=== PATIENT | male | born 1940 | race Caucasian/White ===

== ENCOUNTER 2023-09-10 21:54 | Inpatient (IN) ==
--- OUTSIDE RECORDS SUMMARY | 2023-09-10 21:59 | External Medical Summary ---
Author Name Unknown Address Unknown Organization K0G[facility] [address] [place] [id number] Laboratory Report Ordering Provider Test Date Status CHRISTIANMADYCory 08/13/2023 08:15:00 Final Warfarin Therapy
INR: 2 .0-3.0 conventional anticoagulation
INR: 2.5- 3.5 high intensity anticoagulation Observation Date Value Abnormality Reference (Units ) Status PT 08/13/2023 08:15:00 28.0 Above high normal 11 .6-15.2 (seconds) Final INR 08/13/2023 08:15:00 2.6 Above high normal 0. 8-1.2 Final Performing Location [facility] [address] [place] [id number]
--- OUTSIDE RECORDS SUMMARY | 2023-09-10 21:59 | External Medical Summary | Summary of Care ---
Author Name Unknown Organization [facility] Address [address] [place] [address] Phone [phone] Care Team Providers Care Multiplex Operator Name Role Phone Ignacio Prado MD Primary Care Provider [phone]- [phone] Reason for Visit * Reason Onset Date Comments Health Maintenance 07/25/2023 Encounter Details Date Type Department Care Team (Late st Contact Info) Description 07/25/2023 Telephone [facility] [address] [place] [address] Ignacio Prado MD [address] [place] [address] Health Maintenance Allergies No known active allergiesdocumented as of this encounter (statuses as of 07/25/2023) Medications Medication Sig Dispensed Refills Start Date End Date Status NIZORAL SHAM 2 % EXIndications:Seborr heic dermatitis, unspecified as directed 1 5 03/13/2002 Active NASAL SALINE 0.65 % NA SOLNIndications:[employer] Processing [employer] Leader 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,Other acute sinusitis,Postnasal drip flush each nostril morning and night and every 2-4 hrs as needed for nasal dryness or congestion 1 Bottle 3 11/17/2010 Active HYDROCORTISONE 2.5 % EX CREA to affected areas as needed 0 08/23/2014 Active metoprolol succinate XL (TOPROL XL) 25 MG [id number]:Pers istent atrial fibrillation (HCC) Take 0.5 Tabs by mouth daily. 45 Tab 3 03/20/2017 Active Tamsulosin HCl 0.4 MG Oral Capsule (FLOMAX) Take 1 Capsule by mouth at bedtime. 0 06/24/2020 Active Acetaminophen 500 MG Oral Tablet (Tylenol) Take 1 Tablet by mouth every 6 hours as needed for Pain. 1-2 tabs 0 Active Fluticasone Propionate 50 MCG/ACT Nasal Suspension (Flonase) INSTILL 2 SPRAYS IN EACH NOSTRIL EVERY DAY NEEDED 0 03/17/2020 Active Atorvastatin Calcium 40 MG Oral Tablet (Lipitor) Take 1 Tablet by mouth in the morning. 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 current use of anticoagulant therapy TAKE 1 TO 2 TABLETS BY MOUTH ONCE DAILY DIRECTED BY COUMADIN CLINIC 180 Tablet 3 07/05/2023 Active documented as of this encounter (statuses as of 07/25/2023) Active Problems Problem Noted Date Diagnosed Date H/O right inguinal hernia repair 07/01/2023 Moderate dementia with anxiety 07/01/2023 At risk for falls 07/01/2023 Nocturia 07/01/2023 Chronic sinusitis 07/01/2023 Atherosclerosis of [place] artery of lower extrem ity 07/01/2023 Cerebral atrophy 07/01/2023 Coronary artery disease invo lving [place] coronary artery of [place] heart without angina pectoris 07/01/2023 Alcohol ingestion, 1-4 drinks per day 07/01/2023 Polyp of colon 07/01/2023 BPH with obstruction/lower urinary tract symptom s 07/01/2023 Diverticulosis of large intestine without hemorr jessica 07/01/2023 Constipation 12/14/2022 S/P hip replacement, right 12/14/2022 Loss of weight 12/14/2022 Dilated aortic root 01/11/2022 Prediabetes 12/26/2020 Overview: Per Prediabetes protocol Chronic atrial fibrillation 10/15/2019 Warfarin anticoagulation 10/15/2019 Overview: For atrial fibrillation Non-sustained ventricular tachycardia 10/15/2019 Dyslipidemia, goal LDL below 100 09/28/2013 NONALLERGIC RHINITIS 11/17/2010 Noise-induced hearing loss 09/16/1993 Overview: Mod Bilat sensorineural hearing loss History of tobacco use documented as of this encounter (statuses as of 07/25/2023) Resolved Problems Problem Noted Date Diagnosed Date Resolved Date Dementia without behavioral disturbance, psychotic disturbance, mood disturbance, or anxiety 12/14/2022 01/07/2023 Persistent atrial fibrillation 04/04/2015 10/15/2019 Family history of ischemic heart disease 09/28/2013 08/14/2018 Atrial fibrillation 08/07/2013 04/04/20 15 Postnasal drip 11/17/2010 08/14/2018 Seborrheic dermatitis 2017 Overview: ICD-10 update of inactive term DIVERTICULOSIS OF COLON 07/18 documented as of this encounter (statuses as of 07/25/2023) Immunizations Name Administration Dates Next Due COVID-19 mRNA, LNP-s, No Pre serve, 2-Dose Series (Moderna) 12/12/2020,11/14/2020 COVID-19, mRNA, LNP-s, PF, B ooster, 100mcg/0.5mg (Moderna) 08/14/2021 Pneumococcal Conjugate Vacc, 13 Valent (Prevnar) 07/20/2015 Pneumococcal Conjugate Vaccine, 7 Valent 002 Pneumococcal Polysaccharide PPV23 (Pneumovax) 07/16/2018,05/17/2017,06/16/2002 SEASONAL INFLUENZA, PF, 6 M & Above, IM , (FLULAVAL or FLUZONE) 06/27/2019,06/20/2018,06/20/2017 Seasonal Influenza, Quadriva lent Hd (Fluzone Hd) 06/24/2021,06/22/2020 Seasonal Influenza, Quadriva lent Hd, 65+ Yrs 06/14/2022 Seasonal Influenza, Quadrivalent, ID 06/22/2020 Seasonal Influenza, Quadriva lent, No Preserve, IM 07/19/2016,07/20/2015 Seasonal Influenza, Split, I IV3, With Preserve, Inj 06/29/2014,06/21/2013,06/25/2010 TD - Tetanus/Diptheria (ADULT) 02/02/2003,1998 TDAP (age 10 and older)(Boostrix) 01/28/2013 Varicella Zoster Vaccine (Adult) 09/21/2015,12/2004 documented as of this encounter Social History Tobacco Use Types Packs/Day Years Used Date Smoking Tobacco: Former Cigarettes 1.5 30 Q uit: 06/16/1993 Smokeless Tobacco: Never Comments:no passive smoke Alcohol Use Standard Drinks/Week Comments Yes 16.7 (1 standard drink = 0.6 oz pure alcohol) once in awhile PHQ-2 Answer Date Recorded PHQ-2 Score 0 05/09/2020 Hunger Vital Sign Answer Date Recorded Worried About Running Out of Food in the Last Ye ar Never true 07/30/2019 Ran Out of Food in the Last Year Never true 07/30/2019 Sex and Gender Information Value Date Recorded Sex Assigned at Male 10/13/2019 12:48 PM EST Gender Identity Male 10/13/2019 12:48 PM EST Sexual Orientation Straight 10/13/2019 12 :39 PM EST Job Start Date Occupation Industry Not on file Not on file Not on file documented as of this encounter Miscellaneous Notes * Telephone Encounter - Katie Franklin LPN - 07/25/2023 11:44 AM EST Care Gaps Comprehensive Care Outreach Last Office/Telemedicine Visit: 05/10/2023 (in office), Visit date not found (telemedicine) Next Office Visit: 11/14/2023 Hemoglobin AIC Results: Lab Results Component Value Date/Time HEMOGLOBIN A1C - [facility] 6.0 (H) 06/15/2022 12:38 PM Reviewed Health Maintenance below: Health Maintenance Topic Date Due DXA Scan Never done Zoster Vaccines (2 of 3) 11/16/2015 COLONOSCOPY-EVERY 5 YRS AGES 18-100 05/07/2021 Depression Screening 05/09/2021 DTaP,Tdap,and Td Vaccines (2 - Td or Tdap) 01/28/2023 Dexa Colon discuss with pcp due to age Care Gap Outreach Action Taken: Unable to reach documented in this encounter Plan of Treatment Upcoming Encounters Date Type Department Care Team (Late st Contact Info) Description 07/30/2023 8:20 AM EST Laboratory Lab Mobile Phlebotomy [facility] [address] [place] [address] [facility] Mobile Home Draw [address] [place] [address] 07/31/2023 6:00 AM EST Anticoagulation Pharmacy Call Center [phone] [facility] [address] C[facility], [facility] [address] [facility] [address] 08/06/2023 2:00 PM EST [facility] [address] Evy Cummings CRNP [address] [place] [address] 08/14/2023 1:30 PM EST Office Visit [facility] [address] Parth Montero, PA-C [address] [place] [address] 11/14/2023 9:20 AM EST Office Visit Family [facility] [address] [place] [phone] Ignacio Prado MD [address] [place] [address] 11/25/2023 10:00 AM EDT Office Visit Dermat[facility] [address] [facility] [address] Jimmy Henderson MD [address] [facility] [place] [address] 07/06/2024 12:00 PM EDT Office Visit Care at Home [address], [place] [id number] Debo Perkins PA-C [address] [place] [address] Scheduled Procedures Name Priority Associated Diagnoses Date/Ti me COLONOSCOPY FLEXIBLE PROXIMAL DIAGNOSTIC Recall History of colon polyps Health Maintenance Due Date Last Done Comments DXA Scan 1940 Zoster Vaccines (2 of 3) 11/16/2015 09/21/2015, 12/2004 COLONOSCOPY-EVERY 5 YRS AGES 18-100 05/07/2021 05/07/2016, 10/29/2005 Depression Screening 05/09/2021 05/09/2020 DTaP,Tdap,and Td Vaccines (2 - Td or Tdap) 01/28/2023 01/28/2013, 02/02/2003, 09/16/1998 COVID-19 Vaccine (4 - season) 2023 08/14/2021, 12/12/2020, 11/14/2020 Influenza Vaccine (FLU shot) (#1) 2023 06/14/2022, 06/24/2021, 06/22/2020, Additional history exists HbA1c 06/15/2023 06/15/2022, 10/17, 07/07/2012, Additional history exists Pneumococcal Vaccine: 65+ Years Completed 07/16/2018, 05/17/2017, 07/20/2015, Additional history exists GARDASIL-HPV IMMUNIZATION SERIES Aged Out No longer eligible based on patient's age to complete this topic Hepatitis B Aged Out No longer eligi ble based on patient's age to complete this topic MENINGOCOCCAL (MENACTRA/MENVEO) Aged Out No longer eligible based on patient's age to complete this topic documented as of this encounter Medical Devices Not on filedocumented as of this encounter Advance Directives Documents on File Type Date Recorded Patient Scalper Operator Expl anation Advance Directives and Living Will 03/01/2021 ADVANCE DIRECTIVE / LIVING WILL Power of Parking Lot Spotter 03/01/2021 POWER OF A TTORNEY Care Teams Multiplex Operator Relationship Specialty Start Date End Date Ignacio Prado MD [address] [place] [address] PCP - General 07/04/00 documented as of this encounter
--- OUTSIDE RECORDS SUMMARY | 2023-09-10 21:59 | External Medical Summary | Summary of Care ---
Author Name Unknown Organization [facility] Address [address] [place] [address] Phone [phone] Care Team Providers Care Scrap Iron Cutter Name Role Phone Khoa Bunn MD Primary Care Provider [phone]- [phone] Reason for Visit * Reason Comments eRx-Medication Refill Encounter Details Date Type Department Care Team Description 07/05/2023 Refill [facility] [address] [place] [address] Khoa Bunn MD [address] [place] [address] Persistent atrial fibrillation (HCC); Anticoagulation management encounter; salvage determiner current use of anticoagulant therapy Allergies No known active allergiesdocumented as of this encounter (statuses as of 07/05/2023) Medications Medication Sig Dispensed Refills Start Date End Date Status NIZORAL SHAM 2 % EXIndications:Sebo rrheic dermatitis, unspecified as directed 1 5 2 Active NASAL SALINE 0.65 % NA SOLNIndications:Ch ronic rhinitis,Other acute sinusitis,Postnasa l drip flush each nostril morning and night and every 2-4 hrs as needed for nasal dryness or congestion 1 Bottle 3 1 Active HYDROCORTISONE 2.5 % EX CREA to affected areas as needed 0 4 Active metoprolol succinate XL (TOPROL XL) 25 MG [id number]:Pe rsistent atrial fibrillation (HCC) Take 0.5 Tabs by mouth daily. 45 Tab 3 07/05/201 7 Active Tamsulosin HCl 0.4 MG Oral Capsule (FLOMAX) Take 1 Capsule by mouth at bedtime. 0 0 Active Acetaminophen 500 MG Oral Tablet (Tylenol) Take 1 Tablet by mouth every 6 hours as needed for Pain. 1-2 tabs 0 Active Fluticasone Propionate 50 MCG/ACT Nasal Suspension (Flonase) INSTILL 2 SPRAYS IN EACH NOSTRIL EVERY DAY NEEDED 0 0 Active Atorvastatin Calcium 40 MG Oral Tablet (Lipitor) Take 1 Tablet by mouth in the morning. 30 Tablet 0 1 Active Amoxicillin 500 MG Oral Capsule (Amoxil) TAKE FOUR CAPSULES BY MOUTH ONE HOUR BEFORE APPOINTMENT 0 2 Active Neomycin-Polymyxin -Dexameth 3.5-67746-0.1 Ophthalmic Ointment (Maxitrol)Indicati ons:Periorbital edema of both eyes APPLY TOPICALLY TO SKIN UNDER EYES DAILY AT BEDTIME, 3.5 g 3 3 Active Warfarin Sodium 2.5 MG Oral Tablet (Coumadin)Indicati ons:Persistent atrial fibrillation (HCC),Anticoagulat ion management encounter,salvage determiner current use of anticoagulant therapy TAKE 1 TO 2 TABLETS BY MOUTH ONCE DAILY DIRECTED BY [facility]ADIN CLINIC 180 Tablet 3 3 Active Warfarin Sodium 2.5 MG Oral Tablet (Coumadin)Indicati ons:Persistent atrial fibrillation (HCC),Anticoagulat ion management encounter,salvage determiner current use of anticoagulant therapy TAKE 1 TO 2 TABLETS BY MOUTH ONCE DAILY DIRECTED BY [facility]MADIN CLINIC 180 Tablet 1 2 07/05/20 23 Discontinued documented as of this encounter (statuses as of 07/05/2023) Active Problems Problem Noted Date H/O right inguinal hernia repair 023 Moderate dementia with anxiety 3 At risk for falls 07/01/2023 Nocturia 07/01/2023 Chronic sinusitis 07/01/2023 Atherosclerosis of [place] artery of lowe r extremity 07/01/2023 Cerebral atrophy 07/01/2023 Coronary artery disease invo lving [place] coronary artery of [place] heart without angina pectoris 07/01/2023 Alcohol ingestion, 1-4 drinks per day Polyp of colon 07/01/2023 BPH with obstruction/lower urinary tract symptoms 07/01/2023 Diverticulosis of large intestine withou t hemorrhage 07/01/2023 Constipation 12/14/2022 S/P hip replacement, right 12/14/2022 Loss of weight 12/14/2022 Dilated aortic root 01/11/2022 Prediabetes 12/26/2020 Overview: Per Prediabetes protocol Chronic atrial fibrillation 10/15/2019 Warfarin anticoagulation 10/15/2019 Overview: For atrial fibrillation Non-sustained ventricular tachycardia Dyslipidemia, goal LDL below 100 014 NONALLERGIC RHINITIS 11/17/2010 Noise-induced hearing loss 09/16/1993 Overview: Mod Bilat sensorineural hearing loss History of tobacco use documented as of this encounter (statuses as of 07/05/2023) Resolved Problems Problem Noted Date Resolved Date Dementia without behavioral disturbance, psychotic disturbance, mood disturbance, or anxiety 12/14/2022 01/07/2023 Persistent atrial fibrillation 04/04/2015 0 10/15/2019 Family history of ischemic heart disease 014 08/14/2018 Atrial fibrillation 08/07/2013 04/04/2015 Postnasal drip 11/17/2010 08/14/2018 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 Overview: ICD-10 update of inactive term DIVERTICULOSIS OF COLON 08/14/20 18 documented as of this encounter (statuses as of 07/05/2023) Immunizations Name Administration Dates Next Due COVID-19 [...] 0.6 oz pure alcohol) once in awhile Food Insecurity Answer Date Recorded Within the past 12 months, y ou worried that your food would run out before you got money to buy more. Never true 07/30/2019 Within the past 12 months, t he food you bought just didn't last and you didn't have money to get more. Never true 07/30/2019 Sex Assigned at Date Recorded Male 10/13/2019 12:48 PM EST Job Start Date Occupation Industry Not on file Not on file Not on file documented as of this encounter Miscellaneous Notes * Telephone Encounter - Murray Burkett [facility] - 07/05/2023 3:06 PM EDTSigned Prescriptions: Disp Refills Warfarin Sodium 2.5 MG Oral Tablet (Coumad*180 Ta*3 Sig: TAKE 1 TO 2 TABLETS BY MOUTH ONCE DAILY DIRECTED BY COUMADIN CLINIC Authorizing Provider: KHOA BUNN Ordering User: MURRAY BURKETT * Telephone Encounter - Murray Foster [facility] - 07/05/2023 1:03 PM EDTPending Prescriptions: Disp Refills Warfarin Sodium 2.5 MG Oral Tablet 180 Ta*0 Sig: TAKE 1 TO 2 TABLETS BY MOUTH ONCE DAILY DIRECTED BY COUMADIN CLINIC documented in this encounter Plan of Treatment Upcoming Encounters Date Type Specialty Care Team Description 07/09/2023 Laboratory Laboratory Processing [facility] Mobile Home Draw [address] [place] [address] 07/10/2023 Anticoagulation Pharmacy [facility] [address] [place] [address] 08/06/2023 Office Visit Cardiology Evy Cummings CRNP [address] [place] [address] 08/14/2023 Office Visit Cardiology Parth Montero PA-C [address] [place] [address] 11/14/2023 Office Visit Family Medicine Khoa Bunn MD [address], [place] [phone] 11/25/2023 Office Visit Dermatology Jimmy Henderson MD [address] [place] [address] 07/06/2024 Office Visit Family Medicine [place], Debo Cervantes PA-C [address] [place] [address] Scheduled Procedures Name Priority Associated Diagnoses Date/Ti [...] Not on filedocumented as of this encounter Visit Diagnoses Diagnosis Persistent atrial fibrillation (HCC) Atrial fibrillation Anticoagulation management encounter Encounter for therapeutic drug monitoring senior care current use of anticoagulant therapy documented in this encounter Advance Directives Documents on File Type Date Recorded Patient Hunter Guide Expl anation Advance Directives and Living Will 03/01/2021 ADVANCE DIRECTIVE / LIVING WILL Power of Account Support Rep 03/01/2021 POWER OF A TTORNEY Care Teams Scrap Iron Cutter Relationship Specialty Start Date End Date Khoa Bunn MD [address] [place] [address] PCP - General 07/04/00 documented as of this encounter
--- OUTSIDE RECORDS SUMMARY | 2023-09-10 21:59 | External Medical Summary | Summary of Care ---
Author Name Unknown Organization [facility] Address [address] [place] [address] Phone [phone] Care Team Providers Care Hearing Specialist Name Role Phone Khoa Bunn MD Primary Care Provider [phone] Reason for Referral * Evaluate & Treat - Unlimited Visits (Within 10 days (routine)) - Authorized Specialty Diagnoses / Procedures Referred By Contzacarias t Referred To Contact Legal Summer Intern Diagnoses Cerebral atrophy (HCC) Debo Perkins PA-C [address] [place] [address] Referral ID Status Reason Start Date Expiration Date Visits Requested Visits Authorized [id number] Authorized Specialty Services Required 3 [phone] Question Answer Referral Priority Within 10 days (routine) Where should this appointment be scheduled? [facility] Role Community Health/Case Management Assistants [facility]/[employer] Referral Reason Home Visit Comments Is patient being transitioned from [facility] to Complex Case Management? No ? Resources for caregiver for dementia worsening Reason for Visit * Reason Comments Adult Annual Wellness Visit, Initial Vis it Encounter Details Date Type Department Care Team Description 07/01/2023 Home Visit Care at Home [address] [place] [address] Debo Perkins PA-C [address] [place] [address] Chronic atrial fibrillation (HCC)*; Constipation, unspecified constipation type; Dilated aortic root (HCC); Dyslipidemia, goal LDL below 100; History of tobacco use; Loss of weight; Moderate dementia with anxiety, unspecified dementia type (HCC); Atherosclerosis of [place] artery of lower extremity, unspecified laterality, with unspecified presence of clinical manifestation (HCC); Cerebral atrophy (HCC); Noise-induced hearing loss of both ears; Non-sustained ventricular tachycardia (HCC); NONALLERGIC RHINITIS; Prediabetes; S/P hip replacement, right; Warfarin anticoagulation; H/O right inguinal hernia repair; At risk for falls; Nocturia; Chronic sinusitis, unspecified location; Coronary artery disease involving [place] coronary artery of [place] heart without angina pectoris; Alcohol ingestion, 1-4 drinks per day; Polyp of colon, unspecified part of colon, unspecified type; BPH with obstruction/lower urinary tract symptoms; Diverticulosis of large intestine without hemorrhage Allergies No known active allergiesdocumented as of this encounter (statuses as of 07/01/2023) Medications Medication Sig Dispensed Refills Start Date End Date Status NIZORAL SHAM 2 % EXIndications:Sebo rrheic dermatitis, unspecified as directed 1 5 03/13/2002 Active NASAL SALINE 0.65 % NA SOLNIndications:Ch ronic rhinitis,Other acute sinusitis,Postnasa l drip flush each nostril morning and night and every 2-4 hrs as needed for nasal dryness or congestion 1 Bottle 3 11/17/2010 Active HYDROCORTISONE 2.5 % EX CREA to affected areas as needed 0 08/23/2014 Active metoprolol succinate XL (TOPROL XL) 25 MG [id number]:Pe rsistent atrial fibrillation (HCC) Take 0.5 Tabs [...] ONE HOUR BEFORE APPOINTMENT 0 07/10/2022 Active Warfarin Sodium 2.5 MG Oral Tablet (Coumadin)Indicati ons:Persistent atrial fibrillation (HCC),Anticoagulat ion management encounter,[facility] current use of anticoagulant therapy TAKE 1 TO 2 TABLETS BY MOUTH ONCE DAILY DIRECTED BY [facility]IC 180 Tablet 1 08/31/2022 Active Neomycin-Polymyxin -Dexameth [id number] Ophthalmic Ointment (Maxitrol)Indicati ons:Periorbital edema of both eyes APPLY TOPICALLY TO SKIN UNDER EYES DAILY AT BEDTIME, 3.5 g 3 05/10/2023 Active Donepezil HCl 5 MG Oral Tablet (Aricept) Take 1 Tablet by mouth in the morning. Take with largest meal of the day.. 30 Tablet 5 12/14/2022 3 Discontinue d(Medicatio n List Clean Up) documented as of this encounter (statuses as of 07/01/2023) Active Problems Problem Noted Date H/O right inguinal hernia repair 023 Moderate dementia with anxiety 3 At risk for falls 07/01/2023 Nocturia 07/01/2023 Chronic sinusitis 07/01/2023 Atherosclerosis of [place] artery of lowe r extremity 07/01/2023 Cerebral atrophy 07/01/2023 Coronary artery disease invo lving [place] coronary artery of [place] heart without angina pectoris 07/01/2023 Alcohol ingestion, [...] as of this encounter (statuses as of 07/01/2023) Resolved Problems Problem Noted Date Resolved Date Dementia without behavioral disturbance, psychotic disturbance, mood disturbance, or anxiety 12/14/2022 01/07/2023 Persistent atrial fibrillation 04/04/2015 0 10/15/2019 Family history of ischemic heart disease 014 08/14/2018 Atrial fibrillation 08/07/2013 04/04/2015 Postnasal drip 11/17/2010 08/14/2018 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 Overview: ICD-10 update of inactive term DIVERTICULOSIS OF COLON 08/14/20 18 documented as of this encounter (statuses as of 07/01/2023) Immunizations Name Administration Dates Next Due COVID-19 [...] on file documented as of this encounter Last Filed Vital Signs Vital Sign Reading Time Taken Comments Blood Pressure 126/68 07/01/2023 2:17 PM EDT Pulse 73 07/01/2023 2:17 PM EDT Temperature 36.7 C (98.1 F) 07/01/2023 2:17 PM ED T Respiratory Rate 18 07/01/2023 2:17 PM EDT Oxygen Saturation 98% 07/01/2023 2:17 PM EDT Inhaled Oxygen Concentration - - Weight - - Height - - Body Mass Index - - documented in this encounter Progress Notes * Debo Perkins PA-C - 07/01/2023 9:43 AM EDT Images from the original note were not included. ANNUAL HEALTH RISK ASSESSMENT Care at Home [address] [facility] [address] Patient Name: Dimitrios Carreon : 1940 Date of Assessment: 07/01/2023 Gender: Male [facility] [address] [phone] Extended Emergency Contact Information Primary Emergency Contact: DOROTHY CARREON Mobile Relation: Spouse Secondary Emergency Contact: RANDI MONTOYA Relation: Adult Child HRA Intake Documentation: Advance Care Planning: Advance Directive Type: Organ Donor and Information given: Yes Advance Directive Date: na Medical Adherence: Patient is able to obtain all of her medications? Yes Patient takes medications as prescribed? Yes Patient uses a pill box? Yes, refill(s) completed by self Admissions (within the last year): Not Applicable Hospital ER within 30 days: No Health Maintenance Last physical exam: 05/27/23 Does patient see provider regularly? Yes, Primary Care Provider Spirometry: No Dental Exam: Yes: When: every 6 months and Where: dr [facility] Other Test(s) - No time frame specified VASCULAR LAB RESULTS DATE OF EXAM: 11/13/2010 PRESENTING CONDITIONS: Tobacco Use. PHYSICIAN REPORT: Screening Abdominal Aorta Aneurysm Duplex Examination Immediately before proceeding with the vascular lab procedure reported below, the identity of the patient, the correct exam and the correct procedural site were verified. This is an interpretation of an exam performed at the [facility]. Two-dimension hsu-scale ultrasound imaging of the abdominal aorta was performed. Following examination of the abdominal aorta from the diaphragm to the umbilicus, measurement of the aorta was limited to the segment of greatest diameter. The diameter measurement of the abdominal aorta is within normal limits. IMPRESSION: There is no evidence of an abdominal aortic aneurysm. TECHNIQUE Helical images were obtained through the paranasal sinuses. Axial and coronal reformattedimages were evaluated. COMPARISON: None. FINDINGS: A few mastoid tip air cells are opacified on the right. The left mastoid air cells and both middle ear cavities are well pneumatized. There is mild bilateral maxillary sinus mucosal thickening. A small mucus retention cyst is seen in the anterior right maxillary antrum. There are no air-fluid levels. Mild ethmoid sinus mucosal thickening is seen. There is minimal mucosal thickening in the inferior frontal sinus. There is minimal mucosal thickening in the sphenoid sinus. Mild right nasal septal deviation is noted. There is no nasal cavity mass. The right ethmoid infundibulum is markedly narrowed by mucosal thickening. The left ethmoid infundibulum is completely opacified by mucosalthickening. IMPRESSION: Mild paranasal sinus disease as above. The right ethmoid infundibulum is markedly narrowed and the left infundibulum is completely opacified by mucosal thickening. EXAM XR HIP BILAT MIN 5 VIEWS INCLUDING AP OF PELVIS- 10/16/2019 11:03 am HISTORY Provided clinical history: "right hip pain, decreased ROM both hips" TECHNIQUE AP view of the pelvis and dedicated AP and frog-leg lateral views of each hip were obtained. COMPARISON No comparisons FINDINGS Osteoarthritis of both hips, phefevke-mh-uvcphf on the right and mild on the left. No significant joint malalignment. No fracture or aggressive osseous lesion identified. Vascular calcifications noted. IMPRESSION IMPRESSION Osteoarthritis of both hips, dfqeqxbe-og-denquc on the right. 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 COMPARISON None FINDINGS There is no evidence of restricted diffusion to indicate ischemia. No acute intracranial hemorrhage, hydrocephalus, downward herniation, midline shift, mass lesions or extra-axial fluid collections are demonstrated. No abnormal susceptibility artifact No abnormal enhancement. Moderate diffuse volume loss with proportionate prominence of the ventricles and sulci. Patchy and scattered foci of T2 prolongation in the subcortical and periventricular white matter are nonspecific and may reflect sequela of chronic microvascular ischemia. Flow voids are preserved in the proximal intracranial vessels. The midline structures including the pituitary, corpus callosum, brainstem, pineal region and craniocervical junction are unremarkable. Normal orbits. The paranasal sinuses and mastoid air cells are predominantly clear. Calvarium and visualized craniofacial soft tissues are unremarkable. IMPRESSION IMPRESSION Findings most suggestive of chronic microvascular ischemia and global cerebral volume loss, withoutevidence of superimposed acute ischemia. I have personally reviewed this examination and agree with the resident/fellow physician's interpretation. Specimen Collected: 11/28/21 13:22 Last Resulted: 11/28/21 14:21 Narrative & Impression PROCEDURE INFORMATION: Exam: CT Chest With Contrast; Diagnostic Exam date and time: 07/05/2022 11:00 AM Age: 82 years old Clinical indication: Abnormal weight loss TECHNIQUE: Imaging protocol: Diagnostic computed tomography of the chest with contrast. Radiation optimization: All CT scans at this facility use at least one of these dose optimization techniques: automated exposure control; mA and/or kV adjustment per patient size (includes targeted exams where dose is matched to clinical indication); or iterative reconstruction. Contrast material: OPTIRAY 350; Contrast volume: 100 ml; Contrast route: INTRAVENOUS (IV); COMPARISON: CR XR CHEST 2 VIEWS 02/01/2021 11:02 AM FINDINGS: Lungs: Unremarkable. No consolidation. No masses. Pleural spaces: Unremarkable. No pneumothorax. No pleural effusion. Heart: Coronary artery atherosclerosis is noted. Lymph nodes: Calcified mediastinal and hilar lymph nodes, suggestive of remote granulomatous disease. Vasculature: Unremarkable. No aortic aneurysm. Bones/joints: Unremarkable. No acute fracture. Soft tissues: Unremarkable. IMPRESSION IMPRESSION: No acute findings. EXAM US ABDOMEN LIMITED-01/16/2023 10:16 am HISTORY Right groin pain and bulge. Evaluate for hernia. TECHNIQUE Targeted ultrasound. COMPARISON CT abdomen/pelvis 07/05/2022. FINDINGS Targeted superficial ultrasound was performed in the region of the right groin. Small fat containing right groin hernia noted. IMPRESSION IMPRESSION As above. REASON FOR STUDY: 7 days CONCLUSIONS: Preliminary Findings 3 Ventricular Tachycardia runs occurred, the run with the fastest interval lasting 4 beats with a max rate of 182 bpm, the longest lasting 10 beats with an avg rate of 104 bpm. Atrial Fibrillation occurred continuously (100% burden), ranging from 36-165 bpm (avg of 69 bpm). 15 Pauses occurred, the longest lasting 3.6 secs (17 bpm). Isolated VEs were occasional (2.2%, 74248), VE Couplets were rare (<1.0%, 409), and VE Triplets were rare (<1.0%, 22). Ventricular Bigeminy and Trigeminy were present. Agree with Preliminary Findings Afib CONCLUSIONS: Atrial fibrillation with slow ventricular response with premature ventricular or aberrantly conducted complexes Abnormal ECG When compared with ECG of 05-FEB-2022 09:35, No significant change was found Ventricular Rate: 56 Atrial Rate: 81 QRS Duration: 82 QT/QTc: 424/409 ms P-R-T [place]: 0 : 81 : 77 degrees Cultural Needs: Preferred Language: New Zealander Sabianist/Cultural Barriers Identified: 930 Patient and Caregiver Support System: Patient lives: with a spouse and with children Means of Transportation: Drives. Not a concern. and very little Patient lives in: One Story - with basement stairs: 12 steps Functional Status and ADL Skills: Ambulation: Independent Dressing: Gets clothes and dresses without any assistance except for tying shoes: Independent Repositioning (bed or chair): Bed Status: Not applicable Able to move freely in chair or bed including turning over: Independent Transfers: Independent Toileting: Goes to bathroom, uses toilet, arranges clothes and returns without any assistance: Independent Continence status: continent of bladder and continent of bowel Feeding: Self Bathing: Self; grab bar Requires none assistance with ADLs. DME Vendor Name: N/A Fall Risk Assessment: Fall risk factors present. History of falls within the past 12 months Uses more than 4 medications Balance or gait disturbances Older than age 70 Iuu-Yy-puz-Go Test: Time began at 930. Patient stood from sitting position and walked [id number] feet, returned and sat down. Total time for vei-tv-jqx-go test was 13 seconds. The fall risk appears to be increased based on time > 16 sec on "Get Up and Go" test. Nutritional Health Checklist: Changed food due to illness or condition: Yes (2 pts) Eat fewer than 2 meals per day: No (0 pts) Eat few fruits veggies or milk products: No (0 pts) 3 or more drinks or beer, liquor, wine daily: No (0 pts) Tooth or mouth problem: No (0 pts) Not enough money to purchase food: No (0 pts) Eat alone: No (0 pts) 3 or more medications taken per day: Yes (2 pts) Weight change of 10 lbs. In 6 months: Loss, Yes (2 pts) Not always able to shop, cook or feed self: No (0 pts) Total points: 6 Nutritional Health Score & Recommendation: 6 or more: High nutritional risk Depression Screening: PHQ2 Depression Screening Measure Rehab initial measurement Rehab discharge measurement 1. Little interest or pleasure in doing things 1 - several days 2. Feeling down, depressed, or hopeless 1 - several days PHQ-2 Total (sum of all above): 2 1. Feeling nervous, anxious or on edge several days 2. Not being able to stop or control worrying several days YAZ-2 Total (sum of all above): 2 Social Determinants of Health Screening: SDoH Screening Tool Social Determinants of Health Tobacco Use: Medium Risk Smoking Tobacco Use: Former Smokeless Tobacco Use: Never Passive Exposure: Not on file Alcohol Use: Not on file Financial Resource Strain: Not on file Food Insecurity: Not on file Transportation Needs: Not on file Physical Activity: Not on file Stress: Not on file Social Connections: Not on file Intimate Partner Violence: Not on file Depression: Not on file Housing Stability: Not on file Community Resources: Community Resources: Not Applicable Potential Resource Needs from Benefits Identified: No HRA Provider Assessment Documentation: Objective 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 Seborrheic dermatitis, unspecified Warfarin anticoagulation 10/15/2019 Patient Active Problem List Diagnosis Code NONALLERGIC RHINITIS J31.0 Dyslipidemia, goal LDL below 100 E78.5 Chronic atrial fibrillation (HCC) I48.20 Warfarin anticoagulation Z79.01 Non-sustained ventricular tachycardia (HCC) I47.29 History of tobacco use Z87.891 Noise-induced hearing loss H83.3X9 Prediabetes R73.03 Dilated aortic root ([facility]) I77.810 Constipation K59.00 S/P hip replacement, right Z96.641 Loss of weight R63.4 H/O right inguinal hernia repair Z98.890, Z87.19 Moderate dementia with anxiety ([facility]) F03.B4 At risk for falls Z91.81 Nocturia R35.1 Chronic sinusitis J32.9 Atherosclerosis of [place] artery of lower extremity ([facility]) I70.209 Cerebral atrophy ([facility]) G31.9 Coronary artery disease involving [place] coronary artery of [place] heart without angina pectoris I25.10 Alcohol ingestion, 1-4 drinks per day Z78.9 Polyp of colon K63.5 BPH with obstruction/lower urinary tract symptoms N40.1, N13.8 Diverticulosis of large intestine without hemorrhage K57.30 Family History Problem Relation Age of Onset Diabetes Mother Heart Disorder Mother of [place] age 79 Heart Disorder Father of [place] at 72 Diabetes Sister Cancer Brother Colon Neurological Disorder Uncle (Unspecified) Alzheimer's Valvular heart disease Daughter Review of patient's allergies indicates: No Known Allergies Current Outpatient Medications Medication Sig Dispense Refill NIZORAL SHAM 2 % EX as directed 1 5 NASAL SALINE 0.65 % NA SOLN flush each nostril morning and night and every 2-4 hrs as needed for nasal dryness or congestion 1 Bottle 3 HYDROCORTISONE 2.5 % EX CREA to affected areas as needed metoprolol succinate XL (TOPROL XL) 25 MG TB24 Take 0.5 Tabs by mouth daily. 45 Tab 3 Tamsulosin HCl 0.4 MG Oral Capsule (FLOMAX) Take 1 Capsule by mouth at bedtime. Acetaminophen 500 MG Oral Tablet (Tylenol) Take 1 Tablet by mouth every 6 hours as needed for Pain.1-2 tabs Fluticasone Propionate 50 MCG/ACT Nasal Suspension (Flonase) INSTILL 2 SPRAYS IN EACH NOSTRIL EVERYDAY NEEDED Atorvastatin Calcium 40 MG Oral Tablet (Lipitor) Take 1 Tablet by mouth in the morning. 30 Tablet Amoxicillin 500 MG Oral Capsule (Amoxil) TAKE FOUR CAPSULES BY MOUTH ONE HOUR BEFORE APPOINTMENT Warfarin Sodium 2.5 MG Oral Tablet (Coumadin) TAKE 1 TO 2 TABLETS BY MOUTH ONCE DAILY DIRECTED BY COUMADIN CLINIC 180 Tablet 1 Czficyna-Loyqtkirv-Ahbirbbk 3.5-54482-1.1 Ophthalmic Ointment (Maxitrol) APPLY TOPICALLY TO SKIN UNDER EYES DAILY AT BEDTIME, 3.5 g 3 No current facility-administered medications for this visit. Past Surgical History: Procedure Laterality Date COLONOSCOPY 10/17/2005 nl except diverticulosis - repeat 10 years COLONOSCOPY, DIAGNOSTIC (RECTUM) 05/07/2016 adenomatous polyp, diverticulosis repeat 5 yrs/[facility] [place] ARTHRP ACETBLR/PROX FEM PROSTC AGRFT/ALGRFT Right 2020 RMV LSN SCLP,NCK,EXT 1.1-2.0CM 04/16/1995 Excision inf R submandibular sebaceous cyst STRESS ECHO (EXERCISE) 10/17/2003 normal SURGICAL PROCEDURE ONLY Right 04/16/2023 OPEN REPAIR RIGHT INGUINAL HERNIA GENERAL Immunization History Administered Date(s) Administered COVID-19 mRNA, LNP-s, No Preserve, 2-Dose Series (Moderna) 11/14/2020, 12/12/2020 COVID-19, mRNA, LNP-s, PF, Booster, 100mcg/0.5mg (Moderna) 08/14/2021 Pneumococcal Conjugate Vacc, 13 Valent (Prevnar) 07/20/2015 Pneumococcal Conjugate Vaccine, 7 Valent 06/16/2002 Pneumococcal Polysaccharide PPV23 (Pneumovax) 06/16/2002, 05/17/2017, 07/16/2018 SEASONAL INFLUENZA, PF, 6 M & Above, IM , (FLULAVAL or FLUZONE) 06/20/2017, 06/20/2018, 06/27/2019 Seasonal Influenza, Quadrivalent Hd (Fluzone Hd) 06/22/2020, 06/24/2021 Seasonal Influenza, Quadrivalent Hd, 65+ Yrs 06/14/2022 Seasonal Influenza, Quadrivalent, ID 06/22/2020 Seasonal Influenza, Quadrivalent, No Preserve, IM 07/20/2015, 07/19/2016 Seasonal Influenza, Split, IIV3, With Preserve, Inj 06/30/2002, 08/10/2003, 06/25/2005, 06/25/2010,06/21/2013, 06/29/2014 TD - Tetanus/Diptheria (ADULT) 09/16/1998, 02/02/2003 TDAP (age 10 and older)(Boostrix) 01/28/2013 Varicella Zoster Vaccine (Adult) 07/20/2005, 09/21/2015 Preventative Plan: Diabetes (Fasting plasma glucose every 3 years): Hemoglobin AIC Results: Lab Results Component Value Date/Time HEMOGLOBIN A1C - [facility] 6.0 (H) 06/15/2022 12:38 PM Lipid Testing (Every 5 years): Lipid Panel Results: Results for orders placed or performed in visit on 12/24/11 LIPID PANEL Result Value Ref Range CHOLESTEROL-Outside Lab 171 112 - 200 mg/dl TRIGLYCERIDES-OUTSIDE LAB 46 40 - 160 mg/dl HDL-OUTSIDE LAB 77 (A) 40 - 60 mg/dl LDL CHOLESTEROL-OUTSIDE LAB 85 5 - 100 mg/dl VLDL CHOL-OUTSIDE LAB 9 5 - 40 mg/dl Colonoscopy or other screenin05/07/16 Health Maintenance Topic Date Due DXA Scan Never done Zoster Vaccines (2 of 3) 11/16/2015 COLONOSCOPY-EVERY 5 YRS AGES 18-100 05/07/2021 Depression Screening 05/09/2021 DTaP,Tdap,and Td Vaccines (2 - Td or Tdap) 01/28/2023 Influenza Vaccine (FLU shot) (1) 05/17/2023 COVID-19 Vaccine (4 - 2022- season) 2023 HbA1c 06/15/2023 Pneumococcal Vaccine: 65+ Years Completed Hepatitis B Aged Out MENINGOCOCCAL (MENACTRA/MENVEO) Aged Out GARDASIL-HPV IMMUNIZATION SERIES Aged Out Review of Systems: Review of Systems All other systems reviewed and are negative. Physical Exam: Vitals: 07/01/23 1417 Temp: 36.7 C (98.1 F) Pulse: 73 Resp: 18 SpO2: 98% BP: 126/68 Pain Screening: no Pain Scale: 0 = none There is no height or weight on file to calculate BMI. Physical Exam Constitutional: Appearance: Normal appearance. HENT: Head: Normocephalic. Eyes: Extraocular Movements: Extraocular movements intact. Neck: Vascular: No carotid bruit. Cardiovascular: Rate and Rhythm: Normal rate. Rhythm irregular. Pulses: Normal pulses. Pulmonary: Effort: Pulmonary effort is normal. Breath sounds: Normal breath sounds. Abdominal: General: Bowel sounds are normal. Palpations: Abdomen is soft. Musculoskeletal: Cervical back: Neck supple. Right lower leg: Edema present. Skin: General: Skin is warm and dry. Neurological: Mental Status: He is alert. Comments: Alert to person and place. Answers most questions appropriately. Demented at baseline Psychiatric: Mood and Affect: Mood normal. Behavior: Behavior normal. Lab Data: Lab Results Component Value Date/Time BUN - [facility] 18 01/16/2023 10:25 AM BUN - [facility] 11 05/09/2020 02:44 PM Lab Results Component Value Date/Time CREATININE - [facility] 0.8 01/16/2023 10:25 AM CREATININE - [facility] 0.9 05/09/2020 02:44 PM CREATININE-OUTSIDE LAB 0.77 10/26/2020 12:00 AM Lab Results Component Value Date/Time GLUCOSE 104 07/09/1996 08:00 AM GLUCOSE - [facility] 108 01/16/2023 10:25 AM GLUCOSE - [facility] 105 05/09/2020 02:44 PM GLUCOSE URINE, POCT - [facility] Negative 01/27/2021 12:00 AM GLUCOSE-OUTSIDE LAB 104 (A) 10/26/2020 12:00 AM No components found for: [id number] Lab Results Component Value Date/Time LD - [facility] 155 07/23/2022 02:00 PM LDL (CALCULATED) 158. (H) 07/09/1996 08:00 AM LDL (CALCULATED)-OU[facility]IDE LAB 101 (A) 11/13/2019 12:00 AM LDL (DIRECT MEASURE)-OUTS[facility] LAB 101.3 03/07/2016 12:00 AM LDL CHOLESTEROL (CALCULATED) - [facility] 151 (H) 06/17/2002 08:43 AM LDL CHOLESTEROL-OUTSIDE LAB 85 12/10/2011 12:00 AM No results found for: MICROALBUMIN Assessment/Plan: Dimitrios was seen today for adult annual wellness visit, initial visit. Diagnoses and all orders for this visit: Chronic atrial fibrillation (HCC) Constipation, unspecified constipation type Dilated aortic root (HCC) Dyslipidemia, goal LDL below 100 History of tobacco use Loss of weight Moderate dementia with anxiety, unspecified dementia type (HCC) Atherosclerosis of [place] artery of lower extremity, unspecified laterality, with unspecified presence of clinical manifestation (HCC) Cerebral atrophy (HCC) - [facility] REFERRAL OP Noise-induced hearing loss of both ears Non-sustained ventricular tachycardia (HCC) NONALLERGIC RHINITIS Prediabetes S/P hip replacement, right Warfarin anticoagulation H/O right inguinal hernia repair At risk for falls Nocturia Chronic sinusitis, unspecified location Coronary artery disease involving [place] coronary artery of [place] heart without angina pectoris Alcohol ingestion, 1-4 drinks per day Polyp of colon, unspecified part of colon, unspecified type BPH with obstruction/lower urinary tract symptoms Diverticulosis of large intestine without hemorrhage PLAN Pt reports no active issues or adverse effects to the established treatment plan. No changes at this time. Strongly advised to contact her care team if changes occur. Care Planning (3+ Personal and/or Medical Goals): Eat healthy Maintain independence Maintain current activity level Treatment Plan: Continue present medication and follow up with PCP as needed AZEB referral for possible rn critical care. (Dementia) Follow Up/Handouts: CAHAWV f/u one year Debo Perkins PA-C documented in this encounter Plan of Treatment Upcoming Encounters Date Type Specialty Care Team Description 07/09/2023 Laboratory Laboratory Processing [facility], [facility] Draw [address] [place] [address] 07/10/2023 Anticoagulation Pharmacy [facility] [address] [place] [address] 08/06/2023 Office Visit Cardiology Evy Cummings CRNP [address] [place] [address] 08/14/2023 Office Visit Cardiology Parth Montero PA-C [address] [place] [address] 11/14/2023 Office Visit Family Medicine Khoa Bunn MD [address] [place] [address] 11/25/2023 Office Visit Dermatology Jimmy Henderson MD [address] [place], [place] [phone] 07/06/2024 Office Visit Family Medicine Debo Perkins PA-C [address] [place] [address] Scheduled Procedures Name Priority Associated Diagnoses Date/Ti me COLONOSCOPY FLEXIBLE PROXIMAL DIAGNOSTIC Recall History of colon polyps Scheduled Referrals Name Type Priority Associated Diagnoses Orde r Schedule POPULATION HEALTH REFERRAL OP Referral Within 10 days (routine) Cerebral atrophy (HCC) Ordered: 07/01/2023 Health Maintenance Due Date Last Done Comments DXA Scan 1940 Zoster Vaccines (2 of 3) 11/16/2015 09/21/2015, 12/2004 COLONOSCOPY-EVERY 5 YRS AGES 18-100 05/07/2021 05/07/2016, 10/29/2005 Depression Screening 05/09/2021 05/09/2020 DTaP,Tdap,and Td Vaccines (2 - Td or Tdap) 01/28/2023 01/28/2013, 02/02/2003, 09/16/1998 COVID-19 Vaccine (4 - 2022- season) 2023 08/14/2021, 12/12/2020, 11/14/2020 Influenza Vaccine [...] as of this encounter Visit Diagnoses Diagnosis Chronic atrial fibrillation (HCC)- Primary Atrial fibrillation Constipation, unspecified constipation type 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 Dyslipidemia, goal LDL below 100 Other and unspecified hyperlipidemia History of tobacco use Personal history of tobacco use, presenting hazards to health Loss of weight Moderate dementia with anxiety, unspecified dementia type (HCC) Atherosclerosis of [place] artery of lower extremity, unspecified laterality, with unspecified presence of clinical manifestation (HCC) Cerebral atrophy (HCC) Cerebral degeneration, unspecified Noise-induced hearing loss of both ears Non-sustained ventricular tachycardia (HCC) Paroxysmal ventricular tachycardia NONALLERGIC RHINITIS Chronic rhinitis Prediabetes Other abnormal glucose S/P hip replacement, right Warfarin anticoagulation Long-term (current) use of anticoagulants H/O right inguinal hernia repair Other postprocedural status At risk for falls Personal history of fall Nocturia Chronic sinusitis, unspecified location Coronary artery disease involving [place] coronary artery of [place] heart without angina pectoris Alcohol ingestion, 1-4 drinks per day Other problems related to lifestyle Polyp of colon, unspecified part of colon, unspecified type BPH with obstruction/lower urinary tract symptoms Hypertrophy of prostate with urinary obstruction and other lower urinary tract symptoms (LUTS) Diverticulosis of large intestine without hemorrhage documented in this encounter Advance Directives Documents on File Type Date Recorded Patient Data Analysis Intern Expl anation Advance Directives and Living Will 03/01/2021 ADVANCE DIRECTIVE / LIVING WILL Power of Solid Waste Collection Worker 03/01/2021 POWER OF A TTORNEY Care Teams Hearing Specialist Relationship Specialty Start Date End Date Khoa Bunn MD [address] [place] [address] PCP - General 07/04/00 documented as of this encounter
--- OUTSIDE RECORDS SUMMARY | 2023-09-10 21:59 | External Medical Summary ---
Author Name Unknown Address Unknown Organization K0G[facility] [address] [place] [address] Laboratory Report Ordering Provider Test Date Status MADY GONZALESCory 07/30/2023 08:36:00 Final Warfarin Therapy
INR: 2 .0-3.0 conventional anticoagulation
INR: 2.5- 3.5 high intensity anticoagulation Observation Date Value Abnormality Reference (Units ) Status PT 07/30/2023 08:36:00 21.1 Above high normal 11 .6-15.2 (seconds) Final INR 07/30/2023 08:36:00 1.8 Above high normal 0. 8-1.2 Final Performing Location [facility] [address] [place] [address]
--- OUTSIDE RECORDS SUMMARY | 2023-09-10 21:59 | External Medical Summary | Summary of Care ---
Author Name Unknown Organization [facility] Address [address] [place] [address] Phone [phone] Care Team Providers Care Aegis Console Operator Track Name Role Phone Ignacio Prado MD Primary Care Provider +1- [phone] Reason for Visit * Reason Comments Dosage Adjustment Via Phone (anticoag Cl inic) Encounter Details Date Type Department Care Team (Latest Contact Info) Description 07/31/2023 6:00 AM EST Anticoagulation Pharmacy Call Center [address] [place] [address] [facility] [address] [place] [address] Chronic atrial fibrillation (HCC)* Allergies No known active allergiesdocumented as of this encounter (statuses as of 07/31/2023) Medications Medication Sig Dispensed Refills Start Date End Date Status NIZORAL SHAM 2 % EXIndications:Seborr heic dermatitis, unspecified as directed 1 5 03/13/2002 Active NASAL SALINE 0.65 % NA SOLNIndications:Brusher Operator 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,Other acute sinusitis,Postnasal drip flush each nostril morning and night and every 2-4 hrs as needed for nasal dryness or congestion 1 Bottle 3 11/17/2010 Active HYDROCORTISONE 2.5 % EX CREA to affected areas as needed 0 08/23/2014 Active metoprolol succinate XL (TOPROL XL) 25 MG [id number]:Pers istent atrial fibrillation (HCC) Take 0.5 Tabs [...] ONE HOUR BEFORE APPOINTMENT 0 07/10/2022 Active Ldgezwnv-Vjmzdebdc-G exameth 3.5-12641-1.1 Ophthalmic Ointment (Maxitrol)Indication s:Periorbital edema of both eyes APPLY TOPICALLY TO SKIN UNDER EYES DAILY AT BEDTIME, 3.5 g 3 05/10/2023 Active Warfarin Sodium 2.5 MG Oral Tablet (Coumadin)Indication s:Persistent atrial fibrillation (HCC),Anticoagulatio n management encounter,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 current use of anticoagulant therapy TAKE 1 TO 2 TABLETS BY MOUTH ONCE DAILY DIRECTED BY COUMADIN CLINIC 180 Tablet 3 07/05/2023 Active documented as of this encounter (statuses as of 07/31/2023) Active Problems Problem Noted Date Diagnosed Date H/O right inguinal hernia repair 07/01/2023 Moderate dementia with anxiety 07/01/2023 At risk for falls 07/01/2023 Nocturia 07/01/2023 Chronic sinusitis 07/01/2023 Atherosclerosis of [place] artery of lower extrem ity 07/01/2023 Cerebral atrophy 07/01/2023 Coronary artery disease invo lving [place] coronary artery of [place] heart without angina pectoris 07/01/2023 Alcohol ingestion, [...] as of this encounter (statuses as of 07/31/2023) Resolved Problems Problem Noted Date Diagnosed Date [...] as of this encounter (statuses as of 07/31/2023) Immunizations Name Administration Dates Next Due COVID-19 [...] on file documented as of this encounter Progress Notes * Srikanth Simons CPhT - 07/31/2023 8:10 AM EST Contacts Type Contact Phone/Fax 07/31/2023 08:09 AM EST Phone (Outgoing) JONNY CARREON (Emergency Contact) [phone] Subjective Patient Findings Negatives: Signs/symptoms of thrombosis, Signs/symptoms of bleeding, Change in health, Change in alcohol use, Change in activity, Upcoming invasive procedure, Missed doses, Extra doses, Change in medications, Change in diet/appetite, Bruising Advised patient to contact Anticoagulation Clinic if any unusual bruising or bleeding, recent illness, changes in medication, or questions/concerns. PT/INR results, Coumadin dose instructions, and next PT/INR date communicated as noted by Pharmacist: Yes Srikanth Simons CPhT 07/31/2023, 8:10 AM * Pamela Lacey RPh - 07/31/2023 7:57 AM EST Images from the original note were not included. Coumadin Clinic (region specific) Objective Current Warfarin Dose As of 07/31/2023 Warfarin maintenance plan: 2.5 mg (2.5 mg x 1) every Tue, Val, Sat; 3.75 mg (2.5 mg x 1.5) all other days INR Result As of 07/31/2023 INR goal: 2.0-3.0 INR used for dosin.8 (07/30/2023) Assessment & Plan Warfarin Plan As of 07/31/2023 Full warfarin instructions: 07/31: 5 mg; Otherwise 2.5 mg every Tue, Val, Sat; 3.75 mg all other days Next INR check: 08/13/2023 Repeat PT/INR in 2 week(s) Weekly dose: not changed Additional Dosing Information: Description [facility] to contact patient with dose instructions as noted. Pamela Lacey RPh 07/31/2023, 7:58 AM documented in this encounter Plan of Treatment Upcoming Encounters Date Type Department Care Team (Late st Contact Info) Description 08/06/2023 2:00 PM EST Office Visit Cardiology, [facility] 132 [facility] [place] [address] [facility]ings [facility] [address] [facility] [phone] 08/13/2023 8:30 AM EST Laboratory Lab Mobile Phlebotomy [facility] [address] [place] [address] [facility], [facility] Mobile Home Draw [address] [place] [address] 08/14/2023 6:00 AM EST Anticoagulation Pharmacy Call Center [facility] [address] [place] [address] [facility], [facility] [address] [facility] [place] [address] 08/14/2023 1:30 PM EST Office Visit Cardiology, [facility] [address] [facility] [address] Parth Montero PA-Angelica [address] [place] [address] 11/14/2023 9:20 AM EST Office Visit Family Practice, [place] [address] [place] [address] Ignacio Prado MD [address] [place], [place] [address] 11/25/2023 10:00 AM EDT Office Visit Dermatology [facility] [address] [place] [address] Jimmy Henderson MD [address] [place] [address] 07/06/2024 12:00 PM EDT Office Visit Care at Home [address] [place], [place] [phone] Debo Perkins PA-C [address] [place], [place] [phone] Scheduled Procedures Name Priority Associated Diagnoses Date/Ti me COLONOSCOPY FLEXIBLE PROXIMAL DIAGNOSTIC Recall History of colon polyps Health Maintenance Due Date Last Done Comments DXA Scan 1940 Zoster Vaccines (2 of 3) 11/16/2015 09/21/2015, 12/2004 COLONOSCOPY-EVERY 5 YRS AGES 18-100 05/07/2021 05/07/2016, 10/29/2005 Depression Screening 05/09/2021 05/09/2020 DTaP,Tdap,and Td Vaccines (2 - Td or Tdap) 01/28/2023 01/28/2013, 02/02/2003, 09/16/1998 COVID-19 Vaccine ( season) 2023 08/14/2021, 12/12/2020, 11/14/2020 Influenza Vaccine [...] Chronic atrial fibrillation (HCC)- Primary Atrial fibrillation documented in this encounter Advance Directives Documents on File Type Date Recorded Patient Biometrician Expl anation Advance Directives and Living Will 03/01/2021 ADVANCE DIRECTIVE / LIVING WILL Power of Ladle Builder 03/01/2021 POWER OF A TTORNEY Care Teams Aegis Console Operator Track Relationship Specialty Start Date End Date Ignacio Prado MD [address] [place] [address] PCP - General 07/04/00 documented as of this encounter
--- OUTSIDE RECORDS SUMMARY | 2023-09-10 21:59 | External Medical Summary | Summary of Care ---
Author Name Unknown Organization [facility] Address [address] [place] [address] Phone [phone] Care Team Providers Care Selling Manager Name Role Phone Ignacio Prado MD Primary Care Provider +1- [phone] Reason for Visit * Reason Comments Dosage Adjustment Via Phone (anticoag Cl inic) Encounter Details Date Type Department Care Team (Latest Contact Info) Description 08/28/2023 6:00 AM EST Anticoagulation Pharmacy Call Center [address] [place] [address] [facility] [address] [facility] [place] [address] Chronic atrial fibrillation (HCC)* Allergies No known active allergiesdocumented as of this encounter (statuses as of 08/28/2023) Medications Medication Sig Dispensed Refills Start Date End Date Status NIZORAL SHAM 2 % EXIndications:Seborr heic dermatitis, unspecified as directed 1 5 03/13/2002 Active NASAL SALINE 0.65 % NA SOLNIndications:Academic Affairs Vice President 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,Other acute sinusitis,Postnasal drip flush each nostril morning and night and every 2-4 hrs as needed for nasal dryness or congestion 1 Bottle 3 11/17/2010 Active HYDROCORTISONE 2.5 % EX CREA to affected areas as needed 0 08/23/2014 Active metoprolol succinate XL (TOPROL XL) 25 MG [id number]:Pers istent atrial fibrillation (HCC) Take 0.5 Tabs [...] ONE HOUR BEFORE APPOINTMENT 0 07/10/2022 Active Wsryaygi-Vonndcjek-W exameth 3.5-13674-2.1 Ophthalmic Ointment (Maxitrol)Indication s:Periorbital edema of both eyes APPLY TOPICALLY TO SKIN UNDER EYES DAILY AT BEDTIME, 3.5 g 3 05/10/2023 Active Warfarin Sodium 2.5 MG Oral Tablet (Coumadin)Indication s:Persistent atrial fibrillation (HCC),Anticoagulatio n management encounter,braider tender current use of anticoagulant therapy TAKE 1 TO 2 TABLETS BY MOUTH ONCE DAILY DIRECTED BY COUMADIN CLINIC 180 Tablet 3 07/05/2023 Active documented as of this encounter (statuses as of 08/28/2023) Active Problems Problem Noted Date Diagnosed Date H/O right inguinal hernia repair 07/01/2023 Moderate dementia with anxiety 07/01/2023 At risk for falls 07/01/2023 Nocturia 07/01/2023 Chronic sinusitis 07/01/2023 Atherosclerosis of [place] artery of lower extrem ity 07/01/2023 Cerebral atrophy 07/01/2023 Coronary artery disease invo lving [place] coronary artery of [place] heart without angina pectoris 07/01/2023 Alcohol ingestion, [...] as of this encounter (statuses as of 08/28/2023) Resolved Problems Problem Noted Date Diagnosed Date [...] as of this encounter (statuses as of 08/28/2023) Immunizations Name Administration Dates Next Due COVID-19 mRNA, LNP-s, No Pre serve, 2-Dose Series (Moderna) 12/12/2020,11/14/2020 COVID-19, mRNA, LNP-s, PF, B ooster, 100mcg/0.5mg (Moderna) 08/14/2021 Pneumococcal Conjugate Vacc, 13 Valent (Prevnar) 07/20/2015 Pneumococcal Conjugate Vaccine, 7 Valent 002 Pneumococcal Polysaccharide PPV23 (Pneumovax) 07/16/2018,05/17/2017,06/16/2002 Seasonal Influenza, PF, 6 M & above, IM , (FluLaval or Fluzone) 06/27/2019,06/20/2018,06/20/2017 Seasonal Influenza, Quadriva lent Hd (Fluzone [...] as of this encounter Progress Notes * Nina Gotti PHARM Tech - 08/28/2023 8:02 AM EST Contacts Type Contact Phone/Fax 08/28/2023 08:00 AM EST Phone (Outgoing) DOROTHY CARREON (Emergency Contact) [phone] Spoke to Patient Subjective Patient Findings Negatives: Signs/symptoms of bleeding, Change in health, Change in activity, Upcoming invasive procedure, Missed doses, Extra doses, Change in medications, Change in diet/appetite, Bruising Advised patient to contact Anticoagulation Clinic if any unusual bruising or bleeding, recent illness, changes in medication, or questions/concerns. PT/INR results, Coumadin dose instructions, and next PT/INR date communicated as noted by Pharmacist: Yes ANA LILIA RODRÍGUEZ 08/28/2023, 8:02 AM * Pamela Lacey RPh - 08/28/2023 7:54 AM EST Coumadin Clinic (region specific) Objective Current Warfarin Dose As of 08/28/2023 Warfarin maintenance plan: 2.5 mg (2.5 mg x 1) every Tue, Val, Sat; 3.75 mg (2.5 mg x 1.5) all other days INR Result As of 08/28/2023 INR goal: 2.0-3.0 INR used for dosin.6 (08/27/2023) Assessment & Plan Warfarin Plan As of 08/28/2023 Full warfarin instructions: 2.5 mg every Tue, Val, Sat; 3.75 mg all other days No change documented: Pamela Lacey RPh Next INR check: 09/17/2023 Repeat PT/INR in 3 week(s) Weekly dose: not changed Additional Dosing Information: Description L [facility] to contact patient with dose instructions as noted. Pamela Lacey RPh 08/28/2023, 7:54 AM documented in this encounter Plan of Treatment Upcoming Encounters Date Type Department Care Team (Late st Contact Info) Description 09/18/2023 6:00 AM EST Anticoagulation Pharmacy Call Center [address] [place] [address] [facility] [address] [place] [address] 11/14/2023 9:20 AM EST Office Visit [facility] [address] [place] [address] Ignacio Prado MD [address] [place] [address] 11/25/2023 10:00 AM EDT Office Visit Dermatology [address] [place], [place] [address] Jimmy Henderson MD 200 [facility] [place] [address] 02/13/2024 2:30 PM EDT Office Visit Cardiology, [facility] [address] [place] [address] Parth Montero PA-C [address] [place] [address] 07/06/2024 12:00 PM EDT Office Visit Care at Home [address] [place], [place] [address] Debo Perkins PA-C [address] [place], [place] [address] 07/31/2024 2:30 PM EST Office Visit Cardiology, [facility] [address] [place] [address] Evy Cummings CRNP [address] [place] [address] Scheduled Procedures Name Priority Associated Diagnoses Date/Ti [...] Documents on File Type Date Recorded Patient Accounts Payable Technician Expl anation Advance Directives and Living Will 03/01/2021 ADVANCE DIRECTIVE / LIVING WILL Power of Career Discovery Teacher 03/01/2021 POWER OF A TTORNEY Care Teams Selling Manager Relationship Specialty Start Date End Date Ignacio Prado MD [address] [place] [address] PCP - General 07/04/00 documented as of this encounter
--- OUTSIDE RECORDS SUMMARY | 2023-09-10 21:59 | External Medical Summary | Summary of Care ---
Author Name Unknown Organization [facility] Address [address] [place] [address] Phone [phone] Care Team Providers Care Career Transition Specialist Name Role Phone Ignacio Prado MD Primary Care Provider +1- [phone] Reason for Visit * Reason Onset Date Comments Appointment 05/29/2023 Encounter Details Date Type Department Care Team Description 05/29/2023 Telephone Care at Home [address] [place] [address] Services, Scheduling [address] [place] [address] Appointment Allergies No known active allergiesdocumented as of this encounter (statuses as of 06/06/2023) Medications Medication Sig Dispensed Refills Start Date End Date Status NIZORAL SHAM 2 % EXIndications:Seborr heic dermatitis, unspecified as directed 1 5 03/13/2002 Active NASAL SALINE 0.65 % NA SOLNIndications:Plant Maintenance Supervisor 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,Other acute sinusitis,Postnasal drip flush each nostril morning and night and every 2-4 hrs as needed for nasal dryness or congestion 1 Bottle 3 11/17/2010 Active HYDROCORTISONE 2.5 % EX CREA to affected areas as needed 0 08/23/2014 Active metoprolol succinate XL (TOPROL XL) 25 MG [id number]:Pers istent atrial fibrillation (HCC) Take 0.5 Tabs [...] (Coumadin)Indication s:Persistent atrial fibrillation (HCC),Anticoagulatio n management encounter,bed bug exterminator current use of anticoagulant therapy TAKE 1 TO 2 TABLETS BY MOUTH ONCE DAILY DIRECTED BY COUMADIN CLINIC 180 Tablet 1 08/31/2022 Active Donepezil HCl 5 MG Oral Tablet (Aricept) Take 1 Tablet by mouth in the morning. Take with largest meal of the day.. 30 Tablet 5 12/14/2022 Active Whbrhrai-Lfvmyrwdy-D exameth 3.5-82799-6.1 Ophthalmic Ointment (Maxitrol)Indication s:Periorbital edema of both eyes APPLY TOPICALLY TO SKIN UNDER EYES DAILY AT BEDTIME, 3.5 g 3 05/10/2023 Active documented as of this encounter (statuses as of 06/06/2023) Active Problems Problem Noted Date Constipation 12/14/2022 S/P hip replacement, right 12/14/2022 [...] as of this encounter (statuses as of 06/06/2023) Resolved Problems Problem Noted Date Resolved Date Dementia without behavioral disturbance, psychotic disturbance, mood disturbance, or anxiety 12/14/2022 01/07/2023 Persistent atrial fibrillation 04/04/2015 0 10/15/2019 Family history of ischemic heart disease 014 08/14/2018 Atrial fibrillation 08/07/2013 04/04/2015 Postnasal drip 11/17/2010 08/14/2018 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 Overview: ICD-10 update of inactive term DIVERTICULOSIS OF COLON 08/14/20 18 documented as of this encounter (statuses as of 06/06/2023) Immunizations Name Administration Dates Next Due COVID-19 mRNA, LNP-s, No Pre serve, 2-Dose Series (Moderna) 12/12/2020,11/14/2020 COVID-19, mRNA, LNP-s, PF, B ooster, 100mcg/0.5mg (Moderna) 08/14/2021 Pneumococcal Conjugate Vacc, 13 Valent (Prevnar) 07/20/2015 Pneumococcal Conjugate Vacci ne, 7 Valent 06/16/2002 Pneumococcal Polysaccharide PPV23 (Pneumovax) 07/16/2018,05/17/2017,06/16/2002 Seasonal Influenza, PF, 6 mo ns & Above, IM , (Flulaval) 06/27/2019,06/20/2018,06/20/2017 Seasonal Influenza, Quadriva lent Hd (Fluzone Hd) 06/24/2021,06/22/2020 Seasonal Influenza, Quadriva lent Hd, 65+ Yrs 06/14/2022 Seasonal Influenza, Quadrivalent, ID 06/22/2020 Seasonal Influenza, Quadriva lent, No Preserve, IM 07/19/2016,07/20/2015 Seasonal Influenza, Split, I IV3, With Preserve, Inj 06/29/2014,06/21/2013,06/25/2010,06/25,08/10/2003,06/30/2002 TD - Tetanus/Diptheria (ADULT) 02/02/2003,1998 TDAP (age [...] encounter Miscellaneous Notes * Telephone Encounter - Debo Mancia [facility] Captain - 06/06/2023 9:21 AM EDT Rescheduled from 06/10/23 to 07/01/23 ZORAN Irizarry * Telephone Encounter - ZORAN Márquez - 05/30/2023 10:35 AM EDT Care At Home Outreach Call attempt: 2nd Call Call result: Call Successful - Patient enrolled and agreed to visit. Appointment with: Debo Perkins PA-C Visit Date: 06/10/23 Visit Time: 9:00am ZORAN Márquez * Telephone Encounter - ZORAN Márquez - 05/29/2023 12:13 PM EDT Care At Home Outreach Call attempt: 1st Call Call result: Call Unsuccessful - Left a voice mail Looking to schedule patient and spouse for AWV with Debo Perkins PA-C Can offer: 06/03/23 or 06/05/23 Provided a call back number of [phone]. ZORAN Márquez documented in this encounter Plan of Treatment Upcoming Encounters Date Type Specialty Care Team Description 06/14/2023 [facility] Tele[facility]acy, [facility] [address] [place] [address] 06/28/2023 Office Visit Cardiology Evy Cummings CRNP [address] [place] [address] 07/01/2023 Home Visit Family Medicine Debo Perkins PA-C [address] [place] [address] 08/14/2023 Office Visit Cardiology Parth Montero PA-C [address] [place] [address] 11/14/2023 Office Visit Family Medicine Ignacio Prado MD [address] [place], [place] [address] 11/25/2023 Office Visit Dermatology Jimmy Henderson MD [address] [place], [place] [address] Scheduled Procedures Name Priority Associated Diagnoses Date/Ti me COLONOSCOPY FLEXIBLE PROXIMAL DIAGNOSTIC Recall History of colon polyps Health Maintenance Due Date Last Done Comments DXA Scan 1940 Zoster Vaccines (2 of 3) 11/16/2015 09/21/2015, 12/2004 COLONOSCOPY-EVERY 5 YRS AGES 18-100 05/07/2021 05/07/2016, 10/29/2005 Depression Screening 05/09/2021 05/09/2020 COVID-19 Vaccine (4 - Moderna series) 10/09/2021 08/14/2021, 12/12/2020, 11/14/2020 DTaP,Tdap,and Td Vaccines (2 - Td or Tdap) 01/28/2023 01/28/2013, 02/02/2003, 09/16/1998 Influenza Vaccine (FLU shot) (#1) 2023 06/14/2022, [...] Documents on File Type Date Recorded Patient Improvement Analyst Expl anation Advance Directives and Living Will 03/01/2021 ADVANCE DIRECTIVE / LIVING WILL Power of Rock Breaker 03/01/2021 POWER OF A TTORNEY Care Teams Career Transition Specialist Relationship Specialty Start Date End Date Ignacio Prado MD [address] [place] [address] PCP - General 07/04/00 documented as of this encounter
--- OUTSIDE RECORDS SUMMARY | 2023-09-10 21:59 | External Medical Summary | Summary of Care ---
Author Name Unknown Organization [facility] Address [address] [place] [address] Phone [phone] Care Team Providers Care Restorative Coordinator Name Role Phone Ignacio Prado MD Primary Care Provider +1- [phone] Reason for Visit * Reason Comments Dosage Adjustment Via Phone (anticoag Cl inic) Encounter Details Date Type Department Care Team (Latest Contact Info) Description 08/14/2023 6:00 AM EST Anticoagulation Pharmacy Call Center [address] [place] [address] [facility] [address] [place] [address] Chronic atrial fibrillation (HCC)* Allergies No known active allergiesdocumented as of this encounter (statuses as of 08/14/2023) Medications Medication Sig Dispensed Refills Start Date End Date Status NIZORAL SHAM 2 % EXIndications:Seborr heic dermatitis, unspecified as directed 1 5 03/13/2002 Active NASAL SALINE 0.65 % NA SOLNIndications: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 Operations 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,Other acute sinusitis,Postnasal drip flush each nostril morning and night and every 2-4 hrs as needed for nasal dryness or congestion 1 Bottle 3 11/17/2010 Active HYDROCORTISONE 2.5 % EX CREA to affected areas as needed 0 08/23/2014 Active metoprolol succinate XL (TOPROL XL) 25 MG [id number]:Pers istent atrial fibrillation (HCC) Take 0.5 Tabs [...] ONE HOUR BEFORE APPOINTMENT 0 07/10/2022 Active Amnmyiqr-Cxmcnawre-D exameth 3.5-99744-1.1 Ophthalmic Ointment (Maxitrol)Indication s:Periorbital edema of both eyes APPLY TOPICALLY TO SKIN UNDER EYES DAILY AT BEDTIME, 3.5 g 3 05/10/2023 Active Warfarin Sodium 2.5 MG Oral Tablet (Coumadin)Indication s:Persistent atrial fibrillation (HCC),Anticoagulatio n management encounter,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 therapy TAKE 1 TO 2 TABLETS BY MOUTH ONCE DAILY DIRECTED BY COUMADIN CLINIC 180 Tablet 3 07/05/2023 Active documented as of this encounter (statuses as of 08/14/2023) Active Problems Problem Noted Date Diagnosed Date H/O right inguinal hernia repair 07/01/2023 Moderate dementia with anxiety 07/01/2023 At risk for falls 07/01/2023 Nocturia 07/01/2023 Chronic sinusitis 07/01/2023 Atherosclerosis of [place] artery of lower extrem ity 07/01/2023 Cerebral atrophy 07/01/2023 Coronary artery disease invo lving [place] coronary artery of [place] heart without angina pectoris 07/01/2023 Alcohol ingestion, [...] as of this encounter (statuses as of 08/14/2023) Resolved Problems Problem Noted Date Diagnosed Date [...] as of this encounter (statuses as of 08/14/2023) Immunizations Name Administration Dates Next Due COVID-19 [...] as of this encounter Progress Notes * Veronica Jiang, PHARM Student - 08/14/2023 8:18 AM EST Contacts Type Contact Phone/Fax 08/14/2023 08:14 AM EST Phone (Outgoing) DOROTHY CARREON (Emergency Contact) [phone] Subjective Patient Findings Negatives: Signs/symptoms of thrombosis, [...] date communicated as noted by Pharmacist: Yes Rosita Kent, PHARM Student Veronica Jiang RPh 08/14/2023, 8:18 AM * Pamela Lacey RPh - 08/14/2023 7:54 AM EST Coumadin Clinic (region specific) Objective Current Warfarin Dose As of 08/14/2023 Warfarin maintenance plan: 2.5 mg (2.5 mg x 1) every Tue, Val, Sat; 3.75 mg (2.5 mg x 1.5) all other days INR Result As of 08/14/2023 INR goal: 2.0-3.0 INR used for dosin.6 (08/13/2023) Assessment & Plan Warfarin Plan As of 08/14/2023 Full warfarin instructions: 2.5 mg every Tue, Val, Sat; 3.75 mg all other days No change documented: Pamela Lacey RPh Next INR check: 08/27/2023 Repeat PT/INR in 2 week(s) Weekly dose: not changed Additional Dosing Information: Description [facility] to contact patient with dose instructions as noted. Pamela Lacey RPh 08/14/2023, 7:54 AM documented in this encounter Plan of Treatment Upcoming Encounters Date Type Department Care Team (Late st Contact Info) Description 08/27/2023 9:00 AM EST Laboratory Lab Mobile Phlebotomy [facility] [address] [place] [address] [facility] Mobile Home Draw [address] [place] [address] 08/28/2023 6:00 AM EST Anticoagulation Pharmacy Call Center [address] [place] [address] [facility] 58 60 [facility] [place] [address] 11/14/2023 9:20 AM EST Office Visit Family Practice, [place] [address] [place] [phone] Ignacio Prado MD [address] [place] [address] 11/25/2023 10:00 AM EDT Office Visit Dermatology [facility] [address] [place] [address] Jimmy Henderson MD [address] [facility] [place] [address] 02/13/2024 2:30 PM EDT Office Visit Cardiology, [facility] [address] [place] [address] Parth Montero PA-C [address] [place] [address] 07/06/2024 12:00 PM EDT Office Visit Care at Home [address] [place] [address] Debo Perkins PA-C [address] [place], [place] [phone] 07/31/2024 2:30 PM EST Office Visit Cardiology, [facility] [address] [place] [address] Evy Cummings CRNP [address] [place] [phone] Scheduled Procedures Name Priority Associated Diagnoses Date/Ti [...] Documents on File Type Date Recorded 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
--- OUTSIDE RECORDS SUMMARY | 2023-09-10 21:59 | External Medical Summary | Summary of Care ---
Author Name Unknown Organization [facility] Address [address] [place] [address] Phone [phone] Care Team Providers Care Bulk Picker Name Role Phone Ignacio Prado MD Primary Care Provider +1- [phone] Reason for Visit * Reason Comments Dosage Adjustment Via Phone (anticoag Cl inic) Encounter Details Date Type Department Care Team (Latest Contact Info) Description 07/10/2023 6:00 AM EDT Anticoagulation Pharmacy Call Center [address] [place] [address] [facility] [address] [place] [address] Chronic atrial fibrillation (HCC)* Allergies No known active allergiesdocumented as of this encounter (statuses as of 07/10/2023) Medications Medication Sig Dispensed Refills Start Date End Date Status NIZORAL SHAM 2 % EXIndications:Seborr heic dermatitis, unspecified as directed 1 5 03/13/2002 Active NASAL SALINE 0.65 % NA SOLNIndications:Drapery Head Former 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,Other acute sinusitis,Postnasal drip flush each nostril morning and night and every 2-4 hrs as needed for nasal dryness or congestion 1 Bottle 3 11/17/2010 Active HYDROCORTISONE 2.5 % EX CREA to affected areas as needed 0 08/23/2014 Active metoprolol succinate XL (TOPROL XL) 25 MG [id number]:Pers istent atrial fibrillation (HCC) Take 0.5 Tabs [...] ONE HOUR BEFORE APPOINTMENT 0 07/10/2022 Active Nizajlzc-Fwppnotrk-R exameth 3.5-25253-8.1 Ophthalmic Ointment (Maxitrol)Indication s:Periorbital edema of both eyes APPLY TOPICALLY TO SKIN UNDER EYES DAILY AT BEDTIME, 3.5 g 3 05/10/2023 Active Warfarin Sodium 2.5 MG Oral Tablet (Coumadin)Indication s:Persistent atrial fibrillation (HCC),Anticoagulatio n management encounter,intermediate current use of anticoagulant therapy TAKE 1 TO 2 TABLETS BY MOUTH ONCE DAILY DIRECTED BY COUMADIN CLINIC 180 Tablet 3 07/05/2023 Active documented as of this encounter (statuses as of 07/10/2023) Active Problems Problem Noted Date Diagnosed Date H/O right inguinal hernia repair 07/01/2023 Moderate dementia with anxiety 07/01/2023 At risk for falls 07/01/2023 Nocturia 07/01/2023 Chronic sinusitis 07/01/2023 Atherosclerosis of [place] artery of lower extrem ity 07/01/2023 Cerebral atrophy 07/01/2023 Coronary artery disease invo lving [place] coronary artery of [place] heart without angina pectoris 07/01/2023 Alcohol ingestion, [...] as of this encounter (statuses as of 07/10/2023) Resolved Problems Problem Noted Date Diagnosed Date [...] as of this encounter (statuses as of 07/10/2023) Immunizations Name Administration Dates Next Due COVID-19 [...] as of this encounter Progress Notes * ANA LILIA Tilley - 07/10/2023 8:09 AM EDT Contacts Type Contact Phone/Fax 07/10/2023 08:06 AM EDT Phone (Outgoing) Dimitrios Hernandez (Self) [phone] (M) Subjective Patient Findings Negatives: Signs/symptoms of bleeding, Change in health, Change in activity, Upcoming invasive procedure, Missed doses, Extra doses, Change in medications, Change in diet/appetite, Bruising Advised patient to contact Anticoagulation Clinic if any unusual bruising or bleeding, recent illness, changes in medication, or questions/concerns. PT/INR results, Coumadin dose instructions, and next PT/INR date communicated as noted by Pharmacist: Yes SRAVANI HOPKINS diagnostics tech 07/10/2023, 8:09 AM * Pamela Lacey RP - 07/10/2023 8:00 AM EDT Coumadin Clinic (region specific) Objective Current Warfarin Dose As of 07/10/2023 Warfarin maintenance plan: 2.5 mg (2.5 mg x 1) every Tue, Val, Sat; 3.75 mg (2.5 mg x 1.5) all other days INR Result As of 07/10/2023 INR goal: 2.0-3.0 INR used for dosin.1 (07/09/2023) Assessment & Plan Warfarin Plan As of 07/10/2023 Full warfarin instructions: 2.5 mg every Tue, Val, Sat; 3.75 mg all other days No change documented: Pamela Laecy RPh Next INR check: 07/30/2023 Repeat PT/INR in 3 week(s) Weekly dose: not changed Additional Dosing Information: Description [facility] Tech to contact patient with dose instructions as noted. Pamela Lacey RPh 07/10/2023, 8:00 AM documented in this encounter Plan of Treatment Upcoming Encounters Date Type Department Care Team (Late st Contact Info) Description 07/30/2023 8:20 AM EST Laboratory Lab Mobile Phlebotomy [facility] [address] [place] [address] [facility] Mobile Home Draw [address] [place] [address] 07/31/2023 6:00 AM EST Anticoagulation Pharmacy Call Center [address] [place] [address] [facility] 58 60 [facility] [place] [address] 08/06/2023 2:00 PM EST Office Visit Cardiology, [facility] [address] [place] [address] Evy Cummings CRNP [address] [facility] [place] [phone] 08/14/2023 1:30 PM EST Office Visit Cardiology, [facility] 132 [facility] [place] [address] Parth Montero PA-C 132 [facility] [place] [address] 11/14/2023 9:20 AM EST [facility] [address] [place] [phone] Ignacio Prado MD [address] [place] [address] 11/25/2023 10:00 AM EDT Office Visit Dermatology [facility] [address] [place] [address] Jimmy Henderson MD [address] [place] [address] 07/06/2024 12:00 PM EDT Office Visit Care at Home [address] [place] [address] Debo Perkins PA-C [address] [place] [address] Scheduled Procedures Name Priority Associated [...] Documents on File Type Date Recorded Patient General Internist Expl anation Advance Directives and Living Will 03/01/2021 ADVANCE DIRECTIVE / LIVING WILL Power of Online Merchant 03/01/2021 POWER OF A TTORNEY Care Teams Bulk Picker Relationship Specialty Start Date End Date Ignacio Prado MD [address] [place] [address] PCP - General 07/04/00 documented as of this encounter
--- OUTSIDE RECORDS SUMMARY | 2023-09-10 21:59 | External Medical Summary | Summary of Care ---
Author Name Unknown Organization [facility] Address [address] [place] [address] Phone [phone] Care Team Providers Care Senior Client Advisor Name Role Phone Ignacio Prado MD Primary Care Provider +1- [phone] Reason for Visit * Reason Comments Dosage Adjustment Via Phone (anticoag Cl inic) Encounter Details Date Type Department Care Team (Latest Contact Info) Description 08/14/2023 6:00 AM EST Anticoagulation Pharmacy Call Center [address] [place] [address] [facility] [address] [place] [address] Chronic atrial fibrillation (HCC)* Allergies No known active allergiesdocumented as of this encounter (statuses as of 08/14/2023) Medications Medication Sig Dispensed Refills Start Date End Date Status NIZORAL SHAM 2 % EXIndications:Seborr heic dermatitis, unspecified as directed 1 5 03/13/2002 Active NASAL SALINE 0.65 % NA SOLNIndications: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,Other acute sinusitis,Postnasal drip flush each nostril morning and night and every 2-4 hrs as needed for nasal dryness or congestion 1 Bottle 3 11/17/2010 Active HYDROCORTISONE 2.5 % EX CREA to affected areas as needed 0 08/23/2014 Active metoprolol succinate XL (TOPROL XL) 25 MG [id number]:Pers istent atrial fibrillation (HCC) Take 0.5 Tabs [...] ONE HOUR BEFORE APPOINTMENT 0 07/10/2022 Active Dldqmcop-Kulfpdbpn-D exameth 3.5-59461-2.1 Ophthalmic Ointment (Maxitrol)Indication s:Periorbital edema of both eyes APPLY TOPICALLY TO SKIN UNDER EYES DAILY AT BEDTIME, 3.5 g 3 05/10/2023 Active Warfarin Sodium 2.5 MG Oral Tablet (Coumadin)Indication s:Persistent atrial fibrillation (HCC),Anticoagulatio n management encounter,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 anticoagulant therapy TAKE 1 TO 2 TABLETS BY MOUTH ONCE DAILY DIRECTED BY COUMADIN CLINIC 180 Tablet 3 07/05/2023 Active documented as of this encounter (statuses as of 08/14/2023) Active Problems Problem Noted Date Diagnosed Date H/O right inguinal hernia repair 07/01/2023 Moderate dementia with anxiety 07/01/2023 At risk for falls 07/01/2023 Nocturia 07/01/2023 Chronic sinusitis 07/01/2023 Atherosclerosis of [place] artery of lower extrem ity 07/01/2023 Cerebral atrophy 07/01/2023 Coronary artery disease invo lving [place] coronary artery of [place] heart without angina pectoris 07/01/2023 Alcohol ingestion, [...] EST Phone (Outgoing) DOROTHY CARREON (Emergency Contact) [phone] Subjective Patient Findings Negatives: Signs/symptoms of thrombosis, [...] not changed Additional Dosing Information: Description [facility] to contact patient with dose instructions as noted. Pamela Lacey RPh 08/14/2023, 7:54 AM documented in this encounter Plan of Treatment Upcoming Encounters Date Type Department Care Team (Late st Contact Info) Description 08/27/2023 9:00 AM EST Laboratory Lab Mobile Phlebotomy [facility] [address] [place] [address] [facility] Mobile Home Draw [address] [place] [address] 08/28/2023 6:00 AM EST Anticoagulation Pharmacy Call Center [address] [place] [address] [facility] 58 60 [facility] [place] [address] 11/14/2023 9:20 AM EST Office Visit Family Practice, [place] [address] [place] [phone] Ignacio Prado MD [address] [place] [address] 11/25/2023 10:00 AM EDT Office Visit Dermatology [facility] 200 [facility] [place] [address] Jimmy Henderson MD [address] [facility] [place] [address] 02/13/2024 2:30 PM EDT Office Visit Cardiology, [facility] 132 [place] [address] Parth Montero PA-C [address] [place] [address] 07/06/2024 12:00 PM EDT Office Visit Care at Home [address] [place] [address] Debo Perkins PA-C [address] [place], [place] [phone] 07/31/2024 2:30 PM EST Office Visit Cardiology, 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
--- OUTSIDE RECORDS SUMMARY | 2023-09-10 21:59 | External Medical Summary | Summary of Care ---
Author Name Unknown Organization [facility] Address [address] [place] [address] Phone [phone] Care Team Providers Care Calender Operator Name Role Phone Ignacio Prado MD Primary Care Provider +1- [phone] Reason for Visit * Reason Comments Dosage Adjustment Via Phone (anticoag Cl inic) Encounter Details Date Type Department Care Team Description 06/19/2023 Anticoagulation Pharmacy Call Center 58[address] [place] [address] [facility] [address] [place] [address] Chronic atrial fibrillation (HCC)* Allergies No known active allergiesdocumented as of this encounter (statuses as of 06/19/2023) Medications Medication Sig Dispensed Refills Start Date End Date Status NIZORAL SHAM 2 % EXIndications:Seborr heic dermatitis, unspecified as directed 1 5 03/13/2002 Active NASAL SALINE 0.65 % NA SOLNIndications:Mix Maker 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,Other acute sinusitis,Postnasal drip flush each nostril morning and night and every 2-4 hrs as needed for nasal dryness or congestion 1 Bottle 3 11/17/2010 Active HYDROCORTISONE 2.5 % EX CREA to affected areas as needed 0 08/23/2014 Active metoprolol succinate XL (TOPROL XL) 25 MG [id number]:Pers istent atrial fibrillation (HCC) Take 0.5 Tabs [...] (Coumadin)Indication s:Persistent atrial fibrillation (HCC),Anticoagulatio n management encounter,[facility] current use of anticoagulant therapy TAKE 1 TO 2 TABLETS BY MOUTH ONCE DAILY DIRECTED BY COUMADIN CLINIC 180 Tablet 1 08/31/2022 Active Donepezil HCl 5 MG Oral Tablet (Aricept) Take 1 Tablet by mouth in the morning. Take with largest meal of the day.. 30 Tablet 5 12/14/2022 Active Szpjroaf-Xpyyiyjzk-W exameth 3.5-77156-8.1 Ophthalmic Ointment (Maxitrol)Indication s:Periorbital edema of both eyes APPLY TOPICALLY TO SKIN UNDER EYES DAILY AT BEDTIME, 3.5 g 3 05/10/2023 Active documented as of this encounter (statuses as of 06/19/2023) Active Problems Problem Noted Date Constipation 12/14/2022 [...] as of this encounter (statuses as of 06/19/2023) Resolved Problems Problem Noted Date Resolved Date Dementia without behavioral disturbance, psychotic disturbance, mood disturbance, or anxiety 12/14/2022 01/07/2023 Persistent atrial fibrillation 04/04/2015 0 10/15/2019 Family history of ischemic heart disease 014 08/14/2018 Atrial fibrillation 08/07/2013 04/04/2015 Postnasal drip 11/17/2010 08/14/2018 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 Overview: ICD-10 update of inactive term DIVERTICULOSIS OF COLON 08/14/20 18 documented as of this encounter (statuses as of 06/19/2023) Immunizations Name Administration Dates Next Due COVID-19 [...] this encounter Progress Notes * ANA LILIA Rodríguez - 06/19/2023 9:31 AM EDT Contacts Type Contact Phone/Fax 06/19/2023 09:29 AM EDT Phone (Outgoing) Dimitrios Hernandez (Self) [phone] (M) Left Message Subjective Advised patient to contact Anticoagulation Clinic if any unusual bruising or bleeding, recent illness, changes in medication, or questions/concerns. PT/INR results, Coumadin dose instructions, and next PT/INR date communicated as noted by Pharmacist: Yes ANA LILIA RODRÍGUEZ 06/19/2023, 9:31 AM * Pamela Lacey [facility] - 06/19/2023 8:48 AM EDT Coumadin Clinic (region specific) Objective Current Warfarin Dose As of 06/19/2023 Warfarin maintenance plan: 2.5 mg (2.5 mg x 1) every Tue, Val, Sat; 3.75 mg (2.5 mg x 1.5) all other days INR Result As of 06/19/2023 INR goal: 2.0-3.0 INR used for dosin.4 (06/18/2023) Assessment & Plan Warfarin Plan As of 06/19/2023 Full warfarin instructions: 2.5 mg every Tue, Val, Sat; 3.75 mg all other days No change documented: Pamela Lacey RPh Next INR check: 07/09/2023 Repeat PT/INR in 3 week(s) Weekly dose: not changed Additional Dosing Information: Description [facility] Tech to contact patient with dose instructions as noted. Pamela Lacey RPh 06/19/2023, 8:49 AM documented in this encounter Plan of Treatment Upcoming Encounters Date Type Specialty Care Team Description 06/28/2023 Office Visit Cardiology Evy Cummings CRNP [address] [place] [address] 07/01/2023 Home Visit Family Medicine Debo Perkins PA-C [address] [place], [place] [phone] 07/09/2023 Laboratory Laboratory Processing [facility] Mobile Home Draw [address] [place] [address] 07/10/2023 Anticoagulation Pharmacy [facility] [address] [place] [address] 08/14/2023 Office Visit Cardiology Parth Montero PA-C [address] [place] [address] 11/14/2023 Office Visit Family Medicine Ignacio Prado MD [address] [place] [address] 11/25/2023 Office Visit Dermatology Jimmy Henderson MD [address] [place] [address] Scheduled Procedures Name Priority Associated Diagnoses Date/Ti [...] Documents on File Type Date Recorded Patient Unix Architect Expl anation Advance Directives and Living Will 03/01/2021 ADVANCE DIRECTIVE / LIVING WILL Power of Bus Analyst 03/01/2021 POWER OF A TTORNEY Care Teams Calender Operator Relationship Specialty Start Date End Date Ignacio Prado MD [address] [place] [address] PCP - General 07/04/00 documented as of this encounter
--- OUTSIDE RECORDS SUMMARY | 2023-09-10 21:59 | External Medical Summary | Summary of Care ---
Author Name Unknown Organization [facility] Address [address] [place] [address] Phone [phone] Care Team Providers Care Mailer Apprentice Name Role Phone Ignacio Prado MD Primary Care Provider +1- [phone] Reason for Visit * Reason Onset Date Comments Appointment 05/29/2023 Encounter Details Date Type Department Care Team Description 05/29/2023 Telephone Care at Home [address] [place] [address] Services, Scheduling [address] [place] [address] Appointment Allergies No known active allergiesdocumented as of this encounter (statuses as of 06/06/2023) Medications Medication Sig Dispensed Refills Start Date End Date Status NIZORAL SHAM 2 % EXIndications:Seborr heic dermatitis, unspecified as directed 1 5 03/13/2002 Active NASAL SALINE 0.65 % NA SOLNIndications:Drawbridge Operator 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,Other acute sinusitis,Postnasal drip flush each nostril morning and night and every 2-4 hrs as needed for nasal dryness or congestion 1 Bottle 3 11/17/2010 Active HYDROCORTISONE 2.5 % EX CREA to affected areas as needed 0 08/23/2014 Active metoprolol succinate XL (TOPROL XL) 25 MG [id number]:Pers istent atrial fibrillation (HCC) Take 0.5 Tabs [...] (Coumadin)Indication s:Persistent atrial fibrillation (HCC),Anticoagulatio n management encounter,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 Take with largest meal of the day.. 30 Tablet 5 12/14/2022 Active Knlyrtem-Jerlmkplk-H exameth 3.5-48927-1.1 Ophthalmic Ointment (Maxitrol)Indication s:Periorbital edema of both [...] Notes * Telephone Encounter - Debo Mancia [facility] Composite Engineer - 06/06/2023 9:21 AM EDT Rescheduled from 06/11/23 to 07/01/23 ZORAN Irizarry * Telephone Encounter [...] 06/05/23 Provided a call back number of [phone]. ZORAN Márquez documented in this encounter Plan of Treatment Upcoming Encounters Date Type Specialty Care Team Description 06/14/2023 [facility] Tele[facility], [facility] [address] [place] [address] 06/28/2023 Office Visit Cardiology Evy Cummings CRNP [address] [place] [address] 07/01/2023 Home Visit Family Medicine Debo Perkins PA-C [address] [place] [address] 08/14/2023 Office Visit Cardiology Parth Montero PA-C [address] [facility] [place] [address] 11/14/2023 Office Visit Family Medicine Ignacio Prado MD [address] [place], [place] [id number] 11/25/2023 Office Visit Dermatology Jimmy Henderson MD [address] [place], [place] [id number] Scheduled Procedures Name Priority Associated Diagnoses Date/Ti [...] Documents on File Type Date Recorded Patient Honing Job Setter Expl 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
--- OUTSIDE RECORDS SUMMARY | 2023-09-10 21:59 | External Medical Summary ---
Author Name Unknown Address Unknown Organization [id number] [address] [place] [address] Laboratory Report Ordering Provider Test Date Status CHASIDY GONZALES 06/18/2023 08:19:00 Final Warfarin Therapy
INR: 2 .0-3.0 conventional anticoagulation
INR: 2.5- 3.5 high intensity anticoagulation Observation Date Value Abnormality Reference (Units ) Status PT 06/18/2023 08:19:00 26.2 Above high normal 11 .6-15.2 (seconds) Final INR 06/18/2023 08:19:00 2.4 Above high normal 0. 8-1.2 Final Performing Location [facility] [address] [place] [address]
--- OUTSIDE RECORDS SUMMARY | 2023-09-10 21:59 | External Medical Summary | Summary of Care ---
Author Name Unknown Organization [facility] Address [address] [place] [address] Phone [phone] Care Team Providers Care Electronics Inspector Name Role Phone gInacio Prado MD Primary Care Provider +1- [phone] Reason for Visit * Reason Onset Date Comments Appointment 05/29/2023 Encounter Details Date Type Department Care Team Description 05/29/2023 Telephone Care at Home [address] [place] [address] Services, Scheduling [address] [place] [address] Appointment Allergies No known active allergiesdocumented as of this encounter (statuses as of 05/30/2023) Medications Medication Sig Dispensed Refills Start Date End Date Status NIZORAL SHAM 2 % EXIndications:Seborr heic dermatitis, unspecified as directed 1 5 03/13/2002 Active NASAL SALINE 0.65 % NA SOLNIndications:Application Systems Administrator 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,Other acute sinusitis,Postnasal drip flush each nostril morning and night and every 2-4 hrs as needed for nasal dryness or congestion 1 Bottle 3 11/17/2010 Active HYDROCORTISONE 2.5 % EX CREA to affected areas as needed 0 08/23/2014 Active metoprolol succinate XL (TOPROL XL) 25 MG [id number]:Pers istent atrial fibrillation (HCC) Take 0.5 Tabs [...] (Coumadin)Indication s:Persistent atrial fibrillation (HCC),Anticoagulatio n management encounter,long term care social worker current use of anticoagulant therapy TAKE 1 TO 2 TABLETS BY MOUTH ONCE DAILY DIRECTED BY [facility]ADIN CLINIC 180 Tablet 1 08/31/2022 Active Donepezil HCl 5 MG Oral Tablet (Aricept) Take 1 Tablet by mouth in the morning. Take with largest meal of the day.. 30 Tablet 5 12/14/2022 Active Gbwckucv-Gjcaebaxi-K exameth 3.5-90873-9.1 Ophthalmic Ointment (Maxitrol)Indication s:Periorbital edema of both eyes APPLY TOPICALLY TO SKIN UNDER EYES DAILY AT BEDTIME, 3.5 g 3 05/10/2023 Active documented as of this encounter (statuses as of 05/30/2023) Active Problems Problem Noted Date Constipation 12/14/2022 [...] as of this encounter (statuses as of 05/30/2023) Resolved Problems Problem Noted Date Resolved Date Dementia without behavioral disturbance, psychotic disturbance, mood disturbance, or anxiety 12/14/2022 01/07/2023 Persistent atrial fibrillation 04/04/2015 0 10/15/2019 Family history of ischemic heart disease 014 08/14/2018 Atrial fibrillation 08/07/2013 04/04/2015 Postnasal drip 11/17/2010 08/14/2018 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 Overview: ICD-10 update of inactive term DIVERTICULOSIS OF COLON 08/14/20 18 documented as of this encounter (statuses as of 05/30/2023) Immunizations Name Administration Dates Next Due COVID-19 [...] encounter Miscellaneous Notes * Telephone Encounter - ZORAN Márquez - [...] 06/05/23 Provided a call back number of [phone]. ZORAN Márquez documented in this encounter Plan of Treatment Upcoming Encounters Date Type Specialty Care Team Description 06/10/2023 Home Visit Family Medicine Debo Perkins PA-C [address] [facility] [place] [address] 06/14/2023 [facility] [address] [facility] [place] [address] 06/28/2023 Office Visit Cardiology Evy Cummings CRNP [address] [facility] [place] [address] 08/14/2023 Office Visit Cardiology Parth Montero PA-C [address] [place] [address] 11/14/2023 Office Visit Family Medicine Ignacio Prado MD [address] [place] [address] 11/25/2023 Office Visit Dermatology Jimmy Henderson MD [address] [place] [address] Scheduled Procedures Name Priority Associated Diagnoses Date/Ti [...] Documents on File Type Date Recorded Patient Channel Specialist Expl anation Advance Directives and Living Will 03/01/2021 ADVANCE DIRECTIVE / LIVING WILL Power of Pit Operator 03/01/2021 POWER OF A TTORNEY Care Teams Electronics Inspector Relationship Specialty Start Date End Date Ignacio Prado MD [address] [place], [place] [phone] PCP - General 07/04/00 documented as of this encounter
--- OUTSIDE RECORDS SUMMARY | 2023-09-10 21:59 | External Medical Summary | Summary of Care ---
Author Name Unknown Organization [facility] Address [address] [place] [address] Phone [phone] Care Team Providers Care Improvement Coordinator Name Role Phone Ignacio Prado MD Primary Care Provider +1- [phone] Reason for Visit * Reason Comments Follow Up Encounter Details Date Type Department Care Team (Late st Contact Info) Description 08/06/2023 2:00 PM EST Office Visit Cardiology, [facility] [address] [employer] [place] [id number] Evy Cummings CRNP [address] [place] [address] Permanent atrial fibrillation (HCC)*; Bradycardia; Prediabetes; Memory impairment; HTN, goal below 130/80; Hyperlipidemia, unspecified hyperlipidemia type Allergies No known active allergiesdocumented as of this encounter (statuses as of 08/22/2023) Medications Medication Sig Dispensed Refills Start Date End Date Status NIZORAL SHAM 2 % EXIndications:Seborr heic dermatitis, unspecified as directed 1 5 03/13/2002 Active NASAL SALINE 0.65 % NA SOLNIndications:Assistant Laboratory Director 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,Other acute sinusitis,Postnasal drip flush each nostril morning and night and every 2-4 hrs as needed for nasal dryness or congestion 1 Bottle 3 11/17/2010 Active HYDROCORTISONE 2.5 % EX CREA to affected areas as needed 0 08/23/2014 Active metoprolol succinate XL (TOPROL XL) 25 MG [id number]:Pers istent atrial fibrillation (HCC) Take 0.5 Tabs [...] ONE HOUR BEFORE APPOINTMENT 0 07/10/2022 Active Hpxueyad-Odrbriqfh-Z exameth 3.5-13331-3.1 Ophthalmic Ointment (Maxitrol)Indication s:Periorbital edema of both eyes APPLY TOPICALLY TO SKIN UNDER EYES DAILY AT BEDTIME, 3.5 g 3 05/10/2023 Active Warfarin Sodium 2.5 MG Oral Tablet (Coumadin)Indication s:Persistent atrial fibrillation (HCC),Anticoagulatio n management encounter,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 use of anticoagulant therapy TAKE 1 TO 2 TABLETS BY MOUTH ONCE DAILY DIRECTED BY COUMADIN CLINIC 180 Tablet 3 07/05/2023 Active documented as of this encounter (statuses as of 08/22/2023) Active Problems Problem Noted Date Diagnosed Date H/O right inguinal hernia repair 07/01/2023 Moderate dementia with anxiety 07/01/2023 At risk for falls 07/01/2023 Nocturia 07/01/2023 Chronic sinusitis 07/01/2023 Atherosclerosis of [place] artery of lower extrem ity 07/01/2023 Cerebral atrophy 07/01/2023 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 07/01/2023 Alcohol ingestion, [...] as of this encounter (statuses as of 08/22/2023) Resolved Problems Problem Noted Date Diagnosed Date [...] as of this encounter (statuses as of 08/22/2023) Immunizations Name Administration Dates Next Due COVID-19 [...] and older)(Boostrix) 01/28/2013 Varicella Zoster Vaccine (Adult) 09/21/2015,0 12/2004 documented as of this encounter Social History Tobacco Use Types Packs/Day Years Used Date Smoking Tobacco: Former Cigarettes 1.5 30 Q uit: 06/16/1993 Smokeless Tobacco: Never Tobacco Cessation:Counseling Given: Not Answered Comments:no passive smoke Alcohol Use Standard Drinks/Week [...] Sign Reading Time Taken Comments Blood Pressure 100/60 08/06/2023 2:03 PM EST Pulse 72 08/06/2023 2:03 PM EST Temperature - - Respiratory Rate 14 08/06/2023 2:03 PM EST Oxygen Saturation - - Inhaled Oxygen Concentration - - Weight 78.9 kg (174 lb) 08/06/2023 2:03 PM EST Height - - Body Mass Index 25.7 12/14/2022 1:29 PM EDT documented in this encounter Progress Notes * Linda Kaur DO - 08/22/2023 2:41 PM EST I have reviewed the advanced practitioner documentation and agree. I saw and evaluated the patient on date of service referenced in note and have performed the following medically appropriate historyand/or exam: Pt seen in routine 6 month f/u due to permanent AF. HR remain good and he is doing well-no complaints; tolerating the metoprolol and coumadin Since I last saw him he had a hernia repair and is doing ok. Pt doing well from cardiac perspective No change in cardiac medications today EP f/u 1 year Linda Kaur DO Department of Cardiology [facility] [place] [address] documented in this encounter Nursing Notes * Kya White LPN - 08/06/2023 2:02 PM EST Examination Room: 10 Name: Dimitrios Hernandez Date of : 1940 Reason for Visit: Follow up Problems/Concerns: Afib, discuss ppm?? Interim Hosp(s): denies Chest Pain/SOB: denies MyChart Discussed: ALREADY ACTIVE Patient was instructed to not get up on the exam table until directed and assisted by their provider; patient is to remain seated in the chair/ wheelchair/ exam table for fall prevention and safety reasons. Patient is aware to have assistance to step down off exam table with personnel. documented in this encounter Plan of Treatment Upcoming Encounters Date Type Department Care Team (Late st Contact Info) Description 08/27/2023 9:00 AM EST Laboratory Lab Mobile Phlebotomy [facility] [address] [place] [address] [facility] [address] [place] [address] 08/28/2023 6:00 AM EST Anticoagulation Pharmacy Call Center [address] [place] [address] [facility] [address] 60 [facility] [place] [address] 11/14/2023 9:20 AM EST Office Visit Located Within [facility] [address] [place] [address] Ignacio Prado MD [address] [place] [address] 11/25/2023 10:00 AM EDT Office Visit Dermatology [facility] 200 [facility] [place] [address] Jimmy Henderson MD [address] [facility] [place] [address] 02/13/2024 2:30 PM EDT Office Visit Cardiology, [facility] [address] [place] [address] Parth Montero PA-C 132 [place] [address] 07/06/2024 12:00 PM EDT Office Visit Care at Home [address] [place], [place] [id number] Debo Perkins PA-C [address] [place] [address] 07/31/2024 2:30 PM EST Office Visit Cardiology, [facility] [address] [facility] [place] [address] Evy Cummings CRNP 400 [facility] [place] [address] Scheduled Procedures Name Priority Associated Diagnoses [...] as of this encounter Visit Diagnoses Diagnosis Permanent atrial fibrillation (HCC)- Primary Atrial fibrillation Bradycardia Other specified cardiac dysrhythmias Prediabetes Other abnormal glucose Memory impairment Memory loss HTN, goal below 130/80 Unspecified essential hypertension Hyperlipidemia, unspecified hyperlipidemia type documented in this encounter Advance Directives Documents on File Type Date Recorded Patient Track Service Person Expl anation Advance Directives and Living Will 03/01/2021 ADVANCE DIRECTIVE / LIVING WILL Power of Nurse First Assist 03/01/2021 POWER OF A TTORNEY Care Teams Improvement Coordinator Relationship Specialty Start Date End Date Ignacio Prado MD [address] [place] [address] PCP - General 07/04/00 documented as of this encounter
--- OUTSIDE RECORDS SUMMARY | 2023-09-10 21:59 | External Medical Summary ---
Author Name Unknown Address Unknown Organization [facility] [address] [place] [address] Laboratory Report Ordering Provider Test Date Status CHASIDY GONZALES 08/27/2023 07:53:00 Final Warfarin Therapy
INR: 2 .0-3.0 conventional anticoagulation
INR: 2.5- 3.5 high intensity anticoagulation Observation Date Value Abnormality Reference (Units ) Status PT 08/27/2023 07:53:00 28.3 Above high normal 11 .6-15.2 (seconds) Final INR 08/27/2023 07:53:00 2.6 Above high normal 0. 8-1.2 Final Performing Location [facility] [address] [place] [address]
--- OUTSIDE RECORDS SUMMARY | 2023-09-10 21:59 | External Medical Summary ---
Author Name Unknown Address Unknown Organization [id number] - [address] [place] [address] Laboratory Report Ordering Provider Test Date Status CHASIDY GONZALES 07/09/2023 08:15:00 Final Warfarin Therapy
INR: 2 .0-3.0 conventional anticoagulation
INR: 2.5- 3.5 high intensity anticoagulation Observation Date Value Abnormality Reference (Units ) Status PT 07/09/2023 08:15:00 23.8 Above high normal 11 .6-15.2 (seconds) Final INR 07/09/2023 08:15:00 2.1 Above high normal 0. 8-1.2 Final Performing Location [facility] - [address] [place] [address]
--- OUTSIDE RECORDS SUMMARY | 2023-09-10 22:00 | External Medical Summary | Summary of Care ---
Author Name Unknown Organization [facility] Address [address] [place] [address] Phone [phone] Care Team Providers Care Human Service Specialist Name Role Phone Ignacio Prado MD Primary Care Provider +1- [phone] Reason for Visit * Reason Comments Dosage Adjustment Via Phone (anticoag Cl inic) Encounter Details Date Type Department Care Team Description 05/24/2023 Anticoagulation Pharmacy Call Center [address] [facility] [place] [address] [facility] [address] [place] [address] Chronic atrial fibrillation (HCC)* Allergies No known active allergiesdocumented as of this encounter (statuses as of 05/24/2023) Medications Medication Sig Dispensed Refills Start Date End Date Status NIZORAL SHAM 2 % EXIndications:Seborr heic dermatitis, unspecified as directed 1 5 03/13/2002 Active NASAL SALINE 0.65 % NA SOLNIndications:Public Information Director 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,Other acute sinusitis,Postnasal drip flush each nostril morning and night and every 2-4 hrs as needed for nasal dryness or congestion 1 Bottle 3 11/17/2010 Active HYDROCORTISONE 2.5 % EX CREA to affected areas as needed 0 08/23/2014 Active metoprolol succinate XL (TOPROL XL) 25 MG [id number]:Pers istent atrial fibrillation (HCC) Take 0.5 Tabs [...] (Coumadin)Indication s:Persistent atrial fibrillation (HCC),Anticoagulatio n management encounter,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 Take with largest meal of the day.. 30 Tablet 5 12/14/2022 Active Aqbwkwba-Ldeicuvaw-R exameth 3.5-65463-0.1 Ophthalmic Ointment (Maxitrol)Indication s:Periorbital edema of both eyes APPLY TOPICALLY TO SKIN UNDER EYES DAILY AT BEDTIME, 3.5 g 3 05/10/2023 Active documented as of this encounter (statuses as of 05/24/2023) Active Problems Problem Noted Date Constipation 12/14/2022 [...] as of this encounter (statuses as of 05/24/2023) Resolved Problems Problem Noted Date Resolved Date Dementia without behavioral disturbance, psychotic disturbance, mood disturbance, or anxiety 12/14/2022 01/07/2023 Persistent atrial fibrillation 04/04/2015 0 10/15/2019 Family history of ischemic heart disease 014 08/14/2018 Atrial fibrillation 08/07/2013 04/04/2015 Postnasal drip 11/17/2010 08/14/2018 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 Overview: ICD-10 update of inactive term DIVERTICULOSIS OF COLON 08/14/20 18 documented as of this encounter (statuses as of 05/24/2023) Immunizations Name Administration Dates Next Due COVID-19 [...] as of this encounter Progress Notes * Razia Nina [facility] - 05/24/2023 10:19 AM EDT Contacts Type Contact Phone/Fax 05/24/2023 10:19 AM EDT Phone (Outgoing) Dimitrios Hernandez (Self) [phone] (M) Left Message Subjective Advised patient to contact Anticoagulation Clinic if any unusual bruising or bleeding, recent illness, changes in medication, or questions/concerns. PT/INR results, Coumadin dose instructions, and next PT/INR date communicated as noted by Pharmacist: Yes Thank you, Sean Damon Log Chipper Razia Nina [facility] 05/24/2023, 10:19 AM * Noelle Harding [facility] - 05/24/2023 8:00 AM EDT Coumadin Clinic (region specific) Objective Current Warfarin Dose As of 05/24/2023 Warfarin maintenance plan: 2.5 mg (2.5 mg x 1) every Tue, Val, Sat; 3.75 mg (2.5 mg x 1.5) all other days INR Result As of 05/24/2023 INR goal: 2.0-3.0 INR used for dosin.6 (05/23/2023) Assessment & Plan Warfarin Plan As of 05/24/2023 Full warfarin instructions: 2.5 mg every Tue, Val, Sat; 3.75 mg all other days No change documented: Noelle Harding RPh Next INR check: 06/13/2023 Repeat PT/INR in 3 week(s) Weekly dose: not changed Additional Dosing Information: Description [facility] Tech to contact patient with dose instructions as noted. Noelle Harding RPh 05/24/2023, 8:00 AM documented in this encounter Plan of Treatment Upcoming Encounters Date Type Specialty Care Team Description 06/14/2023 [facility]tico[facility] [address] [facility] [address] 06/28/2023 Office Visit Cardiology Evy Cummings CRNP [address] [facility] [place] [address] 08/14/2023 Office Visit Cardiology Parth Montero PA-C [address] [place] [address] 11/14/2023 Office Visit Family Medicine Ignacio Prado MD [address] [place] [address] 11/25/2023 Office Visit Dermatology Jimmy Henderson MD [address] [place] [address] Scheduled Procedures Name Priority Associated Diagnoses Date/Ti [...] Documents on File Type Date Recorded Patient Critical Care Transport Nurse Expl anation Advance Directives and Living Will 03/01/2021 ADVANCE DIRECTIVE / LIVING WILL Power of Flooring Installer 03/01/2021 POWER OF A TTORNEY Care Teams Human Service Specialist Relationship Specialty Start Date End Date Ignacio Prado MD [address] [place] [address] PCP - General 07/04/00 documented as of this encounter
--- OUTSIDE RECORDS SUMMARY | 2023-09-10 22:00 | External Medical Summary ---
Author Name Unknown Address Unknown Organization [facility] [address] [place] [address] Laboratory Report Ordering Provider Test Date Status CHASIDY GONZALES 05/23/2023 07:15:00 Final Warfarin Therapy
INR: 2 .0-3.0 conventional anticoagulation
INR: 2.5- 3.5 high intensity anticoagulation Observation Date Value Abnormality Reference (Units ) Status PT 05/23/2023 07:15:00 27.8 Above high normal 11 .6-15.2 (seconds) Final INR 05/23/2023 07:15:00 2.6 Above high normal 0. 8-1.2 Final Performing Location [facility] [address] [place] [address]
--- OUTSIDE RECORDS SUMMARY | 2023-09-10 22:00 | External Medical Summary | Summary of Care ---
Author Name Unknown Organization [facility] Address [address] [place] [address] Phone [phone] Care Team Providers Care Manager Water Name Role Phone Ignacio Prado MD Primary Care Provider [phone]- [phone] Reason for Visit * Reason Onset Date Comments Follow Up 05/10/2023 Encounter Details Date Type Department Care Team Description 05/10/2023 Inspection Supervisor Telephone [facility] [address] [place] [address] Linda Hudson, RN [address] [place] [address] Follow Up Allergies No known active allergiesdocumented as of this encounter (statuses as of 05/10/2023) Medications Medication Sig Dispensed Refills Start Date End Date Status NIZORAL SHAM 2 % EXIndications:Seborr heic dermatitis, unspecified as directed 1 5 03/13/2002 Active NASAL SALINE 0.65 % NA SOLNIndications:Coating And Embossing Unit Operator 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,Other acute sinusitis,Postnasal drip flush each nostril morning and night and every 2-4 hrs as needed for nasal dryness or congestion 1 Bottle 3 11/17/2010 Active HYDROCORTISONE 2.5 % EX CREA to affected areas as needed 0 08/23/2014 Active metoprolol succinate XL (TOPROL XL) 25 MG [id number]:Pers istent atrial fibrillation (HCC) Take 0.5 Tabs [...] (Coumadin)Indication s:Persistent atrial fibrillation (HCC),Anticoagulatio n management encounter,[facility] current use of anticoagulant therapy TAKE 1 TO 2 TABLETS BY MOUTH ONCE DAILY DIRECTED BY COUMADIN CLINIC 180 Tablet 1 08/31/2022 Active Ehafaabm-Xgmwmwhae-J exameth 3.5-16295-4.1 Ophthalmic Ointment (Maxitrol)Indication s:Periorbital edema of both eyes APPLY TOPICALLY TO SKIN UNDER EYES DAILY AT BEDTIME 3.5 g 3 10/29/2022 Active Donepezil HCl 5 MG Oral Tablet (Aricept) Take 1 Tablet by mouth in the morning. Take with largest meal of the day.. 30 Tablet 5 12/14/2022 Active documented as of this encounter (statuses as of 05/10/2023) Active Problems Problem Noted Date Constipation 12/14/2022 [...] as of this encounter (statuses as of 05/10/2023) Resolved Problems Problem Noted Date Resolved Date Dementia without behavioral disturbance, psychotic disturbance, mood disturbance, or anxiety 12/14/2022 01/07/2023 Persistent atrial fibrillation 04/04/2015 0 10/15/2019 Family history of ischemic heart disease 014 08/14/2018 Atrial fibrillation 08/07/2013 04/04/2015 Postnasal drip 11/17/2010 08/14/2018 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 Overview: ICD-10 update of inactive term DIVERTICULOSIS OF COLON 08/14/20 18 documented as of this encounter (statuses as of 05/10/2023) Immunizations Name Administration Dates Next Due COVID-19 mRNA, LNP-s, No Pre serve, 2-Dose Series (Moderna) 12/12/2020,11/14/2020 Covid-19 Mrna, Lnp-s, No Pre serve, Booster (Moderna) 08/14/2021 Pneumococcal Conjugate Vacc, 13 Valent [...] encounter Miscellaneous Notes * Telephone Encounter - Linda Hudson RN - 05/10/2023 9:14 AM EDT Spoke with Dorothy, about personal care assistance for her . Discussed the following: [facility] referral-get 3-4 hours a week, wait list Apply for MA, then apply for waiver-3 month process Private Pay, i.e. [facility]-no covered by the insurance SNF Placement, needs PCP to complete paperwork, get on wait list for SNF Dorothy states her is a , suggested that she call [facility] to find [facility] if [facility] qualifiesfor any services Gave Dorothy direct line phone number to call if she has any additional questions/concerns Linda Hudson RN documented in this encounter Plan of Treatment Upcoming Encounters Date Type Specialty Care Team Description 05/10/2023 Office Visit Family Medicine Ignacio Prado MD [address], [place] [phone] 05/21/2023 Laboratory Laboratory Processing [facility], [facility] Mobile Home Draw [address] [place] [address] 05/22/2023 [facility] [address] [place] [address] 06/28/2023 Office Visit Cardiology Evy Cummings CRNP [address] [place] [phone] 08/14/2023 Office Visit Cardiology Parth Montero PA-C [address] [place] [address] Scheduled Procedures Name Priority Associated Diagnoses Date/Ti me COLONOSCOPY FLEXIBLE PROXIMAL DIAGNOSTIC Recall History of colon polyps Health Maintenance Due Date Last Done Comments DXA Scan 1940 Zoster Vaccines (2 of 3) 11/16/2015 09/21/2015, 12/2004 COLONOSCOPY-EVERY 5 YRS AGES 18-100 05/07/2021 05/07/2016, 10/29/2005 Depression Screening, Annual for Pts 12 and Over 05/09/2021 05/09/2020 COVID-19 Vaccine (4 - Moderna [...] Documents on File Type Date Recorded Patient Media Monitor Expl anation Advance Directives and Living Will 03/01/2021 ADVANCE DIRECTIVE / LIVING WILL Power of Student Specialist 03/01/2021 POWER OF A TTORNEY Care Teams Manager Water Relationship Specialty Start Date End Date Ignacio Prado MD [address] [place] [address] PCP - General 07/04/00 documented as of this encounter
--- OUTSIDE RECORDS SUMMARY | 2023-09-10 22:00 | External Medical Summary | Summary of Care ---
Author Name Unknown Organization [facility] Address [address] [place] [address] Phone [phone] Care Team Providers Care Personal Care Aide Name Role Phone Ignacio Prado MD Primary Care Provider +1- [phone] Reason for Visit * Reason Comments Dosage Adjustment Via Phone (anticoag Cl inic) Encounter Details Date Type Department Care Team Description 05/08/2023 Anticoagulation Pharmacy Call Center [address] [place] [address] [facility] [address] [place] [address] Chronic atrial fibrillation (HCC)* Allergies No known active allergiesdocumented as of this encounter (statuses as of 05/08/2023) Medications Medication Sig Dispensed Refills Start Date End Date Status NIZORAL SHAM 2 % EXIndications:Seborr heic dermatitis, unspecified as directed 1 5 03/13/2002 Active NASAL SALINE 0.65 % NA SOLNIndications:Neurosurgical Nurse Practitioner 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,Other acute sinusitis,Postnasal drip flush each nostril morning and night and every 2-4 hrs as needed for nasal dryness or congestion 1 Bottle 3 11/17/2010 Active HYDROCORTISONE 2.5 % EX CREA to affected areas as needed 0 08/23/2014 Active metoprolol succinate XL (TOPROL XL) 25 MG [id number]:Pers istent atrial fibrillation (HCC) Take 0.5 Tabs [...] (Coumadin)Indication s:Persistent atrial fibrillation (HCC),Anticoagulatio n management encounter,jail current use of anticoagulant therapy TAKE 1 TO 2 TABLETS BY MOUTH ONCE DAILY DIRECTED BY COUMADIN CLINIC 180 Tablet 1 08/31/2022 Active Rsxdjpwl-Jtcaiwacu-H exameth 3.5-22737-6.1 Ophthalmic Ointment (Maxitrol)Indication s:Periorbital edema of both eyes APPLY TOPICALLY TO SKIN UNDER EYES DAILY AT BEDTIME 3.5 g 3 10/29/2022 Active Donepezil HCl 5 MG Oral Tablet (Aricept) Take 1 Tablet by mouth in the morning. Take with largest meal of the day.. 30 Tablet 5 12/14/2022 Active documented as of this encounter (statuses as of 05/08/2023) Active Problems Problem Noted Date Constipation 12/14/2022 [...] as of this encounter (statuses as of 05/08/2023) Resolved Problems Problem Noted Date Resolved Date Dementia without behavioral disturbance, psychotic disturbance, mood disturbance, or anxiety 12/14/2022 01/07/2023 Persistent atrial fibrillation 04/04/2015 0 10/15/2019 Family history of ischemic heart disease 014 08/14/2018 Atrial fibrillation 08/07/2013 04/04/2015 Postnasal drip 11/17/2010 08/14/2018 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 Overview: ICD-10 update of inactive term DIVERTICULOSIS OF COLON 08/14/20 18 documented as of this encounter (statuses as of 05/08/2023) Immunizations Name Administration Dates Next Due COVID-19 [...] Progress Notes * ANA LILIA Rodríguez - 05/08/2023 8:02 AM EDT Contacts Type Contact Phone/Fax 05/08/2023 08:01 AM EDT Phone (Outgoing) DOROTHY CARREON (Emergency Contact) [phone] Subjective Patient Findings Negatives: Signs/symptoms of bleeding, [...] noted by Pharmacist: Yes ANA LILIA RODRÍGUEZ 05/08/2023, 8:03 AM * Pamela Lacey [facility] - 05/08/2023 7:38 AM EDT Coumadin Clinic (region specific) Objective Current Warfarin Dose As of 05/08/2023 Warfarin maintenance plan: 2.5 mg (2.5 mg x 1) every Tue, Val, Sat; 3.75 mg (2.5 mg x 1.5) all other days INR Result As of 05/08/2023 INR goal: 2.0-3.0 INR used for dosin.5 (05/07/2023) Assessment & Plan Warfarin Plan As of 05/08/2023 Full warfarin instructions: 2.5 mg every Tue, Val, Sat; 3.75 mg all other days No change documented: Pamela Lacey RPh Next INR check: 05/21/2023 Repeat PT/INR in 2 week(s) Weekly dose: not changed Additional Dosing Information: Description [facility] Tech to contact patient with dose instructions as noted. Pamela Lacey RPh 05/08/2023, 7:38 AM documented in this encounter Plan of Treatment Upcoming Encounters Date Type Specialty Care Team Description 05/10/2023 Office Visit Family Medicine Ignacio Prado MD [address] [place] [address] 05/21/2023 Laboratory Laboratory Processing [facility], [facility] Mobile Home Draw [address] [place] [address] 05/22/2023 [facility] [address] [place] [address] 06/28/2023 Office Visit Cardiology Evy Cummings CRNP [address] [facility] [place] [phone] 08/14/2023 Office Visit Cardiology Parth Montero PA-C [address] [place] [address] Scheduled Procedures Name Priority Associated Diagnoses Date/Ti [...] Documents on File Type Date Recorded Patient Manager Of Compliance Expl anation Advance Directives and Living Will 03/01/2021 ADVANCE DIRECTIVE / LIVING WILL Power of Cancer Genetics Assistant 03/01/2021 POWER OF A TTORNEY Care Teams Personal Care Aide Relationship Specialty Start Date End Date Ignacio Prado MD [address] [place] [address] PCP - General 07/04/00 documented as of this encounter
--- OUTSIDE RECORDS SUMMARY | 2023-09-10 22:00 | External Medical Summary | Summary of Care ---
Author Name Unknown Organization [facility] Address [address] [facility] [place] [address] Phone [phone] Care Team Providers Care Dynamic Balancer Name Role Phone Ignacio Prado MD Primary Care Provider +1- [phone] Reason for Visit * Reason Comments Post-Op 04/16/2023 [place] Encounter Details Date Type Department Care Team Description 04/30/2023 Office Visit General Surgery, [facility] [address] [place] [address] Namita Gonzalez MD [address] [place] [address] Postoperative follow-up* Allergies No known active allergiesdocumented as of this encounter (statuses as of 04/30/2023) Medications Medication Sig Dispensed Refills Start Date End Date Status NIZORAL SHAM 2 % EXIndications:Seborr heic dermatitis, unspecified as directed 1 5 03/13/2002 Active NASAL SALINE 0.65 % NA SOLNIndications:Quality Supervisor 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,Other acute sinusitis,Postnasal drip flush each nostril morning and night and every 2-4 hrs as needed for nasal dryness or congestion 1 Bottle 3 11/17/2010 Active HYDROCORTISONE 2.5 % EX CREA to affected areas as needed 0 08/23/2014 Active metoprolol succinate XL (TOPROL XL) 25 MG [id number]:Pers istent atrial fibrillation (HCC) Take 0.5 Tabs [...] (Coumadin)Indication s:Persistent atrial fibrillation (HCC),Anticoagulatio n management encounter,[facility] current use of anticoagulant therapy TAKE 1 TO 2 TABLETS BY MOUTH ONCE DAILY DIRECTED BY COUMADIN CLINIC 180 Tablet 1 08/31/2022 Active Iponmhql-Ohzysbddm-X exameth 3.5-48632-8.1 Ophthalmic Ointment (Maxitrol)Indication s:Periorbital edema of both eyes APPLY TOPICALLY TO SKIN UNDER EYES DAILY AT BEDTIME 3.5 g 3 10/29/2022 Active Donepezil HCl 5 MG Oral Tablet (Aricept) Take 1 Tablet by mouth in the morning. Take with largest meal of the day.. 30 Tablet 5 12/14/2022 Active documented as of this encounter (statuses as of 04/30/2023) Active Problems Problem Noted Date Constipation 12/14/2022 [...] as of this encounter (statuses as of 04/30/2023) Resolved Problems Problem Noted Date Resolved Date Dementia without behavioral disturbance, psychotic disturbance, mood disturbance, or anxiety 12/14/2022 01/07/2023 Persistent atrial fibrillation 04/04/2015 0 10/15/2019 Family history of ischemic heart disease 014 08/14/2018 Atrial fibrillation 08/07/2013 04/04/2015 Postnasal drip 11/17/2010 08/14/2018 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 Overview: ICD-10 update of inactive term DIVERTICULOSIS OF COLON 08/14/20 18 documented as of this encounter (statuses as of 04/30/2023) Immunizations Name Administration Dates Next Due COVID-19 mRNA, LNP-s, No Pre serve, 2-Dose Series (Moderna) 12/12/2020,11/14/2020 Covid-19 Mrna, Lnp-s, No Pre serve, Booster (Moderna) 08/14/2021 Pneumococcal Conjugate Vacc, 13 Valent (Prevnar) 07/20/2015 Pneumococcal Conjugate Vaccine, 7 Valent 002 Pneumococcal Polysaccharide PPV23 (Pneumovax) 07/16/2018,05/17/2017,06/16/2002 Seasonal Influenza, Quadriva lent Hd (Fluzone Hd) 06/24/2021,06/22/2020 Seasonal Influenza, Quadriva lent Hd, 65+ Yrs 06/14/2022 Seasonal Influenza, Quadrivalent, ID 06/22/2020 Seasonal Influenza, Quadriva lent, No Preserve, 6 Mons & Above, IM 06/27/2019,06/20/2018,06/20/2017 Seasonal Influenza, Quadriva lent, No Preserve, IM [...] as of this encounter Progress Notes * Namita Gonzalez MD - 04/30/2023 1:15 PM EDT F/U S/P open repair [place], POD 2 weeks, Pt is doing fine, no incision pain, no fever. PE V S S AO x 3 Abd : soft, NT, Nd, the incision heals well, no redness, F/U prn. documented in this encounter Nursing Notes * Ana Munoz LPN - 04/30/2023 11:18 AM EDT Chief Complaint Patient presents with Post-Op 04/16/2023 [place] Patient gets a twinge of pain every now and then. He also says its Has a "gurgle" to it now and then. documented in this encounter Plan of Treatment Upcoming Encounters Date Type Specialty Care Team Description 05/07/2023 Laboratory Laboratory Processing [facility] [address] [facility] [address] 05/08/2023 [facility] [address] [facility] [address] 05/10/2023 Office Visit Family Medicine Ignacio Prado MD [address] [facility] [place] [phone] 06/28/2023 Office Visit Cardiology Evy Cummings CRNP [address] [place] [phone] 08/14/2023 Office Visit Cardiology Parth Montero PA-C [address] [place] [address] Scheduled Procedures Name Priority Associated Diagnoses Date/Ti [...] as of this encounter Visit Diagnoses Diagnosis Postoperative follow-up- Primary Follow-up examination, following unspecified surgery documented in this encounter Advance Directives Documents on File Type Date Recorded Patient Sales Representative Expl anation Advance Directives and Living Will 03/01/2021 ADVANCE DIRECTIVE / LIVING WILL Power of Seo Executive 03/01/2021 POWER OF A TTORNEY Care Teams Dynamic Balancer Relationship Specialty Start Date End Date Ignacio Prado MD [address] [place] [address] PCP - General 07/04/00 documented as of this encounter
--- OUTSIDE RECORDS SUMMARY | 2023-09-10 22:00 | External Medical Summary ---
Author Name Unknown Address Unknown Organization [id number] [address] [place] [address] Laboratory Report Ordering Provider Test Date Status CHASIDY GONZALES 05/07/2023 08:03:00 Final Warfarin Therapy
INR: 2 .0-3.0 conventional anticoagulation
INR: 2.5- 3.5 high intensity anticoagulation Observation Date Value Abnormality Reference (Units ) Status PT 05/07/2023 08:03:00 26.9 Above high normal 11 .6-15.2 (seconds) Final INR 05/07/2023 08:03:00 2.5 Above high normal 0. 8-1.2 Final Performing Location [facility] [address] [place] [address]
--- OUTSIDE RECORDS SUMMARY | 2023-09-10 22:00 | External Medical Summary | Summary of Care ---
Author Name Unknown Organization [facility] Address [address] [place] [address] Phone [phone] Care Team Providers Care Power Plant Operator Apprentice Name Role Phone Ignacio Prado MD Primary Care Provider +1- [phone] Reason for Visit * Reason Onset Date Comments Appointment 05/29/2023 Encounter Details Date Type Department Care Team Description 05/29/2023 Telephone Care at Home [address] [place] [address] Services, Scheduling [address] [place] [address] Appointment Allergies No known active allergiesdocumented as of this encounter (statuses as of 05/29/2023) Medications Medication Sig Dispensed Refills Start Date End Date Status NIZORAL SHAM 2 % EXIndications:Seborr heic dermatitis, unspecified as directed 1 5 03/13/2002 Active NASAL SALINE 0.65 % NA SOLNIndications:Prime Minister 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,Other acute sinusitis,Postnasal drip flush each nostril morning and night and every 2-4 hrs as needed for nasal dryness or congestion 1 Bottle 3 11/17/2010 Active HYDROCORTISONE 2.5 % EX CREA to affected areas as needed 0 08/23/2014 Active metoprolol succinate XL (TOPROL XL) 25 MG [id number]:Pers istent atrial fibrillation (HCC) Take 0.5 Tabs [...] (Coumadin)Indication s:Persistent atrial fibrillation (HCC),Anticoagulatio n management encounter,parts counterman current use of anticoagulant therapy TAKE 1 TO 2 TABLETS BY MOUTH ONCE DAILY DIRECTED BY COUMADIN CLINIC 180 Tablet 1 08/31/2022 Active Donepezil HCl 5 MG Oral Tablet (Aricept) Take 1 Tablet by mouth in the morning. Take with largest meal of the day.. 30 Tablet 5 12/14/2022 Active Ypeympmi-Xviakqfgv-N exameth 3.5-72596-0.1 Ophthalmic Ointment (Maxitrol)Indication s:Periorbital edema of both eyes APPLY TOPICALLY TO SKIN UNDER EYES DAILY AT BEDTIME, 3.5 g 3 05/10/2023 Active documented as of this encounter (statuses as of 05/29/2023) Active Problems Problem Noted Date Constipation 12/14/2022 [...] as of this encounter (statuses as of 05/29/2023) Resolved Problems Problem Noted Date Resolved Date Dementia without behavioral disturbance, psychotic disturbance, mood disturbance, or anxiety 12/14/2022 01/07/2023 Persistent atrial fibrillation 04/04/2015 0 10/15/2019 Family history of ischemic heart disease 014 08/14/2018 Atrial fibrillation 08/07/2013 04/04/2015 Postnasal drip 11/17/2010 08/14/2018 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 Overview: ICD-10 update of inactive term DIVERTICULOSIS OF COLON 08/14/20 18 documented as of this encounter (statuses as of 05/29/2023) Immunizations Name Administration Dates Next Due COVID-19 [...] 06/05/23 Provided a call back number of [phone]. ZORAN Márquez documented in this encounter Plan of Treatment Upcoming Encounters Date Type Specialty Care Team Description 06/14/2023 [facility] [address] [facility] [address] 06/28/2023 Office Visit Cardiology Evy Cummings CRNP [address] [facility] [place] [phone] 08/14/2023 Office Visit Cardiology Parth Montero PA-C [address] [place] [address] 11/14/2023 Office Visit Family Medicine Ignacio Prado MD [address] [place] [address] 11/25/2023 Office Visit Dermatology Jimmy Henderson MD [address] [facility] [address] Scheduled Procedures Name Priority Associated Diagnoses Date/Ti [...] Documents on File Type Date Recorded Patient Actuarial Science Teacher Expl anation Advance Directives and Living Will 03/01/2021 ADVANCE DIRECTIVE / LIVING WILL Power of Detention Attendant 03/01/2021 POWER OF A TTORNEY Care Teams Power Plant Operator Apprentice Relationship Specialty Start Date End Date Ignacio Prado MD [address] [place] [address] PCP - General 07/04/00 documented as of this encounter
--- OUTSIDE RECORDS SUMMARY | 2023-09-10 22:00 | External Medical Summary | Summary of Care ---
Author Name Unknown Organization [facility] Address [address] [place] [address] Phone [phone] Care Team Providers Care Cytotechnologist/Cytology Supervisor Name Role Phone Ignacio Prado MD Primary Care Provider +1- [phone] Reason for Referral * Evaluate & Treat - Unlimited Visits (Within 30 days (routine)) - Authorized Specialty Diagnoses / Procedures Referred By Contac t Referred To Contact Dermatology Diagnoses Lesion of nose Ignacio Prado MD [address] [place] [address] Referral ID Status Reason Start Date Expiration Date Visits Requested Visits Authorized [id number] Authorized Specialty Services Required 05/10/2023 999 999 Question Answer Referral Priority Within 30 days (routine) Are you referring the patient for Mohs Surgery and have a current positive skin cancer biopsy result? No What is the reason for the patient referral? Rash/Skin Check/Eval of Lesion or Mole Reason for Visit * Reason Comments Re-Check 4 month return Encounter Details Date Type Department Care Team Description 05/10/2023 Office Visit [facility] [address] [place] [address] Ignacio Prado MD [address] [place] [address] Chronic atrial fibrillation (HCC)*; Periorbital edema of both eyes; Lesion of nose; Dyslipidemia, goal LDL below 100; Prediabetes; Warfarin anticoagulation Allergies No known active allergiesdocumented as of this encounter (statuses as of 05/27/2023) Medications Medication Sig Dispensed Refills Start Date [...] metoprolol succinate XL (TOPROL XL) 25 MG [id number]:Pe rsistent atrial fibrillation (HCC) Take 0.5 Tabs [...] (Coumadin)Indicati ons:Persistent atrial fibrillation (HCC),Anticoagulat ion management encounter,detention current use of anticoagulant therapy TAKE 1 TO 2 TABLETS BY MOUTH ONCE DAILY DIRECTED BY COUMADIN CLINIC 180 Tablet 1 08/31/2022 Active Donepezil HCl 5 MG Oral Tablet (Aricept) Take 1 Tablet by mouth in the morning. Take with largest meal of the day.. 30 Tablet 5 12/14/2022 Active Neomycin-Polymyxin -Dexameth 3.5-41122-3.1 Ophthalmic Ointment (Maxitrol)Indicati ons:Periorbital edema of both eyes APPLY TOPICALLY TO SKIN UNDER EYES DAILY AT BEDTIME, 3.5 g 3 05/10/2023 Active Neomycin-Polymyxin -Dexameth 3.5-32784-7.1 Ophthalmic Ointment (Maxitrol)Indicati ons:Periorbital edema of both eyes APPLY TOPICALLY TO SKIN UNDER EYES DAILY AT BEDTIME 3.5 g 3 10/29/2022 3 Discontinue d(Refill) documented as of this encounter (statuses as of 05/27/2023) Active Problems Problem Noted Date Constipation 12/14/2022 [...] as of this encounter (statuses as of 05/27/2023) Resolved Problems Problem Noted Date Resolved Date Dementia without behavioral disturbance, psychotic disturbance, mood disturbance, or anxiety 12/14/2022 01/07/2023 Persistent atrial fibrillation 04/04/2015 0 10/15/2019 Family history of ischemic heart disease 014 08/14/2018 Atrial fibrillation 08/07/2013 04/04/2015 Postnasal drip 11/17/2010 08/14/2018 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 Overview: ICD-10 update of inactive term DIVERTICULOSIS OF COLON 08/14/20 18 documented as of this encounter (statuses as of 05/27/2023) Immunizations Name Administration Dates Next Due COVID-19 [...] Sign Reading Time Taken Comments Blood Pressure 116/64 05/10/2023 2:38 PM EDT Pulse 73 05/10/2023 2:38 PM EDT Temperature 36.6 C (97.8 F) 05/10/2023 2:38 PM ED T Respiratory Rate 16 05/10/2023 2:38 PM EDT Oxygen Saturation - - Inhaled Oxygen Concentration - - Weight 78.5 kg (173 lb) 05/10/2023 2:38 PM EDT Height - - Body Mass Index 25.55 12/14/2022 1:29 PM EDT documented in this encounter Progress Notes * Ignacio Prado MD - 05/27/2023 9:57 PM EDT Subjective: Dimitrios Hernandez is a 83 year old male here today for Chief Complaint Patient presents with Re-Check 4 month return Pt presents for routine recheck. He is present with his . Has had progressive issues with memory loss. Increasingly difficult at home for - looking into getting extra assistance in the home. Tolerating current meds. Has a persistent lesion on tip of nose. Denies chest pain, shortness of breath, cough, nausea, vomiting, abd pain, dysuria, urinary frequency, nocturia, fever, melena, hematochezia, peripheral edema. 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 Seborrheic dermatitis, unspecified Warfarin anticoagulation 10/15/2019 Past Surgical History: Procedure Laterality Date COLONOSCOPY 10/17/2005 nl except diverticulosis - repeat 10 years COLONOSCOPY, DIAGNOSTIC (RECTUM) 05/07/2016 adenomatous polyp, diverticulosis repeat 5 yrs/[facility] CT ARTHRP ACETBLR/PROX FEM PROSTC AGRFT/ALGRFT Right 2020 RMV LSN SCLP,NCK,EXT 1.1-2.0CM 04/16/1995 Excision inf R submandibular sebaceous cyst STRESS ECHO (EXERCISE) 10/17/2003 normal SURGICAL PROCEDURE ONLY Right 04/16/2023 OPEN REPAIR RIGHT INGUINAL HERNIA GENERAL Review of patient's allergies indicates: No Known Allergies Current Outpatient Medications Medication Sig Dispense Refill NASAL SALINE 0.65 % NA SOLN flush each nostril morning and night and every 2-4 hrs as needed for nasal dryness or congestion 1 Bottle 3 metoprolol succinate XL (TOPROL XL) 25 MG [...] by mouth in the morning. 30 Tablet Warfarin Sodium 2.5 MG Oral Tablet (Coumadin) TAKE 1 TO 2 TABLETS BY MOUTH ONCE DAILY DIRECTED BY COUMADIN CLINIC 180 Tablet 1 Lrhcibkz-Qqaumqzjx-Cwahcjei 3.5-38613-7.1 Ophthalmic Ointment (Maxitrol) APPLY TOPICALLY TO SKIN UNDER EYES DAILY AT BEDTIME, 3.5 g 3 NIZORAL SHAM 2 % EX as directed 1 5 HYDROCORTISONE 2.5 % EX CREA to affected areas as needed Amoxicillin 500 MG Oral Capsule (Amoxil) TAKE FOUR CAPSULES BY MOUTH ONE HOUR BEFORE APPOINTMENT Donepezil HCl 5 MG Oral Tablet (Aricept) Take 1 Tablet by mouth in the morning. Take with largest meal of the day.. 30 Tablet 5 No current facility-administered medications for this visit. Objective: BP 116/64 | Pulse 73 | Temp 36.6 C (97.8 F) (Infrared ) | Resp 16 | Wt 78.5 kg (173 lb) | BMI 25.55 kg/m | BSA 1.95 m GEN: NAD HEENT: Benign NECK: Supple with no LAD, TM, JVD CHEST: CTA B CV: RRR ABD: Soft, NT/ND, No HSM, NABS EXT: No c,c,e Assessment and Plan: Chronic atrial fibrillation (HCC) (Primary) -continue current meds Periorbital edema of both eyes - Bujfudmt-Kmuvopnqp-Huxpsvrg 3.5-83120-7.1 Ophthalmic Ointment (Maxitrol); APPLY TOPICALLY TO SKINUNDER EYES DAILY AT BEDTIME, Lesion of nose - DERMATOLOGY REFERRAL OP Dyslipidemia, goal LDL below 100 Prediabetes Warfarin anticoagulation Memory loss - provide assistance as able. Follow Up: Return in about 6 months (around 11/10/2023) for recheck. | For: recheck 32 min with pt and chart review. Ignacio Prado MD documented in this encounter Nursing Notes * Cecily Holley LPN - 05/10/2023 2:33 PM EDT 4 month return documented in this encounter Plan of Treatment Upcoming Encounters Date Type Specialty Care Team Description 06/14/2023 Anticoagulation Pharmacy Telepharmacy, [facility] [address] [place] [address] 06/28/2023 Office Visit Cardiology Evy Cummings CRNP [address] [place] [address] 08/14/2023 Office Visit Cardiology Parth Montero PA-C [address] [place] [address] 11/14/2023 Office Visit Family Medicine Ignacio Prado MD [address] [place] [address] 11/25/2023 Office Visit Dermatology Jimmy Henderson MD [address] [place] [address] Scheduled Procedures Name Priority Associated Diagnoses Date/Ti me COLONOSCOPY FLEXIBLE PROXIMAL DIAGNOSTIC Recall History of colon polyps Scheduled Referrals Name Type Priority Associated Diagnoses Orde r Schedule DERMATOLOGY REFERRAL OP Referral Within 30 days (routine) Lesion of nose Ordered: 05/10/2023 Health Maintenance Due Date Last Done Comments [...] Chronic atrial fibrillation (HCC)- Primary Atrial fibrillation Periorbital edema of both eyes Lesion of nose Other diseases of nasal cavity and sinuses Dyslipidemia, goal LDL below 100 Other and unspecified hyperlipidemia Prediabetes Other abnormal glucose Warfarin anticoagulation Long-term (current) use of anticoagulants documented in this encounter Advance Directives Documents on File Type Date Recorded Patient Dental Hygienist Expl anation Advance Directives and Living Will 03/01/2021 ADVANCE DIRECTIVE / LIVING WILL Power of Wire Weaver Cloth 03/01/2021 POWER OF A TTORNEY Care Teams Cytotechnologist/Cytology Supervisor Relationship Specialty Start Date End Date Ignacio Prado MD [address] [place] [address] PCP - General 07/04/00 documented as of this encounter"
--- OUTSIDE RECORDS SUMMARY | 2023-09-10 22:00 | External Medical Summary | Summary of Care ---
Author Name Unknown Organization [facility] Address [address] [place] [address] Phone [phone] Care Team Providers Care Regional Sales Coordinator Name Role Phone Ignacio Prado MD Primary Care Provider +1- [phone] Reason for Visit * Reason Onset Date Comments Referral 05/09/2023 Encounter Details Date Type Department Care Team Description 05/09/2023 Applied Statistician Telephone Family Practice [facility] [address] [place], [place] [id number] Pamela Foley, flatwork presser Allergies No known active allergiesdocumented as of this encounter (statuses as of 05/10/2023) Medications Medication Sig Dispensed Refills Start Date End Date Status NIZORAL SHAM 2 % EXIndications:Seborr heic dermatitis, unspecified as directed 1 5 03/13/2002 Active NASAL SALINE 0.65 % NA SOLNIndications:Fruit Or Nut Farm Worker 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,Other acute sinusitis,Postnasal drip flush each nostril morning and night and every 2-4 hrs as needed for nasal dryness or congestion 1 Bottle 3 11/17/2010 Active HYDROCORTISONE 2.5 % EX CREA to affected areas as needed 0 08/23/2014 Active metoprolol succinate XL (TOPROL XL) 25 MG [id number]:Pers istent atrial fibrillation (HCC) Take 0.5 Tabs [...] s:Persistent atrial fibrillation (HCC),Anticoagulatio n management encounter,terminal manager current use of anticoagulant therapy TAKE 1 TO 2 TABLETS BY MOUTH ONCE DAILY DIRECTED BY COUMADIN CLINIC 180 Tablet 1 08/31/2022 Active Hotddivo-Fsmjrhdzs-N exameth 3.5-48517-4.1 Ophthalmic Ointment (Maxitrol)Indication s:Periorbital edema of both [...] Encounter - Linda Hudson RN - 05/10/2023 1:57 PM EDT Noted, see CM note Linda Hudson RN * Telephone Encounter - Pamela Foley RN - 05/09/2023 2:52 PM EDT CM received request from this patient's spouse's PCP, Dr Walters, to follow up as spouse has concerns. Pt is having trouble with advancing dementia and she would like to know what resources are available. This pt attends the [facility] (Spouse, Omaira attends the [facility]). This CM will email out a list of resources to spouse, Dorothy, at this time ([email or web address]).She is also requesting ongoing case management for this patient. Patient is a vet and this CM encouraged Dorothy to contact the [facility] as well as he is not yet service connected but may be eligible for support through them. Pt is scheduled to be seen tomorrow by Dr. Prado. Please follow up with spouse if able. Thank you! Pamela Foley RN [facility] Nurse Applied Statistician, Tabatha Segal [facility] and Tabatha Morales documented in this encounter Plan of Treatment Upcoming Encounters Date Type Specialty Care Team Description 05/10/2023 Office Visit Family Medicine Ignacio Prado MD [address] [place] [address] 05/21/2023 Laboratory Laboratory Processing [facility], [facility] Mobile [facility] [address] [place] [address] 05/22/2023 [facility] [address] [facility] [address] 06/28/2023 Office Visit Cardiology Evy Cummings CRNP [address] [place] [address] 08/14/2023 Office Visit Cardiology Parth Montero PA-C [address] [place] [address] Scheduled Procedures Name Priority Associated Diagnoses Date/Ti [...] Documents on File Type Date Recorded Patient Loan Teller Expl anation Advance Directives and Living Will 03/01/2021 ADVANCE DIRECTIVE / LIVING WILL Power of Photofinishing Laboratory Worker 03/01/2021 POWER OF A TTORNEY Care Teams Regional Sales Coordinator Relationship Specialty Start Date End Date Ignacio Prado MD [address] [place] [address] PCP - General 07/04/00 documented as of this encounter
--- OUTSIDE RECORDS SUMMARY | 2023-09-10 22:01 | External Medical Summary | Summary of Care ---
Author Name Unknown Organization [facility] Address [address] [place] [address] Phone [phone] Care Team Providers Care Councilor Name Role Phone Ignacio Prado MD Primary Care Provider +1- [phone] Reason for Visit * Reason Comments Dosage Adjustment Via Phone (anticoag Cl inic) Encounter Details Date Type Department Care Team Description 04/26/2023 Anticoagulation Pharmacy Call Center [address] [facility] [place] [address] [facility] [address] [place] [address] Chronic atrial fibrillation (HCC)* Allergies No known active allergiesdocumented as of this encounter (statuses as of 04/26/2023) Medications Medication Sig Dispensed Refills Start Date End Date Status NIZORAL SHAM 2 % EXIndications:Seborr heic dermatitis, unspecified as directed 1 5 03/13/2002 Active NASAL SALINE 0.65 % NA SOLNIndications:Cutter [employer] Rolls 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,Other acute sinusitis,Postnasal drip flush each nostril morning and night and every 2-4 hrs as needed for nasal dryness or congestion 1 Bottle 3 11/17/2010 Active HYDROCORTISONE 2.5 % EX CREA to affected areas as needed 0 08/23/2014 Active metoprolol succinate XL (TOPROL XL) 25 MG [id number]:Pers istent atrial fibrillation (HCC) Take 0.5 Tabs [...] [facility]IN CLINIC 180 Tablet 1 08/31/2022 Active Hknjdwie-Iqvxrzqmq-X exameth 3.5-04711-9.1 Ophthalmic Ointment (Maxitrol)Indication s:Periorbital edema of both eyes APPLY TOPICALLY TO SKIN UNDER EYES DAILY AT BEDTIME 3.5 g 3 10/29/2022 Active Donepezil HCl 5 MG Oral Tablet (Aricept) Take 1 Tablet by mouth in the morning. Take with largest meal of the day.. 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 Overview: ICD-10 update of inactive term DIVERTICULOSIS OF COLON 08/14/20 18 documented as of this encounter (statuses as of 04/26/2023) Immunizations Name Administration Dates Next Due COVID-19 [...] this encounter Progress Notes * ANA LILIA Gan Tech - 04/26/2023 10:09 AM EDT Contacts Type Contact Phone/Fax 04/26/2023 10:07 AM EDT Phone (Outgoing) Dimitrios Hernandez (Self) [phone] (M) Left Message Subjective PT/INR results, Coumadin dose instructions, and next PT/INR date communicated as noted by Pharmacist: Yes Justus Raya software technician 04/26/2023, 10:09 AM * Pamela Lacey [facility] - 04/26/2023 8:02 AM EDT Images from the original note were not included. Coumadin Clinic (region specific) Objective Current Warfarin Dose As of 04/26/2023 Warfarin maintenance plan: 2.5 mg (2.5 mg x 1) every Tue, Val, Sat; 3.75 mg (2.5 mg x 1.5) all other days INR Result As of 04/26/2023 INR goal: 2.0-3.0 INR used for dosin.6 (04/25/2023) Assessment & Plan Warfarin Plan As of 04/26/2023 Full warfarin instructions: 04/26: 6.25 mg; Otherwise 2.5 mg every Tue, Val, Sat; 3.75 mg all other days Next INR check: 05/07/2023 Repeat PT/INR in 1.5 week(s) Weekly dose: not changed Additional Dosing Information: Description [facility] Tech to contact patient with dose instructions as noted. Pamela Lacey RPh 04/26/2023, 8:05 AM documented in this encounter Plan of Treatment Upcoming Encounters Date Type Specialty Care Team Description 04/30/2023 Office Visit General Surgery Namita Gonzalez MD [address] [place] [address] 05/07/2023 Laboratory Laboratory Processing [facility] Mobile Home Draw [address] [place] [address] 05/08/2023 [facility] [address] [place] [address] 05/10/2023 Office Visit Family Medicine Ignacio Prado MD [address] [place], [place] [address] 06/28/2023 Office Visit Cardiology Evy Cummings CRNP [address] [facility] [place] [address] 08/14/2023 Office Visit Cardiology Parth Montero PA-C [address] [place] [address] Scheduled Procedures Name Priority Associated Diagnoses Date/Ti [...] Documents on File Type Date Recorded Patient Steel Rigger Expl anation Advance Directives and Living Will 03/01/2021 ADVANCE DIRECTIVE / LIVING WILL Power of Hosiery Bagger 03/01/2021 POWER OF A TTORNEY Care Teams Councilor Relationship Specialty Start Date End Date Ignacio Prado MD [address] [place] [address] PCP - General 07/04/00 documented as of this encounter
--- OUTSIDE RECORDS SUMMARY | 2023-09-10 22:01 | External Medical Summary | Summary of Care ---
Author Name Unknown Organization [facility] Address [address] [facility] [place] [address] Phone [phone] Care Team Providers Care Certified Court Interpreter Name Role Phone Ignacio Prado MD Primary Care Provider +1- [phone] Reason for Visit * Reason Onset Date Comments Follow Up 04/18/2023 Post up call Encounter Details Date Type Department Care Team Description 04/18/2023 [facility]uled [facility]phone [facility] [address] [facility] [address] [facility] [address] [place] [address] Arrived Allergies No known active allergiesdocumented as of this encounter (statuses as of 04/18/2023) Medications Medication Sig Dispensed Refills Start Date End Date Status NIZORAL SHAM 2 % EXIndications:Seborr heic dermatitis, unspecified as directed 1 5 03/13/2002 Active NASAL SALINE 0.65 % NA SOLNIndications:Director Of Counseling 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,Other acute sinusitis,Postnasal drip flush each nostril morning and night and every 2-4 hrs as needed for nasal dryness or congestion 1 Bottle 3 11/17/2010 Active HYDROCORTISONE 2.5 % EX CREA to affected areas as needed 0 08/23/2014 Active metoprolol succinate XL (TOPROL XL) 25 MG [id number]:Pers istent atrial fibrillation (HCC) Take 0.5 Tabs [...] (Coumadin)Indication s:Persistent atrial fibrillation (HCC),Anticoagulatio n management encounter,longterm current use of anticoagulant therapy TAKE 1 TO 2 TABLETS BY MOUTH ONCE DAILY DIRECTED BY COUMADIN CLINIC 180 Tablet 1 08/31/2022 Active Uecvnxfn-Mwncosvsn-R exameth 3.5-38611-9.1 Ophthalmic Ointment (Maxitrol)Indication s:Periorbital edema of both eyes APPLY TOPICALLY TO SKIN UNDER EYES DAILY AT BEDTIME 3.5 g 3 10/29/2022 Active Donepezil HCl 5 MG Oral Tablet (Aricept) Take 1 Tablet by mouth in the morning. Take with largest meal of the day.. 30 Tablet 5 12/14/2022 Active documented as of this encounter (statuses as of 04/18/2023) Active Problems Problem Noted Date Constipation 12/14/2022 [...] as of this encounter (statuses as of 04/18/2023) Resolved Problems Problem Noted Date Resolved Date Dementia without behavioral disturbance, psychotic disturbance, mood disturbance, or anxiety 12/14/2022 01/07/2023 Persistent atrial fibrillation 04/04/2015 0 10/15/2019 Family history of ischemic heart disease 014 08/14/2018 Atrial fibrillation 08/07/2013 04/04/2015 Postnasal drip 11/17/2010 08/14/2018 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 Overview: ICD-10 update of inactive term DIVERTICULOSIS OF COLON 08/14/20 18 documented as of this encounter (statuses as of 04/18/2023) Immunizations Name Administration Dates Next Due COVID-19 [...] encounter Miscellaneous Notes * Telephone Encounter - STEPHAN Santoyo - 04/18/2023 10:47 AM EDT PATIENT IS S/p OPEN REPAIR RIGHT INGUINAL HERNIA GENERAL on 04/16/[address] Namita Gonzalez Pain Level- no Meds being taken for pain- prescription meds Are pain meds effective- help Incision sites- covering Does the patient have a drain- no Does the patient have dressings? Are they aware of dressing instructions- yes Appetite- good Nausea/vomiting- no Bowel movement- good Activity- walking Complying with activity restrictions- yes Coughing and deep breathing- yes Questions or concerns- no Post operative follow up scheduled for .04/30/2023 documented in this encounter Plan of Treatment Upcoming Encounters Date Type Specialty Care Team Description 04/25/2023 Laboratory Laboratory Processing [facility], [facility] [address] [facility] [address] 04/26/2023 [facility] [address] [facility] [place] [address] 04/30/2023 Office Visit General Surgery Namita Gonzalez MD [address] [facility] [place] [address] 05/10/2023 Office Visit Family Medicine Ignacio Prado MD [address] [facility] [place] [address] 06/28/2023 Office Visit Cardiology Evy Cummings CRNP [address] [place] [address] 08/14/2023 Office Visit Cardiology Parth Montero PA-C [address] [place] [address] Scheduled Procedures Name Priority Associated Diagnoses Date/Ti [...] Documents on File Type Date Recorded Patient Meat Stuffer Expl anation Advance Directives and Living Will 03/01/2021 ADVANCE DIRECTIVE / LIVING WILL Power of Peoplesoft Hr Developer 03/01/2021 POWER OF A TTORNEY Care Teams Certified Court Interpreter Relationship Specialty Start Date End Date Ignacio Prado MD [address] [place], [place] [id number] PCP - General 07/04/00 documented as of this encounter
--- OUTSIDE RECORDS SUMMARY | 2023-09-10 22:01 | External Medical Summary ---
Author Name Unknown Address Unknown Organization K01:[facility] [place] [address] [place] [address] Laboratory Report Ordering Provider Test Date Status CHASIDY GONZALES 03/21/2023 07:44:00 Final Warfarin Therapy
INR: 2 .0-3.0 conventional anticoagulation
INR: 2.5- 3.5 high intensity anticoagulation Observation Date Value Abnormality Reference (Units ) Status PT 03/21/2023 07:44:00 26.0 Above high normal 11 .6-15.2 (seconds) Final INR 03/21/2023 07:44:00 2.4 Above high normal 0. 8-1.2 Final Performing Location [facility] [place] [facility] [address] [place] [address]
--- OUTSIDE RECORDS SUMMARY | 2023-09-10 22:01 | External Medical Summary | Summary of Care ---
Author Name Unknown Organization [facility] Address [address] [place] [address] Phone [phone] Care Team Providers Care Car Supplier Name Role Phone Ignacio Prado MD Primary Care Provider [phone]- [phone] Reason for Visit * Reason Onset Date Comments Other 04/04/2023 Encounter Details Date Type Department Care Team Description 04/04/2023 Telephone Pharmacy Call Center [address] [place] [address] [facility] [address] Other Allergies No known active allergiesdocumented as of this encounter (statuses as of 04/04/2023) Medications Medication Sig Dispensed Refills Start Date End Date Status NIZORAL SHAM 2 % EXIndications:Seborr heic dermatitis, unspecified as directed 1 5 03/13/2002 Active NASAL SALINE 0.65 % NA SOLNIndications:Manager Economic 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,Other acute sinusitis,Postnasal drip flush each nostril morning and night and every 2-4 hrs as needed for nasal dryness or congestion 1 Bottle 3 11/17/2010 Active HYDROCORTISONE 2.5 % EX CREA to affected areas as needed 0 08/23/2014 Active metoprolol succinate XL (TOPROL XL) 25 MG [id number]:Pers istent atrial fibrillation (HCC) Take 0.5 Tabs [...] (Coumadin)Indication s:Persistent atrial fibrillation (HCC),Anticoagulatio n management encounter,remote computer terminal operator current use of anticoagulant therapy TAKE 1 TO 2 TABLETS BY MOUTH ONCE DAILY DIRECTED BY [facility] 180 Tablet 1 08/31/2022 Active Kawnfacg-Ervbnsqpi-J exameth 3.5-95509-0.1 Ophthalmic Ointment (Maxitrol)Indication s:Periorbital edema of both eyes APPLY TOPICALLY TO SKIN UNDER EYES DAILY AT BEDTIME 3.5 g 3 10/29/2022 Active Donepezil HCl 5 MG Oral Tablet (Aricept) Take 1 Tablet by mouth in the morning. Take with largest meal of the day.. 30 Tablet 5 12/14/2022 Active documented as of this encounter (statuses as of 04/04/2023) Active Problems Problem Noted Date Constipation 12/14/2022 [...] as of this encounter (statuses as of 04/04/2023) Resolved Problems Problem Noted Date Resolved Date Dementia without behavioral disturbance, psychotic disturbance, mood disturbance, or anxiety 12/14/2022 01/07/2023 Persistent atrial fibrillation 04/04/2015 0 10/15/2019 Family history of ischemic heart disease 014 08/14/2018 Atrial fibrillation 08/07/2013 04/04/2015 Postnasal drip 11/17/2010 08/14/2018 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 Overview: ICD-10 update of inactive term DIVERTICULOSIS OF COLON 08/14/20 18 documented as of this encounter (statuses as of 04/04/2023) Immunizations Name Administration Dates Next Due COVID-19 [...] encounter Miscellaneous Notes * Telephone Encounter - Pamela Lacey RPh - 04/04/2023 11:41 AM EDT Noted- INR drawn today. Will advise for holding with dosing call Pamela Lacey Rph, Pharm.D. Clinical Pharmacist [facility] ([facility] (formerly Telepharmacy) [phone] 04/04/2023,11:43 AM * Telephone Encounter - ZORAN Luciano - 04/04/2023 9:35 AM EDT Caller's name: Dorothy Preferred call back number(OFFICE NUMBER FOR ): [phone] Reason for call: Patient's Dorothy calling in to let the [facility] know pt. Is having surgery 04/16/23. Please advise. Thank you, Kendal Davila Environmental Engineering Assistant [facility] 04/04/2023,9:35 AM documented in this encounter Plan of Treatment Upcoming Encounters Date Type Specialty Care Team Description 04/05/2023 [facility] 60 [facility] [place] [address] 04/16/2023 Office Visit Surgery Namita Gonzalez MD [address] [place] [address] 04/18/2023 Laboratory Laboratory Processing [facility] Draw [address] [place] [address] 04/18/2023 Scheduled Telephone General Surgery [place], Gen Surg Renate [address] [place] [address] 04/30/2023 Office Visit General Surgery Namita Gonzalez MD [address] [place] [address] 05/10/2023 Office Visit Family Medicine Ignacio Prado MD [address] [place] [phone] 06/28/2023 Office Visit Cardiology Evy Cummings CRNP [address] [place] [address] 08/14/2023 Office Visit Cardiology Parth Montero PA-C [address] [facility] [place] [address] Scheduled Procedures Name Priority Associated Diagnoses Date/Ti [...] Documents on File Type Date Recorded Patient Color Tester Expl anation Advance Directives and Living Will 03/01/2021 ADVANCE DIRECTIVE / LIVING WILL Power of Rubber Turner 03/01/2021 POWER OF A TTORNEY Care Teams Car Supplier Relationship Specialty Start Date End Date Ignacio Prado MD [address] [place] [address] PCP - General 07/04/00 documented as of this encounter
--- OUTSIDE RECORDS SUMMARY | 2023-09-10 22:01 | External Medical Summary | Summary of Care ---
Author Name Unknown Organization [facility] Address [address] [place] [address] Phone [phone] Care Team Providers Care Pawn Shop Keeper Name Role Phone Ignacio Prado MD Primary Care Provider [phone]- [phone] Reason for Visit * Reason Comments Dosage Adjustment Via Phone (anticoag Cl inic) Encounter Details Date Type Department Care Team Description 04/09/2023 Anticoagulation Pharmacy Call Center [address] [facility] [place] [address] [facility] [address] [place] [address] Chronic atrial fibrillation (HCC)* Allergies No known active allergiesdocumented as of this encounter (statuses as of 04/09/2023) Medications Medication Sig Dispensed Refills Start Date End Date Status NIZORAL SHAM 2 % EXIndications:Seborr heic dermatitis, unspecified as directed 1 5 03/13/2002 Active NASAL SALINE 0.65 % NA SOLNIndications:Horse Breeder 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,Other acute sinusitis,Postnasal drip flush each nostril morning and night and every 2-4 hrs as needed for nasal dryness or congestion 1 Bottle 3 11/17/2010 Active HYDROCORTISONE 2.5 % EX CREA to affected areas as needed 0 08/23/2014 Active metoprolol succinate XL (TOPROL XL) 25 MG [id number]:Pers istent atrial fibrillation (HCC) Take 0.5 Tabs [...] [facility] 180 Tablet 1 08/31/2022 Active Ochmnigs-Slmzeqiym-Z exameth 3.5-24365-3.1 Ophthalmic Ointment (Maxitrol)Indication s:Periorbital edema of both eyes APPLY TOPICALLY TO SKIN UNDER EYES DAILY AT BEDTIME 3.5 g 3 10/29/2022 Active Donepezil HCl 5 MG Oral Tablet (Aricept) Take 1 Tablet by mouth in the morning. Take with largest meal of the day.. 30 Tablet 5 12/14/2022 Active documented as of this encounter (statuses as of 04/09/2023) Active Problems Problem Noted Date Constipation 12/14/2022 [...] as of this encounter (statuses as of 04/09/2023) Resolved Problems Problem Noted Date Resolved Date Dementia without behavioral disturbance, psychotic disturbance, mood disturbance, or anxiety 12/14/2022 01/07/2023 Persistent atrial fibrillation 04/04/2015 0 10/15/2019 Family history of ischemic heart disease 014 08/14/2018 Atrial fibrillation 08/07/2013 04/04/2015 Postnasal drip 11/17/2010 08/14/2018 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 Overview: ICD-10 update of inactive term DIVERTICULOSIS OF COLON 08/14/20 18 documented as of this encounter (statuses as of 04/09/2023) Immunizations Name Administration Dates Next Due COVID-19 [...] as of this encounter Progress Notes * Noelle Harding, [facility] - 04/09/2023 10:14 AM EDT Medication Therapy Disease Management - Anticoagulation Patient: Dimitrios Carreon : 1940 Contacts Type Contact Phone/Fax 04/09/2023 11:20 AM EDT Phone (Outgoing) JONNY CARREON (Emergency Contact) [phone] Current Warfarin Dose As of 04/09/2023 Warfarin maintenance plan: 2.5 mg (2.5 mg x 1) every Tue, Val, Sat; 3.75 mg (2.5 mg x 1.5) all other days Patient-Reported Symptoms: Patient Findings Positives: Upcoming invasive procedure (Hernia procedure 04/16/23 - see comments) Comments: Pt is having upcoming hernia repair proc 04/16/23. This procedure was previously scheduled but needed to be rescheduled pending cardiac clearance. It was recommended that pt hold warfarin x 4days prior to procedure. Pt is anticoagulated for afib with [id number] = 4 (age, DM, HTN). No apparent hx of stroke/tia or dvt/pe. Patient can hold warfarin for procedure without the use of lovenoxbridge INR Result As of 04/09/2023 INR goal: 2.0-3.0 INR used for dosing: No new INR was available at the time of this encounter. Warfarin Plan As of 04/09/2023 Full warfarin instructions: 04/12 - 04/15: Hold for proc 04/16 04/16 & 8/2: 5 mg Otherwise 2.5 mg every Tue, Val, Sat; 3.75 mg all other days Next INR check: 04/25/2023 Additional Dosing Information: Description GML MTuTh Repeat PT/INR in 2.5 week(s) Weekly dose: not changed (temporary hold for proc) Noelle Harding [facility] Clinical Pharmacist 04/09/2023, 10:18 AM * Neetu Colin resistance welding machine operator - 04/09/2023 7:21 AM EDT Patient marked a no show for the second time by GM, no INR drawn. Please advise as appt note statespatient has a procedure next week on 04/16/23. Thank you, Neetu Colin Gravel Truck Driver [facility]) 04/09/2023,7:22 AM documented in this encounter Plan of Treatment Upcoming Encounters Date Type Specialty Care Team Description 04/16/2023 Office Visit Surgery Namita Gonzalez MD [address] [place] [address] 04/18/2023 Scheduled Telephone General Surgery Sloan, Gen Surg Renate [address] [place] [address] 04/30/2023 Office Visit General Surgery Namita Gonzalez MD [address] [place] [address] 05/10/2023 Office Visit Family Medicine Ignacio Prado MD [facility] [address] [place], [place] [phone] 06/28/2023 Office Visit Cardiology Evy Cummings CRNP [address] [place] [address] [place] [phone] 08/14/2023 Office Visit Cardiology Parth Montero PA-C [address] [place] [address] Scheduled Procedures Name Priority Associated Diagnoses Date/Ti [...] Documents on File Type Date Recorded Patient Putty And Patch Worker Expl anation Advance Directives and Living Will 03/01/2021 ADVANCE DIRECTIVE / LIVING WILL Power of Tag Press Operator 03/01/2021 POWER OF A TTORNEY Care Teams Pawn Shop Keeper Relationship Specialty Start Date End Date Ignacio Prado MD [address] [place] [address] PCP - General 07/04/00 documented as of this encounter
--- OUTSIDE RECORDS SUMMARY | 2023-09-10 22:01 | External Medical Summary | Summary of Care ---
Author Name Unknown Organization [facility] Address [address] [place] [address] Phone [phone] Care Team Providers Care Superintendent Communications Name Role Phone Ignacio Prado MD Primary Care Provider +1- [phone] Reason for Visit * Reason Comments Follow Up Encounter Details Date Type Department Care Team Description 03/15/2023 Office Visit Cardiology, [facility] [address] [facility] [place] [address] Linda Kaur, DO [address] [facility] [place] [address] Permanent atrial fibrillation (HCC)*; Idioventricular rhythm (HCC); Dyslipidemia, goal LDL below 100; Bradycardia Allergies No known active allergiesdocumented as of this encounter (statuses as of 03/15/2023) Medications Medication Sig Dispensed Refills Start Date End Date Status NIZORAL SHAM 2 % EXIndications:Seborr heic dermatitis, unspecified as directed 1 5 03/13/2002 Active NASAL SALINE 0.65 % NA SOLNIndications:Project Eng 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,Other acute sinusitis,Postnasal drip flush each nostril morning and night and every 2-4 hrs as needed for nasal dryness or congestion 1 Bottle 3 11/17/2010 Active HYDROCORTISONE 2.5 % EX CREA to affected areas as needed 0 08/23/2014 Active metoprolol succinate XL (TOPROL XL) 25 MG [id number]:Pers istent atrial fibrillation (HCC) Take 0.5 Tabs [...] (Coumadin)Indication s:Persistent atrial fibrillation (HCC),Anticoagulatio n management encounter,halfway current use of anticoagulant therapy TAKE 1 TO 2 TABLETS BY MOUTH ONCE DAILY DIRECTED BY COUMADIN CLINIC 180 Tablet 1 08/31/2022 Active Zhuwecgw-Gubrmwrns-S exameth 3.5-78193-6.1 Ophthalmic Ointment (Maxitrol)Indication s:Periorbital edema of both eyes APPLY TOPICALLY TO SKIN UNDER EYES DAILY AT BEDTIME 3.5 g 3 10/29/2022 Active Donepezil HCl 5 MG Oral Tablet (Aricept) Take 1 Tablet by mouth in the morning. Take with largest meal of the day.. 30 Tablet 5 12/14/2022 Active documented as of this encounter (statuses as of 03/15/2023) Active Problems Problem Noted Date Constipation 12/14/2022 [...] as of this encounter (statuses as of 03/15/2023) Resolved Problems Problem Noted Date Resolved Date Dementia without behavioral disturbance, psychotic disturbance, mood disturbance, or anxiety 12/14/2022 01/07/2023 Persistent atrial fibrillation 04/04/2015 0 10/15/2019 Family history of ischemic heart disease 014 08/14/2018 Atrial fibrillation 08/07/2013 04/04/2015 Postnasal drip 11/17/2010 08/14/2018 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 Overview: ICD-10 update of inactive term DIVERTICULOSIS OF COLON 08/14/20 18 documented as of this encounter (statuses as of 03/15/2023) Immunizations Name Administration Dates Next Due COVID-19 [...] 06/16/1993 Smokeless Tobacco: Never Tobacco Cessation:Counseling Given: Yes Comments:no passive smoke Alcohol Use Standard Drinks/Week [...] Sign Reading Time Taken Comments Blood Pressure 122/62 03/15/2023 4:02 PM EDT Pulse 88 03/15/2023 4:02 PM EDT Temperature - - Respiratory Rate 16 03/15/2023 4:02 PM EDT Oxygen Saturation - - Inhaled Oxygen Concentration - - Weight 78.5 kg (173 lb) 03/15/2023 4:02 PM EDT Height - - Body Mass Index 25.55 12/14/2022 1:29 PM EDT documented in this encounter Progress Notes * Linda Antonella Natasha, DO - 03/15/2023 4:14 PM EDT Subjective Dimitrios Hernandez is a 82 year old male. Chief Complaint Patient presents with Follow Up Pt returns to EP in routine f/u due to Abnormal zio patch Referring Provider: Evy Alfonso and Parth Montero Cardiac Problems: Permanent AF on coumadin and toprol [id number] 4 (age, HTN, DM) HTN HLD Dilated aortic root NSVT H/o tobacco use Prediabetes HPI: Pt presents with his He needs a hernia surgery after a mechanical fall from his deck but it was canceled by anesthesiology due to abnormal heart monitor No lightheadedness and dizziness occasional spasms of the chest PMH: Patient Active Problem List Diagnosis Code NONALLERGIC RHINITIS J31.0 Dyslipidemia, goal LDL below 100 E78.5 Chronic atrial fibrillation (HCC) I48.20 Warfarin anticoagulation Z79.01 Non-sustained ventricular tachycardia (HCC) I47.29 History of tobacco use Z87.891 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 1-2 tabs Fluticasone Propionate 50 MCG/ACT Nasal Suspension (Flonase) INSTILL 2 SPRAYS IN EACH NOSTRIL EVERY DAY NEEDED Atorvastatin Calcium 40 MG Oral Tablet (Lipitor) Take 1 Tablet by mouth in the morning. 30 Tablet Amoxicillin 500 MG Oral Capsule (Amoxil) TAKE FOUR CAPSULES BY MOUTH ONE HOUR BEFORE APPOINTMENT Warfarin Sodium 2.5 MG Oral Tablet (Coumadin) TAKE 1 TO 2 TABLETS BY MOUTH ONCE DAILY DIRECTED BY COUMADIN CLINIC 180 Tablet 1 Dtgrqluf-Bugabareg-Jukxlpkv 3.5-44575-6.1 Ophthalmic Ointment (Maxitrol) APPLY TOPICALLY TO SKIN UNDER EYES DAILY AT BEDTIME 3.5 g 3 Donepezil HCl 5 MG Oral Tablet (Aricept) Take 1 Tablet by mouth in the morning. Take with largest meal of the day.. 30 Tablet 5 No current facility-administered medications for this visit. Past Medical History: Diagnosis Date Chronic rhinitis [...] (RECTUM) 05/07/2016 adenomatous polyp, diverticulosis repeat 5 yrs/[facility] ARTHRP ACETBLR/PROX FEM PROSTC AGRFT/ALGRFT Right 2020 RMV LSN SCLP,NCK,EXT 1.1-2.0CM 04/16/1995 Excision inf R submandibular sebaceous cyst STRESS ECHO (EXERCISE) 10/17/2003 normal Review of patient's allergies indicates: No Known Allergies Family History Problem Relation Age of Onset Diabetes Mother Heart Disorder Mother of [place] age 79 Heart Disorder Father of [place] at 72 Diabetes Sister Cancer Brother Colon Neurological Disorder Uncle (Unspecified) Alzheimer's Valvular heart disease Daughter Family Status Relation Status Mo (Not Specified) Fa (Not Specified) Sis (Not Specified) Bro (Not Specified) UNCLE (Not Specified) Glenny Alive Social History Socioeconomic History Marital status: Spouse name: Not on file Number of children: 3 Years of education: Not on file Highest education level: Not on file Occupational History 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 Tobacco Use Smoking status: Former Packs/day: 1.50 Years: 30.00 Pack years: 45.00 Types: Cigarettes Quit date: 06/16/1993 Years since quittin.7 Smokeless tobacco: Never Tobacco comments: no passive smoke Vaping Use Vaping Use: Never used Substance and Sexual Activity Alcohol use: Yes Alcohol/week: 16.7 standard drinks Types: 20 12 oz of beer per week Comment: once in awhile Drug use: No Comment: not noted in chart Sexual activity: Not on file Comment: 3 children Other Topics Concern Not on file Social History Narrative [employer] [place] INFORMATION ENVIRONMENTAL HISTORY: Type of Home: One Story Type of Heating System: Forced air and Heat pump Air Conditioning: Yes Central Basement: Unfinished, Dehumidifier and No evidence mold, mildew Home have cockroaches: No Irritants in the home: None Patient's bedroom location: Floor: first Type of abdirashid: Carpeting Beds: Number: 1 Type of beds: Mattress Pillows: Number: 1 Type of pillows: Synthetic (hypoallergenic, polyester) Bedroom contains: Bookshelves/Books Pets: none Lives on a farm: No 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 Entered by: Roland Newell MD 11/17/2010 Social Determinants of Health Financial Resource Strain: Not on file Food Insecurity: Not on file Transportation Needs: Not on file Physical Activity: Not on file Stress: Not on file Social Connections: Not on file Intimate Partner Violence: Not on file Housing Stability: Not on file Review of Systems Constitutional: Positive for fatigue. Negative for activity change, chills, fever and unexpected weight change. HENT: Negative for postnasal drip, rhinorrhea and sinus pressure. Eyes: Negative for visual disturbance. Respiratory: Negative for shortness of breath. Cardiovascular: Negative for chest pain, palpitations and leg swelling. Gastrointestinal: Positive for constipation. Negative for blood in stool, diarrhea, nausea and vomiting. Genitourinary: Negative for dysuria and hematuria. Musculoskeletal: Positive for gait problem. +cane Skin: Negative for rash. Neurological: Negative for dizziness, syncope and light-headedness. Objective BP 122/62 | Pulse 88 | Resp 16 | Wt 78.5 kg (173 lb) | BMI 25.55 kg/m | BSA 1.95 m Physical Exam Vitals and nursing note reviewed. Constitutional: General: He is awake. Appearance: Normal appearance. He is well-developed. HENT: Head: Normocephalic and atraumatic. Eyes: General: No scleral icterus. Extraocular Movements: Extraocular movements intact. Neck: Vascular: Normal carotid pulses. No carotid bruit or JVD. Cardiovascular: Rate and Rhythm: Normal rate. Rhythm irregular. Pulses: Carotid pulses are 2+ on the right side and 2+ on the left side. Radial pulses are 2+ on the right side and 2+ on the left side. Posterior tibial pulses are 2+ on the right side and 2+ on the left side. Heart sounds: S1 normal and S2 normal. No murmur heard. Pulmonary: Effort: Pulmonary effort is normal. Breath sounds: Normal breath sounds. No decreased breath sounds, wheezing, rhonchi or rales. Abdominal: General: Abdomen is flat. Palpations: Abdomen is soft. Musculoskeletal: Cervical back: Neck supple. Right lower leg: No edema. Left lower leg: No edema. Skin: General: Skin is warm and dry. Neurological: General: No focal deficit present. Mental Status: He is alert and oriented to person, place, and time. Psychiatric: Attention and Perception: Attention normal. Mood and Affect: Mood normal. Speech: Speech normal. Behavior: Behavior normal. Behavior is cooperative. Thought Content: Thought content normal. Cognition and Memory: Cognition normal. Judgment: Judgment normal. RESULTS: ECGS: 02/04/2023: AF 56bpm PVC 02/05/2022: AF 59bpm 11/14/2020: AF 75bpm 08/03/2020: AF 71bpm 05/29/2019: AF 62bpm Zio Patch: 02/04/2023: CONCLUSIONS: Preliminary Findings 3 Ventricular Tachycardia runs [...] (17 bpm). Isolated VEs were occasional (2.2%, 81261), VE Couplets were rare (<1.0%, 409), and VE Triplets were rare (<1.0%, 22). Ventricular Bigeminy and Trigeminy were Present. 02/05/2022: CONCLUSIONS: Preliminary Findings 2 Ventricular Tachycardia runs occurred, the run with the fastest interval lasting 7 beats with a max rate of 182 bpm (avg 169 bpm); the run with the fastest interval was also the longest. Atrial Fibrillation occurred continuously (100% burden), ranging from 35-176 bpm (avg of 69 bpm). 21 Pauses occurred, the longest lasting 3.4 secs (18 bpm). Isolated VEs were occasional (2.2%, 60725), VE Couplets were rare (<1.0%, 310), and VE Triplets were rare (<1.0%, 21). Ventricular Bigeminy and Trigeminy were present. Nuclear Stress Test: 11/09/2020: Lexiscan nuclear cardiac stress test negative for ischemia. Gated SPECT images reveals normal myocardial thickening and wall motion. The LV ejection fraction is calculated at 59%. Raw images show liver attenuation. Echocardiogram: 11/09/2020: There was atrial fibrillation during the examination. The left ventricular cavity size is normal. The LV wall thickness is borderline increased (concentric). The left ventricular wall motion is normal. The qualitative LV ejection fraction is 55-59% (normal). The left atrium is moderately enlarged (42-48 ml/m^2). Mild mitral regurgitation is present. Mild tricuspid regurgitation is present. The estimated pulmonary artery systolic pressure is 35-40mm Hg. The aortic root and proximal ascending aorta are mildly enlarged. IV Septum 1.1cm Lab Work Reviewed: Component Latest Ref Rng 01/16/2023 BUN 6 - 20 mg/dL 18 Creatinine 0.6 - 1.2 mg/dL 0.8 Estimated Glomerular Filtration Rate >=60 mL/min 90 Sodium 135 - 146 mmol/L 141 Potassium 3.5 - 5.1 mmol/L 4.4 Chloride 98 - 107 mmol/L 102 CO2 22 - 32 mmol/L 31 Anion Gap 7 - 15 mmol/L 8 Glucose 70 - 120 mg/dL 108 Albumin 3.8 - 5.0 g/dL 4.7 AST 10 - 50 U/L 20 Alkaline Phosphatase 35 - 130 U/L 63 Bilirubin, Total <=1.2 mg/dL 0.6 Calcium 8.4 - 10.2 mg/dL 9.2 Protein 6.0 - 8.3 g/dL 6.8 ALT 10 - 50 U/L 18 WBC 4.00 - 10.80 K/uL 3.18 (L) Neutrophils % 40.0 - 75.0 % 60.7 Lymphocytes % 18.0 - 42.0 % 28.3 Monocytes % 1.0 - 11.0 % 7.5 Eosinophils % 0.0 - 6.0 % 1.6 Basophils % 0.0 - 2.0 % 1.6 Immature Granulocytes % 0.0 - 2.0 % 0.3 Absolute Neutrophils 1.80 - 7.70 K/uL 1.93 Absolute Lymphocytes 1.00 - 4.80 K/ul 0.90 (L) Absolute Monocytes 0.00 - 1.10 K/uL 0.24 Absolute Eosinophils 0.00 - 0.70 K/uL 0.05 Absolute Basophils 0.00 - 0.20 K/uL 0.05 Absolute Immature Granulocytes 0.00 - 0.20 K/uL 0.01 WBC 4.00 - 10.80 K/uL 3.18 (L) RBC 4.50 - 5.25 M/uL 4.10 HGB 14.0 - 16.8 g/dL 13.3 (L) HCT 40.0 - 48.4 % 41.6 MCV 82.0 - 99.5 fL 101.5 MCH 27.0 - 34.0 pg 32.4 MCHC 32.0 - 36.0 g/dL 32.0 RDW 11.5 - 15.5 % 11.8 PLT 140 - 400 K/uL 208 MPV 6.6 - 11.1 fL 10.6 nRBCs <=0 /100 WBCs 0 ASSESSMENT: 1. Permanent AF on coumadin and toprol [id number] 4 (age, HTN, DM) 2. Idioventricular rhythm and pauses in AF during sleep on zio patch monitor 3. HTN 4. HLD 5. Dilated aortic root 6 NSVT 7. H/o tobacco use 8. Prediabetes 9. H/o tobacco use 10. Inguinal hernia 11. Mechanical fall a few months ago fell off a porch and then developed a hernia PLAN: -The zio patch monitor form May is not any different than the one in the fall of 2021; pt has 3 second pauses while sleeping in AF-for AF pauses typically we do not put pacemakers in until they are more 5-6 seconds and during waking hours; his wide complex rhythms of 15 beats is not VT it is idioventricular rhythm again during sleep -Pt has a normal EF -He should have his hernia surgery in [facility]; there is no further cardiac testing or procedure necessary at this juncture; if he has a pause during the surgery he will be ok and you can always give ephedrine or atropine -He is at an acceptable moderate cardiovascular risk for his hernia surgery -No indication for a pacemaker at this juncture -Ok to hold coumadin if necessary before the surgery; but restart afterwards (but as per the surgeon he could take ASA during the 4 days hold of coumadin) -Continue low dose metoprolol -EP f/u in 3 months Linda Kaur DO I spent a total of 30 minutes coordinating, documenting, and providing care for this patient excluding time spent in the performance of separately billed services or time spent by another provider/QHP. documented in this encounter Nursing Notes * Kya White LPN - 03/15/2023 4:01 PM EDT Examination Room: 12 Name: Dimitrios Hernandez Date of : 1940 Reason for Visit: Follow up Problems/Concerns: Here after zio Interim Hosp(s): denies Chest Pain/SOB: denies [facility] Discussed: Yes MyChart Discussed: ALREADY ACTIVE Patient was instructed to not get up on the exam table until directed and assisted by their provider; patient is to remain seated in the chair/ wheelchair/ exam table for fall prevention and safety reasons. Patient is aware to have assistance to step down off exam table with personnel. Patient voiced full comprehension of instructions. documented in this encounter Plan of Treatment Upcoming Encounters Date Type Specialty Care Team Description 03/21/2023 Laboratory Laboratory Processing [facility] [place] Draw [address] [place] [address] 03/22[facility]20[facility] [address] [facility]/10[facility]2023 Office Visit Family Medicine Ignacio Prado MD [address] [place], [place] [id number] 08/14/2023 Office Visit Cardiology Parth Montero PA-C [address] [place] [address] Scheduled Procedures Name Priority Associated Diagnoses Date/Ti [...] Td or Tdap) 01/28/2023 01/28/2013, 02/02/2003, 09/16/1998 HbA1c 06/15/2023 06/15/2022, 10/17, 07/07/2012, Additional history exists Pneumococcal Vaccine: 65+ Years Completed 07/16/2018, 05/17/2017, 07/20/2015, Additional history exists Influenza Vaccine (FLU shot) Completed , 06/24/2021, 06/22/2020, Additional history exists GARDASIL-HPV IMMUNIZATION SERIES Aged [...] Permanent atrial fibrillation (HCC)- Primary Atrial fibrillation Idioventricular rhythm (HCC) Other specified conduction disorder Dyslipidemia, goal LDL below 100 Other and unspecified hyperlipidemia Bradycardia Other specified cardiac dysrhythmias documented in this encounter Advance Directives Documents on File Type Date Recorded Patient Condenser Tube Tender Expl anation Advance Directives and Living Will 03/01/2021 ADVANCE DIRECTIVE / LIVING WILL Power of Cyanide Pot Tender 03/01/2021 POWER OF A TTORNEY Care Teams Superintendent Communications Relationship Specialty Start Date End Date Ignacio Prado MD [facility] [address], [place] [id number] PCP - General 07/04/00 documented as of this encounter"
--- OUTSIDE RECORDS SUMMARY | 2023-09-10 22:01 | External Medical Summary | Summary of Care ---
Author Name Unknown Organization [facility] Address [address] [place] [address] Phone [phone] Care Team Providers Care Weights And Measures Inspector Name Role Phone Ignacio Prado MD Primary Care Provider +1- [phone] Reason for Visit * Reason Onset Date Comments Appointment 03/15/2023 Encounter Details Date Type Department Care Team Description 03/15/2023 Telephone Cardiology, [facility] [address] [facility] [place] [address] Linda Kaur, DO [address] [facility] [place] [address] Appointment Allergies No known active allergiesdocumented as of this encounter (statuses as of 03/21/2023) Medications Medication Sig Dispensed Refills Start Date End Date Status NIZORAL SHAM 2 % EXIndications:Seborr heic dermatitis, unspecified as directed 1 5 03/13/2002 Active NASAL SALINE 0.65 % NA SOLNIndications: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,Other acute sinusitis,Postnasal drip flush each nostril morning and night and every 2-4 hrs as needed for nasal dryness or congestion 1 Bottle 3 11/17/2010 Active HYDROCORTISONE 2.5 % EX CREA to affected areas as needed 0 08/23/2014 Active metoprolol succinate XL (TOPROL XL) 25 MG DE90Jepwknfhszv:Pers istent atrial fibrillation (HCC) Take 0.5 Tabs [...] (Coumadin)Indication s:Persistent atrial fibrillation (HCC),Anticoagulatio n management encounter,shelter current use of anticoagulant therapy TAKE 1 TO 2 TABLETS BY MOUTH ONCE DAILY DIRECTED BY COUMADIN CLINIC 180 Tablet 1 08/31/2022 Active Dyryebrb-Yrqmuioph-V exameth 3.5-22563-5.1 Ophthalmic Ointment (Maxitrol)Indication s:Periorbital edema of both eyes APPLY TOPICALLY TO SKIN UNDER EYES DAILY AT BEDTIME 3.5 g 3 10/29/2022 Active Donepezil HCl 5 MG Oral Tablet (Aricept) Take 1 Tablet by mouth in the morning. Take with largest meal of the day.. 30 Tablet 5 12/14/2022 Active documented as of this encounter (statuses as of 03/21/2023) Active Problems Problem Noted Date Constipation 12/14/2022 [...] as of this encounter (statuses as of 03/21/2023) Resolved Problems Problem Noted Date Resolved Date Dementia without behavioral disturbance, psychotic disturbance, mood disturbance, or anxiety 12/14/2022 01/07/2023 Persistent atrial fibrillation 04/04/2015 0 10/15/2019 Family history of ischemic heart disease 014 08/14/2018 Atrial fibrillation 08/07/2013 04/04/2015 Postnasal drip 11/17/2010 08/14/2018 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 Overview: ICD-10 update of inactive term DIVERTICULOSIS OF COLON 08/14/20 18 documented as of this encounter (statuses as of 03/21/2023) Immunizations Name Administration Dates Next Due COVID-19 [...] Miscellaneous Notes * Telephone Encounter - ZORAN Mckeon - 03/20/2023 2:01 PM EDT Added to recall list. * Telephone Encounter - Aelxandra Colvin RN - 03/15/2023 4:36 PM EDT Follow-up disposition: Return in about 3 months (around 06/15/2023). Needs added to recall list for Dr. Kaur for follow up in 3 months. documented in this encounter Plan of Treatment Upcoming Encounters Date Type Specialty Care Team Description 03/22/2023 [facility] [address] [facility] [place] [address] 04/16/2023 Office Visit Surgery Namita Gonzalez MD [address] [place] [address] 04/18/2023 Scheduled Telephone General Surgery Nurse Benedict Lisa Surg Renate [address] [place] [address] 04/30/2023 Office Visit General Surgery Namita Gonzalez MD [address] [place] [address] 05/10/2023 Office Visit Family Medicine Ignacio Prado MD [address] [place] [address] 08/14/2023 Office Visit Cardiology Parth Montero PA-C [address] [place] [address] Scheduled Procedures Name Priority Associated Diagnoses Date/Ti [...] Documents on File Type Date Recorded Patient Bond Manager Expl anation Advance Directives and Living Will 03/01/2021 ADVANCE DIRECTIVE / LIVING WILL Power of Coring Machine Operator 03/01/2021 POWER OF A TTORNEY Care Teams Weights And Measures Inspector Relationship Specialty Start Date End Date Ignacio Prado MD [address] [place], [place] [phone] PCP - General 07/04/00 documented as of this encounter
--- OUTSIDE RECORDS SUMMARY | 2023-09-10 22:01 | External Medical Summary ---
Author Name Unknown Address Unknown Organization [facility] [address] [place] [id number] Laboratory Report Ordering Provider Test Date Status CHASIDY GONZALES 04/25/2023 08:29:00 Final Warfarin Therapy
INR: 2 .0-3.0 conventional anticoagulation
INR: 2.5- 3.5 high intensity anticoagulation Observation Date Value Abnormality Reference (Units ) Status PT 04/25/2023 08:29:00 19.4 Above high normal 11 .6-15.2 (seconds) Final INR 04/25/2023 08:29:00 1.6 Above high normal 0. 8-1.2 Final Performing Location [facility] [address] [place] [address]
[2023-09-10 22:52] LABS: Basophils # (auto) 0.02 K/uL (0.00-0.20); Basophils % (auto) 0.5 %; Eosinophils # (auto) 0.02 K/uL (0.00-0.50); Eosinophils % (auto) 0.5 %; Hematocrit (blood only) 34.8 % (42.0-52.0); Hemoglobin 11.4 g/dl (14.0-18.0); Immature Granulocytes # (auto) 0.01 K/uL (0.01-0.20); Immature Granulocytes % (auto) 0.2 %; Lymphocytes # (auto) 0.27 K/uL (1.20-3.40); Lymphocytes % (auto) 6.1 %; Mean Corpuscular Hemoglobin 31.8 pg (25.0-34.0); Mean Corpuscular Hgb Conc 32.8 g/dL (32.0-36.0); Mean Corpuscular Volume 96.9 fL (80.0-100.0); Mean Platelet Volume 9.6 fL (9.4-12.4); Monocytes # (auto) 0.28 K/uL (0.11-0.59); Monocytes % (auto) 6.3 %; Neutrophils # (auto) 3.84 K/uL (1.40-6.50); Neutrophils % (auto) 86.4 %; Platelet Count 144 K/uL (130-400); RDW Coefficient of Variation 11.9 % (11.5-14.5); RDW Standard Deviation 42.5 fL (36.4-46.3); Red Blood Count 3.59 M/uL (4.70-6.10); White Blood Count 4.44 K/ul (4.8-10.8)
[2023-09-10] MEDS ORDERED: SODIUM CHLORIDE 0.9% 500 ML IV ONE (22:58)
[2023-09-10 23:01] LABS: Albumin Globulin Ratio 1.3 (0.9-2); Albumin Level 3.6 gm/dl (3.4-5.0); BUN Creatinine Ratio 29.9 (10-20); Bilirubin,Total 0.6 mg/dl (0.2-1.0); Calcium 8.3 mg/dl (8.6-10.3); Creatinine Clr Calc Pharmacy 86.3 ml/min; Est GFR (Non-African American) 88.9 ml/min; Globulin 2.7 gm/dl (2.5-4.0); Potassium 3.6 mmol/L (3.5-5.1); Total Protein 6.3 gm/dl (6.0-8.3)
--- NOTE | 2023-09-10 23:03 | Emergency Department Note ---
Impression & Plan Acute bronchitis, Hypoxia, Acute hypoxic respiratory failure, Respiratory syncytial virus (RSV) ED Provider Note CHIEF COMPLAINT: shortness of breath, weakness HISTORY OF PRESENT ILLNESS: This 83 year old male patient presents to the emergency department via ambulance for evaluation of weakness and shortness of breath. The patient was around his great granddaughters over the weekend who tested positive for RSV. He states today, he developed worsening congestion, cough, shortness of breath, and was feeling very weak. He did have 2 bowel movements which is unusual for him, but did seem to be doing okay throughout dinner. The patient reports fever of 101 F. No abdominal pain, nausea, or vomiting. No chest pain. Patient is not coughing up blood or sputum. Per EMS, O2 saturation was in the 70s on room air upon their arrival. He was placed on oxygen and 450 cc IV fluids by EMS. REVIEW OF SYSTEMS: A 10 system review of systems was performed with positives and pertinent negatives listed in the history of present illness. All other systems were reviewed and are negative. ALLERGIES: None PHYSICAL EXAM: VITALS: Vitals are noted on the nurse's note and reviewed by myself. Patient is hypoxic on room air with an O2 saturation of 75% GENERAL: This is an 85-year-old male, in no acute distress, nondiaphoretic, well-developed well-nourished. SKIN: The skin was without rashes, erythema, edema, or bruising. There is no tenting of the skin. Capillary refill less than 2 seconds. HEAD: Normocephalic atraumatic. EARS: External auditory canals clear, tympanic membranes pearly hsu without erythema or effusion bilaterally. No hemotympanum. Negative santacruz sign EYES: Pupils equal round and reactive to light and accommodation. Conjunctivae without injection, sclerae without icterus. Extraocular movements intact. NOSE: Patent, turbinates without inflammation or discharge. No sinus tenderness. MOUTH: Mucous membranes moist. Tonsils are not enlarged. Pharynx without erythema or exudate. Uvula midline. Airway patent. Tongue does not deviate. NECK: Supple without nuchal rigidity. No lymphadenopathy. No thyromegaly. Cervical spine is nontender. No JVD. HEART: Regular rate and rhythm without murmurs gallops or rubs. LUNGS: Clear to auscultation bilaterally without wheezes, rales or rhonchi. No retractions or accessory muscle use. ABDOMEN: Positive bowel sounds x 4. Soft, nontender, without masses or organomegaly. No guarding or rebound tenderness. No CVA tenderness bilaterally MUSCULOSKELETAL: No muscle atrophy, erythema, or edema noted. Full range of motion without joint tenderness in all extremities. No tenderness to palpation. Normal gait. Strength 5/5 throughout. NEURO: Patient was alert and oriented to person place and time. Normal sensation to light and sharp touch. Deep tendon reflexes 2+ throughout. No focal neurological deficits. An order was placed for continuous court monitor. The monitor showed a normal sinus rhythm at a ventricular rate of 94 bpm, per my interpretation. EKG, per my interpretation: Atrial fibrillation with a ventricular rate of [address] elevation or depression. No T wave inversion. No prior EKG available for comparison Chest x-ray, per my interpretation: Concern for right lower lobe infiltrate EMERGENCY DEPARTMENT COURSE: The patient was seen and evaluated as above. Patient presents with his via ambulance for evaluation of weakness generalized illness. He was recently exposed to RSV. The patient was hypoxic upon arrival to the emergency department on room air in the 70s. He was placed on 3 L of oxygen via nasal cannula by me. IV access obtained, labs were drawn. Per my interpretation, there is no leukocytosis or concerning anemia. No thrombocytopenia. INR elevated at 2.7. Of note, the patient is on warfarin for history of atrial fibrillation. Renal, hepatic function and electrolytes without significant abnormality. Troponin 11.9. Respiratory bio fire testing was positive for RSV. Patient was hydrated with IV fluids. He had received DuoNeb treatments and route to the emergency department. He was medicated with Rocephin here in the emergency department due to concern for pneumonia. Patient will be admitted to the [facility]ist service for hypoxia and acute respiratory failure in the setting of viral infection. I did discuss the case with Dr. Vasquez. Please see hospitalist dictation regarding ongoing management care of this patient. I did discuss the case with my attending physician Differential diagnosis includes Reactive airway disease, pneumonia, pneumothorax, COPD, CHF, infections, cardiac ischemia, pulmonary embolism, musculoskeletal, gastrointestinal, as well as other pathologies. I attest that I have personally reviewed the patient's current medication list. Patient was found to have normal blood pressure on screening and does not require follow-up. The chart was completed utilizing Dragon Speech voice recognition software. Grammatical errors, random word insertions, pronoun errors, and incomplete sentences are an occasional consequence of this system due to software limitations, ambient noise, and hardware issues. Any formal questions or concerns about the content, text, or information contained within the body of this dictation should be directly addressed to the provider for clarification. Past Med/Surg History Medical History Unexplained weight loss Approximately 30 lbs in past year, following with heme/onc BPH (benign prostatic hyperplasia) Anxiety Dementia "Early stage" per will be present DOS History of COVID-19 2021, "mild" Non-sustained ventricular tachycardia Hx Poor historian Arthritis Hyperlipidemia Hypertension Atrial fibrillation Chronic, taking warfarin Follows with [facility] cardiology Surgical History History of anesthesia reaction Confusion after hip surgery ("even into the next day") History of colonoscopy History of surgery submandibular sebaceous cyst excision (1994)- per [facility] records History of total hip arthroplasty right Family History Sister Family history of diabetes mellitus Sister Family history of diabetes mellitus Mother Family history of diabetes mellitus Heart disease Brother Family hx of colon cancer Father Heart disease Social History Smoking Status: Former smoker Second Hand Exposure: No; Do You Dip or Chew Tobacco: No; Hx Alcohol Use: Yes Alcohol type: beer Hx Substance Use: No Preferred Language: Sami Communication Ability: Impaired Communication Ability Comment: mild dementia > have to explain things slowly > gets very confused Visual Impairment: No Limitations Hearing Ability: Normal Supervisor Seaming Required: No Beliefs That Will Affect Care: None marital status: Current Living Situation: Spouse current occupational status: retired Feels Safe at Home: Yes Diet: regular Assistive Devices: Cane, Glasses and Hearing Aid - Bilateral Allergies Allergies Allergy/AdvReac Type Severity Reaction Status Date / Time No Known Allergies Allergy Verified 09/11/23 00:17 Home Meds Home Medications Medication Instructions Recorded Confirmed acetaminophen 500 mg capsule 500 - 1,000 mg PO Q6H PRN Pain 10/25/20 09/10/23 atorvastatin 40 mg tablet (Lipitor) 20 mg PO PM 10/25/20 09/10/23 metoprolol succinate 25 mg 12.5 mg PO QPM 10/25/20 09/10/23 tablet,extended release 24 hr tamsulosin 0.4 mg capsule (Flomax) 0.4 mg PO HS 10/25/20 09/10/23 warfarin 2.5 mg tablet 2.5 - 5 mg PO QPM 10/25/20 09/10/23 cholecalciferol (vitamin D3) 25 25 mcg PO PM 04/08/23 09/10/23 mcg (1,000 unit) chewable tablet (Vitamin D3) fluticasone propionate 50 1 spray intranasal BID 04/08/23 09/10/23 mcg/actuation nasal spray,suspension Results & Data (ED) Vital Signs Vital Signs - 24 hr 09/10/23 22:12 09/10/23 22:17 09/10/23 22:54 Temperature 37 C Temperature Source Oral Pulse Rate 98 H 88 Pulse Rate [Finger] Respiratory Rate 16 Blood Pressure 114/65 Blood Pressure [Right Arm] Blood Pressure Mean 81 Blood Pressure Mean [Right Arm] Pulse Oximetry 95 75 L Oxygen Delivery Method Nasal Cannula Room Air Oxygen Flow Rate 3 Sepsis Recent Fever Within 48 Hours Yes Sepsis New/Unexplained Change in Mental Status N/A Sepsis Action Taken by Nursing No Action Required 09/11/23 00:00 09/11/23 02:00 09/11/23 02:21 Temperature Temperature Source Pulse Rate 94 H Pulse Rate [Finger] 88 86 Respiratory Rate 20 20 Blood Pressure Blood Pressure [Right Arm] 129/58 L 122/77 Blood Pressure Mean Blood Pressure Mean [Right Arm] 81 92 Pulse Oximetry 97 94 Oxygen Delivery Method Nasal Cannula Nasal Cannula Oxygen Flow Rate 3 3 Sepsis Recent Fever Within 48 Hours Sepsis New/Unexplained Change in Mental Status Sepsis Action Taken by Nursing Laboratory Data 09/10/23 22:20 09/10/23 22:20 Lab Results 09/10/23 09/10/23 09/10/23 Range/Units 22:20 22:26 23:14 WBC 4.44 L (4.8-10.8) K/ul RBC 3.59 L (4.70-6.10) M/uL Hgb 11.4 L (14.0-18.0) g/dl Hct 34.8 L (42.0-52.0) % MCV 96.9 (80.0-100.0) fL MCH 31.8 (25.0-34.0) pg MCHC 32.8 (32.0-36.0) g/dL RDW Std Deviation 42.5 (36.4-46.3) fL RDW Coeff of Wilberto 11.9 (11.5-14.5) % Plt Count 144 (130-400) K/uL MPV 9.6 (9.4-12.4) fL Immature Gran % (Auto) 0.2 % Neut % (Auto) 86.4 % Lymph % (Auto) 6.1 % [place] % (Auto) 6.3 % Eos % (Auto) 0.5 % Baso % (Auto) 0.5 % Neut # (Auto) 3.84 (1.40-6.50) K/uL Lymph # (Auto) 0.27 L (1.20-3.40) K/uL [place] # (Auto) 0.28 (0.11-0.59) K/uL Eos # (Auto) 0.02 (0.00-0.50) K/uL Baso # (Auto) 0.02 (0.00-0.20) K/uL Immature Gran # (Auto) 0.01 (0.01-0.20) K/uL PT 27.4 H (9.0-12.0) Seconds INR 2.7 H (0.9-1.1) APTT 40 H (21-31) Seconds PTT Ratio 1.4 Sodium 138 (136-145) mmol/L Potassium 3.6 (3.5-5.1) mmol/L Chloride 102 (98-107) mmol/L Carbon Dioxide 29 (21-32) mmol/L Anion Gap 7 (3-11) BUN 20 (6-23) mg/dl Creatinine 0.67 (0.6-1.4) mg/dl Est Cr Clr Drug Dosing 86.3 ml/min Est GFR ( Amer) 103.0 ml/min Est GFR (Non-Af Amer) 88.9 ml/min BUN/Creatinine Ratio 29.9 H (10-20) Glucose 149 H (70-99(Fasting)) mg/dl Lactate 0.9 (0.4-2.0) mmol/L Calcium 8.3 L (8.6-10.3) mg/dl Total Bilirubin 0.6 (0.2-1.0) mg/dl AST 19 (13-39) U/L ALT 14 (7-52) U/L Alkaline Phosphatase 62 (34-104) U/L Troponin I High Sens 11.9 (0-20) pg/ml Total Protein 6.3 (6.0-8.3) gm/dl Albumin 3.6 (3.4-5.0) gm/dl Globulin 2.7 (2.5-4.0) gm/dl Albumin/Globulin Ratio 1.3 (0.9-2) Adenovirus (PCR) Not Detected (NotDetected) B. pertussis DNA (PCR) Not Detected (NotDetected) B.parapertussis DNA PCR Not Detected (NotDetected) C. pneumoniae DNA (PCR) Not Detected (NotDetected) Coronavirus OC43 (PCR) Not Detected (NotDetected) Coronavirus HKU1 (PCR) Not Detected (NotDetected) Coronavirus 229E (PCR) Not Detected (NotDetected) SARS-CoV-2 (PCR) Not Detected (NotDetected) Coronavirus NL63 (PCR) Not Detected (NotDetected) Human Metapneumovir PCR Not Detected (NotDetected) Influenza Type A (PCR) Not Detected (NotDetected) Influenza Type B (PCR) Not Detected (NotDetected) M. pneumoniae (PCR) Not Detected (NotDetected) Parainfluenza 1 (PCR) Not Detected (NotDetected) Parainfluenza 2 (PCR) Not Detected (NotDetected) Parainfluenza 3 (PCR) Not Detected (NotDetected) Parainfluenza 4 (PCR) Not Detected (NotDetected) RSV (PCR) DETECTED A* (NotDetected) Entero/Rhino (PCR) Not Detected (NotDetected) Administered Medications Discontinued Medications Sodium Chloride (Nss) 500 mls @ 999 mls/hr IV .Q31M ONE Stop: 09/10/23 23:28 Last Infusion: 09/11/23 00:21 Dose: Infused Documented By: Admin: 09/10/23 23:27 Dose: 999 mls/hr Documented By: BARBI Ceftriaxone Sodium (Rocephin) 2,000 mg in 50 mls @ 100 mls/hr IV NOW STA Stop: 09/11/23 00:12 Last Infusion: 09/11/23 00:34 Dose: Infused Documented By: Admin: 09/10/23 23:59 Dose: 100 mls/hr Documented By: BARBI Discharge Plan Visit Data Chief Complaint: Illness Stated Complaint: Vomiting, Weakness, Low O2 ED Provider: Vianney Murcia ED Midlevel Provider: Janna Smalls Discharge Problem: Acute bronchitis, Hypoxia, Acute hypoxic respiratory failure, Respiratory syncytial virus (RSV) Patient Disposition: Admitted As Inpatient Discharge Instructions Interventions: ED Discharge Assessment Last Done: 09/11/23 03:28
[2023-09-10 23:12] LABS: INR 2.7 (0.9-1.1); Partial Thromboplastin Ratio 1.4; Partial Thromboplastin Time 40 Seconds (21-31); Prothrombin Time 27.4 Seconds (9.0-12.0)
[2023-09-10 23:24] LABS: Troponin I High Sensitivity 11.9 pg/ml (0-20)
[2023-09-10 23:35] LABS: Adenovirus PCR Not Detected (NotDetected); Bordetella parapertussis PCR Not Detected (NotDetected); Bordetella pertussis PCR Not Detected (NotDetected); Chlamydia pneumoniae PCR Not Detected (NotDetected); Coronavirus 229E PCR Not Detected (NotDetected); Coronavirus CoV-2 (COVID19)PCR Not Detected (NotDetected); Coronavirus HKU1 PCR Not Detected (NotDetected); Coronavirus NL63 PCR Not Detected (NotDetected); Coronavirus OC43PCR Not Detected (NotDetected); Human Metapneumovirus PCR Not Detected (NotDetected); Influenza A PCR Not Detected (NotDetected); Influenza B PCR Not Detected (NotDetected); Mycoplasma pneumoniae PCR Not Detected (NotDetected); Parainfluenza Virus 1 PCR Not Detected (NotDetected); Parainfluenza Virus 2 PCR Not Detected (NotDetected); Parainfluenza Virus 3 PCR Not Detected (NotDetected); Parainfluenza Virus 4 PCR Not Detected (NotDetected); Rhinovirus/Enterovirus PCR Not Detected (NotDetected)
[2023-09-10 23:37] LABS: Respiratory Syncytial VirusPCR DETECTED (NotDetected)
[2023-09-10] MEDS ORDERED: cefTRIAXone SODIUM 2,000 MG/50 ML BAG IV STA (23:43)
--- NOTE | 2023-09-11 00:13 | Emergency Department Note ---
ED Visit Note I was consulted by the Advanced Practice Provider, Janna Smalls PA-C. I saw the patient personally and performed a substantive portion of the visit. This includes aspects of the HPI, MDM, diagnostic interpretations, and disposition/plan. Patient is an 83-year-old male presenting with generalized weakness and fevers. Patient reportedly was around his grandchildren who had RSV a few days ago and has since developed a productive cough. He had weakness throughout the day today and seem to be very shaky, per the . His stated that he seemed very weak and she was worried he was going to fall so she called 911 to help get him to the hospital. I personally interpreted the following studies: - Laboratory workup interpreted by myself showed slight leukopenia (WBC 4.44); stable electrolytes; normal lactate; normal troponin - Respiratory viral panel positive for RSV. - CXR negative for pneumonia, per my interpretation Patient was noted to be hypoxic in the emergency department and started on a new 3 L nasal cannula. Given patient's symptoms and his new acute hypoxic respiratory failure in the setting of RSV, will admit to the hospitalist service .
--- NOTE | 2023-09-11 02:46 | History & Physical Report ---
Date of Service September 11, 2023 Assessment & Plan (1) Acute bronchitis: Plan: 83-year-old male with past medical history significant for dyslipidemia, prediabetes, chronic sinusitis, chronic atrial fibrillation, nonsustained ventricular tachycardia, dilated aortic root, BPH, moderate dementia with anxiety, cerebral atrophy, history of tobacco use, history of risk of falls, who lives at home with his was brought in because of weakness and shortness of breath and found to be RSV infection. Patient recently was around great granddaughters over the weekend who tested positive for RSV. Complains of congestion. Patient is very hard of hearing and also seems somewhat confused. States he is feeling congested. Could not get any history from the patient. Tried to call the but not able to reach her. As per the ER notes patient had a fever of 101 F. No abdominal pain or nausea or vomiting or chest pain. For EMS oxygen saturation 70% on room air upon their evaluation and was placed on oxygen and given IV fluids. Currently saturating okay on 3 L. Acute bronchitis Hypoxic on room air Requiring 3 L oxygen RSV infection Bilateral rhonchi on exam History of smoking in the past Possible underlying emphysema and COPD exacerbation had Rocephin in the ER We will check procalcitonin levels if positive will continue IV antibiotics Will place him on IV steroids, nebs [id number] and as needed Close monitor RSV infection Droplet precautions Supportive care Chronic atrial fibrillation History of nonsustained ventricular tachycardia On beta-alec and Coumadin INR 2.7 Moderate dementia with anxiety Cerebral atrophy Monitor for delirium Hyperlipidemia On statin Alcoholism Not able to confirm Need to check with the in a.m. DVT prophylaxis On Coumadin Follow PT/INR Disposition Med/tele daily History of Present Illness Chief Complaint: RSV infection, confusion Primary Care Provider: Ignacio Prado MD 83-year-old male with past medical history significant for dyslipidemia, prediabetes, chronic sinusitis, chronic atrial fibrillation, nonsustained v entricular tachycardia, dilated aortic root, BPH, moderate dementia with anxiety, cerebral atrophy, history of tobacco use, history of risk of falls, who lives at home with his was brought in because of weakness and shortness of breath and found to be RSV infection. Patient recently was around great granddaughters over the weekend who tested positive for RSV. Complains of congestion. Patient is very hard of hearing and also seems somewhat confused. States he is feeling congested. Could not get any history from the patient. Tried to call the but not able to reach her. As per the ER notes patient had a fever of 101 F. No abdominal pain or nausea or vomiting or chest pain. For EMS oxygen saturation 70% on room air upon their evaluation and was placed on oxygen and given IV fluids. Currently saturating okay on 3 L. Past medical history. As mentioned above Surgical history. Colonoscopy. Open repair of right inguinal hernia. Excision of right submandibular sebaceous cyst. Social history. . Quit smoking 1995. Smoked 1.5 packs a day for 30 years. Drinks alcohol.. No drugs use. Family history. Brother had colon cancer. Father had TX. Mother had TX. Diabetes. Daughter has valvular heart disease. Sister has diabetes. Allergies Allergy/AdvReac Type Severity Reaction Status Date / Time No Known Allergies Allergy Verified 09/11/23 00:17 Home Medications Medication Instructions Recorded Confirmed Type acetaminophen 500 mg capsule 500 - 1,000 mg PO Q6H PRN Pain 10/25/20 09/10/23 History atorvastatin 40 mg tablet (Lipitor) 20 mg PO PM 10/25/20 09/10/23 History metoprolol succinate 25 mg 12.5 mg PO QPM 10/25/20 09/10/23 History tablet,extended release 24 hr tamsulosin 0.4 mg capsule (Flomax) 0.4 mg PO HS 10/25/20 09/10/23 History warfarin 2.5 mg tablet 2.5 - 5 mg PO QPM 10/25/20 09/10/23 History cholecalciferol (vitamin D3) 25 25 mcg PO PM 04/08/23 09/10/23 History mcg (1,000 unit) chewable tablet (Vitamin D3) fluticasone propionate 50 1 spray intranasal BID 04/08/23 09/10/23 History mcg/actuation nasal spray,suspension Past Med/Surg History Medical History Unexplained weight loss Approximately 30 lbs in past year, following with heme/onc BPH (benign prostatic hyperplasia) Anxiety Dementia "Early stage" per will be present DOS History of COVID-19 2021, "mild" Non-sustained ventricular tachycardia Hx Poor historian Arthritis Hyperlipidemia Hypertension Atrial fibrillation Chronic, taking warfarin Follows with [facility] cardiology Surgical History History of anesthesia reaction Confusion after hip surgery ("even into the next day") History of colonoscopy History of surgery submandibular sebaceous cyst excision (1994)- per [facility] records History of total hip arthroplasty right Family History Sister Family history of diabetes mellitus Sister Family history of diabetes mellitus Mother Family history of diabetes mellitus Heart disease Brother Family hx of colon cancer Father Heart disease Social History Smoking Status: Never smoker Second Hand Exposure: No; Do You Dip or Chew Tobacco: No; Tobacco Cessation Education Requested by Patient: No Hx Alcohol Use: No Hx Substance Use: No Preferred Language: Croatian Communication Ability: Effective Communication Ability Comment: mild dementia > have to explain things slowly > gets very confused Visual Impairment: No Limitations Hearing Ability: Normal Cone Classifier Tender Required: No Beliefs That Will Affect Care: None marital status: Current Living Situation: Spouse current occupational status: retired Other Information That Helps Us Care for You: No Feels Safe at Home: Yes Safety Concerns: Feels Safe At This Time Diet: regular Assistive Devices: None Review of Systems Review of Systems: Unobtainable due to reduced consciousness Physical Exam Physical Exam: General- confused.hard of hearing Head- atraumatic Eyes- PERRL. ENT- oropharynx clear Neck- supple, no JVD. Lungs- clear to auscultation b/l rhonchi heard. Heart- regular rhythm; no murmur, no gallop. Abdomen- normal bowel sounds, soft, nontender, no distension. Extremities- no pretibial edema, no erythema seen. Neuro- alert, oriented x 1 PERRL, hard of hearing. seems confused. no facial palsy; no dysarthria; moves extremities. Skin- warm & dry Results & Data Results & Data Vital Signs (Past 12 Hours) Vital Signs Temp Pulse Pulse Resp BP BP Pulse Ox 09/11/23 02:21 94 H 09/11/23 02:00 86 20 122/77 94 09/11/23 00:00 88 20 129/58 L 97 09/10/23 22:54 75 L 09/10/23 22:17 88 09/10/23 22:12 37 C 98 H 16 114/65 95 O2 Del Method O2 Flow Rate 09/11/23 02:21 09/11/23 02:00 Nasal Cannula 3 09/11/23 00:00 Nasal Cannula 3 09/10/23 22:54 Room Air 09/10/23 22:17 09/10/23 22:12 Nasal Cannula 3 Diagnostic Findings Laboratory Results WBC 4.44 K/ul (4.8-10.8) L 09/10/23 22:20 RBC 3.59 M/uL (4.70-6.10) L 09/10/23 22:20 Hgb 11.4 g/dl (14.0-18.0) L 09/10/23 22:20 Hct 34.8 % (42.0-52.0) L 09/10/23 22:20 MCV 96.9 fL (80.0-100.0) 09/10/23 22:20 MCH 31.8 pg (25.0-34.0) 09/10/23 22:20 MCHC 32.8 g/dL (32.0-36.0) 09/10/23 22:20 RDW Std Deviation 42.5 fL (36.4-46.3) 09/10/23 22:20 RDW Coeff of Wilberto 11.9 % (11.5-14.5) 09/10/23 22:20 Plt Count 144 K/uL (130-400) 09/10/23 22:20 MPV 9.6 fL (9.4-12.4) 09/10/23 22:20 Immature Gran % (Auto) 0.2 % 09/10/23 22:20 Neut % (Auto) 86.4 % 09/10/23 22:20 Lymph % (Auto) 6.1 % 09/10/23 22:20 [place] % (Auto) 6.3 % 09/10/23 22:20 Eos % (Auto) 0.5 % 09/10/23 22:20 Baso % (Auto) 0.5 % 09/10/23 22:20 Neut # (Auto) 3.84 K/uL (1.40-6.50) 09/10/23 22:20 Lymph # (Auto) 0.27 K/uL (1.20-3.40) L 09/10/23 22:20 [place] # (Auto) 0.28 K/uL (0.11-0.59) 09/10/23 22:20 Eos # (Auto) 0.02 K/uL (0.00-0.50) 09/10/23 22:20 Baso # (Auto) 0.02 K/uL (0.00-0.20) 09/10/23 22:20 Immature Gran # (Auto) 0.01 K/uL (0.01-0.20) 09/10/23 22:20 PT 27.4 Seconds (9.0-12.0) H 09/10/23 22:20 INR 2.7 (0.9-1.1) H 09/10/23 22:20 APTT 40 Seconds (21-31) H 09/10/23 22:20 PTT Ratio 1.4 09/10/23 22:20 Sodium 138 mmol/L (136-145) 09/10/23 22:20 Potassium 3.6 mmol/L (3.5-5.1) 09/10/23 22:20 Chloride 102 mmol/L (98-107) 09/10/23 22:20 Carbon Dioxide 29 mmol/L (21-32) 09/10/23 22:20 Anion Gap 7 (3-11) 09/10/23 22:20 BUN 20 mg/dl (6-23) 09/10/23 22:20 Creatinine 0.67 mg/dl (0.6-1.4) 09/10/23 22:20 Est Cr Clr Drug Dosing 86.3 ml/min 09/10/23 22:20 Est GFR ( Amer) 103.0 ml/min 09/10/23 22:20 Est GFR (Non-Af Amer) 88.9 ml/min 09/10/23 22:20 BUN/Creatinine Ratio 29.9 (10-20) H 09/10/23 22:20 Glucose 149 mg/dl (70-99(Fasting)) H 09/10/23 22:20 Lactate 0.9 mmol/L (0.4-2.0) 09/10/23 23:14 Calcium 8.3 mg/dl (8.6-10.3) L 09/10/23 22:20 Total Bilirubin 0.6 mg/dl (0.2-1.0) 09/10/23 22:20 AST 19 U/L (13-39) 09/10/23 22:20 ALT 14 U/L (7-52) 09/10/23 22:20 Alkaline Phosphatase 62 U/L (34-104) 09/10/23 22:20 Troponin I High Sens 11.9 pg/ml (0-20) 09/10/23 22:20 Total Protein 6.3 gm/dl (6.0-8.3) 09/10/23 22:20 Albumin 3.6 gm/dl (3.4-5.0) 09/10/23 22:20 Globulin 2.7 gm/dl (2.5-4.0) 09/10/23 22:20 Albumin/Globulin Ratio 1.3 (0.9-2) 09/10/23 22:20 Adenovirus (PCR) Not Detected (NotDetected) 09/10/23 22:26 B. pertussis DNA (PCR) Not Detected (NotDetected) 09/10/23 22:26 B.parapertussis DNA PCR Not Detected (NotDetected) 09/10/23 22:26 C. pneumoniae DNA (PCR) Not Detected (NotDetected) 09/10/23 22:26 Coronavirus OC43 (PCR) Not Detected (NotDetected) 09/10/23 22:26 Coronavirus HKU1 (PCR) Not Detected (NotDetected) 09/10/23 22:26 Coronavirus 229E (PCR) Not Detected (NotDetected) 09/10/23 22:26 SARS-CoV-2 (PCR) Not Detected (NotDetected) 09/10/23 22:26 Coronavirus NL63 (PCR) Not Detected (NotDetected) 09/10/23 22:26 Human Metapneumovir PCR Not Detected (NotDetected) 09/10/23 22:26 Influenza Type A (PCR) Not Detected (NotDetected) 09/10/23 22:26 Influenza Type B (PCR) Not Detected (NotDetected) 09/10/23 22:26 M. pneumoniae (PCR) Not Detected (NotDetected) 09/10/23 22:26 Parainfluenza 1 (PCR) Not Detected (NotDetected) 12/26/23 22:26 Parainfluenza 2 (PCR) Not Detected (NotDetected) 09/10/23 22:26 Parainfluenza 3 (PCR) Not Detected (NotDetected) 09/10/23 22:26 Parainfluenza 4 (PCR) Not Detected (NotDetected) 09/10/23 22:26 RSV (PCR) DETECTED (NotDetected) A* 09/10/23 22:26 Entero/Rhino (PCR) Not Detected (NotDetected) 09/10/23 22:26 ECG Additional Comments: ECG. Atrial fibrillation rate of 83. No acute ST changes seen Code Status & VTE Plan VTE Prophylaxis Plan VTE Prophylaxis will be ordered: Yes
[2023-09-11] MEDS ORDERED: LEVALBUTEROL 1.25MG/0.5ML NEB NEB PRN (03:28)
[2023-09-11] MEDS ORDERED: NITROGLYCERIN SL 0.4 MG/TAB TAB SL PRN (03:28)
[2023-09-11] MEDS: D5W AND NSS 1,000 ML IV SCH ×2 (03:57→17:35)
[2023-09-11] MEDS: ACETAMINOPHEN 325 MG TAB PO PRN ×4 (03:57→21:11)
[2023-09-11 04:11] LABS: Basophils # (auto) 0.01 K/uL (0.00-0.20); Basophils % (auto) 0.2 %; Hematocrit (blood only) 34.7 % (42.0-52.0); Hemoglobin 11.2 g/dl (14.0-18.0); Immature Granulocytes # (auto) 0.02 K/uL (0.01-0.20); Immature Granulocytes % (auto) 0.3 %; Lymphocytes # (auto) 0.54 K/uL (1.20-3.40); Lymphocytes % (auto) 8.7 %; Mean Corpuscular Hemoglobin 31.8 pg (25.0-34.0); Mean Corpuscular Hgb Conc 32.3 g/dL (32.0-36.0); Mean Corpuscular Volume 98.6 fL (80.0-100.0); Mean Platelet Volume 9.7 fL (9.4-12.4); Monocytes # (auto) 0.55 K/uL (0.11-0.59); Monocytes % (auto) 8.8 %; Neutrophils # (auto) 5.11 K/uL (1.40-6.50); Platelet Count 140 K/uL (130-400); RDW Standard Deviation 43.5 fL (36.4-46.3); Red Blood Count 3.52 M/uL (4.70-6.10); White Blood Count 6.23 K/ul (4.8-10.8)
[2023-09-11 04:18] LABS: BUN Creatinine Ratio 22.1 (10-20); Calcium 8.4 mg/dl (8.6-10.3); Creatinine Clr Calc Pharmacy 75.1 ml/min; Est GFR (African American) 97.3 ml/min; Est GFR (Non-African American) 83.9 ml/min; Magnesium 1.7 mg/dl (1.7-2.4); Potassium 4.6 mmol/L (3.5-5.1)
[2023-09-11 04:29] LABS: INR 2.6 (0.9-1.1)
[2023-09-11 07:35] LABS: Estimated Average Glucose 128 mg/dl; Hemoglobin A1C 6.1 % (4.5-5.6)
[2023-09-11] MEDS: FLUTICASONE PROPIONATE NA SPR 16 GM BTL SCH ×2 (07:40→21:03)
--- NOTE | 2023-09-11 07:59 | XRay Report ---
SINGLE VIEW CHEST CLINICAL HISTORY: Cough. FINDINGS: An AP, portable, upright chest radiograph is obtained. No prior studies are available for c omparison at the time of dictation. The examination is degraded by portable technique and patient rot ation. The heart is enlarged noting atherosclerotic calcification of the thoracic aorta. The pulmona ry vasculature is noncongested. Airspace consolidation is seen at the left lung base. Question a trac e left pleural effusion. No pneumothorax is seen. The skeletal structures are osteopenic. The bony th orax is grossly intact. IMPRESSION: 1. Cardiomegaly without radiographic evidence of congestive failure. 2. Airspace consolidation at the left lung base there is typical for pneumonia/aspiration pneumonitis . Clinical correlation will be required and radiographic follow-up to resolution is recommended. ACT 112: Negative or not required by law. Electronically signed by: Shailesh Shoemaker M.D. 09/11/2023 7:58 AM
--- NOTE | 2023-09-11 08:48 | Electrocardiogram Report ---
Test Reason : Blood Pressure : / mmHG Vent. Rate : 083 BPM Atrial Rate : 000 BPM P-R Int : 000 ms QRS Dur : 072 ms QT Int : 364 ms P-R-T Axes : 000 068 077 degrees QTc Int : 427 ms Atrial fibrillation Abnormal ECG No previous ECGs available Confirmed by Xavi Hollingsworth ([id number]) on 09/11/2023 8:48:10 AM Referred By: REFERRED SELF Confirmed By:Sunny Hollingsworth
[2023-09-11] MEDS ORDERED: LEVALBUTEROL HCL 0.63 MG/3 ML NEB ONE ×2 (10:08→15:28)
[2023-09-11] MEDS: IPRATROPIUM BROMIDE NEB SOLN 0.02% 2.5 ML VIAL INH SCH ×3 (10:11→17:59)
[2023-09-11] MEDS: LEVALBUTEROL 1.25 MG/3 ML NEB NEB SCH ×3 (10:12→17:59)
[2023-09-11] MEDS: DOXYCYCLINE HYCLATE 100 MG in DEXTROSE 5% MINI-B 100 ML IV SCH ×2 (10:40→21:04)
[2023-09-11] MEDS ORDERED: XOPENEX/ATROVENT 1.25mg/0.5MG NEB COMBO NEB SCH (13:00)
[2023-09-11] MEDS: methylPREDNISolone 40 MG in SYRINGE 0 ML IV SCH ×2 (14:06→21:03)
[2023-09-11] MEDS ORDERED: WARFARIN SOD 2.5 MG TAB PO SCH (16:00)
[2023-09-11] MEDS: TAMSULOSIN HCL 0.4 MG CAP PO SCH (21:03)
[2023-09-11] MEDS: ATORVASTATIN 20 MG TAB PO SCH (21:04)
[2023-09-11] MEDS: METOPROLOL SUCC 25MG EXT REL TAB PO SCH (21:04)
[2023-09-11] MEDS: CHOLECALCIFEROL 1,000 UNITS 25 MCG TAB PO SCH (21:04)
[2023-09-11] MEDS: cefTRIAXone SODIUM 2,000 MG in DEXTROSE 5 % MINI-B 50 ML IV SCH (23:34)
--- NOTE | 2023-09-12 00:33 | Communication Note ---
Date of Service: September 11, 2023 Spoke with pt's for supplemental Hx. Denies heavy chronic alcohol use. States a beer every other day. At risk AWSS protocol ordered. For further information, see H & P from the same date.
[2023-09-12] MEDS ORDERED: LORazepam 1 MG in SYRINGE 0.5 ML IV PRN (00:48)
[2023-09-12] MEDS ORDERED: Ativan IV Alcohol Withdrawal--Active Protocol IV PRN (00:48)
[2023-09-12] MEDS ORDERED: LORazepam 2 MG in SYRINGE 1 ML IV PRN (00:48)
[2023-09-12] MEDS ORDERED: LORazepam 3 MG in SYRINGE 1.5 ML IV PRN (00:48)
[2023-09-12] MEDS: LEVALBUTEROL 1.25 MG/3 ML NEB NEB SCH ×4 (07:02→19:14)
[2023-09-12] MEDS: IPRATROPIUM BROMIDE NEB SOLN 0.02% 2.5 ML VIAL INH SCH ×4 (07:02→19:13)
[2023-09-12 07:31] LABS: Albumin Globulin Ratio 1.2 (0.9-2); Albumin Level 3.8 gm/dl (3.4-5.0); BUN Creatinine Ratio 21.4 (10-20); Bilirubin,Total 0.4 mg/dl (0.2-1.0); Calcium 9.3 mg/dl (8.6-10.3); Creatinine Clr Calc Pharmacy 99.9 ml/min; Est GFR (African American) 110.9 ml/min; Est GFR (Non-African American) 95.7 ml/min; Globulin 3.2 gm/dl (2.5-4.0); Hematocrit (blood only) 37.4 % (42.0-52.0); Immature Granulocytes # (auto) 0.02 K/uL (0.01-0.20); Immature Granulocytes % (auto) 0.3 %; Lymphocytes # (auto) 0.41 K/uL (1.20-3.40); Lymphocytes % (auto) 6.9 %; Mean Corpuscular Hemoglobin 31.7 pg (25.0-34.0); Mean Corpuscular Hgb Conc 32.1 g/dL (32.0-36.0); Mean Corpuscular Volume 98.7 fL (80.0-100.0); Monocytes # (auto) 0.17 K/uL (0.11-0.59); Monocytes % (auto) 2.8 %; Neutrophils # (auto) 5.37 K/uL (1.40-6.50); Phosphorus 2.9 mg/dl (2.5-4.9); Platelet Count 161 K/uL (130-400); RDW Coefficient of Variation 11.9 % (11.5-14.5); RDW Standard Deviation 43.4 fL (36.4-46.3); Red Blood Count 3.79 M/uL (4.70-6.10); White Blood Count 5.97 K/ul (4.8-10.8)
[2023-09-12 07:45] LABS: INR 2.2 (0.9-1.1)
[2023-09-12] MEDS: FLUTICASONE PROPIONATE NA SPR 16 GM BTL SCH ×2 (09:01→20:08)
[2023-09-12] MEDS: methylPREDNISolone 40 MG in SYRINGE 0 ML IV SCH ×3 (09:01→20:08)
[2023-09-12] MEDS: ACETAMINOPHEN 325 MG TAB PO PRN ×2 (09:01→17:17)
[2023-09-12] MEDS: DOXYCYCLINE HYCLATE 100 MG in DEXTROSE 5% MINI-B 100 ML IV SCH ×2 (09:02→22:34)
[2023-09-12] MEDS ORDERED: POLYETHYLENE (MIRALAX) 17 GM PACK PO PRN (12:44)
[2023-09-12] MEDS ORDERED: SOD PHOSPHATE/SOD BIPHOSPHATE ENEMA 132 ML BTL PR PRN (12:45)
[2023-09-12] MEDS: DOCUSATE SODIUM 100 MG CAP PO SCH ×2 (13:35→20:07)
[2023-09-12] MEDS ORDERED: WARFARIN SOD 5 MG TAB PO SCH (16:00)
[2023-09-12] MEDS ORDERED: OLANZapine 10 MG/2.1 ML SDV IM PRN (16:36)
[2023-09-12] MEDS: ATORVASTATIN 20 MG TAB PO SCH (20:07)
[2023-09-12] MEDS: TAMSULOSIN HCL 0.4 MG CAP PO SCH (20:07)
[2023-09-12] MEDS: METOPROLOL SUCC 25MG EXT REL TAB PO SCH (20:07)
[2023-09-12] MEDS: CHOLECALCIFEROL 1,000 UNITS 25 MCG TAB PO SCH (20:08)
[2023-09-12] MEDS ORDERED: LORazepam 0.25 MG in SYRINGE 0.125 ML IV STA (22:17)
[2023-09-12] MEDS: cefTRIAXone SODIUM 2,000 MG in DEXTROSE 5 % MINI-B 50 ML IV SCH (22:34)
[2023-09-13] MEDS: ACETAMINOPHEN 325 MG TAB PO PRN ×2 (04:07→20:23)
[2023-09-13] MEDS: LEVALBUTEROL 1.25 MG/3 ML NEB NEB SCH ×4 (07:08→19:43)
[2023-09-13] MEDS: IPRATROPIUM BROMIDE NEB SOLN 0.02% 2.5 ML VIAL INH SCH ×4 (07:08→19:42)
[2023-09-13 07:22] LABS: Hematocrit (blood only) 35.9 % (42.0-52.0); Hemoglobin 11.7 g/dl (14.0-18.0); Immature Granulocytes # (auto) 0.03 K/uL (0.01-0.20); Immature Granulocytes % (auto) 0.5 %; Lymphocytes # (auto) 0.39 K/uL (1.20-3.40); Lymphocytes % (auto) 6.4 %; Mean Corpuscular Hemoglobin 31.9 pg (25.0-34.0); Mean Corpuscular Hgb Conc 32.6 g/dL (32.0-36.0); Mean Corpuscular Volume 97.8 fL (80.0-100.0); Mean Platelet Volume 9.9 fL (9.4-12.4); Monocytes # (auto) 0.23 K/uL (0.11-0.59); Monocytes % (auto) 3.8 %; Neutrophils # (auto) 5.41 K/uL (1.40-6.50); Neutrophils % (auto) 89.3 %; Platelet Count 178 K/uL (130-400); RDW Standard Deviation 43.4 fL (36.4-46.3); Red Blood Count 3.67 M/uL (4.70-6.10); White Blood Count 6.06 K/ul (4.8-10.8)
[2023-09-13 07:34] LABS: Albumin Globulin Ratio 1.3 (0.9-2); Albumin Level 3.8 gm/dl (3.4-5.0); Bilirubin,Total 0.4 mg/dl (0.2-1.0); Calcium 9.4 mg/dl (8.6-10.3); Creatinine Clr Calc Pharmacy 75.5 ml/min; Est GFR (African American) 98.9 ml/min; Est GFR (Non-African American) 85.3 ml/min; Magnesium 2.1 mg/dl (1.7-2.4); Phosphorus 3.2 mg/dl (2.5-4.9); Potassium 4.3 mmol/L (3.5-5.1); Total Protein 6.8 gm/dl (6.0-8.3)
--- NOTE | 2023-09-13 07:38 | Hospitalist Progress Note ---
Date of Service September 12, 2023 Assessment & Plan (1) Acute bronchitis: Plan: 83-year-old male with past medical history significant for dyslipidemia, prediabetes, chronic sinusitis, chronic atrial fibrillation, nonsustained ventricular tachycardia, dilated aortic root, BPH, moderate dementia with anxiety, cerebral atrophy, history of tobacco use, history of risk of falls, who lives at home with his was brought in because of weakness and shortness of breath and found to have a RSV infection. Acute bronchitis Hypoxic on room air Requiring 3L oxygen on admission, currently on RA Chest xray confirming pneumonia History of smoking in the past Possible underlying emphysema and COPD exacerbation Had Rocephin in the ER Procalcitonin elevated, Rocephin and doxycycline continued Continue IV steroids nebs [id number] and as needed Closely monitor RSV infection Droplet precautions Supportive care Chronic atrial fibrillation History of nonsustained ventricular tachycardia On beta-alec and Coumadin INR 2.7 Moderate dementia with anxiety Cerebral atrophy Monitor for delirium Zyprexa IM prn ordered Hyperlipidemia On statin Alcoholism Confirmed with and pt, one drink maybe every other day AWSS at risk Ativan ordered Diet: DMII DVT prophylaxis: On Coumadin. Follow PT/INR Disposition:PT/OT ordered, concerned about safety at home Admission and Anticipated Discharge Date Admission Date: September 11, 2023 Subjective Pt seen in the AM. Complaints of constipation. Alert and oriented x3 talking today. Review of Systems Review of Systems: All systems reviewed & are unremarkable except as noted in Subjective Physical Exam Physical Exam: General: Alert, orientedx3. No acute distress Psych: Appropriate mood and affect Neuro: some speech deficit HEENT: NC/AT, bruise on nose CV: RRR Resp: Breath sounds clear bilaterally Abdomen: Soft, nontender, nondistended. Extremities: No edema in lower extremities bilaterally. Results & Data Results & Data Vital Signs (Past 12 Hours) Vital Signs Temp Pulse Pulse Resp BP Pulse Ox O2 Del Method 09/12/23 11:15 36.4 C L 68 18 112/59 L 94 Room Air 09/12/23 10:35 106 H 18 92 Room Air 09/12/23 09:52 Nasal Cannula 09/12/23 07:18 78 09/12/23 07:02 82 18 90 Nasal Cannula 09/12/23 06:45 36.5 C 87 18 96 Nasal Cannula 09/12/23 03:00 36.4 C L 75 18 129/73 97 Nasal Cannula O2 Flow Rate 09/12/23 11:15 09/12/23 10:35 09/12/23 09:52 3 09/12/23 07:18 09/12/23 07:02 3 09/12/23 06:45 2 09/12/23 03:00 3
[2023-09-13 08:02] LABS: INR 3.5 (0.9-1.1); Prothrombin Time 35.4 Seconds (9.0-12.0)
[2023-09-13] MEDS: methylPREDNISolone 40 MG in SYRINGE 0 ML IV SCH ×3 (11:08→20:24)
[2023-09-13] MEDS: DOCUSATE SODIUM 100 MG CAP PO SCH ×2 (11:08→20:23)
[2023-09-13] MEDS: DOXYCYCLINE HYCLATE 100 MG in DEXTROSE 5% MINI-B 100 ML IV SCH ×2 (11:08→22:21)
[2023-09-13] MEDS: FLUTICASONE PROPIONATE NA SPR 16 GM BTL SCH ×2 (11:08→20:24)
[2023-09-13] MEDS ORDERED: ZOLPIDEM TARTRATE 5 MG TAB PO STA (19:34)
[2023-09-13] MEDS: ATORVASTATIN 20 MG TAB PO SCH (20:23)
[2023-09-13] MEDS: CHOLECALCIFEROL 1,000 UNITS 25 MCG TAB PO SCH (20:23)
[2023-09-13] MEDS: TAMSULOSIN HCL 0.4 MG CAP PO SCH (20:23)
[2023-09-13] MEDS: METOPROLOL SUCC 25MG EXT REL TAB PO SCH (20:23)
[2023-09-13] MEDS: cefTRIAXone SODIUM 2,000 MG in DEXTROSE 5 % MINI-B 50 ML IV SCH (22:21)
[2023-09-13] MEDS ORDERED: IPRATROPIUM BROMIDE NEB SOLN 0.02% 2.5 ML VIAL INH PRN (22:45)
--- NOTE | 2023-09-13 23:02 | Hospitalist Progress Note ---
Date of Service September 13, 2023 Assessment & Plan (1) Acute bronchitis: Plan: 83-year-old male with past medical history significant for dyslipidemia, prediabetes, chronic sinusitis, chronic atrial fibrillation, nonsustained ventricular tachycardia, dilated aortic root, BPH, moderate dementia with anxiety, cerebral atrophy, history of tobacco use, history of risk of falls, who lives at home with his was brought in because of weakness and shortness of breath and found to have a RSV infection. Acute bronchitis Hypoxic on room air Requiring 3L oxygen on admission, currently on RA Chest xray confirming pneumonia History of smoking in the past Possible underlying emphysema and COPD exacerbation Had Rocephin in the ER Procalcitonin elevated, Rocephin and doxycycline continued treated with IV steroids, transition to po Prednisone for total of 5 days nebs as needed Closely monitor PT/OT ordered, with concerns about taking raphael home with progressing confusion RSV infection Droplet precautions Supportive care Moderate dementia with anxiety Cerebral atrophy Pt with more frequent episodes of confusion, waxing and waning Per , baseline dementia Episodes of Delirium requiring sitter, prn Zyprexa Delirium precautions. Frequent reorientation, avoid sedating medications Constipation Dulcolax BID ordered PRN suppositories, miralax Chronic atrial fibrillation History of nonsustained ventricular tachycardia On beta-alec and Coumadin INR currently supratherapeutic. Holding home warfarin Hyperlipidemia On statin Alcoholism Confirmed with and pt, one drink maybe every other day AWSS at risk Ativan ordered Diet: DMII DVT prophylaxis: On Coumadin. Follow PT/INR Disposition:PT/OT ordered, concerned about safety at home Admission and Anticipated Discharge Date Admission Date: September 11, 2023 Subjective Pt seen in the AM. Sitting at bedside in chair, also present and with sitter. Pt AAOx3. Denies acute concerns. concerned about taking him home. States she does not believe he will be safe at home Review of Systems Review of Systems: All systems reviewed & are unremarkable except as noted in Subjective Physical Exam Physical Exam: General: Alert, orientedx3. No acute distress Psych: Appropriate mood and affect Neuro: some speech deficit HEENT: NC/AT, bruise on nose CV: RRR Resp: Breath sounds coarse bilaterally Abdomen: Soft, nontender, nondistended. Extremities: No edema in lower extremities bilaterally. Results & Data Results & Data Vital Signs (Past 12 Hours) Vital Signs Pulse Pulse Resp Pulse Ox O2 Del Method O2 Del Method 09/13/23 11:24 83 18 96 Room Air 09/13/23 08:00 63 09/13/23 07:09 68 18 92 Room Air 09/13/23 03:07 Room Air
[2023-09-14] MEDS: ACETAMINOPHEN 325 MG TAB PO PRN ×2 (06:01→15:52)
[2023-09-14 07:45] LABS: Basophils # (auto) 0.01 K/uL (0.00-0.20); Basophils % (auto) 0.2 %; Hematocrit (blood only) 33.6 % (42.0-52.0); Hemoglobin 11.3 g/dl (14.0-18.0); Immature Granulocytes # (auto) 0.04 K/uL (0.01-0.20); Immature Granulocytes % (auto) 0.7 %; Lymphocytes # (auto) 0.44 K/uL (1.20-3.40); Lymphocytes % (auto) 8.1 %; Mean Corpuscular Hemoglobin 31.8 pg (25.0-34.0); Mean Corpuscular Hgb Conc 33.6 g/dL (32.0-36.0); Mean Corpuscular Volume 94.6 fL (80.0-100.0); Mean Platelet Volume 9.5 fL (9.4-12.4); Monocytes % (auto) 5.5 %; Neutrophils # (auto) 4.64 K/uL (1.40-6.50); Neutrophils % (auto) 85.5 %; Platelet Count 194 K/uL (130-400); RDW Standard Deviation 42.5 fL (36.4-46.3); Red Blood Count 3.55 M/uL (4.70-6.10); White Blood Count 5.43 K/ul (4.8-10.8)
[2023-09-14 08:04] LABS: Albumin Globulin Ratio 1.3 (0.9-2); Albumin Level 3.6 gm/dl (3.4-5.0); BUN Creatinine Ratio 29.3 (10-20); Bilirubin,Total 0.4 mg/dl (0.2-1.0); Creatinine Clr Calc Pharmacy 77.1 ml/min; Est GFR (African American) 98.3 ml/min; Est GFR (Non-African American) 84.8 ml/min; Globulin 2.7 gm/dl (2.5-4.0); Phosphorus 3.9 mg/dl (2.5-4.9); Potassium 4.1 mmol/L (3.5-5.1); Total Protein 6.3 gm/dl (6.0-8.3)
[2023-09-14 08:08] LABS: INR 4.3 (0.9-1.1); Prothrombin Time 42.9 Seconds (9.0-12.0)
[2023-09-14] MEDS: LEVALBUTEROL 1.25 MG/3 ML NEB NEB SCH ×4 (08:30→19:27)
[2023-09-14] MEDS: DOXYCYCLINE HYCLATE 100 MG in DEXTROSE 5% MINI-B 100 ML IV SCH (10:38)
--- NOTE | 2023-09-14 11:02 | Hospitalist Progress Note ---
Date of Service September 14, 2023 Assessment & Plan (1) Acute bronchitis: Plan: 83-year-old male with past medical history significant for dyslipidemia, prediabetes, chronic sinusitis, chronic atrial fibrillation, nonsustained ventricular tachycardia, dilated aortic root, BPH, moderate dementia with anxiety, cerebral atrophy, history of tobacco use, history of risk of falls, who lives at home with his was brought in because of weakness and shortness of breath and found to have a RSV infection and complicated bronchitis. Acute bronchitis Hypoxic on room air, requiring 3L oxygen on admission, currently on RA Chest xray confirming pneumonia History of smoking in the past Possible underlying emphysema and COPD exacerbation Had Rocephin in the ER Procalcitonin elevated, Rocephin and doxycycline continued- transitioned to po cefdinir and doxy. Consider 7-10 day total of treatment. treated with IV steroids, transition to po Prednisone for total of 5 days nebs as needed Closely monitor PT/OT ordered, with concerns about taking him home with progressing confusion- CM aware RSV infection Droplet precautions Supportive care SUPRATHERAPEUTIC INR Pt on warfarin for chronic a fib Home warfarin has been on hold but INR continues to get higher Currently 4.3, continue to hold warfarin today. Possibly due to abx Consider Vit K administration if it continues to be higher in AM. Chronic atrial fibrillation History of nonsustained ventricular tachycardia On beta-alec and Coumadin INR currently supratherapeutic. Holding home warfarin As above consider Vit K administration if it continues to be higher in AM. Moderate dementia with anxiety Cerebral atrophy Pt with more frequent episodes of confusion, waxing and waning Per , baseline dementia Episodes of Delirium requiring sitter, prn Zyprexa Delirium precautions. Frequent reorientation, avoid sedating medications PT/OT ordered, concerned about safety at home- CM aware Constipation Dulcolax BID ordered PRN suppositories, miralax Hyperlipidemia On statin Alcoholism Confirmed with and pt, one drink maybe every other day AWSS at risk Ativan ordered Diet: DMII DVT prophylaxis: On Coumadin. Follow PT/INR Disposition:PT/OT ordered, concerned about safety at home Admission and Anticipated Discharge Date Admission Date: September 11, 2023 Subjective Pt seen in the AM. Sitting in bed getting a breathing treatment. Denies acute concerns otherwise and sitter at bedisde Review of Systems Review of Systems: All systems reviewed & are unremarkable except as noted in Subjective Physical Exam Physical Exam: General: Alert, orientedx3. No acute distress Psych: Appropriate mood and affect Neuro: some speech deficit HEENT: NC/AT, bruise on nose CV: RRR Resp: Breath sounds coarse bilaterally Abdomen: Soft, nontender, nondistended. Extremities: No edema in lower extremities bilaterally. Results & Data Results & Data Vital Signs (Past 12 Hours) Vital Signs Temp Pulse Resp BP Pulse Ox O2 Del Method O2 Del Method 09/14/23 08:30 94 H 17 94 Room Air 09/14/23 07:16 36.8 C 78 19 142/77 H 96 Room Air 09/14/23 03:05 Room Air 09/14/23 02:37 36.5 C 74 19 146/88 H 93 Room Air 09/13/23 23:05 Room Air
[2023-09-14] MEDS: predniSONE 20 MG TAB PO SCH (12:34)
[2023-09-14] MEDS: FLUTICASONE PROPIONATE NA SPR 16 GM BTL SCH ×2 (12:34→20:05)
[2023-09-14] MEDS: DOCUSATE SODIUM 100 MG CAP PO SCH ×2 (12:34→20:04)
[2023-09-14] MEDS: CEFDINIR 300 MG CAP PO SCH ×2 (13:41→20:04)
[2023-09-14] MEDS: TAMSULOSIN HCL 0.4 MG CAP PO SCH (20:03)
[2023-09-14] MEDS: CHOLECALCIFEROL 1,000 UNITS 25 MCG TAB PO SCH (20:03)
[2023-09-14] MEDS: ATORVASTATIN 20 MG TAB PO SCH (20:03)
[2023-09-14] MEDS: METOPROLOL SUCC 25MG EXT REL TAB PO SCH (20:03)
[2023-09-14] MEDS: DOXYCYCLINE HYCLATE 100 MG CAP PO SCH (20:04)
[2023-09-15 06:25] LABS: Basophils # (auto) 0.01 K/uL (0.00-0.20); Basophils % (auto) 0.2 %; Hematocrit (blood only) 37.5 % (42.0-52.0); Hemoglobin 12.7 g/dl (14.0-18.0); Immature Granulocytes # (auto) 0.03 K/uL (0.01-0.20); Immature Granulocytes % (auto) 0.6 %; Lymphocytes # (auto) 0.92 K/uL (1.20-3.40); Mean Corpuscular Hemoglobin 32.4 pg (25.0-34.0); Mean Corpuscular Hgb Conc 33.9 g/dL (32.0-36.0); Mean Corpuscular Volume 95.7 fL (80.0-100.0); Mean Platelet Volume 9.8 fL (9.4-12.4); Monocytes # (auto) 0.45 K/uL (0.11-0.59); Monocytes % (auto) 8.8 %; Neutrophils # (auto) 3.69 K/uL (1.40-6.50); Neutrophils % (auto) 72.4 %; Platelet Count 231 K/uL (130-400); RDW Coefficient of Variation 12.2 % (11.5-14.5); RDW Standard Deviation 42.7 fL (36.4-46.3); Red Blood Count 3.92 M/uL (4.70-6.10)
[2023-09-15 06:27] LABS: BUN Creatinine Ratio 25.4 (10-20); Calcium 8.9 mg/dl (8.6-10.3); Creatinine Clr Calc Pharmacy 86.3 ml/min; Est GFR (Non-African American) 88.9 ml/min; Phosphorus 3.4 mg/dl (2.5-4.9); Potassium 3.8 mmol/L (3.5-5.1)
[2023-09-15 06:35] LABS: INR 3.8 (0.9-1.1); Prothrombin Time 38.1 Seconds (9.0-12.0)
[2023-09-15] MEDS: DOXYCYCLINE HYCLATE 100 MG CAP PO SCH (08:39)
[2023-09-15] MEDS: FLUTICASONE PROPIONATE NA SPR 16 GM BTL SCH (08:40)
[2023-09-15] MEDS: predniSONE 20 MG TAB PO SCH (08:40)
[2023-09-15] MEDS: CEFDINIR 300 MG CAP PO SCH (08:40)
[2023-09-15] MEDS: DOCUSATE SODIUM 100 MG CAP PO SCH (08:40)
--- NOTE | 2023-09-15 15:34 | Discharge Summary ---
Discharge Summary Date of Service September 15, 2023 Admission HPI Per Admitting Provider 83-year-old male with past medical history significant for dyslipidemia, prediabetes, chronic sinusitis, chronic atrial fibrillation, nonsustained ventricular tachycardia, dilated aortic root, BPH, moderate dementia with anxiety, cerebral atrophy, history of tobacco use, history of risk of falls, who lives at home with his was brought in because of weakness and shortness of breath and found to be RSV infection. Patient recently was around great granddaughters over the weekend who tested positive for RSV. Complains of congestion. Patient is very hard of hearing and also seems somewhat confused. States he is feeling congested. Could not get any history from the patient. Tried to call the but not able to reach her. As per the ER notes patient had a fever of 101 F. No abdominal pain or nausea or vomiting or chest pain. For EMS oxygen saturation 70% on room air upon their evaluation and was placed on oxygen and given IV fluids. Currently saturating okay on 3 L. Past medical history. As mentioned above Surgical history. Colonoscopy. Open repair of right inguinal hernia. Excision of right submandibular sebaceous cyst. Social history. . Quit smoking 1995. Smoked 1.5 packs a day for 30 years. Drinks alcohol.. No drugs use. Family history. Brother had colon cancer. Father had IA. Mother had IA. Diabetes. Daughter has valvular heart disease. Sister has diabetes. Principal Dx & Hospital Course #1 = Principal Diagnosis (1) Acute bronchitis: 83-year-old male with past medical history significant for dyslipidemia, prediabetes, chronic sinusitis, chronic atrial fibrillation, nonsustained ventricular tachycardia, dilated aortic root, BPH, moderate dementia with anxiety, cerebral atrophy, history of tobacco use, history of risk of falls, who lives at home with his was brought in because of weakness and shortness of breath and found to have a RSV infection and complicated bronchitis. Acute bronchitis Hypoxic on room air, requiring 3L oxygen on admission, currently on RA Chest xray confirming pneumonia History of smoking in the past Possible underlying emphysema and COPD exacerbation Had Rocephin in the ER Procalcitonin elevated, Rocephin and doxycycline continued- transitioned to po cefdinir and doxy. Consider 7-10 day total of treatment. treated with IV steroids, transition to po Prednisone for total of 5 days nebs as needed Closely monitor PT/OT ordered, with concerns about taking him home with progressing confusion- CM aware RSV infection Droplet precautions Supportive care SUPRATHERAPEUTIC INR Pt on warfarin for chronic a fib Home warfarin has been on hold but INR continues to get higher Currently 4.3, continue to hold warfarin today. Possibly due to abx Consider Vit K administration if it continues to be higher in AM. Chronic atrial fibrillation History of nonsustained ventricular tachycardia On beta-alec and Coumadin INR currently supratherapeutic. Holding home warfarin As above consider Vit K administration if it continues to be higher in AM. Moderate dementia with anxiety Cerebral atrophy Pt with more frequent episodes of confusion, waxing and waning Per , baseline dementia Episodes of Delirium requiring sitter, prn Zyprexa Delirium precautions. Frequent reorientation, avoid sedating medications PT/OT ordered, concerned about safety at home- CM aware Constipation Dulcolax BID ordered PRN suppositories, miralax Hyperlipidemia On statin Alcoholism Confirmed with and pt, one drink maybe every other day AWSS at risk Ativan ordered Diet: DMII DVT prophylaxis: On Coumadin. Follow PT/INR Disposition:PT/OT ordered, concerned about safety at home Updated Medication List Medication Instructions Recorded Confirmed Type acetaminophen 500 mg capsule 500 - 1,000 mg PO Q6H PRN Pain 10/25/20 09/10/23 History atorvastatin 40 mg tablet (Lipitor) 20 mg PO PM 10/25/20 09/10/23 History metoprolol succinate 25 mg 12.5 mg PO QPM 10/25/20 09/10/23 History tablet,extended release 24 hr tamsulosin 0.4 mg capsule (Flomax) 0.4 mg PO HS 10/25/20 09/10/23 History warfarin 2.5 mg tablet 2.5 - 5 mg PO QPM 10/25/20 09/10/23 History cholecalciferol (vitamin D3) 25 25 mcg PO PM 04/08/23 09/10/23 History mcg (1,000 unit) chewable tablet (Vitamin D3) fluticasone propionate 50 1 spray intranasal BID 04/08/23 09/10/23 History mcg/actuation nasal spray,suspension cefdinir 300 mg capsule 300 mg PO BID #4 caps 09/15/23 Rx doxycycline hyclate 100 mg capsule 100 mg PO BID #4 caps 09/15/23 Rx Hospital Stay Data Consultations 09/10/23 23:58 ED Decision to Admit Stat Pending Results Patient Have Any Pending Studies at Discharge: No Discharge Instructions Given to Patient (Per Discharging Provider) Please take all medications as instructed on discharge list below. Please hold off taking any warfarin today and then resume typical dosing tomorrow with close INR followup in the next couple of days. Please followup with your primary care physician (PCP) in the next week to ensure you are improving after returning home from the hospital. Please have a repeat chest xray in 4 weeks time to ensure complete resolution of pneumonia. This may be ordered by your PCP. It was a pleasure taking care of you! Please call if you have any questions or problems. You can reach a [facility] hospitalist on duty at [facility] 24 hours a day by calling [phone]. Take care of yourself. Sushma Mooney, [facility] University Medical Centerist
== END 2023-09-15 16:04 | disposition home or self-care (01) | DRG 202 ==
LOC: ED 21:54 → EDINP 09-11 02:40 → SUATTDRO 09-11 02:40 → 2N 09-11 03:28

== ENCOUNTER 2024-11-28 01:07 | Inpatient (IN) ==
--- OUTSIDE RECORDS SUMMARY | 2024-11-28 01:14 | External Medical Summary | Summary of Care ---
Author Name Unknown Organization [facility] Address [address] [place] [place] [address] Phone [phone] Care Team Providers Care Oil Rig Driller Name Role Phone Ignacio Prado MD Primary Care Provider +1- [phone] Reason for Visit * Reason Onset Date Comments Advice 11/10/2024 Encounter Details Date Type Department Care Team (Late st Contact Info) Description 11/10/[address] [facility] [address] [place] [phone] Ignacio Prado MD [address] [facility] [place] [address] Advice Allergies No known active allergiesdocumented as of this encounter (statuses as of 11/19/2024) Medications NIZORAL SHAM 2 % EXIndications:Sebo rrheic dermatitis, unspecified as directed 1 5 03/13/20 02 Active NASAL SALINE 0.65 % NA SOLNIndications:Ch ronic rhinitis,Other acute sinusitis,Postnasa l drip flush each nostril morning and night and every 2-4 hrs as needed for nasal dryness or congestion 1 Bottle 3 11/18/19 11 Active HYDROCORTISONE 2.5 % EX CREA to affected areas as needed 08/23/20 14 Active metoprolol succinate XL (TOPROL XL) 25 MG [id number]:Pe rsistent atrial fibrillation (HCC) Take 0.5 Tabs by mouth daily. 45 Tab 3 03/20/20 17 Active Tamsulosin HCl 0.4 MG Oral Capsule (FLOMAX) Take 1 Capsule by mouth at bedtime. 06/24/20 20 Active Acetaminophen 500 MG Oral Tablet (Tylenol) Take 1 Tablet by mouth every 6 hours as needed for Pain. 1-2 tabs Active Fluticasone Propionate 50 MCG/ACT Nasal Suspension (Flonase) INSTILL 2 SPRAYS IN EACH NOSTRIL EVERY DAY NEEDED 03/17/20 Active Amoxicillin 500 MG Oral Capsule (Amoxil) TAKE FOUR CAPSULES BY MOUTH ONE HOUR BEFORE APPOINTMENT 07/10/20 Active Cholecalciferol 25 MCG (1000 UT) Oral Tablet Disintegrating Take 25 mcg by mouth at bedtime. Active LORazepam 1 MG Oral Tablet (Ativan)Indication s:Anxiety Take 1 Tablet by mouth 3 times a day as needed for Anxiety. 90 Tablet 10/29/19 25 Active OLANZapine 2.5 MG Oral Tablet (zyPREXA)Indicatio ns:Severe Alzheimer's dementia with psychotic disturbance, unspecified timing of dementia onset (HCC) Take 1 Tablet by mouth at bedtime. 90 Tablet 11/04/19 25 Active documented as of this encounter (statuses as of 11/19/2024) Active Problems Problem Noted Date Diagnosed Date Severe Alzheimer's dementia with psychotic distu rbance 09/30/2024 Normochromic normocytic anemia 08/08/2024 Aortic root enlargement 08/08/2024 Mild mitral valve regurgitation 08/08/2024 Mild tricuspid regurgitation 08/08/2024 Mild aortic valve sclerosis 08/08/2024 Pulmonary emphysema 12/02/2023 Moderate dementia with psychotic disturbance HTN, goal below 130/80 09/23/2023 H/O right inguinal hernia repair 07/01/2023 At risk for falls 07/01/2023 Nocturia 07/01/2023 Chronic sinusitis 07/01/2023 Atherosclerosis of [place] artery of lower extrem ity 07/01/2023 Cerebral atrophy 07/01/2023 Coronary artery disease invo lving [place] coronary artery of [place] heart without angina pectoris 07/01/2023 BPH with obstruction/lower urinary tract symptom s 07/01/2023 Diverticulosis of large intestine without hemorr jessica 07/01/2023 S/P hip replacement, right 12/14/2022 Dilated aortic root 01/11/2022 Prediabetes 12/26/2020 Overview: Per Prediabetes protocol Chronic atrial fibrillation 10/15/2019 Warfarin anticoagulation 10/15/2019 Overview (10/15/2019): For atrial fibrillation Non-sustained ventricular tachycardia 10/15/2019 Dyslipidemia, goal LDL below 100 09/28/2013 NONALLERGIC RHINITIS 11/17/2010 Noise-induced hearing loss 09/16/1993 Overview (10/15/2019): Mod Bilat sensorineural hearing loss History of tobacco use documented as of this encounter (statuses as of 11/19/2024) Resolved Problems Problem Noted Date Diagnosed Date Resolved Date Moderate dementia with psychotic disturbance 12/02/2023 Atrial fibrillation 09/23/2023 12/02/19 Moderate dementia with anxiety 07/01/2023 12/02/2023 Alcohol ingestion, 1-4 drinks per day 07/01/2023 12/02/2023 Polyp of colon 07/01/2023 12/02/2023 Dementia without behavioral disturbance, psychotic disturbance, mood disturbance, or anxiety 12/14/2022 01/07/2023 Constipation 12/14/2022 12/02/2023 Loss of weight 12/14/2022 07/23/2024 Persistent atrial fibrillation 04/04/2015 10/15/2019 Family history of ischemic heart disease 09/28/2013 08/14/2018 Atrial fibrillation 08/07/2013 04/04/20 15 Postnasal drip 11/17/2010 08/14/2018 Seborrheic dermatitis 2017 Overview (06/17/2017): ICD-10 update of inactive term DIVERTICULOSIS OF COLON 07/18 documented as of this encounter (statuses as of 11/19/2024) Immunizations Name Administration Dates Next Due COVID-19 mRNA, LNP-s, No Pre serve, 2-Dose Series (Moderna) 12/12/2020,11/14/2020 COVID-19, mRNA, LNP-s, PF, B ooster, 100mcg/0.5mg (Moderna) 08/14/2021 Pneumococcal Conjugate Vacc, 13 Valent (Prevnar) 07/20/2015 Pneumococcal Conjugate Vacci ne, 7 Valent 06/16/2002 Pneumococcal Polysaccharide PPV23 (Pneumovax) 07/16/2018,05/17/2017,06/16/2002 Seasonal Influenza Vac., MDV , IM, 0.5 mL (Fluzone) 06/29/2014,06/21/2013,06/25/2010,06/25,08/10/2003,06/30/2002 Seasonal Influenza, PF, 6 M & above, IM , (FluLaval or Fluzone) 06/27/2019,06/20/2018,06/20/2017 Seasonal Influenza, Quadriva lent Hd (Fluzone Hd) 06/01/2024,06/24/2021,06/22/2020 Seasonal Influenza, Quadriva lent Hd, 65+ Yrs 06/14/2022 Seasonal Influenza, Quadrivalent, ID 06/22/2020 Seasonal Influenza, Quadriva lent, No Preserve, IM 07/19/2016,07/20/2015 TD - Tetanus/Diptheria (ADULT) 02/02/2003,1998 TDAP (age 10 and older)(Boostrix) 06/01/2024, Varicella Zoster Vaccine (Adult) 09/21/2015,12/2004 documented as of this encounter Social History Tobacco Use Types Packs/Day Years Used Date Smoking Tobacco: Former Cigarettes 1.5 30 1 - 06/16/1993 Smokeless Tobacco: Never Comments:no passive smoke Alcohol Use Standard Drinks/Week Comments Not Currently 16.7 (1 standard drink = 0.6 oz pure alcohol) once in awhile PHQ-2 Answer Date Recorded PHQ Adult Total Score 0 08/08/2024 Hunger Vital Sign Answer Date Recorded Within the past 12 months, y ou worried that your food would run out before you got the money to buy more. Never true 08/08/20 24 Within the past 12 months, t he food you bought just didn't last and you didn't have money to get more. Never true 08/08/2024 Childcare Answer Date Recorded Do you feel overwhelmed with taking care of a child, family member or friend? No 08/08/2024 Does your family need help f inding childcare? (Household - for ages 0-17 years) Not on file 08/08/2024 Clothing Answer Date Recorded Have you been unable to get clothing when it was really needed? No 08/08/2024 Is your family able to get c lothes or diapers when needed? (Household - for ages 0-17 years) Not on file 08/08/2024 Personal Safety Answer Date Recorded Do you feel unsafe or have concerns for your saf ety? No 08/08/2024 Do you have concerns for you r family's safety? (Household - for ages 0-17 years) Not on file 08/08/2024 Utilities Answer Date Recorded Do you have trouble paying y our heating, water, or electric bill? No 08/08/2024 Is your family able to pay t he heat, water, or electric bill? (Household - for ages 0-17 years) Not on file 08/08/2024 Does your family have access to good internet? (Household - for ages 0-17 years) Not on file 08/08/2024 Employment Status Answer Date Recorded Are you unemployed or without regular income? No 08/08/2024 Does the household have a re lar source of income? (Household - for ages 0-17 years) Not on file 08/08/2024 Social Connections Answer Date Recorded How often do you feel lonely or isolated from th ose around you? Never 08/08/2024 Financial Resource Strain Answer Date R ecorded Do you have any trouble payi ng for your medications, or do you think you might in the future? No 08/08/2024 Does your family have troubl e paying for medicine? (Household - for ages 0-17 years) Not on file 08/08/2024 Transportation Needs Answer Date Record ed Do you have trouble getting a ride to medical visits or work? (Adult - for ages 18 years and over) Not on file 08/08/2024 Does your family have a hard time getting a ride to doctors visits? (Household - for ages 0-17 years) Not on file 08/08/2024 Has lack of transportation k ept you from medical appointments, meetings, work, or from getting things needed for daily living? Check all that apply. No 08/08/2024 Do you (or your family) have trouble finding or paying for a ride (transportation)? (Household - for ages 0-17 years) Not on file 08/08/2024 Housing Stability Answer Date Recorded Do you currently live in a s helter or have no steady place to sleep at night? No 08/08/2024 Do you think you are at risk of becoming homeless? (Adult - for ages 18 years and over) Not on file 08/08/2024 Does your family worry about paying for your home or becoming homeless? (Household - for ages 0-17 years) Not on file 1 10/08/2023 Are you homeless or worried that you might be in the future? No 08/08/2024 Are you (or your family) raphael eless or worried that you might be in the future? (Household - for ages 0-17 years) Not on file Food Insecurity Answer Date Recorded Do you need food for this week? No 08/08/2024 Are you able to get enough f ood for your family? (Household - for ages 0-17 years) Not on file 08/08/2024 Does your family need food t his week? (Household - for ages 0-17 years) Not on file 08/08/2024 Do you always have enough fo od for your family? (Household - for ages 0-17 years) Not on file 08/08/2024 Food Insecurity Answer Date Recorded Within the past 12 months, y ou worried that your food would run out before you got the money to buy more. Never true 08/08/20 24 Within the past 12 months, t he food you bought just didn't last and you didn't have money to get more. Never true 08/08/2024 Do you need food for this week? 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 Randi is asking it patient could be switched to haldol or Seroquel to help. [facility] Randi had reached out to Tabatha monsalve to get more help as well and they need a referral placed to get patient more help. Please advise * Telephone Encounter - Vero Car OSA - 11/17/2024 10:37 AM EST P[ts daughter is calling back asking for the provider to call her due to her fathers health care and medications And all the previous messages Thank you ZORAN Canela * Telephone Encounter - Gracia Nova LPN - 11/13/2024 9:59 AM EST Please see note from yesterday. Daughter asked if patient could try Seroquel * Telephone Encounter - Elba Louis OSA - 11/13/2024 9:21 AM EST Patient's daughter is very upset. Requesting prescription. Reports of patient being aggressive towards spouse. Requesting a return call today. Randi can be contacted at [phone] * Telephone Encounter - Gracia Nova LPN - 11/12/2024 11:49 AM EST Called and spoke with daughter Randi. Notified of advice below. Daughter very upset-states she feels that this is a game of phone tag and her questions are not being answered. -Daughter states they are [facility]. -Daughter states they want patient off of the Ativan. -Feels patient is worse since starting Zyprexa. Daughter declined to increase dose. -Daughter is requesting to try Seroquel or "something similar". * Telephone Encounter - Debo Finney OSA - 11/12/2024 11:10 AM EST Pt's daughter called back, I tried the nurse line no answer after 2 minutes. Please call her back. * Telephone Encounter - Janna Shepherd LPN - 11/12/2024 10:41 AM EST Left message for patient's daughter to return call * Telephone Encounter - Ignacio Prado MD - 11/12/2024 9:40 AM EST If they can't be sure of 's safety, may need to consider placement for the patient. There may not be a medication that is safe for patient and will take away aggression. If he is tolerating it, they can increase the olanzapine 2.5 mg that was prescribed a week or so ago. Can increase to twice per day. I see that there was another question from them about continuing to use ativan at the same time - that is fine to do. * Telephone Encounter - Ankita Barksdale OSA - 11/12/2024 8:57 AM EST Pt's daughter called in again regarding previous to provider. Requesting a call back from provider as soon as possible. Please call pt's daughter Randi. * Telephone Encounter - Nuzhat Patel LPN - 11/10/2024 12:43 PM EST Daughter returning calling. Hospice declined his as he is still walking with Alzheimer's. If he stops walking hospice could admit him with a Alzheimer's dx. Pt's behaviors are worsen, he is aggressive with . Ativan is not helping to keep pt calm. He started Zyprexa last Saturday. Daughter inquiring if Seroquel or Haldol would help calm him? Please advise. * Telephone Encounter - Melissa Riddle OSA - 11/10/2024 12:41 PM EST Patients spouse returned call transferred to dnl * Telephone Encounter - Gracia Nova LPN - 11/10/2024 9:13 AM EST Attempted to call patient, there was no answer, left voicemail. When patient returns call transfer to dedicated nurse line. Appears pt was given a hospice referral last month-was this set up? Is hospice coming in to see patient? * Telephone Encounter - Ivone Diallo OSA - 11/10/2024 8:33 AM EST Pt's daughter calling in. She stated she is concerned because pt is becoming aggressive at home. Stated Ativan is not working and is concerned for her mother who is 83 and taking care of pt. Change in behavior started this week. Daughter wondering if there is a different medication that can be prescribed. Please call @ [phone] documented in this encounter Plan of Treatment Upcoming Encounters Date Type Department Care Team (Late st Contact Info) Description 12/03/2024 3:40 PM EDT Home Visit [facility] [place] [address] [phone] Ignacio Prado MD [address] [address] 12/07/2024 2:30 PM EDT Office Visit Hematology/Oncology [facility] [address] [place] [phone] Alexandra Bland CRNP [address] [place] [address] 02/22/2025 10:00 AM EDT [facility] [address] [facility] [place] [address] Parth Montero PA-C [address] [facility] [place] [address] 08/03/2025 10:30 AM EST Home Visit Care at Home [address] [place] [address] Debo Perkins PA-C [address] [place] [address] 08/24/2025 10:00 AM EST [facility] Visit [facility] [address] [facility] [place] [address] Evy Cummings CRNP [address] [place] [address] Scheduled Procedures Name Priority Associated Diagnoses Date/Ti me COLONOSCOPY FLEXIBLE PROXIMAL DIAGNOSTIC Recall History of colon polyps Health Maintenance Due Date Last Done Comments DXA Scan 1940 Alpha-1 Antitrypsin 1958 Albumin/Creatinine Ratio 12/09/2014 12/10/2011 Zoster Vaccines (2 of 3) 11/16/2015 09/21/2015, 1112/2004 Colonoscopy 05/07/2021 05/07/2016, 10/29/2005 HbA1c 06/15/2023 06/15/2022, 10/17, 07/07/2012, Additional history exists *COPD SEVERITY VERIFIED BY PFT 12/04/2023 GFR 01/17/2024 01/16/2023, 05/19, 11/06/2021, Additional history exists COVID-19 Vaccine ( season) 2024 08/14/2021, 12/12/2020, 11/14/2020 Adult Wellness Visit 08/06/2025 08/06/2024, 07/01/20 23 Depression Screening 08/08/2025 08/08/2024 O2 ASSESSMENT COMPLETED IN PAST YEAR FOR COPD 09/30/2025 09/30/2024 DTap/Tdap Vaccines (3 - Td or Tdap) 06/01/2034 06/01/2024, 01/28/2013, 02/02/2003, Additional history exists RETIRED - COLONOSCOPY-EVERY 5 YRS AGES 18-100 Discontinued 05/07/2016, 10/29/2005 Pneumococcal Vaccine: 50+ Years Completed 07/16/2018, 05/17/2017, 07/20/2015, Additional history exists Influenza Vaccine (FLU shot) Completed 06/01/2024, 06/01/2024, 06/14/2022, Additional history exists HPV (Gardasil) Vaccine Aged Out No lo nger eligible based on patient's age to complete this topic Hepatitis B Vaccine Aged Out No longe r eligible based on patient's age to complete this topic MENINGOCOCCAL (MENACTRA/MENVEO) Aged Out No longer eligible based on patient's age to complete this topic Meningitis B Vaccine (Bexsero/Trumemba) Aged Out No longer eligible based on patient's age to complete this topic documented as of this encounter Medical Devices Not on filedocumented as of this encounter Advance Directives Documents on File Type Date Recorded Patient Earth Moving Technician Expl anation Advance Directives and Living Will 03/01/2021 ADVANCE DIRECTIVE / LIVING WILL Power of Hardware Installation Coordinator 03/01/2021 POWER OF A TTORNEY Care Teams Oil Rig Driller Relationship Specialty Start Date End Date Ignacio Prado MD [address] [address] PCP - General Family Medicine 11/17/24 documented as of this encounter
--- OUTSIDE RECORDS SUMMARY | 2024-11-28 01:14 | External Medical Summary | Summary of Care ---
Author Name Unknown Organization [facility] Address [address] [facility] [place] [address] Phone [phone] Care Team Providers Care Slat Basket Maker Helper Machine Name Role Phone Ignacio Prado MD Primary Care Provider +1- [phone] Reason for Visit * Reason Onset Date Comments Advice 11/10/2024 Encounter Details Date Type Department Care Team (Late st Contact Info) Description 11/10/[address] [facility] [address] [place] [phone] Ignacio Prado MD [address] [facility] [place] [address] Advice Allergies No known active allergiesdocumented [...] metoprolol succinate XL (TOPROL XL) 25 MG [id number]:Pe rsistent atrial fibrillation (HCC) Take 0.5 Tabs [...] Nocturia 07/01/2023 Chronic sinusitis 07/01/2023 Atherosclerosis of [place] artery of lower extrem ity 07/01/2023 Cerebral atrophy 07/01/2023 Coronary artery disease invo lving [place] coronary artery of [place] heart without angina pectoris 07/01/2023 BPH with [...] 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 Randi can be contacted at [phone] * Telephone Encounter - Gracia Nova LPN [...] that can be prescribed. Please call @ [phone] documented in this encounter Plan of Treatment Upcoming Encounters Date Type Department Care Team (Late st Contact Info) Description 12/03/2024 3:40 PM EDT Home Visit [facility] [address] [phone] Ignacio Prado MD [address] [address] 12/07/2024 2:30 PM EDT Office Visit Hematology/Oncology [facility] [address] [place] [phone] Alexandra Bland CRNP [address] [place] [address] 02/22/2025 10:00 AM EDT [facility] [address] [facility] [place] [address] Parth Montero PA-C [address] [facility] [place] [address] 08/03/2025 10:30 AM EST Home Visit [facility] at Home [address] [place] [address] Debo Perkins PA-C [address] [place] [address] 08/24/2025 10:00 AM EST Office Visit [facility] [address] [place] [address] Evy Cummings CRNP [address] [address] Scheduled Procedures Name Priority Associated Diagnoses Date/Ti [...] on File Type Date Recorded Patient Sales Operations Manager Expl anation Advance Directives and Living Will 03/01/2021 ADVANCE DIRECTIVE / LIVING WILL Power of Industrial Controls Technician 03/01/2021 POWER OF A TTORNEY Care Teams Slat Basket Maker Helper Machine Relationship Specialty Start Date End Date Ignacio Prado MD [address] [address] PCP - General Family Medicine 11/17/24 documented as of this encounter
--- OUTSIDE RECORDS SUMMARY | 2024-11-28 01:15 | External Medical Summary | Summary of Care ---
Author Name Unknown Organization [facility] Address [address] [place] [place] [address] Phone [phone] Care Team Providers Care Outside Energy Sales Representatives Name Role Phone Ignacio Prado MD Primary Care Provider +1- [phone] Reason for Visit * Reason Onset Date Comments Advice 11/10/2024 Encounter Details Date Type Department Care Team (Late st Contact Info) Description 11/10/2024 Telephone [facility] [place] Abel [address] [phone] Ignacio Prado MD [address] [facility] [place] [address] Advice Allergies No known active allergiesdocumented as of this encounter (statuses as of 11/17/2024) Medications NIZORAL SHAM 2 % EXIndications:Sebo rrheic [...] metoprolol succinate XL (TOPROL XL) 25 MG [id number]:Pe rsistent atrial fibrillation (HCC) Take 0.5 Tabs [...] as of this encounter (statuses as of 11/17/2024) Active Problems Problem Noted Date Diagnosed Date [...] Nocturia 07/01/2023 Chronic sinusitis 07/01/2023 Atherosclerosis of [place] artery of lower extrem ity 07/01/2023 Cerebral atrophy 07/01/2023 Coronary artery disease invo lving [place] coronary artery of [place] heart without angina pectoris 07/01/2023 BPH with [...] as of this encounter (statuses as of 11/17/2024) Resolved Problems Problem Noted Date Diagnosed Date [...] as of this encounter (statuses as of 11/17/2024) Immunizations Name Administration Dates Next Due COVID-19 [...] 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 Randi can be contacted at [phone] * Telephone Encounter - Gracia Nova LPN [...] that can be prescribed. Please call @ [phone] documented in this encounter Plan of Treatment Upcoming Encounters Date Type Department Care Team (Late st Contact Info) Description 12/07/2024 2:30 PM EDT Office Visit Hematology/On[facility] [place] [facility] [phone] Alexandra Bland CRNP [address] [place] [address] 12/08/2024 5:40 PM EDT Office Visit [facility] [place] [phone] Ignacio Prado MD [address] [address] 02/22/2025 10:00 AM EDT [facility] [place] [address] Parth Montero PA-C [address] [facility] [place] [address] 08/03/2025 10:30 AM EST Home Visit Care at Home [address] [place] [address] Debo Perkins PA-C [address] [place] [address] 08/24/2025 10:00 AM EST Office Visit Cardiology, [facility] [address] [place] [address] Evy Cummings CRNP [address] [facility] [address] [place] [phone] Scheduled Procedures Name Priority Associated Diagnoses Date/Ti me COLONOSCOPY FLEXIBLE PROXIMAL DIAGNOSTIC Recall History of colon polyps Health Maintenance Due Date Last Done Comments DXA Scan 1940 Alpha-1 Antitrypsin 1958 Albumin/Creatinine Ratio 12/09/2014 12/10/2011 Zoster Vaccines (2 of 3) 11/16/2015 09/21/2015, 12/2004 Colonoscopy 05/07/2021 05/07/2016, 10/29/2005 HbA1c 06/15/2023 06/15/2022, [...] Documents on File Type Date Recorded Patient Salon Professional Expl anation Advance Directives and Living Will 03/01/2021 ADVANCE DIRECTIVE / LIVING WILL Power of Spring Production Supervisor 03/01/2021 POWER OF A TTORNEY Care Teams Outside Energy Sales Representatives Relationship Specialty Start Date End Date Ignacio Prado MD [address] [address] PCP - General Family Medicine 11/17/24 documented as of this encounter
--- OUTSIDE RECORDS SUMMARY | 2024-11-28 01:15 | External Medical Summary | Summary of Care ---
Author Name Unknown Organization [facility] Address [address] [place] [address] Phone [phone] Care Team Providers Care Rv Body Mechanic Name Role Phone Ignacio Prado MD Primary Care Provider +1- [phone] Reason for Visit * Reason Onset Date Comments Advice 11/10/2024 Encounter Details Date Type Department Care Team (Late st Contact Info) Description 11/10/2024 Telephone [facility] [address] [place] [phone] Ignacio Prado MD 226 [facility] [place] [address] Advice Allergies No known active allergiesdocumented as of this encounter (statuses as of 11/13/2024) Medications NIZORAL SHAM 2 % EXIndications:Sebo rrheic [...] metoprolol succinate XL (TOPROL XL) 25 MG [id number]:Pe rsistent atrial fibrillation (HCC) Take 0.5 Tabs [...] as of this encounter (statuses as of 11/13/2024) Active Problems Problem Noted Date Diagnosed Date [...] Nocturia 07/01/2023 Chronic sinusitis 07/01/2023 Atherosclerosis of [place] artery of lower extrem ity 07/01/2023 Cerebral atrophy 07/01/2023 Coronary artery disease invo lving [place] coronary artery of [place] heart without angina pectoris 07/01/2023 BPH with [...] as of this encounter (statuses as of 11/13/2024) Resolved Problems Problem Noted Date Diagnosed Date [...] as of this encounter (statuses as of 11/13/2024) Immunizations Name Administration Dates Next Due COVID-19 [...] 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 Daughter asked if patient could try Seroquel * Telephone Encounter - Elba Louis OSA - 11/13/2024 9:21 AM EST Patient's daughter is very upset. Requesting prescription. Reports of patient being aggressive towards spouse. Requesting a return call today. Randi can be contacted at [phone] * Telephone Encounter - Gracia Nova LPN [...] that can be prescribed. Please call @ [phone] documented in this encounter Plan of Treatment Upcoming Encounters Date Type Department Care Team (Late st Contact Info) Description 12/07/2024 2:30 PM EDT Office Visit Hematology/Oncology [facility] [address] [facility] [facility] [address] [place] [phone] Alexandra Bland CRNP 400 [facility] [place] [address] 12/08/2024 5:40 PM EDT Office Visit [facility] [address] [facility] [place] [phone] Ignacio Prado MD 226 [facility] [place] [address] 02/22/2025 10:00 AM EDT Office Visit Cardiology, [facility] [address] [address] Parth Montero PA-C [address] [address] 08/03/2025 10:30 AM EST Home Visit Care at Home [address] [address] Debo Perkins PA-C [address] [facility] [place], [place] [address] 08/24/2025 10:00 AM EST Office Visit Cardiology, [facility] [address] [place] [address] Evy Cummings CRNP [address] [facility] [place] [address] Scheduled Procedures Name Priority Associated Diagnoses Date/Ti [...] Documents on File Type Date Recorded Patient Gore Stitcher Expl anation Advance Directives and Living Will 03/01/2021 ADVANCE DIRECTIVE / LIVING WILL Power of Medicinal Plant Picker 03/01/2021 POWER OF A TTORNEY Care Teams Rv Body Mechanic Relationship Specialty Start Date End Date Ignacio Prado MD PCP - General 07/04/00 documented as of this encounter
--- OUTSIDE RECORDS SUMMARY | 2024-11-28 01:15 | External Medical Summary | Summary of Care ---
Author Name Unknown Organization [facility] Address [address] [place] [address] Phone [phone] Care Team Providers Care Corn Sheller Operator Name Role Phone Ignacio Prado MD Primary Care Provider +1- [phone] Reason for Visit * Reason Onset Date Comments Advice 11/10/2024 Encounter Details Date Type Department Care Team (Late st Contact Info) Description 11/10/2024 Telephone [facility] [address] [place] [phone] Ignacio Prado MD 226 [facility] [address] Advice Allergies No known active allergiesdocumented [...] metoprolol succinate XL (TOPROL XL) 25 MG [id number]:Pe rsistent atrial fibrillation (HCC) Take 0.5 Tabs [...] Nocturia 07/01/2023 Chronic sinusitis 07/01/2023 Atherosclerosis of [place] artery of lower extrem ity 07/01/2023 Cerebral atrophy 07/01/2023 Coronary artery disease invo lving [place] coronary artery of [place] heart without angina pectoris 07/01/2023 BPH with [...] 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 Randi can be contacted at [phone] * Telephone Encounter - Gracia Nova LPN [...] that can be prescribed. Please call @ [phone] documented in this encounter Plan of Treatment Upcoming Encounters Date Type Department Care Team (Late st Contact Info) Description 12/07/2024 2:30 PM EDT Office Visit Hematology/Oncology [facility] [address] [facility] [address] [place] [phone] Alexandra Bland CRNP 400 [facility] [place] [address] 12/08/2024 5:40 PM EDT Office [facility] 226 [facility] [place] [phone] Ignacio Prado MD 226 [facility] [place] [address] 02/22/2025 10:00 AM EDT Office Visit Cardiology, [facility] [address] [address] Parth Montero PA-C [address] [address] 08/03/2025 10:30 AM EST Home Visit Care at Home [address] [address] Debo Perkins PA-C [address] [facility] [place], [place] [address] 08/24/2025 10:00 AM EST Office Visit Cardiology, [facility] [address] [place] [address] Evy Cummings CRNP [address] [place] [address] Scheduled Procedures Name Priority [...] Documents on File Type Date Recorded Patient Refrigeration Supervisor Expl anation Advance Directives and Living Will 03/01/2021 ADVANCE DIRECTIVE / LIVING WILL Power of Senior Technical Support Engineer 03/01/2021 POWER OF A TTORNEY Care Teams Corn Sheller Operator Relationship Specialty Start Date End Date Ignacio Prado MD PCP - General 07/04/00 documented as of this encounter
--- OUTSIDE RECORDS SUMMARY | 2024-11-28 01:15 | External Medical Summary | Summary of Care ---
Author Name Unknown Organization [facility] Address [address] [facility] [place] [address] Phone [phone] Care Team Providers Care Repair Armature Winder Helper Name Role Phone Ignacio Prado MD Primary Care Provider +1- [phone] Reason for Visit * Reason Onset Date Comments Appointment 11/18/2024 Encounter Details Date Type Department Care Team (Late st Contact Info) Description 11/18/[address] [facility] [address] Abel [address] [phone] Ignacio Prado MD 226 [facility] [place] [address] Appointment Allergies No known active allergiesdocumented as [...] metoprolol succinate XL (TOPROL XL) 25 MG [id number]:Pe rsistent atrial fibrillation (HCC) Take 0.5 Tabs [...] Nocturia 07/01/2023 Chronic sinusitis 07/01/2023 Atherosclerosis of [place] artery of lower extrem ity 07/01/2023 Cerebral atrophy 07/01/2023 Coronary artery disease invo lving [place] coronary artery of [place] heart without angina pectoris 07/01/2023 BPH with [...] 002 Pneumococcal Polysaccharide PPV23 (Pneumovax) 07/16/2018,05/17/2017,06/16/2002 Seasonal Influenza Vac., MDV , IM, 0.5 mL (Fluzone) 06/29/2014,06/21/2013,06/25/2010 Seasonal Influenza, PF, 6 M & above, [...] No 08/08/2024 Does the household have a [facility] source of income? 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 Patient would like for you to call daughter about his meds and to see if he can get some help with home health. Randi Colin Adult Child [phone] * Telephone Encounter - Ignacio Prado MD - 11/18/2024 4:08 PM EST I can do a home visit. Can it be scheduled 12/03/24 for the 3:00-4:00 time slot? If so, please put on schedule and notify pt. If not, please send back to me. * Telephone Encounter - Kandy Nolasco LPN - 11/18/2024 2:57 PM EST Would you be willing to do a home visit for patient? * Telephone Encounter - Judy Ponce OSA - 11/18/2024 1:44 PM EST Dimitrios was to see Dr Prado on 12.08.24. I spoke to his Dorothy and she mentioned Dr Prado may be willing to do a home visit for Dimitrios. Please advise. documented in this encounter Plan of Treatment Upcoming Encounters Date Type Department Care Team (Late st Contact Info) Description 12/07/2024 2:30 PM EDT Office Visit Hematology/Oncology [facility] [place] [address] [place] [phone] Alexandra Bland CRNP [address] [place] [address] 02/22/2025 10:00 AM EDT Office Visit Cardiology, [facility] 132 [facility] [place] [address] Parth Montero PA-C [address] [place] [address] 08/03/2025 10:30 AM EST Home Visit Care at Home [address] [place] [address] Debo Perkins PA-C [address] [place] [address] 08/24/2025 10:00 AM EST Office Visit Cardiology, [facility] [address] [place] [address] Evy Cummings CRNP 400 [facility] [place] [address] Scheduled Procedures Name Priority Associated Diagnoses Date/Ti [...] on File Type Date Recorded Patient Manager Assisted Living Expl anation Advance Directives and Living Will 03/01/2021 ADVANCE DIRECTIVE / LIVING WILL Power of Chief Deputy Coroner 03/01/2021 POWER OF A TTORNEY Care Teams Repair Armature Winder Helper Relationship Specialty Start Date End Date Ignacio Prado MD [address] [address] PCP - General Family Medicine 11/17/24 documented as of this encounter
--- OUTSIDE RECORDS SUMMARY | 2024-11-28 01:15 | External Medical Summary | Summary of Care ---
Author Name Unknown Organization [facility] Address [address] [place] [facility] [place] [address] Phone [phone] Care Team Providers Care Customer Experience Professional Name Role Phone Ignacio Prado MD Primary Care Provider +1- [phone] Reason for Visit * Reason Onset Date Comments Advice 11/10/2024 Encounter Details Date Type Department Care Team (Late st Contact Info) Description 11/10/2024 Telephone [facility] [address] Abel [address] [phone] Ignacio Prado MD 226 [facility] [place] [address] Advice Allergies No known active allergiesdocumented [...] metoprolol succinate XL (TOPROL XL) 25 MG [id number]:Pe rsistent atrial fibrillation (HCC) Take 0.5 Tabs [...] [place] heart without angina pectoris 07/01/2023 BPH with [...] 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 Randi can be contacted at [phone] * Telephone Encounter - Gracia Nova LPN [...] that can be prescribed. Please call @ [phone] documented in this encounter Plan of Treatment Upcoming Encounters Date Type Department Care Team (Late st Contact Info) Description 12/07/2024 2:30 PM EDT Office Visit Hematology/Oncology [facility] 200 [facility] HealthcareTARA [phone] Alexandra Bland CRNP [address] [place] [address] 12/08/2024 5:40 PM EDT [facility] [address] [place] [phone] Ignacio Prado MD [address] [address] 02/22/2025 10:00 AM EDT Office Visit Cardiology, [facility] [place] [address] Parth Montero PA-C 132 [facility] [place] [address] 08/03/2025 10:30 AM EST Home Visit Care at Home [address] [place] [address] Debo Perkins PA-C [address] [place] [address] 08/24/2025 10:00 AM EST Office Visit Cardiology, [facility] [address] [place] [address] Evy Cummings CRNP 400 [facility] T[place] [phone] Scheduled Procedures Name Priority Associated Diagnoses Date/Ti [...] Documents on File Type Date Recorded Patient Supervisor Tubing Expl anation Advance Directives and Living Will 03/01/2021 ADVANCE DIRECTIVE / LIVING WILL Power of Assembler For Puller Over Machine 03/01/2021 POWER OF A TTORNEY Care Teams Customer Experience Professional Relationship Specialty Start Date End Date Ignacio Prado MD [address] [address] PCP - General Family Medicine 11/17/24 documented as of this encounter
--- OUTSIDE RECORDS SUMMARY | 2024-11-28 01:16 | External Medical Summary | Summary of Care ---
Author Name Unknown Organization [facility] Address [address] [place] [address] Phone [phone] Care Team Providers Care Tile Decorator Name Role Phone Ignacio Prado MD Primary Care Provider +1- [phone] Reason for Visit * Reason Onset Date Comments Advice 11/10/2024 Encounter Details Date Type Department Care Team (Late st Contact Info) Description 11/10/2024 Telephone [facility] [address] [phone] Ignacio Prado MD 226 [facility] [place] [address] Advice Allergies No known active allergiesdocumented as of this encounter (statuses as of 11/12/2024) Medications NIZORAL SHAM 2 % EXIndications:Sebo rrheic [...] metoprolol succinate XL (TOPROL XL) 25 MG [id number]:Pe rsistent atrial fibrillation (HCC) Take 0.5 Tabs [...] as of this encounter (statuses as of 11/12/2024) Active Problems Problem Noted Date Diagnosed Date [...] Nocturia 07/01/2023 Chronic sinusitis 07/01/2023 Atherosclerosis of [place] artery of lower extrem ity 07/01/2023 Cerebral atrophy 07/01/2023 Coronary artery disease invo lving [place] coronary artery of [place] heart without angina pectoris 07/01/2023 BPH with [...] as of this encounter (statuses as of 11/12/2024) Resolved Problems Problem Noted Date Diagnosed Date [...] as of this encounter (statuses as of 11/12/2024) Immunizations Name Administration Dates Next Due COVID-19 [...] 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 Please call @ [phone] documented in this encounter Plan of Treatment Upcoming Encounters Date Type Department Care Team (Late st Contact Info) Description 12/07/2024 2:30 PM EDT Office Visit Hematology/Oncology [facility] [address] [facility] [address] [place] [phone] Alexandra Bland CRNP 400 [facility] [place] [address] 12/08/2024 5:40 PM EDT Office Visit [facility] 226 [facility] [place] [phone] Ignacio Prado MD 226 [facility] [place] [address] 02/22/2025 10:00 AM EDT Office Visit Cardiology, [facility] [address] [address] Parth Montero PA-C [address] [address] 08/03/2025 10:30 AM EST Home Visit [facility] 100 [facility] [place] [address] Debo Perkins PA-Angelica [address] [place], [place] [phone] 08/24/2025 10:00 AM EST Office Visit Cardiology, [facility] [address] [place] [address] Evy Cummings CRNP [address] [place] [address] Scheduled Procedures Name Priority [...] Documents on File Type Date Recorded Patient Hand Brim Ironer Expl anation Advance Directives and Living Will 03/01/2021 ADVANCE DIRECTIVE / LIVING WILL Power of Access Control Specialist 03/01/2021 POWER OF A TTORNEY Care Teams Tile Decorator Relationship Specialty Start Date End Date Ignacio Prado MD PCP - General 07/04/00 documented as of this encounter
--- OUTSIDE RECORDS SUMMARY | 2024-11-28 01:16 | External Medical Summary | Summary of Care ---
Author Name Unknown Organization [facility] Address [address] [place] [address] Phone [phone] Care Team Providers Care Barista Name Role Phone Ignacio Prado MD Primary Care Provider +1- [phone] Reason for Visit * Reason Onset Date Comments Advice 11/10/2024 Encounter Details Date Type Department Care Team (Late st Contact Info) Description 11/10/2024 Telephone [facility] [address] [phone] Ignacio Prado MD 226 [place] [address] Advice Allergies No known active [...] metoprolol succinate XL (TOPROL XL) 25 MG [id number]:Pe rsistent atrial fibrillation (HCC) Take 0.5 Tabs [...] Nocturia 07/01/2023 Chronic sinusitis 07/01/2023 Atherosclerosis of [place] artery of lower extrem ity 07/01/2023 Cerebral atrophy 07/01/2023 Coronary artery disease invo lving [place] coronary artery of [place] heart without angina pectoris 07/01/2023 BPH with [...] 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 Please call @ [phone] documented in this encounter Plan of Treatment Upcoming Encounters Date Type Department Care Team (Late st Contact Info) Description 12/07/2024 2:30 PM EDT Office Visit Hematology/Oncology [facility] [place] [facility] [phone] Alexandra Bland CRNP 400 [place]avez [id number] 12/08/2024 5:40 PM EDT Office Visit [facility] 226 [facility] [place] [address] Ignacio Prado MD 226 [place] [address] 02/22/2025 10:00 AM EDT Office Visit Cardiology, [facility] 132 [facility] [place] [address] Parth Montero PA-C 132 [place] [address] 08/03/2025 10:30 AM EST Home Visit Care at Home [address] [place], [place] [phone] Debo Perkins PA-C [address] [place], [place] [phone] 08/24/2025 10:00 AM EST [facility] 132 [facility] [place] [address] Evy Cummings CRNP [address] [place] [address] Scheduled Procedures Name Priority Associated Diagnoses Date/Ti [...] Documents on File Type Date Recorded Patient Paragliding Instructor Expl anation Advance Directives and Living Will 03/01/2021 ADVANCE DIRECTIVE / LIVING WILL Power of Broadcast Maintenance Engineer 03/01/2021 POWER OF A TTORNEY Care Teams Barista Relationship Specialty Start Date End Date Ignacio Prado MD PCP - General 07/04/00 documented as of this encounter
--- OUTSIDE RECORDS SUMMARY | 2024-11-28 01:16 | External Medical Summary | Summary of Care ---
Author Name Unknown Organization [facility] Address [address] [place] [address] Phone [phone] Care Team Providers Care Sql Programmer Analyst Name Role Phone Ignacio Prado MD Primary Care Provider +1- [phone] Reason for Visit * Reason Onset Date Comments Advice 11/10/2024 Encounter Details Date Type Department Care Team (Late st Contact Info) Description 11/10/2024 Telephone [facility] [address] [phone] Ignacio Prado MD 226 [facility] [place] [address] Advice Allergies No known active allergiesdocumented [...] metoprolol succinate XL (TOPROL XL) 25 MG [id number]:Pe rsistent atrial fibrillation (HCC) Take 0.5 Tabs [...] 07/01/2023 Chronic sinusitis 07/01/2023 Atherosclerosis of [place] artery of lower extrem ity 07/01/2023 Cerebral atrophy 07/01/2023 Coronary artery disease invo lving [place] coronary artery of [place] heart without angina pectoris 07/01/2023 BPH with [...] 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 Please call @ [phone] documented in this encounter Plan of Treatment Upcoming Encounters Date Type Department Care Team (Late st Contact Info) Description 12/07/2024 2:30 PM EDT Office Visit Hematology/Oncology [facility] 200 [facility] [place] [phone] Alexandra Bland CRNP [address] [place] [address] [place] [address] 12/08/2024 5:40 PM EDT Office Visit Family [facility] [place] [address] [address] [address] Ignacio Prado MD [address] [address] 02/22/2025 10:00 AM EDT Office Visit Cardiology, [facility] 132 [facility] [place] [address] Parth Montero PA-C [address] [place] [address] 08/03/2025 10:30 AM EST Home Visit Care at Home [address] [place], [place] [phone] Debo Perkins PA-C [address] [place], [place] [address] 08/24/2025 10:00 AM EST Office Visit Cardiology, [facility] [address] [place] [address] Evy Cummings CRNP 400 [facility] T[place] [address] Scheduled Procedures Name Priority Associated Diagnoses Date/Ti [...] Documents on File Type Date Recorded Patient Pipe Production Worker Expl anation Advance Directives and Living Will 03/01/2021 ADVANCE DIRECTIVE / LIVING WILL Power of Tree Tapping Laborer 03/01/2021 POWER OF A TTORNEY Care Teams Sql Programmer Analyst Relationship Specialty Start Date End Date Ignacio Prado MD PCP - General 07/04/00 documented as of this encounter
--- OUTSIDE RECORDS SUMMARY | 2024-11-28 01:16 | External Medical Summary | Summary of Care ---
Author Name Unknown Organization [facility] Address [address] [place] [address] Phone [phone] Care Team Providers Care Dietitian Name Role Phone Ignacio Prado MD Primary Care Provider +1- [phone] Reason for Visit * Reason Onset Date Comments Advice 11/10/2024 Encounter Details Date Type Department Care Team (Late st Contact Info) Description 11/10/2024 Telephone [facility] [address] [address] Ignacio Prado MD 226 [place] [address] Advice Allergies No known active allergiesdocumented [...] metoprolol succinate XL (TOPROL XL) 25 MG [id number]:Pe rsistent atrial fibrillation (HCC) Take 0.5 Tabs [...] Nocturia 07/01/2023 Chronic sinusitis 07/01/2023 Atherosclerosis of [place]ahu[place] artery of lower extrem ity 07/01/2023 Cerebral atrophy 07/01/2023 Coronary artery disease invo lving [place]ahu[place] coronary artery of cahu[place] heart without angina pectoris 07/01/2023 BPH with [...] 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 * Telephone Encounter - Janna Shephred LPN - 11/12/2024 10:41 AM EST Left [...] that can be prescribed. Please call @ [phone] documented in this encounter Plan of Treatment Upcoming Encounters Date Type Department Care Team (Late st Contact Info) Description 12/07/2024 2:30 PM EDT Office Visit Hematology[facility] [place] [facility] [phone] Alexandra Bland CRNP [address] [place] [id number] 12/08/2024 5:40 PM EDT Office Visit [facility] 226 [facility] [place] [address] Ignacio Prado MD 226 [facility] [address] 02/22/2025 10:00 AM EDT Office Visit Cardiology, [facility] 132 [facility] [place] [address] Parth Montero PA-C 132 [facility] [place] [address] 08/03/2025 10:30 AM EST Home Visit Care at Home [address], [place] [phone] Debo Perkins PA-C [address] [place], [place] [phone] 08/24/2025 10:00 AM EST [facility] 132 [facility] [place] [address] Evy Cummings CRNP [address] [place] [address] Scheduled Procedures Name Priority Associated Diagnoses Date/Ti [...] Documents on File Type Date Recorded Patient Men'S Locker Room Attendant Expl anation Advance Directives and Living Will 03/01/2021 ADVANCE DIRECTIVE / LIVING WILL Power of Dumper Mold Cleaner 03/01/2021 POWER OF A TTORNEY Care Teams Dietitian Relationship Specialty Start Date End Date Ignacio Prado MD PCP - General 07/04/00 documented as of this encounter
--- OUTSIDE RECORDS SUMMARY | 2024-11-28 01:16 | External Medical Summary | Summary of Care ---
Author Name Unknown Organization [facility] Address [address] [place] [address] Phone [phone] Care Team Providers Care Monotype Keyboard Operator Name Role Phone Ignacio Prado MD Primary Care Provider +1- [phone] Reason for Visit * Reason Onset Date Comments Advice 11/10/2024 Encounter Details Date Type Department Care Team (Late st Contact Info) Description 11/10/2024 Telephone [facility] [address] [address] Ignacio Prado MD 226 [facility] [place] [address] Advice Allergies No known active [...] metoprolol succinate XL (TOPROL XL) 25 MG [id number]:Pe rsistent atrial fibrillation (HCC) Take 0.5 Tabs [...] Nocturia 07/01/2023 Chronic sinusitis 07/01/2023 Atherosclerosis of [place] artery of lower extrem ity 07/01/2023 Cerebral atrophy 07/01/2023 Coronary artery disease invo lving [place] coronary artery of [place] heart without angina pectoris 07/01/2023 BPH with [...] 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 Please call @ [phone] documented in this encounter Plan of Treatment Upcoming Encounters Date Type Department Care Team (Late st Contact Info) Description 12/07/2024 2:30 PM EDT Office Visit Hematology/Oncology [facility] [place] [facility] [phone] Alexandra Bland CRNP [address] [place] [phone] 12/08/2024 5:40 PM EDT Office Visit [facility] 226 [facility] [place] [address] Ignacio Prado MD 226 [place] [address] 02/22/2025 10:00 AM EDT Office Visit Cardiology, [facility] 132 [facility] [place] [address] Parth Montero PA-C 132 [place] [address] 08/03/2025 10:30 AM EST Home Visit Care at Home [address] [place], [place] [phone] Debo Perkins PA-C [address] [place], [place] [phone] 08/24/2025 10:00 AM EST [facility] 132 [facility] [place] [address] Evy Cummings CRNP [address] [place] [address] Scheduled Procedures Name Priority Associated Diagnoses Date/Ti [...] Documents on File Type Date Recorded Patient Infectious Disease Physician Expl anation Advance Directives and Living Will 03/01/2021 ADVANCE DIRECTIVE / LIVING WILL Power of Glue Clamp Operator 03/01/2021 POWER OF A TTORNEY Care Teams Monotype Keyboard Operator Relationship Specialty Start Date End Date Ignacio Prado MD PCP - General 07/04/00 documented as of this encounter
--- OUTSIDE RECORDS SUMMARY | 2024-11-28 01:17 | External Medical Summary | Summary of Care ---
Author Name Unknown Organization [facility] Address [address] [facility] [place] [address] Phone [phone] Care Team Providers Care Fitness Technician Name Role Phone Ignacio Prado MD Primary Care Provider +1- [phone] Reason for Visit * Reason Onset Date Comments Advice 10/13/2024 Encounter Details Date Type Department Care Team (Late st Contact Info) Description 10/13/2024 Telephone [facility], Roland Multani [address] [place] [address] [place] [address] [facility], [address] [place] [address] Advice Allergies No known active allergiesdocumented as of this encounter (statuses as of 11/05/2024) Medications NIZORAL SHAM 2 % EXIndications:Sebo rrheic [...] metoprolol succinate XL (TOPROL XL) 25 MG [id number]:Pe rsistent atrial fibrillation (HCC) Take 0.5 Tabs [...] 25 mcg by mouth at bedtime. Active Atorvastatin Calcium 40 MG Oral Tablet (Lipitor) Take 1 Tablet by mouth in the morning. 30 Tablet 08/04/20 21 025 Discontin ued(Patie nt preferenc e/discont inuation) Warfarin Sodium 2.5 MG Oral Tablet (Coumadin)Indicati ons:Persistent atrial fibrillation (HCC),Anticoagulat ion management encounter,medical terminologist current use of anticoagulant therapy TAKE 1 TO 1 and 1/2 TABLETS BY MOUTH ONCE DAILY DIRECTED BY [facility]AG CLINIC 135 Tablet 3 09/10/20 24 025 Discontin ued(Patie nt preferenc e/discont inuation) LORazepam 1 MG Oral Tablet (Ativan)Indication s:Anxiety Take 1 Tablet by mouth 3 times a day as needed for Anxiety. 90 Tablet 10/01/19 25 025 Discontin ued(Refil l) documented as of this encounter (statuses as of 11/05/2024) Active Problems Problem Noted Date Diagnosed Date [...] Nocturia 07/01/2023 Chronic sinusitis 07/01/2023 Atherosclerosis of [place] artery of lower extrem ity 07/01/2023 Cerebral atrophy 07/01/2023 Coronary artery disease invo lving [place] coronary artery of [place] heart without angina pectoris 07/01/2023 BPH with [...] as of this encounter (statuses as of 11/05/2024) Resolved Problems Problem Noted Date Diagnosed Date Resolved Date Moderate dementia with psychotic disturbance 4 12/02/2023 Atrial fibrillation 09/23/2023 12/02/19 Moderate dementia [...] as of this encounter (statuses as of 11/05/2024) Immunizations Name Administration Dates Next Due COVID-19 [...] 08/08/2024 Does the household have a re gular source of income? 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 Patient discharged from [facility] service at this time. Discharge Checklist 1. Delete the care team [x] 2. Uncheck list membership [x] 3. D/C Coag orders [x] 4. Resolve episode [x] 5. Discontinue warfarin on med list (if applicable) [x] 6. Cancel future appointments [x] Pamela Lacey Rph, Pharm.D. Clinical Pharmacist [facility] ([facility]) [phone] 11/05/2024,3:40 PM * Telephone Encounter - Evy Cummings CRNP - 11/05/2024 1:26 PM EST I personally called and spoke with the patient's spouse Dorothy. They were interested in pursuing hospice at the last office visit with his PCP which has not quite worked out. At this point given his level of dementia and gait dysfunction there were increased to risks with continuing warfarin and was agreeable for discontinuation. They have also discontinued atorvastatin at this point which I also think is reasonable. Medication list updated. * Telephone Encounter - Pamela Lacey RPh - 11/05/2024 12:05 PM EST No response from PCP. Forwarding to Cardiology for input. [facility] was managing under referral from [facility]. Pamela Lacey Rph, Pharm.D. Clinical Pharmacist [facility] ([facility]) [phone] 11/05/2024,12:05 PM * Telephone Encounter - Nuzhat Jiang LPN - 10/16/2024 1:11 PM EST Please advise if Warfarin is to be discontinued. Thank you. * Telephone Encounter - Pamela Lacey RP - 10/16/2024 11:14 AM EST Hi! Just want to double check Warfarin has been discontinued before I discontinue in chart. Thank you! Pamela Lacey Rph, Pharm.D. Clinical Pharmacist [facility] ([facility]) [phone] 10/16/2024,11:14 AM * Telephone Encounter - Pamela Lacey RPh - 10/13/2024 2:25 PM EST Noted, will cancel GML and route to provider to confirm Coumadin discontinued. Still listed as active med in chart. Pamela Lacey Rph, Pharm.D. Clinical Pharmacist [facility] ([facility]) [phone] 10/13/2024,2:26 PM * Telephone Encounter - Pamela Echevarria PHARM Tech - 10/13/2024 9:26 AM EST Caller's name: Dorothy - spouse Preferred call back number(OFFICE NUMBER FOR ): Patient Phone Numbers Reason for call: Dorothy called stating her doctor, Dr. Prado took her off coumadin about two weeks ago and GML is scheduled to be at her house and she doesn't believe it's necessary. Please advise. Thank you, Pamela Echevarria Reservations Clerk [facility] ([facility]) 10/13/2024, 9:26 AM documented in this encounter Plan of Treatment Upcoming Encounters Date Type Department Care Team (Late st Contact Info) Description 12/07/2024 2:30 PM EDT Office Visit Hematology/Oncology [facility] Carmen [place] 200 [facility] [phone] Alexandra Bland CRNP [address] [place] [address] 12/08/2024 5:40 PM EDT Office Visit [facility] [address] [place] [phone] Ignacio Prado MD [address] [place] [address] 02/22/2025 10:00 AM EDT Office Visit Cardiology, [facility] [address] Parth Montero PADave 132 [place] [address] 08/03/2025 10:30 AM EST Home Visit Care at Home [address] [place] [address] Debo Perkins PA-C [address] [place] [address] 08/24/2025 10:00 AM EST Office Visit Cardiology, [facility] 132 [place] [address] Evy Cummings CRNP 400 [facility] [place] [address] Scheduled Procedures Name Priority Associated Diagnoses Date/Ti [...] Documents on File Type Date Recorded Patient Die Finisher Forging Expl anation Advance Directives and Living Will 03/01/2021 ADVANCE DIRECTIVE / LIVING WILL Power of Dry Kiln Loader 03/01/2021 POWER OF A TTORNEY Care Teams Fitness Technician Relationship Specialty Start Date End Date Ignacio Prado MD PCP - General 07/04/00 documented as of this encounter
--- OUTSIDE RECORDS SUMMARY | 2024-11-28 01:17 | External Medical Summary | Summary of Care ---
Author Name Unknown Organization [facility] Address [address] [place] [address] Phone [phone] Care Team Providers Care Chief Engineer'S Helper Name Role Phone Ignacio Prado MD Primary Care Provider +1- [phone] Reason for Visit * Reason Onset Date Comments Advice 11/03/2024 Encounter Details Date Type Department Care Team (Late st Contact Info) Description 11/03/2024 Telephone [facility] [address] [address] Ignacio Prado MD 226 [facility] [place] [address] Advice Allergies No known active allergiesdocumented [...] metoprolol succinate XL (TOPROL XL) 25 MG [id number]:Pe rsistent atrial fibrillation (HCC) Take 0.5 Tabs [...] IN EACH NOSTRIL EVERY DAY NEEDED 03/17/20 20 Active Atorvastatin Calcium 40 MG Oral Tablet (Lipitor) Take 1 Tablet by mouth in the morning. 30 Tablet 08/04/20 21 Active Amoxicillin 500 MG Oral Capsule (Amoxil) TAKE FOUR CAPSULES BY MOUTH ONE HOUR BEFORE APPOINTMENT 07/10/20 22 Active Cholecalciferol 25 MCG (1000 UT) Oral Tablet Disintegrating Take 25 mcg by mouth at bedtime. Active Warfarin Sodium 2.5 MG Oral Tablet (Coumadin)Indicati ons:Persistent atrial fibrillation (HCC),Anticoagulat ion management encounter,intermodal dispatcher current use of anticoagulant therapy TAKE 1 TO 1 and 1/2 TABLETS BY MOUTH ONCE DAILY DIRECTED BY [facility] CLINIC 135 Tablet 3 09/10/20 24 Active LORazepam 1 MG Oral Tablet (Ativan)Indication [...] Nocturia 07/01/2023 Chronic sinusitis 07/01/2023 Atherosclerosis of [place] artery of lower extrem ity 07/01/2023 Cerebral atrophy 07/01/2023 Coronary artery disease invo lving [place] coronary artery of [place] heart without angina pectoris 07/01/2023 BPH with [...] 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 She stated that she is aware that OLANZapine 2.5 MG Oral Tablet (zyPREXA) takes a little while to show results. And then if he should continue taking both, for how long? Thank you, Celso Alcazar, Foster Care Case Manager Leaf Stripper 1 [facility] ([facility] ([facility]) 11/05/2024,8:52 AM * Telephone Encounter - Gerda Delgado LPN - 11/04/2024 1:50 PM EST Spoke with pt's regarding message below. Pt's wrote down the name of med and will pass iton to their daughter Randi. Pt's stated understanding. * Telephone Encounter - Ignacio Prado MD - 11/04/2024 1:17 PM EST We did discuss the risks at his last visit and daughter is aware of them. Can start with olanzapine2.5 mg at bedtime. If tolerated and they don't see an adequate response, can be increased to twice per day. Sent to [facility]. * Telephone Encounter - Suma Wen OSA - 11/03/2024 1:39 PM EST Pt daughter calling in regarding pt medication called "Ativan". Pt daughter states that provider and her discussed that if the ativan is not working because of shelter usage, that pt could be switched to an anti psychotic medication. Please advise. Thank you. documented in this encounter Plan of Treatment Upcoming Encounters Date Type Department Care Team (Late st Contact Info) Description 12/07/2024 2:30 PM EDT Office Visit Hematology/Oncology [facility] [phone] Alexandra Bland CRNP 400 [facility] [place] [address] 12/08/2024 5:40 PM EDT Office Visit [facility] 226 [place] [address] Ignacio Prado MD [facility] [address] 02/22/2025 10:00 AM EDT Office Visit Cardiology [facility] [address] [place] [address] Parth Montero PA-C [address] [place] [address] 08/03/2025 10:30 AM EST Home Visit Care at Home [address] [facility] T[place] [phone] Debo Perkins PA-C [address] [place], [place] [phone] 08/24/2025 10:00 AM EST Office Visit Cardiology [facility] 132 [facility] [place] [address] Evy Cummings CRNP [address] [place] [address] [place] [address] Scheduled Procedures Name Priority [...] as of this encounter Visit Diagnoses Diagnosis Severe Alzheimer's dementia with psychotic disturbance, 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
--- OUTSIDE RECORDS SUMMARY | 2024-11-28 01:17 | External Medical Summary | Summary of Care ---
Author Name Unknown Organization [facility] Address [address] [facility] [place] [address] Phone [phone] Care Team Providers Care Account General Manager Name Role Phone Ignacio Prado MD Primary Care Provider +1- [phone] Reason for Visit * Reason Comments Dosage Adjustment Via Phone (anticoag Cl inic) Encounter Details Date Type Department Care Team (Late st Contact Info) Description 11/05/2024 6:45 AM EST Anticoagulation [facility], Roland Multani [address] [place] [address] [place] [address] [facility], [address] [place] [address] Chronic atrial fibrillation (HCC)* Allergies No known active allergiesdocumented as of this encounter (statuses as of 11/06/2024) Medications NIZORAL SHAM 2 % EXIndications:Sebo rrheic [...] metoprolol succinate XL (TOPROL XL) 25 MG [id number]:Pe rsistent atrial fibrillation (HCC) Take 0.5 Tabs [...] as of this encounter (statuses as of 11/06/2024) Active Problems Problem Noted Date Diagnosed Date [...] Nocturia 07/01/2023 Chronic sinusitis 07/01/2023 Atherosclerosis of [place] artery of lower extrem ity 07/01/2023 Cerebral atrophy 07/01/2023 Coronary artery disease invo lving [place] coronary artery of [place] heart without angina pectoris 07/01/2023 BPH with [...] as of this encounter (statuses as of 11/06/2024) Resolved Problems Problem Noted Date Diagnosed Date [...] as of this encounter (statuses as of 11/06/2024) Immunizations Name Administration Dates Next Due COVID-19 [...] No 08/08/2024 Does the household have a [facility] source of income? 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 [facility] was managing under areferral from [facility]. Will send message to confirm and d/c if appropriate. Pamela Lacey [facility], Pharm.D. Clinical Pharmacist [facility] ([facility]) [phone] 11/05/2024,12:03 PM documented in this encounter Plan of Treatment Upcoming Encounters Date Type Department Care Team (Late st Contact Info) Description 12/07/2024 2:30 PM EDT Office Visit Hematology/Oncology [facility] 200 [facility] [address] Alexandra Bland CRNP 400 [place] [address] 12/08/2024 5:40 PM EDT Office Visit [facility] 226 [place] [phone] Ignacio Prado MD 226 [place] [address] 02/22/2025 10:00 AM EDT Office Visit [facility] 132 [facility] [place] [address] Parth Montero PAMaguiC 132 [facility] [place] [address] 08/03/2025 10:30 AM EST Home Visit Care at Home [address] [place] [address] Debo Perkins PA-C [address] [place], [place] [phone] 08/24/2025 10:00 AM EST [facility] [place] [address] Evy Cummings CRNP [address] [place] [phone] Scheduled Procedures Name Priority Associated Diagnoses Date/Ti [...] Documents on File Type Date Recorded Patient Cutting Machine Tender Decorative Expl anation Advance Directives and Living Will 03/01/2021 ADVANCE DIRECTIVE / LIVING WILL Power of Hollow Core Door Frame Assembler 03/01/2021 POWER OF A TTORNEY Care Teams Account General Manager Relationship Specialty Start Date End Date Ignacio Prado MD PCP - General 07/04/00 documented as of this encounter
--- NOTE | 2024-11-28 01:18 | Emergency Department Note ---
Impression & Plan Pneumonia, Dementia, Hypoxia ED Provider Note NAME: SUMAN CARREON AGE: 84 SEX: M : 1940 ARRIVES VIA: Ambulance INFORMANT: Patient ED PROVIDER(S): Dwayne Shirley MD CHIEF COMPLAINT: Fever PLAN: Disposition: Admit MEDICAL DECISION MAKING: The patient is a pleasant 84-year-old gentleman with a past medical history of dementia, atrial fibrillation, HLD, NSVT, BPH, history of tobacco use who presents to the emergency department via EMS for evaluation of fever which family noticed tonight where there is concern for possible UTI as patient has foul-smelling urine. Family did not report any cough or congestion. They did not report any nausea or vomiting. Patient lives at home with his and daughter. The patient is a poor historian given his dementia. He is at baseline per EMS report from family. On evaluation the patient is no distress, afebrile with stable vital signs. O2 saturation is 89% on room air placed on 2 L nasal cannula. He is alert and oriented to self. He is confused to situation and place. He appears clinically dry. Scant rhonchi of bilateral lower lung urban and otherwise clear to auscultation with normal respiratory effort. EKG demonstrates atrial fibrillation without overt acute ischemia. Chest x-ray demonstrates patchily bilateral airspace opacities suspicious for pneumonia. WBC within normal limits. H/H approximate to prior range of values without recent for comparison. Platelets within normal limits. Chemistry without metabolic acidosis. BUN is 22 with BUN/creatinine 24 consistent with patient's clinically dry appearance. AST mildly above normal at 52, nonspecific with LFTs otherwise normal. High-sensitivity troponin 11.2, within normal limits. TSH within limits. Procalcitonin is pending. UA with WBCs but no bacteria or nitrites. Curb65 moderate risk. Patient was referred to hospital service for further management. Case was discussed with Dr. Vasquez, [facility] hospitalist, who will evaluate the patient for admission. Further management per admitting team. Triage Nursing notes reviewed and agree them. Prior/external medical records reviewed Vital Signs: reviewed Differential diagnosis: Sepsis, UTI, pneumonia, metabolic, electrolyte abnormalities, cardiac sources, intracerebral event, toxicologic, neurologic, as well as other pathologies. ER treatment provided: See below. Diagnostics interpreted by me: ECG: Atrial fibrillation, 92 bpm, no ectopy, no overt ST elevation or depression, QTc 460, QRS 72. Cardiac Monitoring: An order for continuous cardiac monitoring was placed and demonstrated Atrial fibrillation, 92 bpm, no ectopy. Laboratory studies: See below Imaging studies: See below Consultation(s): Case was discussed with Dr. Vasquez, [facility] hospitalist, who will evaluate the patient for admission. HPI: The patient is a pleasant 84-year-old gentleman with a past medical history of dementia, atrial fibrillation, HLD, NSVT, BPH, history of tobacco use who presents to the emergency department via EMS for evaluation of fever which family noticed tonight where there is concern for possible UTI as patient has foul-smelling urine. Family did not report any cough or congestion. They did not report any nausea or vomiting. Patient lives at home with his and daughter. The patient is a poor historian given his dementia. He is at baseline per EMS report from family. ROS: See above HPI for pertinent positives & negatives. A total of 10 systems reviewed and were otherwise negative. VITALS:See Below PHYSICAL EXAMINATION: GENERAL: Awake, alert, fatigued-appearing, in no distress HENT: Normocephalic, atraumatic. Oropharynx with dry mucous membranes and otherwise unremarkable. EYES: Normal conjunctiva. Sclera non-icteric. NECK: Supple. No nuchal rigidity. FROM. No JVD. RESPIRATORY: Scant rhonchi of bilateral lower lung urban and otherwise clear to auscultation with normal respiratory effort. CARDIAC: Regular rate, irregular rhythm. Extremities warm and well perfused. Pulses equal. ABDOMEN: Soft, non-distended. No tenderness to palpation. No rebound or guarding. No masses. MUSCULOSKELETAL: Chest examination reveals no tenderness. The back is symmetrical on inspection without obvious abnormality. There is no CVA tenderness to palpation. No joint edema. LOWER EXTREMITIES: Calves are equal size bilaterally and non-tender. No edema. No discoloration. NEURO: Pleasantly confused at baseline for dementia. Alert to self. No focal sensory or motor deficits noted. SKIN: No rash or jaundice noted. Dwayne Shirley MD Past Med/Surg History Problem List RSV (respiratory syncytial virus pneumonia) Dementia (Acute) "Early stage" per will be present DOS Pneumonia (Acute) Acute hypoxic respiratory failure (Acute) Hypoxia (Acute) Acute bronchitis (Acute) Right inguinal hernia (Acute) Unexplained weight loss Approximately 30 lbs in past year, following with heme/onc Encounter for pre-operative examination S/P total hip arthroplasty Hematuria, microscopic Medical History Respiratory syncytial virus (RSV) BPH (benign prostatic hyperplasia) Anxiety History of COVID-2021, "mild" Non-sustained ventricular tachycardia Hx Poor historian Arthritis Hyperlipidemia Hypertension Atrial fibrillation Chronic, taking warfarin Follows with [facility] cardiology Surgical History History of anesthesia reaction Confusion after hip surgery ("even into the next day") History of total hip arthroplasty right History of surgery submandibular sebaceous cyst excision (1994)- per [facility] records History of colonoscopy Family History Sister Family history of diabetes mellitus Sister Family history of diabetes mellitus Mother Family history of diabetes mellitus Heart disease Brother Family hx of colon cancer Father Heart disease Social History Smoking Status: Unknown if ever smoked Second Hand Exposure: No; Do You Dip or Chew Tobacco: No; Hx Alcohol Use: No Hx Substance Use: No Preferred Language: Chinese Communication Ability: Impaired Communication Ability Comment: mild dementia > have to explain things slowly > gets very confused Visual Impairment: No Limitations Hearing Ability: Normal Wholesale Manager Required: No Beliefs That Will Affect Care: None marital status: Current Living Situation: Spouse current occupational status: retired Feels Safe at Home: Yes Diet: regular Assistive Devices: Glasses Allergies Allergies Allergy/AdvReac Type Severity Reaction Status Date / Time No Known Allergies Allergy Verified 09/11/23 00:17 Home Meds Home Medications Medication Instructions Recorded Confirmed lorazepam 1 mg tablet 1 mg PO TID PRN Anxiety 11/28/24 11/28/24 metoprolol succinate 25 mg 25 mg PO DAILY 11/28/24 11/28/24 tablet,extended release 24 hr olanzapine 2.5 mg tablet 2.5 mg PO HS 11/28/24 11/28/24 tamsulosin 0.4 mg capsule 0.4 mg PO HS 11/28/24 11/28/24 Results & Data (ED) Vital Signs Vital Signs - 24 hr 11/28/24 01:15 11/28/24 01:16 11/28/24 01:23 Temperature 36.6 C Temperature Source Oral Pulse Rate 96 H 90 Respiratory Rate 26 H 18 Blood Pressure 113/51 L 113/51 L Blood Pressure Mean 71 71 Pulse Oximetry 96 89 L 96 Oxygen Delivery Method Room Air Nasal Cannula Oxygen Flow Rate 2 Sepsis Recent Fever Within 48 Hours Yes Sepsis New/Unexplained Change in Mental Status N/A Sepsis Action Taken by Nursing No Action Required 11/28/24 01:24 11/28/24 01:30 11/28/24 01:45 Temperature Temperature Source Pulse Rate 94 H 93 H 87 Respiratory Rate 26 H 24 Blood Pressure 103/43 L 101/54 L Blood Pressure Mean 63 69 Pulse Oximetry 96 97 Oxygen Delivery Method Oxygen Flow Rate Sepsis Recent Fever Within 48 Hours Sepsis New/Unexplained Change in Mental Status Sepsis Action Taken by Nursing 11/28/24 02:00 11/28/24 02:30 11/28/24 02:45 Temperature Temperature Source Pulse Rate 77 84 73 Respiratory Rate 26 H 24 28 H Blood Pressure 101/54 L 108/49 L 108/49 L Blood Pressure Mean 69 65 68 Pulse Oximetry 96 94 97 Oxygen Delivery Method Oxygen Flow Rate Sepsis Recent Fever Within 48 Hours Sepsis New/Unexplained Change in Mental Status Sepsis Action Taken by Nursing Laboratory Data Attestation: I reviewed the patient's lab results. 11/28/24 01:25 11/28/24 01:25 Lab Results 11/28/24 11/28/24 11/28/24 Range/Units 01:25 01:26 01:36 WBC 4.83 (4.8-10.8) K/ul RBC 3.30 L (4.70-6.10) M/uL Hgb 10.0 L (14.0-18.0) g/dl POC Hgb (14.0-18.0) g/dl Hct 31.0 L (42.0-52.0) % POC Hct (42-52) % MCV 93.9 (80.0-100.0) fL MCH 30.3 (25.0-34.0) pg MCHC 32.3 (32.0-36.0) g/dL RDW Std Deviation 43.7 (36.4-46.3) fL RDW Coeff of Wilberto 12.6 (11.5-14.5) % Plt Count 158 (130-400) K/uL MPV 9.8 (9.4-12.4) fL Immature Gran % (Auto) 0.4 % Neut % (Auto) 83.5 % Lymph % (Auto) 4.1 % [place] % (Auto) 7.5 % Eos % (Auto) 4.1 % Baso % (Auto) 0.4 % Neut # (Auto) 4.03 (1.40-6.50) K/uL Lymph # (Auto) 0.20 L (1.20-3.40) K/uL [place] # (Auto) 0.36 (0.11-0.59) K/uL Eos # (Auto) 0.20 (0.00-0.50) K/uL Baso # (Auto) 0.02 (0.00-0.20) K/uL Immature Gran # (Auto) 0.02 (0.01-0.20) K/uL PT 12.2 H (9.0-12.0) Seconds INR 1.1 (0.9-1.1) POC Sodium (135-144) mmol/L Sodium 140 (136-145) mmol/L POC Potassium (3.3-5.0) mmol/L Potassium 4.1 (3.5-5.1) mmol/L POC Chloride (101-112) mmol/L Chloride 106 (98-107) mmol/L Carbon Dioxide 30 (21-32) mmol/L POC Total CO2 (24-31) mmol/L Anion Gap 4 (3-11) POC Anion Gap (16-25) mmol/L POC BUN (7-18) mg/dl BUN 22 (6-23) mg/dl Creatinine 0.89 (0.6-1.4) mg/dl POC Creatinine (0.6-1.3) mg/dl Est Cr Clr Drug Dosing 62.5 ml/min eGFR 84.50 BUN/Creatinine Ratio 24.7 H (10-20) Glucose 144 H (70-99(Fasting)) mg/dl POC Glucose (other) (70-99) mg/dl Lactate 0.7 (0.4-2.0) mmol/L Calcium 8.1 L (8.6-10.3) mg/dl POC Ioniz Calcium Indu (1.12-1.32) mmol/l Magnesium 1.8 (1.7-2.4) mg/dl Total Bilirubin 0.5 (0.2-1.0) mg/dl Direct Bilirubin 0.1 (0-0.2) mg/dl AST 52 H (13-39) U/L ALT 32 (7-52) U/L Alkaline Phosphatase 102 (34-104) U/L Troponin I High Sens 11.2 (0-20) pg/ml Total Protein 6.1 (6.0-8.3) gm/dl Albumin 3.2 L (3.4-5.0) gm/dl Lipase 5 L (11-82) U/L TSH 1.505 (0.300-4.500) uIu/ml Urine Color Dark Yellow Urine Appearance Clear (Clear) Urine pH 6.0 (4.5-7.5) Ur Specific [place] 1.023 (1.000-1.030) Urine Protein 1+ H (Negative) Urine Glucose (UA) Negative (Negative) Urine Ketones Trace H (Negative) Urine Blood Trace H (Negative) Urine Nitrite Negative (Negative) Urine Bilirubin Negative (Negative) Urine Urobilinogen Negative (Negative) Ur Leukocyte Esterase Negative (Negative) Urine WBC (Auto) 6-10 H (0-5) /hpf Urine RBC (Auto) 6-10 H (0-2) /hpf U Hyaline Cast (Auto) 6-10 H (0-2) /lpf U Epithel Cells (Auto) 0-2 (0-2) /hpf Urine Bacteria (Auto) None Seen (None Seen) Adenovirus (PCR) Not Detected (NotDetected) B. pertussis DNA (PCR) Not Detected (NotDetected) B.parapertussis DNA PCR Not Detected (NotDetected) C. pneumoniae DNA (PCR) Not Detected (NotDetected) Coronavirus OC43 (PCR) Not Detected (NotDetected) Coronavirus HKU1 (PCR) Not Detected (NotDetected) Coronavirus 229E (PCR) Not Detected (NotDetected) SARS-CoV-2 (PCR) Not Detected (NotDetected) Coronavirus NL63 (PCR) Not Detected (NotDetected) Human Metapneumovir PCR Not Detected (NotDetected) Influenza Type A (PCR) Not Detected (NotDetected) Influenza Type B (PCR) Not Detected (NotDetected) M. pneumoniae (PCR) Not Detected (NotDetected) Parainfluenza 1 (PCR) Not Detected (NotDetected) Parainfluenza 2 (PCR) Not Detected (NotDetected) Parainfluenza 3 (PCR) Not Detected (NotDetected) Parainfluenza 4 (PCR) Not Detected (NotDetected) RSV (PCR) Not Detected (NotDetected) Entero/Rhino (PCR) Not Detected (NotDetected) 11/28/24 Range/Units 01:42 WBC (4.8-10.8) K/ul RBC (4.70-6.10) M/uL Hgb (14.0-18.0) g/dl POC Hgb 9.5 L (14.0-18.0) g/dl Hct (42.0-52.0) % POC Hct 28 L (42-52) % MCV (80.0-100.0) fL MCH (25.0-34.0) pg MCHC (32.0-36.0) g/dL RDW Std Deviation (36.4-46.3) fL RDW Coeff of Wilberto (11.5-14.5) % Plt Count (130-400) K/uL MPV (9.4-12.4) fL Immature Gran % (Auto) % Neut % (Auto) % Lymph % (Auto) % [place] % (Auto) % Eos % (Auto) % Baso % (Auto) % Neut # (Auto) (1.40-6.50) K/uL Lymph # (Auto) (1.20-3.40) K/uL [place] # (Auto) (0.11-0.59) K/uL Eos # (Auto) (0.00-0.50) K/uL Baso # (Auto) (0.00-0.20) K/uL Immature Gran # (Auto) (0.01-0.20) K/uL PT (9.0-12.0) Seconds INR (0.9-1.1) POC Sodium 141 (135-144) mmol/L Sodium (136-145) mmol/L POC Potassium 4.1 (3.3-5.0) mmol/L Potassium (3.5-5.1) mmol/L POC Chloride 102 (101-112) mmol/L Chloride (98-107) mmol/L Carbon Dioxide (21-32) mmol/L POC Total CO2 26 (24-31) mmol/L Anion Gap (3-11) POC Anion Gap 18.0 (16-25) mmol/L POC BUN 20 H (7-18) mg/dl BUN (6-23) mg/dl Creatinine (0.6-1.4) mg/dl POC Creatinine 1.0 (0.6-1.3) mg/dl Est Cr Clr Drug Dosing ml/min eGFR BUN/Creatinine Ratio (10-20) Glucose (70-99(Fasting)) mg/dl POC Glucose (other) 144 H (70-99) mg/dl Lactate (0.4-2.0) mmol/L Calcium (8.6-10.3) mg/dl POC Ioniz Calcium Indu 1.10 L (1.12-1.32) mmol/l Magnesium (1.7-2.4) mg/dl Total Bilirubin (0.2-1.0) mg/dl Direct Bilirubin (0-0.2) mg/dl AST (13-39) U/L ALT (7-52) U/L Alkaline Phosphatase (34-104) U/L Troponin I High Sens (0-20) pg/ml Total Protein (6.0-8.3) gm/dl Albumin (3.4-5.0) gm/dl Lipase (11-82) U/L TSH (0.300-4.500) uIu/ml Urine Color Urine Appearance (Clear) Urine pH (4.5-7.5) Ur Specific [place] (1.000-1.030) Urine Protein (Negative) Urine Glucose (UA) (Negative) Urine Ketones (Negative) Urine Blood (Negative) Urine Nitrite (Negative) Urine Bilirubin (Negative) Urine Urobilinogen (Negative) Ur Leukocyte Esterase (Negative) Urine WBC (Auto) (0-5) /hpf Urine RBC (Auto) (0-2) /hpf U Hyaline Cast (Auto) (0-2) /lpf U Epithel Cells (Auto) (0-2) /hpf Urine Bacteria (Auto) (None Seen) Adenovirus (PCR) (NotDetected) B. pertussis DNA (PCR) (NotDetected) B.parapertussis DNA PCR (NotDetected) C. pneumoniae DNA (PCR) (NotDetected) Coronavirus OC43 (PCR) (NotDetected) Coronavirus HKU1 (PCR) (NotDetected) Coronavirus 229E (PCR) (NotDetected) SARS-CoV-2 (PCR) (NotDetected) Coronavirus NL63 (PCR) (NotDetected) Human Metapneumovir PCR (NotDetected) Influenza Type A (PCR) (NotDetected) Influenza Type B (PCR) (NotDetected) M. pneumoniae (PCR) (NotDetected) Parainfluenza 1 (PCR) (NotDetected) Parainfluenza 2 (PCR) (NotDetected) Parainfluenza 3 (PCR) (NotDetected) Parainfluenza 4 (PCR) (NotDetected) RSV (PCR) (NotDetected) Entero/Rhino (PCR) (NotDetected) Administered Medications Discontinued Medications Sodium Chloride (Nss) 1,000 mls @ 999 mls/hr IV .Q1H1M ONE Stop: 11/28/24 02:12 Last Infusion: 11/28/24 03:19 Dose: Infused Documented By: Admin: 11/28/24 02:17 Dose: 999 mls/hr Documented By: LEYDI Ceftriaxone Sodium (Rocephin) 2,000 mg in 50 mls @ 100 mls/hr IV NOW STA Stop: 11/28/24 01:43 Last Infusion: 11/28/24 03:19 Dose: Infused Documented By: Admin: 11/28/24 02:40 Dose: 100 mls/hr Documented By: LEYDI Olanzapine (Olanzapine 10 Mg/2.1 Ml Sdv) 2.5 mg IM NOW STA Stop: 11/28/24 03:39 Last Admin: 11/28/24 03:48 Dose: 2.5 mg Documented By: LEYDI Imaging Data Radiologist's Impression: Chest X-Ray 11/28/24 01:13 EXAM: XR chest 1V portable CLINICAL HISTORY: Sepsis. TECHNIQUE: An X-ray image of the chest is obtained in AP projection. COMPARISON: 09/10/2023 FINDINGS: Rotated radiograph. Pulmonary Parenchyma: Bilateral lower lung zone ill-defined patchy opacities. Veiling opacity obscuring the left costophrenic recess questioning a trace of pleural effusion. Heart and Mediastinum: Heart shadow is enlarged. No mediastinal widening or masses. No hilar or mediastinal lymphadenopathy. Bony Thorax: Bony thorax appears intact without fractures or deformities. Degenerative changes of the acromioclavicular joints. Soft Tissues: Soft tissues overlying the chest wall are unremarkable. IMPRESSION: 1. Bilateral lung base opacities that could represent pneumonic infiltrations/aspiration pneumonitis for clinical correlation and follow up if needed. 2. Cardiomegaly. Electronically signed by Arnold Adame 11-28-2024 02:31 AM Discharge Plan Visit Data Chief Complaint: Fever Stated Complaint: FEVER, WEAKNESS ED Provider: Dwayne Shirley Discharge Problem: Pneumonia, Dementia, Hypoxia Forms Stand Alone Forms: [facility] [employer] Prescriptions Prescriptions: No Action olanzapine 2.5 mg tablet 2.5 mg PO HS tamsulosin 0.4 mg capsule 0.4 mg PO HS metoprolol succinate 25 mg tablet extended release 24 hr 25 mg PO DAILY lorazepam 1 mg tablet 1 mg PO TID PRN (Reason: Anxiety) Referrals Referrals: Ignacio Prado MD [Primary Care Provider] - Discharge Problem: Pneumonia Qualifiers: Pneumonia type: due to unspecified organism Laterality: bilateral Lung location: lower lobe of lung Qualified Code(s): J18.9 - Pneumonia, unspecified organism Dementia Qualifiers: Dementia type: unspecified type Dementia severity: unspecified severity D ementia behavioral or psychological symptom: without behavioral, psychotic, or mood disturbance or anxiety Qualified Code(s): F03.90 - Unspecified dementia, unspecified severity, without behavioral disturbance, psychotic disturbance, mood disturbance, and anxiety
--- OUTSIDE RECORDS SUMMARY | 2024-11-28 01:18 | External Medical Summary | Summary of Care ---
Author Name Unknown Organization [facility] Address [address] [place] [address] Phone [phone] Care Team Providers Care Manager Furniture Name Role Phone Khoa Bunn MD Primary Care Provider +1- [phone] Reason for Visit * Reason Onset Date Comments Medication Refill 10/29/2024 Encounter Details Date Type Department Care Team (Late st Contact Info) Description 10/29/2024 Refill [facility] [address] [place] [address] Khoa Bunn MD [address] [place] [address] Anxiety Allergies No known active allergiesdocumented as of this encounter (statuses as of 10/30/2024) Medications NIZORAL SHAM 2 % EXIndications:Sebo rrheic [...] metoprolol succinate XL (TOPROL XL) 25 MG [id number]:Pe rsistent atrial fibrillation (HCC) Take 0.5 Tabs [...] (Coumadin)Indicati ons:Persistent atrial fibrillation (HCC),Anticoagulat ion management encounter,computer terminal operator current use of anticoagulant therapy TAKE 1 TO 1 and 1/2 TABLETS BY MOUTH ONCE DAILY DIRECTED BY ANTICOAG CLINIC 135 Tablet 3 09/10/20 24 Active LORazepam 1 MG Oral Tablet (Ativan)Indication s:Anxiety Take 1 Tablet by mouth 3 times a day as needed for Anxiety. 90 Tablet 10/29/19 25 Active LORazepam 1 MG Oral Tablet (Ativan)Indication s:Anxiety Take 1 Tablet by mouth 3 times a day as needed for Anxiety. 90 Tablet 10/01/19 25 025 Discontin ued(Refil l) documented as of this encounter (statuses as of 10/30/2024) Active Problems Problem Noted Date Diagnosed Date [...] Nocturia 07/01/2023 Chronic sinusitis 07/01/2023 Atherosclerosis of [place] artery of lower extrem ity 07/01/2023 Cerebral atrophy 07/01/2023 Coronary artery disease invo lving [place] coronary artery of [place] heart without angina pectoris 07/01/2023 BPH with [...] as of this encounter (statuses as of 10/30/2024) Resolved Problems Problem Noted Date Diagnosed Date Resolved Date Moderate dementia with psychotic disturbance 4 12/02/2023 Atrial fibrillation 09/23/2023 12/02/19 24 Moderate dementia with anxiety 07/01/2023 12/02/2023 Alcohol [...] as of this encounter (statuses as of 10/30/2024) Immunizations Name Administration Dates Next Due COVID-19 [...] 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 * Telephone Encounter - Brian Kaur [facility] - 10/29/2024 3:16 PM EST I have reviewed the patients controlled substance dispensing history in the Prescription Drug Monitoring Program in compliance with the [facility] regulations before prescribing a controlled substance. PDMP checked on 10/29/2024. Pending Prescriptions: Disp Refills LORazepam 1 MG Oral Tablet (Ativan) 90 Tab*0 Sig: Take 1 Tablet by mouth 3 times a day as needed for Anxiety. Last Visit: 09/30/2024 (in office), Visit date not found (telemedicine) Next Visit: 12/08/2024 Date medication was last filled: 10/02/24 Date medication is due for refill: 10/31/24 Pharmacy: [id number] Katrin PACHECO Is this request for a controlled substance? Yes and Urine Drug Screen Not completed Toxicology results: No results found for this or any previous visit. Please approve if appropriate. Thank You, Brian Hicks [facility] Clinical Pharmacist [facility] ([facility]) 10/29/2024, 3:16 PM documented in this encounter Plan of Treatment Upcoming Encounters Date Type Department Care Team (Late st Contact Info) Description 12/07/2024 2:30 PM EDT Office Visit [facility]ology[facility] [address] [facility] [phone] Alexandra Bland CRNP [address] [facility] [place] [address] 12/08/2024 5:40 PM EDT [facility] [address] [facility] [address] Khoa Bunn MD [address] [facility] [place] [address] 02/22/2025 10:00 AM EDT Office Visit Cardiology, [facility] [address] [address] Parth Montero PA-C [address] [place] [address] 08/03/2025 10:30 AM EST Home Visit Care at Home [address], [place] [phone] Debo Perkins PA-C [address], [place] [id number] 08/24/2025 10:00 AM EST Office Visit Cardiology, [facility] [address] [place] [address] Evy Cummings CRNP [address] [place] [address] Scheduled Procedures Name Priority [...] as of this encounter Visit Diagnoses Diagnosis Anxiety Anxiety state, unspecified documented in this encounter Advance Directives Documents on File Type Date Recorded Patient Electric Blanket Wirer Expl anation Advance Directives and Living Will 03/01/2021 ADVANCE DIRECTIVE / LIVING WILL Power of Insurance Agency Manager 03/01/2021 POWER OF A TTORNEY Care Teams Manager Furniture Relationship Specialty Start Date End Date Khoa Bunn MD PCP - General 07/04/00 documented as of this encounter
--- OUTSIDE RECORDS SUMMARY | 2024-11-28 01:18 | External Medical Summary | Summary of Care ---
Author Name Unknown Organization [facility] Address [address] [facility] [place] [address] Phone [phone] Care Team Providers Care Freight Separator Name Role Phone Ignacio Prado MD Primary Care Provider +1- [phone] Reason for Visit * Reason Comments Dosage Adjustment Via Phone (anticoag Cl inic) Encounter Details Date Type Department Care Team (Late st Contact Info) Description 10/16/2024 6:00 AM EST Anticoagulation [facility], Roland Multani [address] [place] [address] [place] [address] [facility], [address] [place] [address] Chronic atrial fibrillation (HCC)* Allergies No known active allergiesdocumented as of this encounter (statuses as of 10/16/2024) Medications NIZORAL SHAM 2 % EXIndications:Sebo rrheic [...] metoprolol succinate XL (TOPROL XL) 25 MG [id number]:Pe rsistent atrial fibrillation (HCC) Take 0.5 Tabs [...] (Coumadin)Indicati ons:Persistent atrial fibrillation (HCC),Anticoagulat ion management 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 90 Tablet 10/01/19 25 Active documented as of this encounter (statuses as of 10/16/2024) Active Problems Problem Noted Date Diagnosed Date [...] Nocturia 07/01/2023 Chronic sinusitis 07/01/2023 Atherosclerosis of [place] artery of lower extrem ity 07/01/2023 Cerebral atrophy 07/01/2023 Coronary artery disease invo lving [place] coronary artery of [place] heart without angina pectoris 07/01/2023 BPH with [...] as of this encounter (statuses as of 10/16/2024) Resolved Problems Problem Noted Date Diagnosed Date [...] as of this encounter (statuses as of 10/16/2024) Immunizations Name Administration Dates Next Due COVID-19 [...] No 08/08/2024 Does the household have a [facility] source of income? 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 Messaged PCP on 10/13 but no response. Will follow up to confirm since med listed as active in chart. Pamela Lacey Rph, Pharm.D. Clinical Pharmacist [facility] ([facility]) [phone] 10/16/2024,11:09 AM documented in this encounter Plan of Treatment Upcoming Encounters Date Type Department Care Team (Late st Contact Info) Description 12/07/2024 2:30 PM EDT Office Visit Hematology/Oncology [facility] [place] [address] [facility] [phone] Alexandra Bland CRNP [address] [facility] [address] 12/08/2024 5:40 PM EDT Office Visit [facility] [address] [place] [phone] Ignacio Prado MD [address] [facility] [place] [address] 02/22/2025 10:00 AM EDT Office Visit Cardiology, [facility] [address] [facility] [place] [address] Parth Montero PA-C [facility] [address] 08/03/2025 10:30 AM EST Home Visit Care at Home [address] [place] [address] Debo Perkins PA-C [address] [place] [address] 08/24/2025 10:00 AM EST [facility] [address] [facility] [place] [address] Evy Cummings CRNP [address] [place] [id number] Scheduled Procedures Name Priority Associated Diagnoses Date/Ti [...] Documents on File Type Date Recorded Patient Mine Captain Expl anation Advance Directives and Living Will 03/01/2021 ADVANCE DIRECTIVE / LIVING WILL Power of Public Address Servicer 03/01/2021 POWER OF A TTORNEY Care Teams Freight Separator Relationship Specialty Start Date End Date Ignacio Prado MD PCP - General 07/04/00 documented as of this encounter
--- OUTSIDE RECORDS SUMMARY | 2024-11-28 01:18 | External Medical Summary | Summary of Care ---
Author Name Unknown Organization [facility] Address [address] [place] [place] [place] [place] [address] Phone [phone] Care Team Providers Care Report Checker Name Role Phone Ignacio Prado MD Primary Care Provider +1- [phone] Reason for Visit * Reason Onset Date Comments Advice 08/25/2024 Encounter Details Date Type Department Care Team (Late st Contact Info) Description 08/25/2024 Telephone [facility] [place] [address] [facility] [place] [address] Ignacio Prado MD [address] [place] [address] Advice Allergies No known active allergiesdocumented as of this encounter (statuses as of 10/27/2024) Medications NIZORAL SHAM 2 % EXIndications:Wilbur orrheic dermatitis, unspecified as directed 1 5 002 Active NASAL SALINE 0.65 % NA SOLNIndications:C hronic rhinitis,Other acute sinusitis,Postnas al drip flush each nostril morning and night and every 2-4 hrs as needed for nasal dryness or congestion 1 Bottle 3 011 Active HYDROCORTISONE 2.5 % EX CREA to affected areas as needed 014 Active metoprolol succinate XL (TOPROL XL) 25 MG [id number]:P ersistent atrial fibrillation (HCC) Take 0.5 Tabs by mouth daily. 45 Tab 3 Active Tamsulosin HCl 0.4 MG Oral Capsule (FLOMAX) Take 1 Capsule by mouth at bedtime. Active Acetaminophen 500 MG Oral Tablet (Tylenol) Take 1 Tablet by mouth every 6 hours as needed for Pain. 1-2 tabs Active Fluticasone Propionate 50 MCG/ACT Nasal Suspension (Flonase) INSTILL 2 SPRAYS IN EACH NOSTRIL EVERY DAY NEEDED Active Atorvastatin Calcium 40 MG Oral Tablet (Lipitor) Take 1 Tablet by mouth in the morning. 30 Tablet Active Amoxicillin 500 MG Oral Capsule (Amoxil) TAKE FOUR CAPSULES BY MOUTH ONE HOUR BEFORE APPOINTMENT Active Cholecalciferol 25 MCG (1000 UT) Oral Tablet Disintegrating Take 25 mcg by mouth at bedtime. 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 60 Tablet 2023 Discontinued(M edication/Dose Changed) LORazepam 1 MG Oral Tablet (Ativan)Indicatio ns:Anxiety Take 1 Tablet by mouth 3 times a day as needed for Anxiety. 60 Tablet 024 2023 Discontinued(R efill) documented as of this encounter (statuses as of 10/27/2024) Active Problems Problem Noted Date Diagnosed Date [...] Nocturia 07/01/2023 Chronic sinusitis 07/01/2023 Atherosclerosis of [place] artery of lower extrem ity 07/01/2023 Cerebral atrophy 07/01/2023 Coronary artery disease invo lving [place] coronary artery of [place] heart without angina pectoris 07/01/2023 BPH with [...] as of this encounter (statuses as of 10/27/2024) Resolved Problems Problem Noted Date Diagnosed Date [...] as of this encounter (statuses as of 10/27/2024) Immunizations Name Administration Dates Next Due COVID-19 [...] 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 She is ok with an office visit as well. She was transferred to [facility] in scheduling. * Telephone Encounter - Ignacio Prado MD - 08/26/2024 9:10 AM EST That is reasonable, but I like to make sure that they understand the consequences of the move to hospice care and goals of care. Would suggest OV or telemed to discuss. * Telephone Encounter - Lesley Kitchen LPN - 08/26/2024 8:34 AM EST They are thinking of getting him put on hospice after the holidays due to a decline in weight. Theywould like your advise on this. They declined geriatric psychiatry due to mental health. * Telephone Encounter - Ignacio Prado MD - 08/25/2024 12:54 PM EST If he is getting angry and aggressive and they are trying to manage him at home, would suggest a geriatric psychiatry eval and it is going to be very difficult to try and manage anger, aggression, sleep and probable development of increased issues with delirium. They should also be aware that there are risks for making him worse with an increased dose of lorazepam. May contribute to delirium, confusion, agitation, aggression in his age with dementia. They should monitor closely for any worsening with med increase. New prescription sent to pharmacy. Can send back for referral if they agree to geriatric psychiatry * Telephone Encounter - Coco Moore OSA - 08/25/2024 9:36 AM EST Randi called to say her Father needs an increase Ativan medication. He gets angry and grits his teeth and getting aggressive towards her Mother. He has built up a tolerance to what he's currently taking. They are also discussing putting him on hospice soon. Will call back and discuss that after the holidays. documented in this encounter Plan of Treatment Upcoming Encounters Date Type Department Care Team (Late st Contact Info) Description 12/07/2024 2:30 PM EDT Office Visit Hematology/Oncology [facility] [address] [place] [address] Alexandra Bland CRNP [address] [facility] [place] [address] 12/08/2024 5:40 PM EDT Office Visit Family [facility] [place] [address] [place] [phone] Ignacio Prado MD [address] [facility] [place] [address] 02/22/2025 10:00 AM EDT Office Visit Cardiology, [facility] [address] [place] [address] Parth Montero PA-C [address] [place] [address] 08/03/2025 10:30 AM EST Home Visit Care at Home [address] [place] [address] Debo Perkins PA-C [address] [place] [address] 08/24/2025 10:00 AM EST Office Visit Cardiology, [facility] [address] [place] [address] Evy Cummings CRNP [address] [place] [phone] Scheduled Procedures Name Priority Associated Diagnoses Date/Ti [...] 05/19, 11/06/2021, Additional history exists COVID-19 Vaccine (2023- season) 2024 08/14/2021, 12/12/2020, 11/14/2020 Adult Wellness [...] as of this encounter Visit Diagnoses Diagnosis Moderate dementia with psychotic disturbance, unspecified dementia type (HCC)- Primary Anxiety Anxiety state, unspecified documented in this encounter Advance Directives Documents on File Type Date Recorded Patient Sign Wirer Expl anation Advance Directives and Living Will 03/01/2021 ADVANCE DIRECTIVE / LIVING WILL Power of Filtrose Crusher 03/01/2021 POWER OF A TTORNEY Care Teams Report Checker Relationship Specialty Start Date End Date Ignacio Prado MD PCP - General 07/04/00 documented as of this encounter
--- OUTSIDE RECORDS SUMMARY | 2024-11-28 01:18 | External Medical Summary | Summary of Care ---
Author Name Unknown Organization [facility] Address [address] [place] [address] Phone [phone] Care Team Providers Care Rail Car Welder Name Role Phone Ignacio Prado MD Primary Care Provider [phone] Reason for Visit * Reason Onset Date Comments Advice 11/03/2024 Encounter Details Date Type Department Care Team (Late st Contact Info) Description 11/03/[address] [facility] [address] [place] [phone] Ignacio Prado MD [address] [facility] [place] [address] Advice Allergies No known active [...] metoprolol succinate XL (TOPROL XL) 25 MG [id number]:Pe rsistent atrial fibrillation (HCC) Take 0.5 Tabs [...] (Coumadin)Indicati ons:Persistent atrial fibrillation (HCC),Anticoagulat ion management encounter,intermediate frame tender current use of anticoagulant therapy TAKE [...] Nocturia 07/01/2023 Chronic sinusitis 07/01/2023 Atherosclerosis of [place] artery of lower extrem ity 07/01/2023 Cerebral atrophy 07/01/2023 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 Thank you, Celso Alcazar, Manager Regulatory It Project Lead [facility] (Formerly [...] increased to twice per day. Sent to [facility]. * Telephone Encounter - Suma Wen OSA [...] 12/07/2024 2:30 PM EDT Office Visit Hematology[facility] [place] [address] [facility] [id number] Alexandra Bland CRNP [address] [facility] [place] [address] 12/08/2024 5:40 PM EDT Office Visit [facility] [address] [place] [phone] Ign[facility]ado MD [address] [facility] [address] 02/22/2025 10:00 AM EDT Office Visit Cardiology [facility] [address] [address] Parth Montero PA-C [address] [place] [address] 08/03/2025 10:30 AM EST Home Visit Care at Home [address] [facility] [place] [id number] Debo Perkins PA-C [address] [place], [place] [id number] 08/24/2025 10:00 AM EST Office Visit Cardiology [facility] [address] [facility] [place] [address] Evy Cummings CRNP [address] [place] [address] [place] [address] Scheduled Procedures Name Priority [...] Documents on File Type Date Recorded Patient Maintenance Director Expl anation Advance Directives and Living Will 03/01/2021 ADVANCE DIRECTIVE / LIVING WILL Power of Defence Force Senior Officer 03/01/2021 POWER OF A TTORNEY Care Teams Rail Car Welder Relationship Specialty Start Date End Date Ignacio Prado MD PCP - General 07/04/00 documented as of this encounter
--- OUTSIDE RECORDS SUMMARY | 2024-11-28 01:18 | External Medical Summary | Summary of Care ---
Author Name Unknown Organization [facility] Address [address] [place] [address] Phone [phone] Care Team Providers Care Meter Calibrator Name Role Phone Ignacio Prado MD Primary Care Provider +1- [phone] Reason for Visit * Reason Onset Date Comments Advice 11/03/2024 Encounter Details Date Type Department Care Team (Late st Contact Info) Description 11/03/2024 Telephone [facility] [address] [place] [address] Ignacio Prado MD 226 [facility] [place] [address] Advice Allergies No known active allergiesdocumented as of this encounter (statuses as of 11/04/2024) Medications NIZORAL SHAM 2 % EXIndications:Sebo rrheic [...] metoprolol succinate XL (TOPROL XL) 25 MG [id number]:Pe rsistent atrial fibrillation (HCC) Take 0.5 Tabs [...] (Coumadin)Indicati ons:Persistent atrial fibrillation (HCC),Anticoagulat ion management encounter,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 [...] as of this encounter (statuses as of 11/04/2024) Active Problems Problem Noted Date Diagnosed Date [...] Nocturia 07/01/2023 Chronic sinusitis 07/01/2023 Atherosclerosis of [place]ary[place] artery of lower extrem ity 07/01/2023 Cerebral atrophy 07/01/2023 Coronary artery disease invo lving [place] coronary artery of mary[place] ig[place] heart without angina pectoris 07/01/2023 BPH with [...] as of this encounter (statuses as of 11/04/2024) Resolved Problems Problem Noted Date Diagnosed Date [...] as of this encounter (statuses as of 11/04/2024) Immunizations Name Administration Dates Next Due COVID-19 [...] 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 Sent to [facility]. * Telephone Encounter - Suma Wen OSA - 11/03/2024 1:39 PM EST Pt daughter calling in regarding pt medication called "Ativan". Pt daughter states that provider and her discussed that if the ativan is not working because of retirement usage, that pt could be switched to an anti psychotic medication. Please advise. Thank you. documented in this encounter Plan of Treatment Upcoming Encounters Date Type Department Care Team (Late st Contact Info) Description 11/05/2024 6:45 AM EST Anticoagulation Centralized Clinical Pharmacy Services, Roland Multani [address] [place] [address] [place] Burdick [address] [place] [address] 12/07/2024 2:30 PM EDT Office Visit Hematology/Oncology [facility] 200 [facility] [place] [address] Alexandra Bland CRNP 400 [facility] [address] 12/08/2024 5:40 PM EDT Office Visit [facility] 226 [place] [phone] Ignacio Prado MD 226 [place] [address] 02/22/2025 10:00 AM EDT Office Visit [facility], [facility] [address] Parth Montero PA-C 132 [facility] [place] [address] 08/03/2025 10:30 AM EST Home Visit Care at Home [address] [place], [place] [phone] Debo Perkins PA-C [address] [place], [place] [phone] 08/24/2025 10:00 AM EST Office Visit [facility] 132 [place] [address] Evy Cummings CRNP [address] [place] [address] Scheduled Procedures Name Priority Associated Diagnoses Date/Ti [...] 11/14/2020 Adult Wellness Visit 08/06/2025 08/06/2024, 07/01/20 Depression Screening 08/08/2025 08/08/2024 O2 ASSESSMENT COMPLETED [...] Documents on File Type Date Recorded Patient Pulp Plant Supervisor Expl anation Advance Directives and Living Will 03/01/2021 ADVANCE DIRECTIVE / LIVING WILL Power of Computer Security Specialist 03/01/2021 POWER OF A TTORNEY Care Teams Meter Calibrator Relationship Specialty Start Date End Date Ignacio Prado MD PCP - General 07/04/00 documented as of this encounter
--- OUTSIDE RECORDS SUMMARY | 2024-11-28 01:19 | External Medical Summary | Summary of Care ---
Author Name Unknown Organization [facility] Address [address] [place] [address] Phone [phone] Care Team Providers Care Dental Services Director Name Role Phone Ignacio Prado MD Primary Care Provider +1- [phone] Reason for Visit * Reason Onset Date Comments Forms Request 09/30/2024 Encounter Details Date Type Department Care Team (Late st Contact Info) Description 09/30/2024 Telephone [facility] [address] Abel [address] [place] [address] Ignacio Prado MD 226 [facility] [place] [address] Forms Request Allergies No known active allergiesdocumented as of this encounter (statuses as of 10/08/2024) Medications NIZORAL SHAM 2 % EXIndications:Sebo rrheic [...] metoprolol succinate XL (TOPROL XL) 25 MG [id number]:Pe rsistent atrial fibrillation (HCC) Take 0.5 Tabs [...] (Coumadin)Indicati ons:Persistent atrial fibrillation (HCC),Anticoagulat ion management encounter,correction current use of anticoagulant therapy TAKE 1 TO 1 and 1/2 TABLETS BY MOUTH ONCE DAILY DIRECTED BY ANTICOAG CLINIC 135 Tablet 3 09/10/20 24 Active LORazepam 1 MG Oral Tablet (Ativan)Indication s:Anxiety Take 1 Tablet by mouth 3 times a day as needed for Anxiety. 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 [facility] received [facility] referral from [facility] on [facility]. Please fax referral, H&P, and demographics to [facility]. * Telephone Encounter - Carol Velazquez OSA - 10/08/2024 11:15 AM EST Reason for patient's call: asking to speak to nursing about hospice referral Caller was transferred to at the nurse line. * Telephone Encounter - Gerda Delgado LPN - 09/30/2024 2:55 PM EST Left detailed message on an identified answering machine letting them know the MA-51 paper work is finished and med list also attached and placed out front for picker and sorter load and unload. * Telephone Encounter - Ignacio Prado MD - 09/30/2024 1:55 PM EST Pt had OV today. I was given MA-51 form. It is completed and at my desk. Please attach a med list and then can return to family. documented in this encounter Plan of Treatment Upcoming Encounters Date Type Department Care Team (Late st Contact Info) Description 10/15/2024 7:00 AM EST Laboratory Lab [facility] [address] [place] [address] [facility], [facility] Draw [address] [employer] [place] [address] 10/16/2024 6:00 AM EST Anticoagulation Centralized Clinical Pharmacy Services, Roland Multani [address] [place] [address] [place] Burdick [address] [place] [address] 12/07/2024 2:30 PM EDT Office Visit Hematology/Oncology [facility] [address] [place] [address] Alexandra Bland CRNP 400 [facility] [place] Brandt [address] 12/08/2024 5:40 PM EDT Office Visit [facility] 226 [facility] [place] [phone] Ignacio Prado MD 226 [facility] [place] [address] 02/22/2025 10:00 AM EDT Office Visit Cardiology, [facility] 132 [facility] [address] Parth Montero PADave 132 [place] [address] 08/03/2025 10:30 AM EST Home Visit Care at Home [address] [place] [address] Debo Perkins PA-C [address] [place], [place] [address] 08/24/2025 10:00 AM EST Office Visit [facility] 132 [place] [address] Evy Cummings CRNP 400 [facility] [place] [address] Scheduled Procedures Name Priority Associated Diagnoses Date/Ti [...] Documents on File Type Date Recorded Patient Appointment Setter Expl anation Advance Directives and Living Will 03/01/2021 ADVANCE DIRECTIVE / LIVING WILL Power of Information Resources Director 03/01/2021 POWER OF A TTORNEY Care Teams Dental Services Director Relationship Specialty Start Date End Date Ignacio Prado MD PCP - General 07/04/00 documented as of this encounter
--- OUTSIDE RECORDS SUMMARY | 2024-11-28 01:19 | External Medical Summary | Summary of Care ---
Author Name Unknown Organization [facility] Address [address] [place] [address] Phone [phone] Care Team Providers Care Restoration Ecologist Name Role Phone Ignacio Prado MD Primary Care Provider +1- [phone] Reason for Visit * Reason Onset Date Comments Forms Request 09/30/2024 Encounter Details Date Type Department Care Team (Late st Contact Info) Description 09/30/2024 Telephone [facility] [address] Abel [address] [place] [address] Ignacio Prado MD 226 [place] [address] Forms Request Allergies No known active [...] metoprolol succinate XL (TOPROL XL) 25 MG [id number]:Pe rsistent atrial fibrillation (HCC) Take 0.5 Tabs [...] (Coumadin)Indicati ons:Persistent atrial fibrillation (HCC),Anticoagulat ion management encounter,skilled nursing current use of anticoagulant therapy TAKE 1 [...] Nocturia 07/01/2023 Chronic sinusitis 07/01/2023 Atherosclerosis of tribal artery of lower extrem ity 07/01/2023 Cerebral atrophy 07/01/2023 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 * Telephone Encounter - Nuzhat Patel LPN - 10/08/2024 11:18 AM EST Daughter calling. [facility] Please fax referral, H&P, and demographics to [facility]. * Telephone Encounter - Carol Velazquez [...] also attached and placed out front for pear picker. * Telephone Encounter - Ignacio Prado MD [...] AM EST Laboratory Lab [facility] [address] [place] [address] M[facility], Gml Mobile [facility] Draw [address] [address] 10/16/2024 6:00 AM EST Anticoagulation Centralized Clinical Pharmacy Services, Roland Multani [address] [place] [address] T[place] Burdick [address] [facility] [address] [place] [address] 12/07/2024 2:30 PM EDT Office [facility] [place] 200 [facility] [place] [address] Alexandra Bland CRNP 400 [facility] [address] 12/08/2024 5:40 PM EDT [facility] [address] Ignacio Prado MD [facility] [address] 02/22/2025 10:00 AM EDT Office Visit Cardiology, [facility] 132 [facility] [place] [address] Parth Montero PA-C 132 [place] [address] 08/03/2025 10:30 AM EST Home Visit Care at Home [address] [place] [address] Debo Perkins PA-C [address] [place] [address] 08/24/2025 10:00 AM EST Office Visit [facility] 132 [facility] [place] [address] Evy Cummings CRNP [address] [place] [address] Scheduled Procedures Name Priority Associated Diagnoses Date/Ti [...] Documents on File Type Date Recorded Patient Paper Latcher Expl anation Advance Directives and Living Will 03/01/2021 ADVANCE DIRECTIVE / LIVING WILL Power of Cabin Crew 03/01/2021 POWER OF A TTORNEY Care Teams Restoration Ecologist Relationship Specialty Start Date End Date Ignacio Prado MD PCP - General 07/04/00 documented as of this encounter
--- OUTSIDE RECORDS SUMMARY | 2024-11-28 01:19 | External Medical Summary | Summary of Care ---
Author Name Unknown Organization [facility] Address [address] [place] [address] Phone [phone] Care Team Providers Care Gas Engineer Name Role Phone Ignacio Prado MD Primary Care Provider +1- [phone] Reason for Visit * Reason Onset Date Comments Forms Request 09/30/2024 Encounter Details Date Type Department Care Team (Late st Contact Info) Description 09/30/2024 Telephone [facility] [place] Abel [address] [place] [address] Ignacio Prado MD 226 [place] [address] Forms Request Allergies No known active [...] metoprolol succinate XL (TOPROL XL) 25 MG [id number]:Pe rsistent atrial fibrillation (HCC) Take 0.5 Tabs [...] (Coumadin)Indicati ons:Persistent atrial fibrillation (HCC),Anticoagulat ion management encounter,half-way current use of anticoagulant therapy TAKE 1 [...] Nocturia 07/01/2023 Chronic sinusitis 07/01/2023 Atherosclerosis of [place] artery of lower extrem ity 07/01/2023 Cerebral atrophy 07/01/2023 Coronary artery disease invo lving [place] coronary artery of hop[place] heart without angina pectoris 07/01/2023 BPH with [...] 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 [facility] referral [facility]. Please fax referral, H&P, and demographics to [facility]. * Telephone Encounter - Carol [...] also attached and placed out front for brass pickler. * Telephone Encounter - Ignacio Prado MD [...] AM EST Laboratory Lab [facility] [address] [address] [address] Mv[facility], Gml Mobile Home Draw [address] [employer] T[place] [address] 10/16/2024 6:00 AM EST Anticoagulation Centralized Clinical Pharmacy Services, Roland Multani [address] [place] [address] T[place] Burdick [address] [place] [address] 12/07/2024 2:30 PM EDT Office Visit Hematology/Oncology [facility] [address] [place] [address] Alexandra Bland CRNP 400 [facility] [place] Brandt [address] 12/08/2024 5:40 PM EDT Office Visit [facility] 226 [place] [address] Ignacio Prado MD 226 [place] [address] 02/22/2025 10:00 AM EDT Office Visit [facility], [facility] [address] Parth Montero PADave 132 [place] [address] 08/03/2025 10:30 AM EST Home Visit Care at Home [address] [place] [address] Debo Perkins PA-C [address] [place], [place] [address] 08/24/2025 10:00 AM EST Office Visit [facility] 132 [place] [address] Evy Cummings CRNP 400 [facility] [place] [address] Scheduled Procedures Name Priority Associated Diagnoses Date/Ti [...] Documents on File Type Date Recorded Patient Tug Boat Engineer Expl anation Advance Directives and Living Will 03/01/2021 ADVANCE DIRECTIVE / LIVING WILL Power of Draughtsman 03/01/2021 POWER OF A TTORNEY Care Teams Gas Engineer Relationship Specialty Start Date End Date Ignacio Prado MD PCP - General 07/04/00 documented as of this encounter
--- OUTSIDE RECORDS SUMMARY | 2024-11-28 01:19 | External Medical Summary | Summary of Care ---
Author Name Unknown Organization [facility] Address [address] [place] [address] Phone [phone] Care Team Providers Care Coffee Attendant Name Role Phone Ignacio Prado MD Primary Care Provider +1- [phone] Reason for Visit * Reason Onset Date Comments Forms Request 09/30/2024 Encounter Details Date Type Department Care Team (Late st Contact Info) Description 09/30/2024 Telephone [facility] [address] Abel [address] [place] [address] Ignacio Prado MD 226 [place] [address] Forms Request Allergies No known active [...] metoprolol succinate XL (TOPROL XL) 25 MG [id number]:Pe rsistent atrial fibrillation (HCC) Take 0.5 Tabs [...] (Coumadin)Indicati ons:Persistent atrial fibrillation (HCC),Anticoagulat ion management encounter,care home current use of anticoagulant therapy TAKE 1 [...] 07/01/2023 Chronic sinusitis 07/01/2023 Atherosclerosis of [place] ind[place] tribe artery of lower extrem ity 07/01/2023 Cerebral atrophy 07/01/2023 Coronary artery disease invo lving chick[place] indian tribe coronary artery of chick[place] indian tribe heart without angina pectoris 07/01/2023 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 [facility] on [facility]. Please fax referral, H&P, and demographics to [facility]. * Telephone Encounter - [...] AM EST Laboratory Lab [facility]lebot[facility] [address] [address] [address] Mvmg, Gml Mobile Home Draw [address] [place] [address] 10/16/2024 6:00 AM EST Anticoagulation Centralized Clinical Pharmacy Services, Roland Multani [address] [place] [address] T[place] Burdick [address] [place] [address] 12/07/2024 2:30 PM EDT Office Visit Hematology/Oncology [facility] [address] [place] [address] Alexandra Bland CRNP 400 [facility] [place]ERTYT[place] Brandt [address] 12/08/2024 5:40 PM EDT [facility] 226 [place] [phone] Ignacio Prado MD 226 [facility] [address] 02/22/2025 10:00 AM EDT Office Visit [facility] 132 [facility] [address] Parth Montero PADave 132 [place] [address] 08/03/2025 10:30 AM EST Home Visit Care at Home [address] [place] [address] Debo Perkins PA-C [address] [place], [place] [address] 08/24/2025 10:00 AM EST Office Visit [facility] 132 [place] [address] Evy Cummings CRNP 400 [facility] [place] [address] Scheduled Procedures Name Priority Associated Diagnoses Date/Ti [...] Documents on File Type Date Recorded Patient Pulmonary Function Technician Expl anation Advance Directives and Living Will 03/01/2021 ADVANCE DIRECTIVE / LIVING WILL Power of Electrolysist 03/01/2021 POWER OF A TTORNEY Care Teams Coffee Attendant Relationship Specialty Start Date End Date Ignacio Prado MD PCP - General 07/04/00 documented as of this encounter
--- OUTSIDE RECORDS SUMMARY | 2024-11-28 01:20 | External Medical Summary | Summary of Care ---
Author Name Unknown Organization [facility] Address [address] [place] [address] Phone [phone] Care Team Providers Care Melter Supervisor Oxygen Furnace Name Role Phone Ignacio Prado MD Primary Care Provider +1- [phone] Reason for Visit * Reason Onset Date Comments Forms Request 09/30/2024 Encounter Details Date Type Department Care Team (Late st Contact Info) Description 09/30/2024 Telephone [facility] [address] Abel [address] [place] [address] Ignacio Prado MD 226 [place] [address] Forms Request Allergies No known active [...] metoprolol succinate XL (TOPROL XL) 25 MG [id number]:Pe rsistent atrial fibrillation (HCC) Take 0.5 Tabs [...] (Coumadin)Indicati ons:Persistent atrial fibrillation (HCC),Anticoagulat ion management encounter,penitentiary current use of anticoagulant therapy [...] Nocturia 07/01/2023 Chronic sinusitis 07/01/[address] 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 * Telephone Encounter - Ignacio Prado [...] AM EST Laboratory Lab [facility] Phlebot[facility] [address] [facility] [place] [address] Mvmg, Gml Mobile Home Draw [facility] [facility] [place] [address] 10/16/2024 6:00 AM EST Anticoagulation Centralized Clinical Pharmacy Services, Roland Multani [address] [place] [address] T[place] [address] [place] [address] 12/07/2024 2:30 PM EDT Office Visit Hematology/Oncology [facility] [place] 200 [facility] [place] [address] Alexandra Bland CRNP [address] [place] [address] 12/08/2024 5:40 PM EDT [facility] 226 [facility] [place] [address] Ignacio Prado MD [address] [place] [address] 02/22/2025 10:00 AM EDT Office Visit Cardiology, [facility] 132 [place] [address] Parth Montero PADave [address] [facility] [place] [address] 08/03/2025 10:30 AM EST Home Visit Care at Home [address] [place], [place] [phone] Debo Perkins PA-C [address] [place], [place] [phone] 08/24/2025 10:00 AM EST Office Visit Cardiology, [facility] 132 [place] [address] Evy Cummings CRNP 400 [place], [place] [phone] Scheduled Procedures Name Priority Associated Diagnoses Date/Ti [...] Documents on File Type Date Recorded Patient Metallurgist Process Expl anation Advance Directives and Living Will 03/01/2021 ADVANCE DIRECTIVE / LIVING WILL Power of Nail Expert 03/01/2021 POWER OF A TTORNEY Care Teams Melter Supervisor Oxygen Furnace Relationship Specialty Start Date End Date Ignacio Prado MD PCP - General 07/04/00 documented as of this encounter
--- OUTSIDE RECORDS SUMMARY | 2024-11-28 01:20 | External Medical Summary | Summary of Care ---
Author Name Unknown Organization [facility] Address [address] [facility] [address] Phone [phone] Care Team Providers Care Mental Health Specialist Name Role Phone Ignacio Prado MD Primary Care Provider +1- [phone] Reason for Visit * Reason Comments eRx-Medication Refill Encounter Details Date Type Department Care Team (Late st Contact Info) Description 09/15/2024 Refill [facility] Elma Abel [address] [place] [address] Ignacio Prado MD 226 [facility] [place] [address] Anxiety Allergies No known active allergiesdocumented as of this encounter (statuses as of 09/29/2024) Medications NIZORAL SHAM 2 % EXIndications:Sebo rrheic [...] metoprolol succinate XL (TOPROL XL) 25 MG [id number]:Pe rsistent atrial fibrillation (HCC) Take 0.5 Tabs [...] (Coumadin)Indicati ons:Persistent atrial fibrillation (HCC),Anticoagulat ion management encounter,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 60 Tablet 09/15/20 24 Active documented as of this encounter (statuses as of 09/29/2024) Active Problems Problem Noted Date Diagnosed Date Normochromic normocytic anemia 08/08/2024 Aortic root enlargement 08/08/2024 Mild mitral valve regurgitation 08/08/2024 Mild tricuspid regurgitation 08/08/2024 Mild aortic valve sclerosis 08/08/2024 Pulmonary emphysema 12/02/2023 Moderate dementia with psychotic disturbance HTN, goal below 130/80 09/23/2023 H/O right inguinal hernia repair 07/01/2023 At risk for falls 07/01/2023 Nocturia 07/01/2023 Chronic sinusitis 07/01/2023 Atherosclerosis of [place] artery of lower extrem ity 07/01/2023 Cerebral atrophy 07/01/2023 Coronary artery disease invo lving [place] coronary artery of [place] heart without angina pectoris 07/01/2023 BPH with [...] as of this encounter (statuses as of 09/29/2024) Resolved Problems Problem Noted Date Diagnosed Date [...] as of this encounter (statuses as of 09/29/2024) Immunizations Name Administration Dates Next Due COVID-19 [...] 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 Not on file Not on file documented as of this encounter Plan of Treatment Upcoming Encounters Date Type Department Care Team (Late st Contact Info) Description 09/30/2024 9:20 AM EST Office Visit [facility] Funmilayo Farooq [address] [address] Ignacio Prado MD [address] [address] 10/15/2024 7:00 AM EST Laboratory Lab Mobile Phlebotomy [facility] [address] [place] [address] Mv[facility], Gml Mobile Home Draw 2520 [facility] [address] 10/16/2024 6:00 AM EST Anticoagulation Central[facility], Roland Multani [address] [place] [address] [place] [address] [facility], [address] [place] [address] 12/07/2024 2:30 PM EDT Office Visit Hematology/Oncology [facility] [place] [address] [facility] [place] [address] Alexandra Bland CRNP 400 [facility] [place]TEBERLINTARA Brandt [address] 12/08/2024 5:40 PM EDT [facility] 226 [place] [phone] Ignacio Prado MD 226 [place] [address] 02/22/2025 10:00 AM EDT Office Visit Cardiology, [facility] 132 [facility] [place] [address] Parth Montero PADave 132 [facility] [place] [address] 08/03/2025 10:30 AM EST [facility] [phone] Debo Perkins PA-C [facility] [address] 08/24/2025 10:00 AM EST Office Visit Cardiology, [facility] 132 [place] [address] Evy Cummings CRNP 400 [place] [id number] Scheduled Procedures Name Priority Associated Diagnoses Date/Ti [...] ASSESSMENT COMPLETED IN PAST YEAR FOR COPD 08/08/2025 08/08/2024 DTap/Tdap Vaccines (3 - Td or Tdap) [...] Documents on File Type Date Recorded Patient Chemical Dependency Therapist Expl anation Advance Directives and Living Will 03/01/2021 ADVANCE DIRECTIVE / LIVING WILL Power of Studio Camera Operator 03/01/2021 POWER OF A TTORNEY Care Teams Mental Health Specialist Relationship Specialty Start Date End Date Ignacio Prado MD PCP - General 07/04/00 documented as of this encounter
--- OUTSIDE RECORDS SUMMARY | 2024-11-28 01:20 | External Medical Summary | Summary of Care ---
Author Name Unknown Organization [facility] Address [address] [place] [address] Phone [phone] Care Team Providers Care Line Mechanic Name Role Phone Ignacio Prado MD Primary Care Provider +1- [phone] Encounter Details Date Type Department Care Team (Late st Contact Info) Description 10/05/2024 Population Health External Data Unspecified Department Allergies No known active allergiesdocumented as of this encounter (statuses as of 10/05/2024) Medications NIZORAL SHAM 2 % EXIndications:Sebo rrheic [...] metoprolol succinate XL (TOPROL XL) 25 MG [id number]:Pe rsistent atrial fibrillation (HCC) Take 0.5 Tabs [...] (Coumadin)Indicati ons:Persistent atrial fibrillation (HCC),Anticoagulat ion management encounter,remote computer terminal operator current use [...] as of this encounter (statuses as of 10/05/2024) Active Problems Problem Noted Date Diagnosed Date [...] Nocturia 07/01/2023 Chronic sinusitis 07/01/2023 Atherosclerosis of [place] artery of lower extrem ity 07/01/2023 Cerebral atrophy 07/01/2023 Coronary artery disease invo lving [place] coronary artery of [place] heart without angina pectoris 07/01/2023 BPH with [...] as of this encounter (statuses as of 10/05/2024) Resolved Problems Problem Noted Date Diagnosed Date [...] as of this encounter (statuses as of 10/05/2024) Immunizations Name Administration Dates Next Due COVID-19 [...] 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 on file Not on file documented as of this encounter Plan of Treatment Upcoming Encounters Date Type Department Care Team (Late st Contact Info) Description 10/15/2024 7:00 AM EST Laboratory Lab Mobile Phlebotomy [facility] [address] [place] [address] Mvmg, Gml Mobile Home Draw [address] [place] [address] 10/16/2024 6:00 AM EST Anticoagulation Centralized Clinical Pharmacy Services, Roland Multani [address] [place] [address] [place] [address] [place] [address] 12/07/2024 2:30 PM EDT Office Visit Hematology/Oncology [facility] 200 [facility] [address] Alexandra Bland CRNP 400 [facility] [address] 12/08/2024 5:40 PM EDT Office Visit [facility] 226 [place] [phone] Ignacio Prado MD 226 [facility] [place] [address] 02/22/2025 10:00 AM EDT [facility] 132 [facility] [place]TIZ [address] Parth Montero PADave 132 [place] [address] 08/03/2025 10:30 AM EST Home Visit Care at Home [address] [place] [address] Debo Perkins PA-C [address] [place] [address] 08/24/2025 10:00 AM EST Office Visit [facility] 132 [facility] [place] [address] Evy Cummings CRNP 400 [place] [address] Scheduled Procedures Name Priority Associated Diagnoses Date/Ti [...] Documents on File Type Date Recorded Patient Weight Reduction Specialist Expl anation Advance Directives and Living Will 03/01/2021 ADVANCE DIRECTIVE / LIVING WILL Power of Training Representative 03/01/2021 POWER OF A TTORNEY Care Teams Line Mechanic Relationship Specialty Start Date End Date Ignacio Prado MD PCP - General 07/04/00 documented as of this encounter
--- OUTSIDE RECORDS SUMMARY | 2024-11-28 01:20 | External Medical Summary | Summary of Care ---
Author Name Unknown Organization [facility] Address [address] [place] [address] Phone [phone] Care Team Providers Care Compensation And Hris Analyst Name Role Phone Khoa Bunn MD Primary Care Provider +1- [phone] Reason for Visit * Reason Onset Date Comments Medication Refill 09/28/2024 Encounter Details Date Type Department Care Team (Late st Contact Info) Description 09/28/2024 Refill [facility] 226 [facility] [place] [address] Khoa Bunn MD 226 [place] [address] Anxiety Allergies No known active allergiesdocumented as of this encounter (statuses as of 10/01/2024) Medications NIZORAL SHAM 2 % EXIndications:Sebo rrheic [...] metoprolol succinate XL (TOPROL XL) 25 MG [id number]:Pe rsistent atrial fibrillation (HCC) Take 0.5 Tabs [...] (Coumadin)Indicati ons:Persistent atrial fibrillation (HCC),Anticoagulat ion management encounter,nursing home current use of anticoagulant therapy TAKE 1 TO 1 and 1/2 TABLETS BY MOUTH ONCE DAILY DIRECTED BY ANTICOAG CLINIC 135 Tablet 3 09/10/20 24 Active LORazepam 1 MG Oral Tablet (Ativan)Indication s:Anxiety Take 1 Tablet by mouth 3 times a day as needed for Anxiety. 90 Tablet 10/01/19 25 Active LORazepam 1 MG Oral Tablet (Ativan)Indication s:Anxiety Take 1 Tablet by mouth 3 times a day as needed for Anxiety. 60 Tablet 09/15/20 24 025 Discontin ued(Refil l) documented as of this encounter (statuses as of 10/01/2024) Active Problems Problem Noted Date Diagnosed Date [...] Nocturia 07/01/2023 Chronic sinusitis 07/01/2023 Atherosclerosis of [place] artery of lower extrem ity 07/01/2023 Cerebral atrophy 07/01/2023 Coronary artery disease invo lving [place] coronary artery of [place] heart without angina pectoris 07/01/2023 BPH with [...] as of this encounter (statuses as of 10/01/2024) Resolved Problems Problem Noted Date Diagnosed Date [...] as of this encounter (statuses as of 10/01/2024) Immunizations Name Administration Dates Next Due COVID-19 [...] 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 * Telephone Encounter - [facility] - 09/29/2024 6:16 AM EST Postponed until 10/01/24 I have reviewed the patients controlled substance dispensing history in the Prescription Drug Monitoring Program in compliance with the [facility] regulations before prescribing a controlled substance. PDMP checked on 09/29/2024. Pending Prescriptions: Disp Refills LORazepam 1 MG Oral Tablet (Ativan) 60 Tab*0 Sig: Take 1 Tablet by mouth 3 times a day as needed for Anxiety. Last Visit: Visit date not found (in office), Visit date not found (telemedicine) Next Visit: 09/30/2024 Date medication was last filled: 09/15/24 Date medication is due for refill: 10/03/24 [facility] [address] AK[address] PACHECO Is this request for a controlled substance? Yes and Urine Drug Screen Not completed Toxicology results: No results found for this or any previous visit. Please approve if appropriate. Thank You, [facility] Clinical Pharmacist Centralized Clinical Pharmacy Services ([facility]) [phone] 09/29/2024, 6:17 AM documented in this encounter Plan of Treatment Upcoming Encounters Date Type Department Care Team (Late st Contact Info) Description 10/15/2024 7:00 AM EST Laboratory Lab Mobile Phlebotomy [facility] [address] [facility], Gml Mobile Home Draw 8320 [facility] [place] [address] 10/16/2024 6:00 AM EST Anticoagulation Centralized Clinical Pharmacy Services, Roland Multani [address] [place] [address] T[place] [address] [facility], [address] [place] [address] 12/07/2024 2:30 PM EDT Office Visit Hematology/Oncology [facility] 200 [facility] [phone] Alexandra Bland CRNP 400 [facility] T[place] MAHAN [address] 12/08/2024 5:40 PM EDT Office Visit [facility] Elma Colten [address] [phone] Khoa Bunn MD 226 [address] [address] 02/22/2025 10:00 AM EDT Office Visit Cardiology, [facility] 132 [place] [address] Parth Montero PA-C 132 [address] [address] 08/03/2025 10:30 AM EST Home Visit Care at Home [address] [place] [address] Debo Perkins PA-C [address] [place], [place] [phone] 08/24/2025 10:00 AM EST Office Visit Cardiology, 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
--- OUTSIDE RECORDS SUMMARY | 2024-11-28 01:20 | External Medical Summary | Summary of Care ---
Author Name Unknown Organization [facility] Address [address] [facility] [place] [address] Phone [phone] Care Team Providers Care Conciliator Name Role Phone Ignacio Prado MD Primary Care Provider +1- [phone] Reason for Visit * Reason Comments Dosage Adjustment Via Phone (anticoag Cl inic) Encounter Details Date Type Department Care Team (Late st Contact Info) Description 09/18/2024 6:00 AM EST Anticoagulation Centralized Clinical Pharmacy Services, Roland Multani [address] [place] [address] [place] [address] [facility], [address] [place] [address] Chronic atrial fibrillation (HCC)* Allergies No known active allergiesdocumented as of this encounter (statuses as of 09/18/2024) Medications NIZORAL SHAM 2 % EXIndications:Sebo rrheic [...] metoprolol succinate XL (TOPROL XL) 25 MG SW01Gruxckqftfi:Pe rsistent atrial fibrillation (HCC) Take 0.5 Tabs [...] ons:Persistent atrial fibrillation (HCC),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 60 Tablet 09/15/20 24 Active documented as of this encounter (statuses as of 09/18/2024) Active Problems Problem Noted Date Diagnosed Date Normochromic normocytic anemia 08/08/2024 Aortic root enlargement 08/08/2024 Mild mitral valve regurgitation 08/08/2024 Mild tricuspid regurgitation 08/08/2024 Mild aortic valve sclerosis 08/08/2024 Pulmonary emphysema 12/02/2023 Moderate dementia with psychotic disturbance HTN, goal below 130/80 09/23/2023 H/O right inguinal hernia repair 07/01/2023 At risk for falls 07/01/2023 Nocturia 07/01/2023 Chronic sinusitis 07/01/2023 Atherosclerosis of [place] artery of lower extrem ity 07/01/2023 Cerebral atrophy 07/01/2023 Coronary artery disease invo lving [place] coronary artery of [place] heart without angina pectoris 07/01/2023 BPH with [...] as of this encounter (statuses as of 09/18/2024) Resolved Problems Problem Noted Date Diagnosed Date Resolved Date Moderate dementia with psychotic disturbance 12/02/2023 Atrial fibrillation 09/23/2023 12/02/19 24 Moderate [...] as of this encounter (statuses as of 09/18/2024) Immunizations Name Administration Dates Next Due COVID-19 [...] 08/08/2024 Transportation Needs Answer Date Record ed READ ONLY Do you have troubl e getting a ride to medical visits or work? Never True 08/08/2024 Does your family have a hard [...] place to sleep at night? No 08/08/2024 READ ONLY Do you think you a re at risk of becoming homeless? 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 Not on file Not on file documented as of this encounter Progress Notes * Mihaela Claire, [facility] - 09/18/2024 8:22 AM EST Contacts Contact Date/Time Type Contact Phone/Fax 09/18/2024 08:21 AM EST Phone (Outgoing) JONNY HERNANDEZ (Emergency Contact) [phone] (H) Spoke to Patient Subjective Patient Findings Negatives: Signs/symptoms of thrombosis, [...] date communicated as noted by Pharmacist: Yes MIHAELA CLAIRE CPhT 09/18/2024, 8:22 AM * Pamela Lacey RPh - 09/18/2024 8:00 AM EST Coumadin Clinic (region specific) Objective Current Warfarin Dose As of 09/18/2024 Warfarin maintenance plan: 3.75 mg (2.5 mg x 1.5) every Mon, Wed, Fri; 2.5 mg (2.5 mg x 1) all other days INR Result As of 09/18/2024 INR goal: 2.0-3.0 INR used for dosin.8 (09/17/2024) Assessment & Plan Warfarin Plan As of 09/18/2024 Full warfarin instructions: 3.75 mg every Mon, Wed, Fri; 2.5 mg all other days No change documented: Pamela Lacey RPh Next INR check: 10/15/2024 Repeat PT/INR in 4 week(s) Weekly dose: not changed Additional Dosing Information: Description [facility] to contact patient with dose instructions as noted. Pamela Lacey RPh 09/18/2024, 8:00 AM documented in this encounter Plan of Treatment Upcoming Encounters Date Type Department Care Team (Late st Contact Info) Description 09/30/2024 9:20 AM EST Office Visit [facility] Funmilayo Farooq [address] [address] Ignacio Prado MD [address] [place] [address] 10/16/2024 6:00 AM EST Anticoagulation Centralized Clinical Pharmacy Services, Roland Multani [address] [place] [address] [place] [address] [facility], [address] [place] [address] 12/07/2024 2:30 PM EDT Office Visit Hematology/Oncology [facility] [place] 200 [facility] [address] Alexandra Bland CRNP 400 [facility] ROSETTEWICHITATARA Brandt [address] 12/08/2024 5:40 PM EDT Office Visit [facility] 226 [place] [phone] Ignacio Prado MD 226 [place] [address] 02/22/2025 10:00 AM EDT Office Visit Cardiology, [facility] 132 [facility] [place] [address] Parth Montero PA-C 132 [facility] [address] 08/03/2025 10:30 AM EST Home Visit Care at Home [address] [place] [address] Debo Perkins PA-C [address] [place] [address] 08/24/2025 10:00 AM EST [facility] 132 [facility] [place] [address] Evy Cummings CRNP 400 [facility] [place] [address] Scheduled Procedures Name Priority Associated Diagnoses [...] Documents on File Type Date Recorded Patient Process Manager Expl anation Advance Directives and Living Will 03/01/2021 ADVANCE DIRECTIVE / LIVING WILL Power of Fishery Biologist 03/01/2021 POWER OF A TTORNEY Care Teams Conciliator Relationship Specialty Start Date End Date Ignacio Prado MD PCP - General 07/04/00 documented as of this encounter
--- OUTSIDE RECORDS SUMMARY | 2024-11-28 01:20 | External Medical Summary | Summary of Care ---
Author Name Unknown Organization [facility] Address [address] [place] [address] Phone [phone] Care Team Providers Care Payroll Benefits Clerk Name Role Phone Igncaio Prado MD Primary Care Provider +1- [phone] Reason for Visit * Reason Onset Date Comments Forms Request 09/30/2024 Encounter Details Date Type Department Care Team (Late st Contact Info) Description 09/30/[address] [facility] Elma Aebl [address] [place] [address] Ignacio Prado MD 226 [facility] [place] [address] Forms Request Allergies No known active allergiesdocumented as of this encounter (statuses as of 09/30/2024) Medications NIZORAL SHAM 2 % EXIndications:Sebo rrheic [...] metoprolol succinate XL (TOPROL XL) 25 MG [id number]:Pe rsistent atrial fibrillation (HCC) Take 0.5 Tabs [...] as of this encounter (statuses as of 09/30/2024) Active Problems Problem Noted Date Diagnosed Date [...] Nocturia 07/01/2023 Chronic sinusitis 07/01/2023 Atherosclerosis of [place] artery of lower extrem ity 07/01/2023 Cerebral atrophy 07/01/2023 Coronary artery disease invo lving [place] coronary artery of [place] heart without angina pectoris 07/01/2023 BPH with [...] as of this encounter (statuses as of 09/30/2024) Resolved Problems Problem Noted Date Diagnosed Date [...] as of this encounter (statuses as of 09/30/2024) Immunizations Name Administration Dates Next Due COVID-19 [...] No 08/08/2024 Does the household have a munising memorial hospitalr source of income? 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 * Telephone Encounter - Ignacio Prado [...] AM EST Laboratory Lab Mobile Phlebotomy [facility] [address] [facility] [place] [address] Mvmg, Gml Mobile Home Draw 62[address] [facility] [place] [address] 10/16/2024 6:00 AM EST Anticoagulation Centralized Clinical Pharmacy Services, Roland Multani [address] [place] [address] [place] [address] [place] [address] 12/07/2024 2:30 PM EDT Office Visit Hematology/Oncology [facility] [place] 200 [facility] [place] [phone] Alexandra Bland CRNP 400 [facility] T[place] MAHAN [address] 12/08/2024 5:40 PM EDT [facility] [place] [address] [address] [phone] Ignacio Prado MD 226 [place] [address] 02/22/2025 10:00 AM EDT Office Visit Cardiology, [facility] 132 [address] [address] [address] Parth Montero PAMaguiC [address] [place] [address] 08/03/2025 10:30 AM EST Home Visit Care at Home 100 [address] [facility] T[place] [address] Debo Perkins PA-C 100 [facility] [address] 08/24/2025 10:00 AM EST Office Visit Cardiology, [facility] 132 [address] [place] [address] Evy Cummings CRNP 400 [place] [address] Scheduled Procedures Name Priority [...] Documents on File Type Date Recorded 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
--- OUTSIDE RECORDS SUMMARY | 2024-11-28 01:21 | External Medical Summary | Summary of Care ---
Author Name Unknown Organization [facility] Address [address] [place] [address] Phone [phone] Care Team Providers Care Manager Cash Name Role Phone Ignacio Prado MD Primary Care Provider +1- [phone] Encounter Details Date Type Department Care Team (Late st Contact Info) Description 08/17/2024 Population Health External Data Unspecified Department Allergies No known active allergiesdocumented as of this encounter (statuses as of 08/17/2024) Medications NIZORAL SHAM 2 % EXIndications:Sebo rrheic [...] metoprolol succinate XL (TOPROL XL) 25 MG [id number]:Pe rsistent atrial fibrillation (HCC) Take 0.5 Tabs [...] ONE HOUR BEFORE APPOINTMENT 07/10/20 22 Active Warfarin Sodium 2.5 MG Oral Tablet (Coumadin)Indicati ons:Persistent atrial fibrillation (HCC),Anticoagulat ion management encounter,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 Active LORazepam 0.5 MG Oral Tablet (Ativan) Take 1 Tablet by mouth every 6 hours as needed for Anxiety. 60 Tablet 08/10/20 24 Active documented as of this encounter (statuses as of 08/17/2024) Active Problems Problem Noted Date Diagnosed Date Normochromic normocytic anemia 08/08/2024 Aortic root enlargement 08/08/2024 Mild mitral valve regurgitation 08/08/2024 Mild tricuspid regurgitation 08/08/2024 Mild aortic valve sclerosis 08/08/2024 Pulmonary emphysema 12/02/2023 Moderate dementia with psychotic disturbance HTN, goal below 130/80 09/23/2023 H/O right inguinal hernia repair 07/01/2023 At risk for falls 07/01/2023 Nocturia 07/01/2023 Chronic sinusitis 07/01/2023 Atherosclerosis of [place] artery of lower extrem ity 07/01/2023 Cerebral atrophy 07/01/2023 Coronary artery disease invo lving [place] coronary artery of [place] heart without angina pectoris 07/01/2023 BPH with [...] as of this encounter (statuses as of 08/17/2024) Resolved Problems Problem Noted Date Diagnosed Date [...] as of this encounter (statuses as of 08/17/2024) Immunizations Name Administration Dates Next Due COVID-19 [...] 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 Not on file Not on file documented as of this encounter Plan of Treatment Upcoming Encounters Date Type Department Care Team (Late st Contact Info) Description 08/20/2024 7:00 AM EST Laboratory Lab Mobile Phlebotomy [facility] [address] [place] [place] [address] [facility], [facility] Mobile Home Draw [address] [place] [address] 08/21/2024 6:00 AM EST Anticoagulation [facility], Roland Multani [address] [place] [address] [place] [address] [place] [address] 12/07/2024 2:30 PM EDT Office Visit Hematology/Oncology [facility] 200 [facility] [place] [address] Alexandra Bland CRNP [address] [place] [address] 12/08/2024 5:40 PM EDT Office Visit [facility], [facility] [address] [facility] [place] [phone] Ignacio Prado MD [address] [facility] [place] [address] 02/22/2025 10:00 AM EDT Office Visit Cardiology, [facility] 132 [facility] [place] [address] Parth Montero PA-C 132 [facility] [place] [address] 08/03/2025 10:30 AM EST Home Visit Care at Home [address] [place] [address] Debo Perkins PA-C [address] [place] [address] 08/24/2025 10:00 AM EST Office Visit [facility] 132 [facility] [place] [address] Evy Cummings, LATEX CASTER [address] [place] [address] Scheduled Procedures Name Priority Associated Diagnoses Date/Ti me COLONOSCOPY FLEXIBLE PROXIMAL DIAGNOSTIC Recall History of colon polyps Health Maintenance Due Date Last Done Comments DXA Scan 1940 Alpha-1 Antitrypsin 1958 Albumin/Creatinine Ratio 12/09/2014 12/10/2011 Colonoscopy 05/07/2021 05/07/2016, 10/29/2005 HbA1c 06/15/2023 06/15/2022, 10/17, 07/07/2012, Additional history exists *COPD SEVERITY VERIFIED BY PFT 12/04/2023 GFR 01/17/2024 01/16/2023, 05/19, 11/06/2021, Additional history exists COVID-19 Vaccine ( - season) 2024 08/14/2021, 12/12/2020, 11/14/2020 Zoster Vaccines (2 of 3) 09/09/2024 09/21/2015, 12/2004 Postponed from 11/16/2015 (Other) Adult Wellness Visit 08/06/2025 08/06/2024, 07/01/20 Depression Screening 08/08/2025 08/08/2024 O2 ASSESSMENT COMPLETED IN PAST YEAR FOR COPD 08/08/2025 08/08/2024 DTap/Tdap Vaccines (3 - Td or Tdap) 06/01/2034 06/01/2024, 01/28/2013, 02/02/2003, Additional history exists RETIRED - COLONOSCOPY-EVERY 5 YRS AGES 18-100 Discontinued 05/07/2016, 10/29/2005 Pneumococcal Vaccine: 65+ Years Completed 07/16/2018, 05/17/2017, [...] on File Type Date Recorded Patient Special Education Teachers Expl anation Advance Directives and Living Will 03/01/2021 ADVANCE DIRECTIVE / LIVING WILL Power of Assistant To The Director 03/01/2021 POWER OF A TTORNEY Care Teams Manager Cash Relationship Specialty Start Date End Date Ignacio Prado MD [address] [place] [address] PCP - General 07/04/00 documented as of this encounter
--- OUTSIDE RECORDS SUMMARY | 2024-11-28 01:21 | External Medical Summary ---
Author Name Unknown Address Unknown Organization [facility] [address] [place] [address] Laboratory Report Ordering Provider Test Date Status EBONI NICOLE 09/17/2024 07:28:00 Final Standing order for pt/inr. < br/>Please draw pt/inr every 1 to 4 weeks as requested
Results to [facility]

Warfarin Therapy
INR: 2.0-3.0 conventional anticoagulation
INR: 2.5-3.5 high intensity anticoagulation Observation Date Value Abnormality Reference (Units ) Status PT 09/17/2024 07:28:00 30.0 Above high normal 11 .6-15.2 (seconds) Final INR 09/17/2024 07:28:00 2.8 Above high normal 0. 8-1.2 Final Performing Location [facility] [address] [place] [address]
--- OUTSIDE RECORDS SUMMARY | 2024-11-28 01:21 | External Medical Summary | Summary of Care ---
Author Name Unknown Organization [facility] Address [address] [facility] [place] [address] Phone [phone] Care Team Providers Care Paint Roller Assembler Name Role Phone Ignacio Prado MD Primary Care Provider +1- [phone] Reason for Visit * Reason Comments Dosage Adjustment Via Phone (anticoag Cl inic) Encounter Details Date Type Department Care Team (Late st Contact Info) Description 08/21/2024 6:00 AM EST Anticoagulation Centralized Clinical Pharmacy Services, Roland Multani [address] [place] [address] [place] [address] [facility], [address] [place] [address] Chronic atrial fibrillation (HCC)* Allergies No known active allergiesdocumented as of this encounter (statuses as of 08/21/2024) Medications NIZORAL SHAM 2 % EXIndications:Sebo rrheic [...] metoprolol succinate XL (TOPROL XL) 25 MG [id number]:Pe rsistent atrial fibrillation (HCC) Take 0.5 Tabs [...] as of this encounter (statuses as of 08/21/2024) Active Problems Problem Noted Date Diagnosed Date Normochromic normocytic anemia 08/08/2024 Aortic root enlargement 08/08/2024 Mild mitral valve regurgitation 08/08/2024 Mild tricuspid regurgitation 08/08/2024 Mild aortic valve sclerosis 08/08/2024 Pulmonary emphysema 12/02/2023 Moderate dementia with psychotic disturbance HTN, goal below 130/80 09/23/2023 H/O right inguinal hernia repair 07/01/2023 At risk for falls 07/01/2023 Nocturia 07/01/2023 Chronic sinusitis 07/01/[address] [place] artery of lower extrem ity 07/01/2023 Cerebral atrophy 07/01/2023 Coronary artery disease invo lving [place] coronary artery of [place] heart without angina pectoris 07/01/2023 BPH with [...] as of this encounter (statuses as of 08/21/2024) Resolved Problems Problem Noted Date Diagnosed Date [...] as of this encounter (statuses as of 08/21/2024) Immunizations Name Administration Dates Next Due COVID-19 [...] No 08/08/2024 Does the household have a [facility] source of income? 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 Not on file Not on file documented as of this encounter Progress Notes * Kendal Davila [facility] - 08/21/2024 8:24 AM EST Contacts Contact Date/Time Type Contact Phone/Fax 08/21/2024 08:23 AM EST Phone (Outgoing) JONNY HERNANDEZ (Emergency Contact) [phone] (H) Spoke to Patient Subjective Patient Findings [...] date communicated as noted by Pharmacist: Yes Kendal Davila CPhT 08/21/2024, 8:24 AM * Janna Simons RPh - 08/21/2024 8:21 AM EST Coumadin Clinic (region specific) Objective Current Warfarin Dose As of 08/21/2024 Warfarin maintenance plan: 3.75 mg (2.5 mg x 1.5) every Mon, Wed, Fri; 2.5 mg (2.5 mg x 1) all other days INR Result As of 08/21/2024 INR goal: 2.0-3.0 INR used for dosin.0 (08/20/2024) Assessment & Plan Warfarin Plan As of 08/21/2024 Full warfarin instructions: 3.75 mg every Mon, Wed, Fri; 2.5 mg all other days No change documented: Janna Simons RPh Next INR check: 09/17/2024 Repeat PT/INR in 4 week(s) Weekly dose: not changed Additional Dosing Information: Description [facility] to contact patient with dose instructions as noted. Janna Simons RPh 08/21/2024, 8:22 AM documented in this encounter Plan of Treatment Upcoming Encounters Date Type Department Care Team (Late st Contact Info) Description 09/18/2024 6:00 AM EST Anticoagulation Centralized Clinical Pharmacy Services, Roland Multani [address] [place] [address] [place] [address] [place] [address] 12/07/2024 2:30 PM EDT Office Visit Hematology/Oncology Vivek Mor[place] [address] [place] [address] Alexandra Bland CRNP 400 [facility] [address] 12/08/2024 5:40 PM EDT Office Visit [facility] [phone] Ignacio Prado MD 226 [place] [address] 02/22/2025 10:00 AM EDT Office Visit Cardiology, [facility] 132 [facility] [place] [address] Parth Montero PAMaguiC 132 [facility] [place] [address] 08/03/2025 10:30 AM EST Home Visit Care at Home [address] [place] [address] Debo Perkins PA-C [address] [place] [address] 08/24/2025 10:00 AM EST Office Visit [facility] 132 [facility] [place] [address] Evy Cummings CRNP 400 [facility] [place] [address] Scheduled Procedures Name Priority Associated Diagnoses Date/Ti [...] (Other) Adult Wellness Visit 08/06/2025 08/06/2024, 07/01/20 23 [...] Documents on File Type Date Recorded Patient Machinist First Class Expl anation Advance Directives and Living Will 03/01/2021 ADVANCE DIRECTIVE / LIVING WILL Power of Belt Repairer 03/01/2021 POWER OF A TTORNEY Care Teams Paint Roller Assembler Relationship Specialty Start Date End Date Ignacio Prado MD [address] [place] [address] PCP - General 07/04/00 documented as of this encounter
--- OUTSIDE RECORDS SUMMARY | 2024-11-28 01:21 | External Medical Summary ---
Author Name Unknown Address Unknown Organization [facility] [address] [place] [address] Laboratory Report Ordering Provider Test Date Status EBONI NICOLE 08/20/2024 07:41:00 Final Standing order for pt/inr. < br/>Please draw pt/inr every 1 to 4 weeks as requested
Results to [facility]tico[facility]

Warfarin Therapy
INR: 2.0-3.0 conventional anticoagulation
INR: 2.5-3.5 high intensity anticoagulation Observation Date Value Abnormality Reference (Units ) Status PT 08/20/2024 07:41:00 22.9 Above high normal 11 .6-15.2 (seconds) Final INR 08/20/2024 07:41:00 2.0 Above high normal 0. 8-1.2 Final Performing Location [facility] [address] [place] [address]
--- OUTSIDE RECORDS SUMMARY | 2024-11-28 01:21 | External Medical Summary | Summary of Care ---
Author Name Unknown Organization [facility] Address [address] [place] [address] Phone [phone] Care Team Providers Care Keyboard Action Assembler Name Role Phone Ignacio Prado MD Primary Care Provider +1- [phone] Reason for Visit * Reason Onset Date Comments Appointment 08/17/2024 Encounter Details Date Type Department Care Team ([facility] st Contact Info) Description 08/17/2024 Telephone [facility] [place] [facility] [address] [place] [phone] Shashi Byrd, ZORAN [address] [place] [address] Appointment (///) Allergies No known active allergiesdocumented as of [...] metoprolol succinate XL (TOPROL XL) 25 MG [id number]:Pe rsistent atrial fibrillation (HCC) Take 0.5 Tabs [...] Nocturia 07/01/2023 Chronic sinusitis 07/01/2023 Atherosclerosis of [place] artery of lower extrem ity 07/01/2023 Cerebral atrophy 07/01/2023 Coronary artery disease invo lving [place] coronary artery of [place] heart without angina pectoris 07/01/2023 BPH with [...] 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 Not on file Not on file documented as of this encounter Miscellaneous Notes * Telephone Encounter - Shashi Byrd OSA - 08/17/2024 12:27 PM EST Spouse declined [facility], episode closed documented in this encounter Plan of Treatment Upcoming Encounters Date Type Department Care Team (Late st Contact Info) Description 08/20/2024 7:00 AM EST Laboratory Lab Mobile Phlebotomy [facility] [address] [place] [address] [facility], [facility] Mobile Home Draw [address] [place] [address] 08/21/2024 6:00 AM EST Anticoagulation Centralized Clinical Pharmacy Services, Roland Multani [address] [place] [address] [place] [address] [facility], [address] [place] [address] 12/07/2024 2:30 PM EDT Office Visit Hematology/Oncology [facility] [place] [facility] [phone] Alexandra Bland CRNP [address] [place] [address] 12/08/2024 5:40 PM EDT Office Visit [facility] [address] [place] [phone] Ignacio Prado MD [address] [place] [address] 02/22/2025 10:00 AM EDT Office Visit [facility], [facility] 132 [facility] [place] [address] Parth Montero PADave 132 [place] [address] 08/03/2025 10:30 AM EST [facility] [address] [facility] [address] Debo Perkins PA-C [address] [place] [address] 08/24/2025 10:00 AM EST Office Visit Cardiology, [facility] 132 [facility] [place] [address] Evy Cummings CRNP 400 [facility] [place] [phone] Scheduled Procedures Name Priority Associated Diagnoses Date/Ti [...] Documents on File Type Date Recorded Patient Graffiti Cleaner Expl anation Advance Directives and Living Will 03/01/2021 ADVANCE DIRECTIVE / LIVING WILL Power of Heat Treating Operator 03/01/2021 POWER OF A TTORNEY Care Teams Keyboard Action Assembler Relationship Specialty Start Date End Date Ignacio Prado MD [address] [place] [address] PCP - General 07/04/00 documented as of this encounter
--- OUTSIDE RECORDS SUMMARY | 2024-11-28 01:21 | External Medical Summary | Summary of Care ---
Author Name Unknown Organization [facility] Address [address] [facility] [place] [address] Phone [phone] Care Team Providers Care Drum Dyeing Machine Operator Name Role Phone Ignacio Prado MD Primary Care Provider +1- [phone] Reason for Visit * Reason Comments eRx-Medication Refill Encounter Details Date Type Department Care Team (Late st Contact Info) Description 09/07/2024 Refill Cardiology, [facility] [address] [place] [address] Naif Ramos PA-C [address] [place] [address] Persistent atrial fibrillation (HCC); Anticoagulation management encounter; terminal superintendent current use of anticoagulant therapy Allergies No known active allergiesdocumented as of this encounter (statuses as of 09/10/2024) Medications NIZORAL SHAM 2 % EXIndications:Wilbur orrheic dermatitis, unspecified as directed 1 5 03/13/ 002 Active NASAL SALINE 0.65 % NA SOLNIndications:C hronic rhinitis,Other acute sinusitis,Postnas al drip flush each nostril morning and night and every 2-4 hrs as needed for nasal dryness or congestion 1 Bottle 3 11/17/ 011 Active HYDROCORTISONE 2.5 % EX CREA to affected areas as needed 014 Active metoprolol succinate XL (TOPROL XL) 25 MG [id number]:P ersistent atrial fibrillation (HCC) Take 0.5 Tabs by mouth daily. 45 Tab 3 017 Active Tamsulosin HCl 0.4 MG Oral Capsule (FLOMAX) Take 1 Capsule by mouth at bedtime. 020 Active Acetaminophen 500 MG Oral Tablet (Tylenol) Take 1 Tablet by mouth every 6 hours as needed for Pain. 1-2 tabs Active Fluticasone Propionate 50 MCG/ACT Nasal Suspension (Flonase) INSTILL 2 SPRAYS IN EACH NOSTRIL EVERY DAY NEEDED Active Atorvastatin Calcium 40 MG Oral Tablet (Lipitor) Take 1 Tablet by mouth in the morning. 30 Tablet 021 Active Amoxicillin 500 MG Oral Capsule (Amoxil) TAKE FOUR CAPSULES BY MOUTH ONE HOUR BEFORE APPOINTMENT Active Cholecalciferol 25 MCG (1000 UT) Oral Tablet Disintegrating Take 25 mcg by mouth at bedtime. Active LORazepam 1 MG Oral Tablet (Ativan)Indicatio ns:Anxiety Take 1 Tablet by mouth 3 times a day as needed for Anxiety. 60 Tablet 024 Active Warfarin Sodium 2.5 MG Oral Tablet (Coumadin)Indicat ions:Persistent atrial fibrillation (HCC),Anticoagula tion management encounter,terminal superintendent current use of anticoagulant therapy TAKE 1 TO 1 and 1/2 TABLETS BY MOUTH ONCE DAILY DIRECTED BY ANTICOAG CLINIC 135 Tablet 3 024 Active Warfarin Sodium 2.5 MG Oral Tablet (Coumadin)Indicat ions:Persistent atrial fibrillation (HCC),Anticoagula tion management encounter,terminal superintendent current use of anticoagulant therapy TAKE 1 TO 2 TABLETS BY MOUTH ONCE DAILY DIRECTED BY COUMADIN CLINIC 180 Tablet 3 023 2023 Discontinued documented as of this encounter (statuses as of 09/10/2024) Active Problems Problem Noted Date Diagnosed Date [...] as of this encounter (statuses as of 09/10/2024) Resolved Problems Problem Noted Date Diagnosed Date [...] as of this encounter (statuses as of 09/10/2024) Immunizations Name Administration Dates Next Due COVID-19 [...] 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 Refills authorized. Thank You Ian Simons PharmD Clinical Pharmacist [facility] ([facility]) [phone] / [phone] 09/10/2024, 3:10 PM * Telephone Encounter - Mihaela Morales [facility] - 09/08/2024 3:12 PM ESTPending Prescriptions: Disp Refills Warfarin Sodium 2.5 MG Oral Tablet (Coumad*135 Ta*3 Sig: TAKE 1 TO 1 and 1/2 TABLETS BY MOUTH ONCE DAILY DIRECTED BY ANTICO CLINIC * Telephone Encounter - Mihaela Morales [facility] - 09/08/2024 3:09 PM EST Patient's anticoagulation is managed by [facility], however no active referral is present in chart under current provider. Forwarded refill request to managing [facility] clinic for review. Please approve refill if appropriate and obtain new referral for continued anticoagulation management. Pending Prescriptions: Disp Refills Warfarin Sodium 2.5 MG Oral Tablet (Couma*135 Ta*3 Sig: TAKE 1 TO 1 and 1/2 TABLETS BY MOUTH ONCE DAILY DIRECTED BY ANTICO CLINIC Last Visit: Visit date not found (in office), Visit date not found (telemedicine) Next Visit: 09/30/2024 If no future appointments scheduled, and last appointment is greater than a year ago, please schedule patient for a follow-up appointment Last date the medication was ordered: 07/05/23 Pharmacy: [facility] [address] [address] [place] Is this request for a controlled substance? No Urine Drug Screen:No results found for this or any previous visit. Patient Phone Numbers Labs: Lab Results Component Value Date/Time CREAT 0.8 01/16/2023 10:25 AM CREAT 0.77 10/26/2020 12:00 AM CREAT 0.9 05/09/2020 02:44 PM POTASSIUM 4.4 01/16/2023 10:25 AM POTASSIUM 4.3 10/26/2020 12:00 AM POTASSIUM 4.3 05/09/2020 02:44 PM TSH 1.58 06/08/2024 01:52 PM TSH 1.28 11/18/2017 12:00 AM TSH 2.52 07/20/2015 04:00 PM LDL 101.3 03/07/2016 12:00 AM LDL 85 12/10/2011 12:00 AM LDL 151 (H) 06/17/2002 08:43 AM LDL 158. (H) 07/09/1996 08:00 AM LDLCALC 101 (A) 11/13/2019 12:00 AM ALT 18 01/16/2023 10:25 AM ALT 15 05/09/2020 02:44 PM HGBA1C 6.0 (H) 06/15/2022 12:38 PM HGBA1C 5.9 (A) 10/26/2020 12:00 AM documented in this encounter Plan of Treatment Upcoming Encounters Date Type Department Care Team (Late st Contact Info) Description 09/17/2024 7:00 AM EST Laboratory Lab Mobile Phlebotomy [facility] [address] [place] [address] [facility], [facility] Mobile Home Draw 25[address] [facility] [place] [address] 09/18/2024 6:00 AM EST Anticoagulation Centralized Clinical Pharmacy Services, Roland Multani [address] [place] [address] [place] [address] [facility], [address] [place] [address] 09/30/2024 9:20 AM EST [facility] [address] [place] [phone] Ignacio Prado MD [address] [place] [address] 12/07/2024 2:30 PM EDT Office Visit Hematology/Oncology [facility] 200 [facility] [place] [phone] Alexandra Bland CRNP [address] [place] [address] [place] [address] 12/08/2024 5:40 PM EDT [facility] [address] [place] [phone] Ignacio Prado MD [address] [place] [address] 02/22/2025 10:00 AM EDT Office Visit Cardiology, [facility] 132 [place] [address] Naif Ramos PA-C 132 [place] [address] 08/03/2025 10:30 AM EST Home Visit Care at Home [address] [place] [address] Debo Perkins PA-C [address] [place] [address] 08/24/2025 10:00 AM EST Office Visit Cardiology, [facility] [address] [facility] [place] [address] Evy Cummings CRNP [address] [place] [address] Scheduled Procedures Name Priority [...] management encounter Encounter for therapeutic drug monitoring assisted current use of anticoagulant therapy documented in this encounter Advance Directives Documents on File Type Date Recorded Patient Tile Erector Expl anation Advance Directives and Living Will 03/01/2021 ADVANCE DIRECTIVE / LIVING WILL Power of Supervisor Channel Process 03/01/2021 POWER OF A TTORNEY Care Teams Drum Dyeing Machine Operator Relationship Specialty Start Date End Date Ignacio Prado MD PCP - General 07/04/00 documented as of this encounter
--- OUTSIDE RECORDS SUMMARY | 2024-11-28 01:21 | External Medical Summary | Summary of Care ---
Author Name Unknown Organization [facility] Address [address] [facility] [place] [address] Phone [phone] Care Team Providers Care Tar Heat Exchanger Cleaner Name Role Phone Khoa Bunn MD Primary Care Provider +1- [phone] Reason for Visit * Reason Onset Date Comments Medication Refill 09/13/2024 Encounter Details Date Type Department Care Team (Late st Contact Info) Description 09/13/2024 Refill [facility] [address] [facility] [place] [address] Khoa Bunn MD [address] [place] [address] Anxiety Allergies No known active allergiesdocumented as of this encounter (statuses as of 09/15/2024) Medications NIZORAL SHAM 2 % EXIndications:Sebo rrheic [...] metoprolol succinate XL (TOPROL XL) 25 MG [id number]:Pe rsistent atrial fibrillation (HCC) Take 0.5 Tabs [...] (Coumadin)Indicati ons:Persistent atrial fibrillation (HCC),Anticoagulat ion management encounter,intermission coordinator current use of anticoagulant therapy TAKE 1 TO 1 and 1/2 TABLETS BY MOUTH ONCE DAILY DIRECTED BY ANTICOAG CLINIC 135 Tablet 3 09/10/20 24 Active LORazepam 1 MG Oral Tablet (Ativan)Indication s:Anxiety Take 1 Tablet by mouth 3 times a day as needed for Anxiety. 60 Tablet 09/15/20 24 Active LORazepam 1 MG Oral Tablet (Ativan)Indication s:Anxiety Take 1 Tablet by mouth 3 times a day as needed for Anxiety. 60 Tablet 08/25/20 24 024 Discontin ued(Refil l) documented as of this encounter (statuses as of 09/15/2024) Active Problems Problem Noted Date Diagnosed Date Normochromic normocytic anemia 08/08/2024 Aortic root enlargement 08/08/2024 Mild mitral valve regurgitation 08/08/2024 Mild tricuspid regurgitation 08/08/2024 Mild aortic valve sclerosis 08/08/2024 Pulmonary emphysema 12/02/2023 Moderate dementia with psychotic disturbance HTN, goal below 130/80 09/23/2023 H/O right inguinal hernia repair 07/01/2023 At risk for falls 07/01/2023 Nocturia 07/01/2023 Chronic sinusitis 07/01/2023 Atherosclerosis of [place] artery of lower extrem ity 07/01/2023 Cerebral atrophy 07/01/2023 Coronary artery disease invo lving [place] coronary artery of [place] heart without angina pectoris 07/01/2023 BPH with [...] as of this encounter (statuses as of 09/15/2024) Resolved Problems Problem Noted Date Diagnosed Date [...] as of this encounter (statuses as of 09/15/2024) Immunizations Name Administration Dates Next Due COVID-19 [...] Telephone Encounter - Khoa Bunn MD - 09/15/2024 2:31 PM ESTSigned Prescriptions: Disp Refills LORazepam 1 MG Oral Tablet (Ativan) 60 Tab*0 Sig: Take 1 Tablet by mouth 3 times a day as needed for Anxiety.Authorizing Provider: KHOA BUNN * Telephone Encounter - Prudence Wilson OSA - 09/15/2024 9:37 AM EST Patient calling in to check on the status of previous message. Patient Called within 48 hour timeframe. Reminded patient of 48 hour turn-around time. * Telephone Encounter - Melani Jo [facility] - 09/15/2024 7:20 AM ESTPending Prescriptions: Disp Refills LORazepam 1 MG Oral Tablet (Ativan) 60 Tab*0 Sig: Take 1 Tablet by mouth 3 times a day as needed for Anxiety. * Telephone Encounter - Melani Jo [facility] - 09/15/2024 7:19 AM EST I have reviewed the patients controlled substance dispensing history in the Prescription Drug Monitoring Program in compliance with the [facility] regulations before prescribing a controlled substance. PDMP checked on 09/15/2024. Pending Prescriptions: Disp Refills LORazepam 1 MG Oral Tablet (Ativan) 60 Tab*0 Sig: Take 1 Tablet by mouth 3 times a day as needed for Anxiety. Last Visit: Visit date not found (in office), Visit date not found (telemedicine) Next Visit: 09/17/2024 Date medication was last filled: 08/25/24 Date medication is due for refill: 09/14/24 Pharmacy: [facility] [id number] Is this request for a controlled substance? Yes and Urine Drug Screen Not completed Toxicology results: No results found for this or any previous visit. Please approve if appropriate. Thank You, Melani Jo [facility] Clinical Pharmacist Centralized Clinical Pharmacy Services (CCPS) [phone] 09/15/2024, 7:20 AM documented in this encounter Plan of Treatment Upcoming Encounters Date Type Department Care Team (Late st Contact Info) Description 09/17/2024 7:00 AM EST Laboratory Lab Mobile Phlebotomy [facility] [address] [facility] [place] [address] Mvmg, Gml Mobile Home Draw [address] [facility] [place] [address] 09/17/2024 6:00 PM EST Office Visit [facility] Funmilayo Farooq 226 [place] [phone] sEteban Shaw MD [address] [place] [address] 09/18/2024 6:00 AM EST Anticoagulation Central[facility] Clinical Pharmacy Services, Roland Multani [address] [place] [address] [place] [address] [place] [address] 09/30/2024 9:20 AM EST Office Visit [facility] Funmilayo Farooq [address] [place] [phone] Khoa Bunn MD [address] [place] [address] 12/07/2024 2:30 PM EDT Office Visit Hematology/Oncology [facility] [place] [address] [facility] [place] [address] Alexandra Bland CRNP [address] [facility] [place] [address] 12/08/2024 5:40 PM EDT Office Visit [facility] 226 [place] [phone] Khoa Bunn MD [address] [place] [address] 02/22/2025 10:00 AM EDT [facility] 132 [place] [address] Parth Montero PA-C 132 [facility] [address] 08/03/2025 10:30 AM EST Home Visit Care at Home [address] [place] [address] Debo Perkins PA-C [address] [place] [address] 08/24/2025 10:00 AM EST Office Visit [facility] 132 [place] [address] Evy Cummings CRNP [address] [facility] [place] [address] Scheduled Procedures Name Priority Associated Diagnoses Date/Ti [...] Documents on File Type Date Recorded Patient Industrial Roofer Helper Expl anation Advance Directives and Living Will 03/01/2021 ADVANCE DIRECTIVE / LIVING WILL Power of Kettle Skimmer 03/01/2021 POWER OF A TTORNEY Care Teams Tar Heat Exchanger Cleaner Relationship Specialty Start Date End Date Khoa Bunn MD PCP - General 07/04/00 documented as of this encounter
--- OUTSIDE RECORDS SUMMARY | 2024-11-28 01:21 | External Medical Summary | Summary of Care ---
Author Name Unknown Organization [facility] Address [address] [place] [address] Phone [phone] Care Team Providers Care Tea Leaf Reader Name Role Phone Ignacio Prado MD Primary Care Provider +1- [phone] Reason for Visit * Reason Onset Date Comments [facility]: Screening 08/17/2024 Encounter Details Date Type Department Care Team ([facility] st Contact Info) Description 08/17/2024 Telephone [facility], [facility] [address] [facility] [place] [address] Alize Aceves, ITEM PROCESSOR [address] [place] [address] [facility]: Screening Allergies No known active allergiesdocumented as of [...] metoprolol succinate XL (TOPROL XL) 25 MG [id number]:Pe rsistent atrial fibrillation (HCC) Take 0.5 Tabs [...] Nocturia 07/01/2023 Chronic sinusitis 07/01/2023 Atherosclerosis of [place] artery of lower extrem ity 07/01/2023 Cerebral atrophy 07/01/2023 Coronary artery disease invo lving [place] coronary artery of [place] heart without angina pectoris 07/01/2023 BPH with [...] 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 A review of this chart was completed and: Dimitrios meets criteria for [facility]. Jump to Initiation Referring care team was notified via : Epic communication Sent to [facility] clerical pool to reach out to pt for enrollment documented in this encounter Plan of Treatment Upcoming Encounters Date Type Department Care Team (Late st Contact Info) Description 08/20/2024 7:00 AM EST Laboratory Lab Mobile Phlebotomy [facility] [address] [place] [address] Mvmg, Gml Mobile Home Draw [address] [place] [address] 08/21/2024 6:00 AM EST Anticoagulation [facility], Roland Multani [address] [place] [address] [place] [address] [facility], [address] [place] [address] 12/07/2024 2:30 PM EDT Office Visit Hematology/Oncology [facility] 200 [facility] [place] [phone] Alexandra Bland CRNP [address] [place] [address] 12/08/2024 5:40 PM EDT [facility] [address] [facility] [phone] Ignacio Prado MD [address] [place] [address] 02/22/2025 10:00 AM EDT Office Visit Cardiology, [facility] 132 [place] [address] Parth Montero [address] [place] [address] 08/03/2025 10:30 AM EST Home Visit [facility] at Home [address] [place], [place] [phone] Debo Perkins PA-C [address] [place], [place] [phone] 08/24/2025 10:00 AM EST Office Visit Cardiology, [facility] 132 [address] [place] [address] Evy Cummings CRNP [address] [place] [address] Scheduled Procedures Name Priority [...] Vaccine ( season) 2024 08/14/2021, 12/12/2020, 11/14/2020 Zoster Vaccines [...] Documents on File Type Date Recorded Patient Dyeing Machine Back Tender Expl anation Advance Directives and Living Will 03/01/2021 ADVANCE DIRECTIVE / LIVING WILL Power of Mold Blower 03/01/2021 POWER OF A TTORNEY Care Teams Tea Leaf Reader Relationship Specialty Start Date End Date Ignacio Prado MD [address] [place] [address] PCP - General 07/04/00 documented as of this encounter
--- OUTSIDE RECORDS SUMMARY | 2024-11-28 01:22 | External Medical Summary | Summary of Care ---
Author Name Unknown Organization [facility] Address [address] [place] [address] Phone [phone] Care Team Providers Care Marketing Copywriter Name Role Phone Khoa Bunn MD Primary Care Provider +1- [phone] Reason for Visit * Reason Onset Date Comments Medication Refill 08/08/2024 Encounter Details Date Type Department Care Team (Late st Contact Info) Description 08/08/[address] [address] Khoa Bunn MD [address] [place] [address] Allergies No known active allergiesdocumented as of this encounter (statuses as of 08/10/2024) Medications NIZORAL SHAM 2 % EXIndications:Sebo rrheic [...] metoprolol succinate XL (TOPROL XL) 25 MG [id number]:Pe rsistent atrial fibrillation (HCC) Take 0.5 Tabs [...] for Anxiety. 60 Tablet 08/10/20 24 Active LORazepam 0.5 MG Oral Tablet (Ativan) Take 1 Tablet by mouth every 6 hours as needed for Anxiety. 60 Tablet 07/13/20 24 024 Discontin ued(Refil l) documented as of this encounter (statuses as of 08/10/2024) Active Problems Problem Noted Date Diagnosed Date Normochromic normocytic anemia 08/08/2024 Aortic root enlargement 08/08/2024 Mild mitral valve regurgitation 08/08/2024 Mild tricuspid regurgitation 08/08/2024 Mild aortic valve sclerosis 08/08/2024 Pulmonary emphysema 12/02/2023 Moderate dementia with psychotic disturbance HTN, goal below 130/80 09/23/2023 H/O right inguinal hernia repair 07/01/2023 At risk for falls 07/01/2023 Nocturia 07/01/2023 Chronic sinusitis 07/01/2023 Atherosclerosis of [place] artery of lower extrem ity 07/01/2023 Cerebral atrophy 07/01/2023 Coronary artery disease invo lving [place] coronary artery of [place] heart without angina pectoris 07/01/2023 BPH with [...] as of this encounter (statuses as of 08/10/2024) Resolved Problems Problem Noted Date Diagnosed Date [...] as of this encounter (statuses as of 08/10/2024) Immunizations Name Administration Dates Next Due COVID-19 [...] 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 * Telephone Encounter - Reanna Dumont RPh - 08/10/2024 1:06 PM EST I have reviewed the patients controlled substance dispensing history in the Prescription Drug Monitoring Program in compliance with the [facility] regulations before prescribing a controlled substance. PDMP checked on 08/10/2024. Pending Prescriptions: Disp Refills LORazepam 0.5 MG Oral Tablet (Ativan) 60 Tab*0 Sig: Take 1 Tablet by mouth every 6 hours as needed for Anxiety. Last Visit: 06/08/2024 (in office), Visit date not found (telemedicine) Next Visit: Visit date not found Date medication was last filled: 07/14/24 Date medication is due for refill: 07/28/24 Pharmacy: [facility] [address] [address] [address] Is this request for a controlled substance? Yes and Urine Drug Screen Not completed Toxicology results: No results found for this or any previous visit. Please approve if appropriate. Thanks, Reanna Dumont PharmD Clinical Pharmacist Centralized Clinical Pharmacy Services (CCPS) [phone] 08/10/2024, 1:06 PM documented in this encounter Plan of Treatment Upcoming Encounters Date Type Department Care Team (Late st Contact Info) Description 08/20/2024 7:00 AM EST Laboratory Lab Mobile Phlebotomy [facility] [address] [facility] [place] [address] Mvmg, Gml Mobile Home Draw 22[address] [facility] [place] [address] 08/21/2024 6:00 AM EST Anticoagulation Centralized Clinical Pharmacy Services, Roland Multani [address] [place] [address] [place] [address] [facility], [address] [place] [address] 12/07/2024 2:30 PM EDT Office Visit Hematology/Oncology [facility] 200 [facility] [place] [phone] Alexandra Bland CRNP 400 [facility] [address] 12/08/2024 5:40 PM EDT [facility] [place] [address] [facility] [phone] Khoa Bunn MD [address] [place] [address] 02/22/2025 10:00 AM EDT Office Visit Cardiology, [facility] 132 [place] [address] Parth Montero [address] [place] [address] 08/03/2025 10:30 AM EST [facility] [address] [facility] [address] Debo Perkins PA-C [address] [facility] [place] [address] 08/24/2025 10:00 AM EST Office Visit Cardiology, [facility] [address] [place] [address] Evy Cummings CRNP [address] [place] [address] Scheduled Procedures Name Priority [...] Documents on File Type Date Recorded Patient Store Administrator Expl anation Advance Directives and Living Will 03/01/2021 ADVANCE DIRECTIVE / LIVING WILL Power of Solar Consultant 03/01/2021 POWER OF A TTORNEY Care Teams Marketing Copywriter Relationship Specialty Start Date End Date Khoa Bunn MD [address] [place] [address] PCP - General 07/04/00 documented as of this encounter
--- OUTSIDE RECORDS SUMMARY | 2024-11-28 01:22 | External Medical Summary | Summary of Care ---
Author Name Unknown Organization [facility] Address [address] [place] [address] Phone [phone] Care Team Providers Care Leaf Sticker Name Role Phone Khoa Bunn MD Primary Care Provider [phone] Reason for Visit * Reason Comments Adult Annual Wellness Visit, Subsequent Visit Encounter Details Date Type Department Care Team (Late st Contact Info) Description 08/06/2024 2:00 PM EST Home Visit Care at Home [address] [place] [address] Debo Perkins PA-C [address] [place] [address] At risk for falls*; Aortic root enlargement (HCC); Atherosclerosis of navajo artery of lower extremity, unspecified laterality, with unspecified presence of clinical manifestation (HCC); Moderate dementia with psychotic disturbance, unspecified dementia type (HCC); BPH with obstruction/lower urinary tract symptoms; Cerebral atrophy (HCC); Chronic atrial fibrillation (HCC); Chronic sinusitis, unspecified location; 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; Dilated aortic root (HCC); Non-sustained ventricular tachycardia (HCC); Diverticulosis of large intestine without hemorrhage; Dyslipidemia, goal LDL below 100; H/O right inguinal hernia repair; History of tobacco use; HTN, goal below 130/80; Nocturia; Noise-induced hearing loss of both ears; NONALLERGIC RHINITIS; Prediabetes; Pulmonary emphysema, unspecified emphysema type (HCC); S/P hip replacement, right; Warfarin anticoagulation; Normochromic normocytic anemia; Mild mitral valve regurgitation; Mild tricuspid regurgitation; Mild aortic valve sclerosis Allergies No known active allergiesdocumented as of this encounter (statuses as of 08/08/2024) Medications NIZORAL SHAM 2 % EXIndications:Sebo rrheic [...] metoprolol succinate XL (TOPROL XL) 25 MG [id number]:Pe rsistent atrial fibrillation (HCC) Take 0.5 Tabs [...] ons:Persistent atrial fibrillation (HCC),Anticoagulat ion management 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 Active LORazepam 0.5 MG Oral Tablet (Ativan) Take 1 Tablet by mouth every 6 hours as needed for Anxiety. 60 Tablet 07/13/20 24 Active documented as of this encounter (statuses as of 08/08/2024) Active Problems Problem Noted Date Diagnosed Date Normochromic normocytic anemia 08/08/2024 Aortic root enlargement 08/08/2024 Mild mitral valve regurgitation 08/08/2024 Mild tricuspid regurgitation 08/08/2024 Mild aortic valve sclerosis 08/08/2024 Pulmonary emphysema 12/02/2023 Moderate dementia with psychotic disturbance HTN, goal below 130/80 09/23/2023 H/O right inguinal hernia repair 07/01/2023 At risk for falls 07/01/2023 Nocturia 07/01/2023 Chronic sinusitis 07/01/2023 Atherosclerosis of navajo artery of lower extrem ity 07/01/2023 Cerebral atrophy 07/01/2023 Coronary artery disease invo lving navajo coronary artery of navajo heart without angina pectoris 07/01/2023 BPH with [...] as of this encounter (statuses as of 08/08/2024) Resolved Problems Problem Noted Date Diagnosed Date [...] as of this encounter (statuses as of 08/08/2024) Immunizations Name Administration Dates Next Due COVID-19 [...] 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 ANNUAL HEALTH RISK ASSESSMENT Care at Home [address] [facility] [address] Patient Name: Suman Hernandez : 1940 Date of Assessment: 08/06/2024 Gender: Male PCP: [place] [address] Extended Emergency Contact Information Primary Emergency Contact: JONNY HERNANDEZ Mobile Relation: Spouse Secondary Emergency Contact: RANDI MONTOYA Relation: Adult Child HRA Intake Documentation: Advance Care Planning: Advance Directive Type: Organ Donor and Information given: Yes Advance Directive Date: n/a Medical Adherence: Patient is able to obtain all medications? Yes Patient takes medications as prescribed? Yes Patient uses a pill box? Yes, refill(s) completed by spouse Medication Reconciliation Medications Medication reconciliation/review completed:: Yes (08/08/241905) Medication adherence problem:: No (08/08/241905) Experiencing side effects from current medications:: No (08/08/241905) Medication support:: Caregiver/family fills pillbox (08/08/24) Admissions (within the last year): Not Applicable Hospital ER within 30 days: No Health Maintenance Last physical exam: 06/22/24 Does patient see provider regularly? Yes, Primary Care Provider and Va Spirometry: No Dental Exam: No Other Test(s) - No time frame specified Exam End Date Exam End Time 11/18/2023 11:30 AM echo Adult Transthoracic Echocardiography Report Study Date: 04/17/2024 11:57 AM Study Location: [facility] Patient Location: [place] : 1940 Age: 84 yrs Gender: Male Referring Physician: NAIF RAMOS Ordering Physician: NAIF RAMOS Height: 69 in Weight: 174 lb BSA: 1.9 m2 Resting HR: 64 Order #: [id number] Billing #: [id number] Reason For Study: edema, MR Interpretation Summary The rhythm during the transthoracic echo examination was atrial fibrillation with controlled ventricular response. The qualitative LV ejection fraction is 55-59% (normal). The left atrium is severely enlarged (>48 ml/m^2,). Mild aortic valve sclerosis is present. Mild mitral regurgitation is present. Mild tricuspid regurgitation is present. There is no evidence of pulmonary hypertension. The aortic root and proximal ascending aorta are mildly enlarged. Compared to prior study of 11/09/2020, there is no significant change. Left Ventricle The qualitative LV ejection fraction is 55-59% (normal).The left ventricular cavity size is normal. The LV wall thickness is normal. There is no left ventricular mural thrombus. Left Ventricular Wall Motion The left ventricular wall motion is normal. Right Ventricle The right ventricular cavity size is normal (basal dimension < 4.2 cm RV apical 4 chamber view). The right ventricular systolic function is normal as assessed by tricuspid annular plane systolic excursion (TAPSE) (normal >1.7 cm). Atria The left atrium is severely enlarged (>48 ml/m^2,). The right atrial size is normal. Diastolic Function Left atrial enlargement suggests diastolic left ventricular dysfunction. Aortic Valve The aortic valve has three leaflets. Mild aortic valve sclerosis is present. Aortic stenosis is absent. There is no significant aortic regurgitation. Mitral Valve There is mild mitral annular calcification. Mitral stenosis is absent. Mild mitral regurgitation is present. Tricuspid Valve The tricuspid valve anatomy is normal. Tricuspid stenosis is absent. Mild tricuspid regurgitation is present. Pulmonary Valve The pulmonary valve is inadequately visualized but the Doppler data is adequate for interpretation.. Pulmonic stenosis is absent. There isno significant pulmonary regurgitation. Pericardium No pericardial effusion is noted. SUMAN HERNANDEZ 04/17/2024 Page 1 of 2 04/17/2024 Vessels No Doppler findings of significant proximal descending aorta coarctation on limited screening images. The aortic root and proximal ascending aorta are mildly e nlarged. Septae There is no evidence of an atrial septal defect but resolution does not allow assessment for a patent foramen ovale. There is no ventricular septal defect. Hemodynamics There is no evidence of pulmonary hypertension. Normal IVC size and collapsability with sniff indicates a normal right atrial pressure of 3 mmHg. Referral Diagnosis Peripheral edema [R60.0] Nonrheumatic mitral valve regurgitation [I34.0 US ABDOMEN LIMITED Order: [id number] Status: Final result Visible to patient: Yes (seen) Next appt: 08/20/2024 at 07:00 AM in Laboratory Processing ([facility]) Dx: Unilateral recurrent inguinal hernia ... 0 Result Notes Details Reading Physician Reading Date Result Priority Jarret Mcgarry MD [phone] 11/18/2023 Narrative & Impression EXAM: US ABDOMEN LIMITED HISTORY: bulge in right inguinal area - eval for recurrent inguinal hernia TECHNIQUE: Targeted real-time scanning is performed focused only on patient directed location of symptoms right inguinal area. Real-time scanning performed sagittal and transverse planes. Orthopedic Shoe Maker images presented. COMPARISON: Ultrasound abdomen limited dated 01/16/2023 and prior FINDINGS: Patient has history of prior surgical repair. At the patient directed location there is increased linear to lobulated echogenicity with posterior acoustic shadowing suspect to reflect postsurgical change. Allowing for this, there is no definite ultrasound evidence of disruption anterior pelvic wall. There is no ultrasound demonstrable herniation of intrapelvic fat or peristalsing bowel. There is otherwise no ultrasound demonstrable mass, mass effect, fluid collection or cyst. Please correlate with clinical exam. If further imaging is clinically appropriate consider follow-up CT scan. IMPRESSION IMPRESSION: No ultrasound demonstrable mass fluid collection or definite herniation. Probable postsurgical change. Exam Ended: 11/18/23 11:30 Last Resulted: 11/18/23 14:20 Exam End Date Exam End Time 10/08/2023 11:50 AM XR CHEST 2 VIEWS Order: [id number] Status: Final result Visible to patient: Yes (seen) Next appt: 08/20/2024 at 07:00 AM in Laboratory Processing ([facility] Draw [facility]) Dx: RSV bronchiolitis 0 Result Notes Details Reading Physician Reading Date Result Priority Elvin Polanco MD [phone] 10/09/2023 Narrative & Impression EXAM XR CHEST 2 VIEWS - 10/08/2023 11:50 am HISTORY "follow up pneumonia" TECHNIQUE Frontal and lateral views of the chest were obtained. COMPARISON 02/01/2021 FINDINGS The lungs are clear. There is no pleural effusion or pneumothorax. The cardiomediastinal silhouetteis within normal limits. IMPRESSION IMPRESSION No active disease. Exam Ended: 10/08/23 11:50 Last Resulted: 10/09/23 05:36 02/13/2024 3:54 PM - Interface, Erp Engineer Narrative & Impression REASON FOR STUDY: HTN;HTN CONCLUSIONS: Atrial fibrillation Abnormal ECG When compared with ECG of 04-Feb-2023 10:54, No significant change was found Ventricular Rate: 67 Atrial Rate: 312 QRS Duration: 80 QT/QTc: 414/437 ms P-R-T [place]: 0 : 75 : 65 degrees VASCULAR LAB RESULTS DATE OF EXAM: 11/13/2010 PRESENTING CONDITIONS: Tobacco Use. PHYSICIAN REPORT: Screening Abdominal Aorta Aneurysm Duplex Examination Immediately before proceeding with the vascular lab procedure reported below, the identity of the patient, the correct exam and the correct procedural site were verified. This is an interpretation of an exam performed at the [facility]. Two-dimension hsu-scale ultrasound imaging of the abdominal [...] No comparisons FINDINGS Osteoarthritis of both hips, umwzeolb-lq-ohkcan on the right and mild on the left. No significant joint malalignment. No fracture or aggressive osseous lesion identified. Vascular calcifications noted. IMPRESSION IMPRESSION Osteoarthritis of both hips, khkfrsub-ls-lemeeu on the right. EXAM MRI BRAIN W [...] (17 bpm). Isolated VEs were occasional (2.2%, 58214), VE Couplets were rare (<1.0%, 409), and [...] QRS Duration: 82 QT/QTc: 424/409 ms P-R-T [place]: 0 : 81 : 77 degrees Communication and Comprehension: Communication and Comprehension Communication and Comprehension Follow-up Patient cognition:: Oriented to person;Oriented to place (08/08/241906) Alteration in memory:: Dementia (08/08/241906) Patient able to understand instructions:: Written;Verbal (08/08/241906) Does the patient have any vision issues?: Yes (08/08/241906) Supports used:: Glasses or contacts (08/08/241906) Does the patient have hearing issues?: Yes (08/08/241906) Supports used:: Hearing aides (08/08/241906) Baptist or spiritual beliefs that impact treatment:: No (08/08/241906) Patient and Caregiver Support System: Patient lives: with a spouse and with children Means of Transportation: Family transports Patient lives in: One Story - with basement stairs: 1 flight. Doesn't go down steps Functional Status and ADL Skills: Ambulation: Cane ADLs/IADLs ADL/IADLs Does the patient need assistance with any of the following ADLs?: Bathing (08/08/241906) Does the patient need assistance with any of the following IADLs?: Housework;Taking medications as ordered;Managing money;Shopping;Using the telephone;Transportation (08/08/241906) Fall Risk Assessment: Fall risk factors present. Balance or gait disturbances History of dementia Cwk-Vq-lsl-Go Test: Not done. Fall risk Nutritional Health Checklist: Changed food due to illness or condition: No (0 pts) Eat fewer than 2 meals per [...] change of 10 lbs. In 6 months: No (0 pts) Not always able to shop, cook or feed self: No (0 pts) Total points: 2 Nutritional Health Score & Recommendation: 0-2: Low nutritional risk Depression Screening: PHQ2/9 Screening PHQ2_9 Adult Little interest or pleasure in doing things: Not at all (08/08/241906) Feeling down, depressed or hopeless: Not at all (08/08/241906) PHQ Adult Total Score: 0 (08/08/241906) PHQ Adult Score Description: No Depression (08/08/241906) Social Determinants of Health Screening: SDoH Screening Tool Adult (for ages 18 years and over) Within the past 12 months, you worried that your food would run out before you got the money to buymore.: Never true (08/08/241907) Within the past 12 months, the food you bought just didn't last and you didn't have money to get more.: Never true (08/08/241907) Do you need food for this week?: No (08/08/241907) Do you currently live in a halfway or have no steady place to sleep at night?: No (08/08/241907) Are you homeless or worried that you might be in the future?: No (08/08/241907) Has lack of transportation kept you from medical appointments, meetings, work, or from getting things needed for daily living? Check all that apply.: No (08/08/241907) Do you have any trouble paying for your medications, or do you think you might in the future?: No (08/08/241907) How often do you feel lonely or isolated from those around you?: Never (08/08/241907) Do you feel unsafe or have concerns for your safety?: No (08/08/241907) Do you feel overwhelmed with taking care of a child, family member or friend?: No (08/08/241907) Have you been unable to get clothing when it was really needed?: No (08/08/241907) Do you have trouble paying your heating, water, or electric bill?: No (08/08/241907) Are you unemployed or without regular income?: No (08/08/241907) Would you like help connecting to resources in any of these categories?: None (08/08/241907) Community Resources: Community Resources: Not Applicable Potential Resource Needs from Benefits Identified: No Benefits: Benefits Benefits Health plan benefits assessed: Adequate to cover care (08/08/241907) Is the patient a SNP?: No (08/08/241907) HRA Provider Assessment Documentation: Objective Past Medical History: Diagnosis Date Chronic rhinitis Diverticulosis of colon by flex sig Dyslipidemia, goal to be determined History of tobacco use Impotence of organic origin Loss of weight 12/14/2022 Noise-induced hearing loss 1994 Mod Bilat sensorineural hearing loss Seborrheic dermatitis, unspecified Warfarin anticoagulation 10/15/2019 Patient Active Problem List Diagnosis NONALLERGIC RHINITIS Dyslipidemia, goal LDL below 100 Chronic atrial fibrillation (HCC) Warfarin anticoagulation Non-sustained ventricular tachycardia (HCC) History of tobacco use Noise-induced hearing loss Prediabetes Dilated aortic root (HCC) S/P hip replacement, right H/O right inguinal hernia repair At risk for falls Nocturia Chronic sinusitis Atherosclerosis of navajo artery of lower extremity (HCC) Cerebral atrophy (HCC) 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 Diverticulosis of large intestine without hemorrhage HTN, goal below 130/80 Pulmonary emphysema (HCC) Moderate dementia with psychotic disturbance (HCC) Normochromic normocytic anemia Aortic root enlargement (HCC) Mild mitral valve regurgitation Mild tricuspid regurgitation Mild aortic valve sclerosis Family History Problem Relation Name Age of Onset Diabetes Mother Heart Disorder Mother of CT age 79 Heart Disorder Father of CT at 72 Diabetes Sister Cancer Brother Colon [...] DIRECTED BY [facility]IN CLINIC 180 Tablet 3 Cholecalciferol 25 MCG (1000 UT) Oral Tablet Disintegrating Take 25 mcg by mouth at bedtime. LORazepam 0.5 MG Oral Tablet (Ativan) Take 1 Tablet by mouth every 6 hours as needed for Anxiety. 60 Tablet 0 No current facility-administered medications for this visit. Past Surgical History: Procedure Laterality Date COLONOSCOPY 10/17/2005 nl except diverticulosis - repeat 10 years COLONOSCOPY, DIAGNOSTIC (RECTUM) 05/07/2016 adenomatous polyp, diverticulosis repeat 5 yrs/[facility] ARTHRP ACETBLR/PROX FEM PROSTC AGRFT/ALGRFT Right 2020 [...] Pneumococcal Polysaccharide PPV23 (Pneumovax) 06/16/2002, 05/17/2017, 07/16/2018 Seasonal Influenza Vac., MDV, IM, 0.5 mL (Fluzone) 06/30/2002, 08/10/2003, 06/25/2005, 06/25/2010, 06/21/2013, 06/29/2014 Seasonal Influenza, PF, 6 M & above, IM , (FluLaval or Fluzone) 06/20/2017, 06/20/2018, 06/27/2019 Seasonal Influenza, Quadrivalent Hd (Fluzone Hd) 06/22/2020, 06/24/2021, 06/01/2024 Seasonal Influenza, Quadrivalent Hd, 65+ Yrs 06/14/2022 Seasonal Influenza, Quadrivalent, ID 06/22/2020 Seasonal Influenza, Quadrivalent, No Preserve, IM 07/20/2015, 07/19/2016 TD - Tetanus/Diptheria (ADULT) 09/16/1998, 02/02/2003 TDAP (age 10 and older)(Boostrix) 01/28/2013, 06/01/2024 Varicella Zoster Vaccine (Adult) 07/20/2005, 09/21/2015 Preventative [...] 5 - 40 mg/dl Colonoscopy or other screening: aged out Health Maintenance Topic Date Due DXA Scan Never done Alpha-1 Antitrypsin Never done Albumin/Creatinine Ratio 12/09/2014 Colonoscopy 05/07/2021 HbA1c 06/15/2023 *COPD SEVERITY VERIFIED BY PFT Never done GFR 01/17/2024 COVID-19 Vaccine ( - season) 2024 Zoster Vaccines (2 of 3) 09/09/2024 (Originally 11/16/2015) Adult Wellness Visit 08/06/2025 Depression Screening 08/08/2025 O2 ASSESSMENT COMPLETED IN PAST YEAR FOR COPD 08/08/2025 DTap/Tdap Vaccines (3 - Td or Tdap) 06/01/2034 Influenza Vaccine (FLU shot) Completed Pneumococcal Vaccine: 65+ Years Completed Hepatitis B Vaccine Aged Out MENINGOCOCCAL (MENACTRA/MENVEO) Aged Out HPV (Gardasil) Vaccine Aged Out RETIRED - COLONOSCOPY-EVERY 5 YRS AGES 18-100 Discontinued Review of Systems: Review of Systems Gastrointestinal: Small amount of blood in stool today All other systems reviewed and are negative. Physical Exam: Vitals: 08/08/24 1903 Pulse: 76 Resp: 18 SpO2: 96% BP: 112/62 Pain Screening: no Pain Scale: 0 = none There is no height or weight on file to calculate BMI. Physical Exam Constitutional: Appearance: He is normal weight. HENT: Head: Normocephalic and atraumatic. Mouth/Throat: Mouth: Mucous membranes are moist. Eyes: Extraocular Movements: Extraocular movements intact. Neck: Vascular: No carotid bruit. Cardiovascular: Rate and Rhythm: Rhythm irregular. Heart sounds: No murmur heard. Pulmonary: Effort: Pulmonary effort is normal. Breath sounds: Normal breath sounds. Abdominal: Palpations: Abdomen is soft. Musculoskeletal: General: No swelling. Cervical back: Neck supple. Skin: General: Skin is warm and dry. Neurological: Mental Status: He is alert. Mental status is at baseline. Comments: Alert to person and place only Psychiatric: Mood and Affect: Mood normal. Behavior: Behavior normal. Lab Data: Lab Results Component Value Date/Time BUN - [facility] 18 01/16/2023 10:25 AM BUN - [facility] 11 05/09/2020 02:44 PM Lab Results Component Value Date/Time CREATININE - [facility] 0.8 01/16/2023 10:25 AM CREATININE - [facility] 0.77 10/26/2020 12:00 AM CREATININE - [facility] 0.9 05/09/2020 02:44 PM Lab Results Component Value Date/Time GLUCOSE - [facility] 108 01/16/2023 10:25 AM GLUCOSE - [facility] 104 (A) 10/26/2020 12:00 AM GLUCOSE - [facility] 105 05/09/2020 02:44 PM GLUCOSE - [facility] 104 07/09/1996 08:00 AM GLUCOSE URINE, POCT - [facility] Negative 01/27/2021 12:00 AM No components found for: "[id number]" Lab Results Component Value Date/Time LD - [facility] 172 06/08/2024 01:52 PM LDL (CALCULATED) 158. (H) 07/09/1996 08:00 AM LDL (CALCULATED)-OUTSIDE LAB 101 (A) 11/13/2019 12:00 AM LDL (DIRECT MEASURE)-OUTSIDE LAB 101.3 03/07/2016 12:00 AM LDL CHOLESTEROL (CALCULATED) - [facility] 151 (H) 06/17/2002 08:43 AM LDL CHOLESTEROL-OUTSIDE LAB 85 12/10/2011 12:00 AM No results found for: "MICROALBUMIN" Assessment/Plan: Suman was seen today for adult annual wellness visit, subsequent visit. 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 Dilated aortic root (HCC) Non-sustained ventricular tachycardia (HCC) Diverticulosis of large intestine without hemorrhage Dyslipidemia, goal LDL below 100 H/O right inguinal hernia repair History of tobacco use HTN, goal below 130/80 Nocturia Noise-induced hearing loss of both ears NONALLERGIC RHINITIS Prediabetes Pulmonary emphysema, unspecified emphysema type (HCC) S/P hip replacement, right Warfarin anticoagulation Normochromic normocytic anemia Mild mitral valve regurgitation Mild tricuspid regurgitation Mild aortic valve sclerosis PLAN Pt reports no active issues or adverse effects to the established treatment plan. No changes at this time. Strongly advised to contact her care team if changes occur. Care Planning (3+ Personal and/or Medical Goals): Keep current cognitive function Maintain independence Maintain current activity level Treatment Plan: Patient continues to work on their progress to the goals set by themselves and their PCP Follow Up/Handouts: CAHAWV f/u one year I spent a total of 40-54 minutes (exact time 40 mins) on the date of service in preparation, delivery, and documentation of the care provided to Suman Hernandez excluding any time spent in the performance of separately billed services. Debo Perkins PA-C documented in this encounter Plan of Treatment Upcoming Encounters Date Type Department Care Team (Late st Contact Info) Description 08/20/2024 7:00 AM EST Laboratory Lab [facility] [address] [facility] [place] [address] [facility] [address] [facility] [place] [address] 08/21/2024 6:00 AM EST Anticoagulation [facility], Roland Multani [address] [place] [address] [place] [address] [facility], [address] [place] [address] 12/07/2024 2:30 PM EDT Office Visit Hematology/Oncology [facility] [address] [phone] Alexandra Bland CRNP [address] [facility] [place] [address] 12/08/2024 5:40 PM EDT Office Visit Family [facility] [address] [place] [id number] Khoa Bunn MD [address] [place] [address] 02/22/2025 10:00 AM EDT Office Visit Cardiology, [facility] [address] [facility] [address] Naif Ramos [address] [facility] [place] [address] 08/03/2025 10:30 AM EST Home Visit Care at Home [address] [facility] [place] [address] Debo Perkins PA-C [address] [place] [address] 08/24/2025 10:00 AM EST Office Visit Cardiology, 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 Hypertrophy of prostate with urinary obstruction and other lower urinary tract symptoms (LUTS) Cerebral atrophy (HCC) Cerebral degeneration, unspecified Chronic atrial fibrillation (HCC) Atrial fibrillation Chronic sinusitis, unspecified location 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 Non-sustained ventricular tachycardia (HCC) Paroxysmal ventricular tachycardia Diverticulosis of large intestine without hemorrhage Dyslipidemia, goal LDL below 100 Other and unspecified hyperlipidemia H/O right inguinal hernia repair Other postprocedural status History of tobacco use Personal history of tobacco use, presenting hazards to health HTN, goal below 130/80 Unspecified essential hypertension Nocturia Noise-induced hearing loss of both ears NONALLERGIC RHINITIS Chronic rhinitis Prediabetes Other abnormal glucose Pulmonary emphysema, unspecified emphysema type (HCC) S/P hip replacement, right Warfarin anticoagulation Long-term (current) use of anticoagulants Normochromic normocytic anemia Anemia, unspecified Mild mitral valve regurgitation Mild tricuspid regurgitation Diseases of tricuspid valve Mild aortic valve sclerosis documented in this encounter Advance Directives Documents on File Type Date Recorded Patient Orthopedic Shoe Maker Expl anation Advance Directives and Living Will 03/01/2021 ADVANCE DIRECTIVE / LIVING WILL Power of University Counselor 03/01/2021 POWER OF A TTORNEY Care Teams Leaf Sticker Relationship Specialty Start Date End Date Khoa Bunn MD [address] [place] [address] PCP - General 07/04/00 documented as of this encounter
--- OUTSIDE RECORDS SUMMARY | 2024-11-28 01:22 | External Medical Summary | Summary of Care ---
Author Name Unknown Organization [facility] Address [address] [place] [address] Phone [phone] Care Team Providers Care Freight Handler Name Role Phone Ignacio Prado MD Primary Care Provider [phone] Reason for Visit * Reason Comments Follow Up Encounter Details Date Type Department Care Team (Late st Contact Info) Description 07/31/2024 2:30 PM EST Office Visit Cardiology, [facility] [address] [facility] [place] [address] Evy Cummings CRNP [address] [place] [address] Chronic atrial fibrillation (HCC)*; Dyslipidemia, goal LDL below 100; Prediabetes; History of tobacco use; Memory impairment Allergies No known active allergiesdocumented as of this encounter (statuses as of 08/04/2024) Medications NIZORAL SHAM 2 % EXIndications:Sebo rrheic [...] metoprolol succinate XL (TOPROL XL) 25 MG [id number]:Pe rsistent atrial fibrillation (HCC) Take 0.5 Tabs [...] (Coumadin)Indicati ons:Persistent atrial fibrillation (HCC),Anticoagulat ion management encounter,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 Never true 09/18/19 24 Within the past 12 months, t he food you bought just didn't last and you didn't have money to get more. Never true 09/18/2023 Childcare Answer Date Recorded Do you feel overwhelmed with taking care of a child, family member or friend? No 09/18/2023 Does your family need help f inding childcare? (Household - for ages 0-17 years) Not on file 09/18/2023 Clothing Answer Date Recorded Have you been unable to get clothing when it was really needed? No 09/18/2023 Is your family able to get c lothes or diapers when needed? (Household - for ages 0-17 years) Not on file 09/18/2023 Personal Safety Answer Date Recorded Do you feel unsafe or have concerns for your saf ety? No 09/18/2023 Do you have concerns for you r family's safety? (Household - for ages 0-17 years) Not on file 09/18/2023 Utilities Answer Date Recorded Do you have trouble paying y our heating, water, or electric bill? No 09/18/2023 Is your family able to pay t he heat, water, or electric bill? (Household - for ages 0-17 years) Not on file 09/18/2023 Does your family have access to good internet? (Household - for ages 0-17 years) Not on file 09/18/2023 Employment Status Answer Date Recorded Are you unemployed or without regular income? No 09/18/2023 Does the household have a [facility] source of income? (Household - for ages 0-17 years) Not on file 09/18/2023 Social Connections Answer Date Recorded How often do you feel lonely or isolated from th ose around you? Never 09/18/2023 Financial Resource Strain Answer Date R ecorded Do you have any trouble payi ng for your medications, or do you think you might in the future? No 09/18/2023 Does your family have troubl e paying for medicine? (Household - for ages 0-17 years) Not on file 09/18/2023 Transportation Needs Answer Date Record ed READ ONLY Do you have troubl e getting a ride to medical visits or work? Never True 09/18/2023 Does your family have a hard time getting a ride to doctors visits? (Household - for ages 0-17 years) Not on file 09/18/2023 Has lack of transportation k ept you from medical appointments, meetings, work, or from getting things needed for daily living? Check all that apply. (Adult - for ages 18 years and over) Not on file 09/18/2023 Do you (or your family) have trouble finding or paying for a ride (transportation)? (Household - for ages 0-17 years) Not on file 09/18/2023 Housing Stability Answer Date Recorded Do you currently live in a s helter or have no steady place to sleep at night? No 09/18/2023 READ ONLY Do you think you a re at risk of becoming homeless? No 09/18/2023 Does your family worry about paying for your home or becoming homeless? (Household - for ages 0-17 years) Not on file 0 09/18/2023 Are you homeless or worried that you might be in the future? (Adult - for ages 18 years and over) Not on file Are you (or your family) raphael eless or worried that you might be in the future? (Household - for ages 0-17 years) Not on file Food Insecurity Answer Date Recorded Do you need food for this week? No 09/18/2023 Are you able to get enough f ood for your family? (Household - for ages 0-17 years) Not on file 09/18/2023 Does your family need food t his week? (Household - for ages 0-17 years) Not on file 09/18/2023 Do you always have enough fo od for your family? 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 Not on file Not on file Not on file documented as of this encounter Last Filed Vital Signs Vital Sign Reading Time Taken Comments Blood Pressure 108/56 07/31/2024 2:31 PM EST Pulse 92 07/31/2024 2:31 PM EST Temperature - - Respiratory Rate 16 07/31/2024 2:31 PM EST Oxygen Saturation - - Inhaled Oxygen Concentration - - Weight 74.9 kg (165 lb 1.6 oz) 07/31/2024 2:31 P M EST Height - - Body Mass Index 24.38 06/08/2024 1:10 PM EDT documented in this encounter Progress Notes * Linda Kaur DO - 08/04/2024 1:14 PM EST I have reviewed the advanced practitioner's documentation on the date of service referenced in note, and I agree with, and take responsibility for the plan of care. Pt seen in routine 6 month EP f/u due to permanent AF on toprol and coumadin He is feeling well and has no complaints No change in cardiac medications EP f/u 1 year Linda Kaur DO Department of Cardiology [facility] [address] * Evy Cummings CRNP - 07/31/2024 2:42 PM EST Subjective Dimitrios Hernandez is a 84 year old male. Chief Complaint Patient presents with Follow Up Routine EP Follow Up Referring Provider: Evy Alfonso and Parth Montero Cardiac Problems: Permanent AF on coumadin and toprol [id number] (age, HTN, DM) HTN HLD Dilated aortic root NSVT H/o tobacco use Prediabetes HPI: 84 year old male presents for routine EP follow up accompanied by his . Last seen in the clinic6 months ago. Feeling well since their last visit with no acute concerns today. Denies chest pain, SOB, palpitations, dizziness, syncope, edema, orthopnea and PND. No change in activity tolerance. Reports compliance with medications without any untoward side effects, or difficulty with affordability. PMH: Patient Active Problem List Diagnosis NONALLERGIC RHINITIS Dyslipidemia, goal LDL below 100 Chronic atrial fibrillation (HCC) Warfarin anticoagulation Non-sustained ventricular tachycardia (HCC) History of tobacco use Noise-induced hearing loss Prediabetes Dilated aortic root (HCC) S/P hip replacement, right H/O right inguinal hernia repair At risk for falls Nocturia Chronic sinusitis Atherosclerosis of mash[place] artery of lower extremity (HCC) Cerebral atrophy (HCC) Coronary artery disease involving [place] coronary artery of [place] heart without angina pectoris BPH with obstruction/lower urinary tract symptoms Diverticulosis of large intestine without hemorrhage HTN, goal below 130/80 Pulmonary emphysema (HCC) Moderate dementia with psychotic disturbance (HCC) Current Outpatient Medications Medication Sig Dispense Refill [...] Loss of weight 12/14/2022 Noise-induced hearing loss 1993 Mod Bilat sensorineural hearing loss Seborrheic dermatitis, unspecified Warfarin anticoagulation 10/15/2019 Past Surgical History: Procedure Laterality Date COLONOSCOPY 10/17/2005 nl except diverticulosis - repeat 10 years COLONOSCOPY, DIAGNOSTIC (RECTUM) 05/07/2016 adenomatous polyp, diverticulosis [facility] 5 yrs/[facility] [place] ARTHRP ACETBLR/PROX FEM PROSTC AGRFT/ALGRFT Right 2020 RMV LSN SCLP,NCK,EXT 1.1-2.0CM 04/16/1995 Excision inf R submandibular sebaceous cyst STRESS ECHO (EXERCISE) 10/17/2003 normal SURGICAL PROCEDURE ONLY Right 04/16/2023 OPEN REPAIR RIGHT INGUINAL HERNIA GENERAL Review of patient's allergies indicates: No Known Allergies Family History Problem Relation Name Age of Onset Diabetes Mother Heart Disorder Mother of [place] age 79 Heart Disorder Father of [place] at 72 Diabetes Sister Cancer Brother Colon [...] level: Not on file Occupational History 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 Entered by: Roland Newell MD 11/17/2010 Social Needs Financial Resource Strain: Low Risk (09/18/2023) Financial Resource Strain Do you have any trouble paying for your medications, or do you think you might in the future? (Adult - for ages 18 years and over): No Does your family have trouble paying for medicine? (Household - for ages 0-17 years): Not on file Food Insecurity: No Food Insecurity (09/18/2023) Food Insecurity Do you need food for this week? (Adult - for ages 18 years and over): No Are you able to get enough food for your family? (Household - for ages 0-17 years): Not on file Does your family need food this week? (Household - for ages 0-17 years): Not on file Do you always have enough food for your family? (Household - for ages 0-17 years): Not on file Transportation Needs: No Transportation Needs (09/18/2023) Transportation Needs Do you have trouble getting a ride to medical visits or work? (Adult - for ages 18 years and over):Never True Does your family have a hard time getting a ride to doctors visits? (Household - for ages 0-17 years): Not on file Has lack of transportation kept you from medical appointments, meetings, work, or from getting things needed for daily living? Check all that apply. (Adult - for ages 18 years and over): Not on file Do you (or your family) have trouble finding or paying for a ride (transportation)? (Household - for ages 0-17 years): Not on file Social Connections: Socially Integrated (09/18/2023) Social Connections How often do you feel lonely or isolated from those around you? (Adult - for ages 18 years and over): Never Housing Stability: Low Risk (09/18/2023) Housing Stability Do you currently live in a fpc or have no steady place to sleep at night? (Adult - for ages 18 years and over): No Do you think you are at risk of becoming homeless? (Adult - for ages 18 years and over): No Does your family worry about paying for your home or becoming homeless? (Household - for ages 0-17 years): Not on file Are you homeless or worried that you might be in the future? (Adult - for ages 18 years and over): Not on file Are you (or your family) homeless or worried that you might be in the future? (Household - for ages0-17 years): Not on file Review of Systems Constitutional: Positive for fatigue. Negative for activity change, chills, fever and unexpected weight change. HENT: Negative for postnasal drip, rhinorrhea and sinus pressure. Eyes: Negative for visual disturbance. Respiratory: Negative for shortness of breath. Cardiovascular: Negative for chest pain, palpitations and leg swelling. Gastrointestinal: Negative for blood in stool, constipation, diarrhea, nausea and vomiting. Genitourinary: Negative for dysuria and hematuria. Musculoskeletal: Positive for gait problem. +cane Skin: Negative for rash. Neurological: Negative for dizziness, syncope and light-headedness. Objective BP 108/56 (BP Site: Left Arm, BP Position: Sitting) | Pulse 92 | Resp 16 | Wt 74.9 kg (165 lb 1.6 oz) | BMI 24.38 kg/m | BSA 1.91 m Wt Readings from Last 3 Encounters: 07/31/24 74.9 kg (165 lb 1.6 oz) 06/08/24 79.1 kg (174 lb 6.4 oz) 06/08/24 79.3 kg (174 lb 14.4 oz) Physical Exam Vitals and nursing note reviewed. [...] and Memory: Cognition normal. Judgment: Judgment normal. Results ECGS: 02/04/2023: AF 56bpm PVC 02/05/2022: AF [...] (17 bpm). Isolated VEs were occasional (2.2%, 96244), VE Couplets were rare (<1.0%, 409), and [...] (18 bpm). Isolated VEs were occasional (2.2%, 433[address]), VE Couplets were rare (<1.0%, 310), and VE Triplets were rare (<1.0%, 21). Ventricular Bigeminy and Trigeminy were present. Nuclear Stress Test: 11/09/2020: Lexiscan nuclear cardiac stress test negative for ischemia. Gated SPECT images reveals normal myocardial thickening and wall motion. The LV ejection fraction is calculated at 59%. Raw images show liver attenuation. Echocardiogram: 04/17/24 The rhythm during the transthoracic echo examination [...] of 11/09/2020, there is no significant change. 11/09/2020: There was atrial fibrillation during the [...] enlarged. IV Septum 1.1cm Lab Work Reviewed: Latest Reference Range & Units 01/16/23 10:25 06/08/24 13:52 SODIUM 135 - 146 mmol/L 141 POTASSIUM 3.5 - 5.1 mmol/L 4.4 CHLORIDE 98 - 107 mmol/L 102 CO2 22 - 32 mmol/L 31 BUN 6 - 20 mg/dL 18 CREATININE 0.6 - 1.2 mg/dL 0.8 EGFR >=60 mL/min 90 ANION GAP 7 - 15 mmol/L 8 GLUCOSE 70 - 120 mg/dL 108 CALCIUM 8.4 - 10.2 mg/dL 9.2 Protein 6.0 - 8.3 g/dL 6.8 7.2 LD <=250 U/L 172 TSH 0.27 - 4.20 uIU/mL 1.58 TSH WITH FREE T4 IF INDICATED Rpt CBC Rpt ! Rpt ! WBC 4.00 - 10.80 K/uL 3.18 (L) 4.58 RBC 4.50 - 5.25 M/uL 4.10 3.77 HGB 14.0 - 16.8 g/dL 13.3 (L) 11.7 (L) HCT 40.0 - 48.4 % 41.6 37.9 (L) MCV 82.0 - 99.5 fL 101.5 100.5 MCH 27.0 - 34.0 pg 32.4 31.0 MCHC 32.0 - 36.0 g/dL 32.0 30.9 RDW 11.5 - 15.5 % 11.8 12.5 PLT 140 - 400 K/uL 208 181 MPV 6.6 - 11.1 fL 10.6 11.0 CBC WITH WBC DIFFERENTIAL Rpt ! Rpt ! Absolute Neutrophils 1.80 - 7.70 K/uL 1.93 3.01 Absolute Lymphocytes 1.00 - 4.80 K/ul 0.90 (L) 1.02 Absolute Monocytes 0.00 - 1.10 K/uL 0.24 0.35 Absolute Eosinophils 0.00 - 0.70 K/uL 0.05 0.13 Absolute Basophils 0.00 - 0.20 K/uL 0.05 0.05 Immature Reticuloctye Fraction 2.5 - 20.6 % 13.8 Reticulocyte Hemoglobin 29.7 - 37.4 pg 32.6 Absolute Reticulocyte 31.3 - 100.1 K/uL 40.3 Reticulocyte Percent 0.80 - 1.90 % 1.07 Alpha-1 Globulin 0.10 - 0.30 g/dL 0.36 (H) Alpha-2 Globulin 0.60 - 1.00 g/dL 1.02 (H) Beta-Globulin 0.80 - 1.30 g/dL 0.85 Gamma-Globulin 0.70 - 1.70 g/dL 1.41 Albumin 3.8 - 5.0 g/dL 4.7 AST 10 - 50 U/L 20 ALT 10 - 50 U/L 18 Alkaline Phosphatase 35 - 130 U/L 63 Bilirubin, Total <=1.2 mg/dL 0.6 Immunofixation Interpretation No monoclonal gammopathy detected. SERUM IMMUNOFIXATION Rpt IgA 70 - 400 mg/dL 182 IgG 700 - 1,600 mg/dL 1,286 IgM 40 - 230 mg/dL 72 [place] Free Light Chains, Serum 3.30 - 19.40 mg/L 35.48 (H) [place] Lambda Free Light Chains Ratio 0.26 - 1.65 1.72 (H) Lambda Free Light Chains, Serum 5.71 - 26.30 mg/L 20.58 SERUM PROTEIN ELECTROPHORESIS REFLEX PROFILE Rpt ! Impression 1. Permanent AF on coumadin and toprol [id number] (age, HTN, DM) 2. Idioventricular rhythm and pauses in AF during sleep on zio patch monitor 3. HTN 4. HLD 5. Dilated aortic root 6 NSVT 7. H/o tobacco use 8. Prediabetes 9. H/o tobacco use 10. Inguinal hernia s/p repair 2022 Plan: -HR and BP well controlled -most recent LDL well-controlled -stable from a cardiac standpoint - remains asymptomatic from a cardiac perspective -continue warfarin, atorvastatin and metoprolol -Educated patient on caution with change in positions to minimize symptomatic orthostatic hypotension -Discussed importance of diet & exercise with the patient. -Discussed with patient subtle changes in how they are feeling or completing daily activities to contact us sooner; don't wait days or weeks. Patient care discussed and coordinated with Dr. Kaur. Please refer to Dr. Kaur's notes for further recommendations. DISPOSITION: Follow up with general cardiology in 6 months and EP follow up in 1 year or if symptoms worsen/failto improve. All questions were answered to the patients satisfaction. Patient advised to report to ED with any and all emergencies. The patient agrees to the above plan and will call with additional questions or concerns. ROSSANA Mckeon [facility], [address] [address] This chart was completed in part utilizing [employer] Speech Voice Recognition Software. Grammatical errors, random word insertions, pronoun errors, and incomplete sentences are an occasional consequence of this system due to software limitations, ambient noise, and hardware issues. Any formal questions or concerns about the content, text, or information contained within the body of this dictation should be directly addressed to the provider for clarification. Cosigned by Linda Kaur DO at 08/04/2024 1:27 PM EST documented in this encounter Nursing Notes * Alexandra Farnsworth CMA - 07/31/2024 2:30 PM EST Examination Room: 13 Name: Dimitrios Hernandez Date of : (1940). Reason for Visit: follow up Interim Hospitalization(s): denies Problems/Concerns: denies Chest Pain/SOB: denies [facility] Discussed: Yes [facility] is a way you can talk to your provider online through e-mail. Would you like to sign up? I can activate it for you? ALREADY ACTIVE Patient was instructed to not [...] Home Visit Care at Home [address] [place] [address] Debo Perkins PA-C [address] [place], [place] [id number] 08/20/2024 7:00 AM EST Laboratory Lab Mobile [facility] [address] [facility] [place] [address] [facility] [address] [place] [address] 08/21/2024 6:00 AM EST Antico[facility], Roland Multani [address] [place] [address] [place] [address] [place] [address] 12/07/2024 2:30 PM EDT Office Visit Hematology/Oncology [facility] [place] [address] [place] [address] Alex[facility]land [facility] [address] [facility] [place] [address] 12/08/2024 5:40 PM EDT Office Visit [facility] [address] [facility] [place] [address] Ignacio Prado MD [address] [place] [facility] [place] [address] 02/22/2025 10:00 AM EDT Office Visit Cardiology, [facility] [address] [place] [address] Parth Montero PA-C [address] [place] [address] 08/24/2025 10:00 AM EST Office Visit Cardiology, [facility] [address] [place] [address] Evy Cummings CRNP [address] [place] [address] Scheduled Procedures Name Priority Associated Diagnoses Date/Ti [...] 2024 08/14/2021, 12/12/2020, 11/14/2020 Adult Wellness Visit 07/01/2024 07/01/2023 Zoster Vaccines (2 of 3) 09/09/2024 09/21/2015, 12/2004 Postponed from 11/16/2015 (Other) Depression Screening 09/18/2024 09/18/2023 O2 ASSESSMENT COMPLETED IN PAST YEAR FOR COPD 06/08/2025 06/08/2024 DTap/Tdap Vaccines (3 - Td or Tdap) [...] Chronic atrial fibrillation (HCC)- Primary Atrial fibrillation Dyslipidemia, goal LDL below 100 Other and unspecified hyperlipidemia Prediabetes Other abnormal glucose History of tobacco use Personal history of tobacco use, presenting hazards to health Memory impairment Memory loss documented in this encounter Advance Directives Documents on File Type Date Recorded Patient Forensic Specialist Expl anation Advance Directives and Living Will 03/01/2021 ADVANCE DIRECTIVE / LIVING WILL Power of Associate Designer 03/01/2021 POWER OF A TTORNEY Care Teams Freight Handler Relationship Specialty Start Date End Date Ignacio Prado MD [address] [place] [address] PCP - General 07/04/00 documented as of this encounter"
--- OUTSIDE RECORDS SUMMARY | 2024-11-28 01:23 | External Medical Summary ---
Author Name Unknown Address Unknown Organization K[facility] [address] [place] [address] Laboratory Report Ordering Provider Test Date Status EBONI NICOLE 07/30/2024 07:22:00 Final Standing order for pt/inr. < br/>Please draw pt/inr every 1 to 4 weeks as requested
Results to [facility]

Warfarin Therapy
INR: 2.0-3.0 conventional anticoagulation
INR: 2.5-3.5 high intensity anticoagulation Observation Date Value Abnormality Reference (Units ) Status PT 07/30/2024 07:22:00 24.1 Above high normal 11 .6-15.2 (seconds) Final INR 07/30/2024 07:22:00 2.1 Above high normal 0. 8-1.2 Final Performing Location [facility] [address] [place] [address]
--- OUTSIDE RECORDS SUMMARY | 2024-11-28 01:23 | External Medical Summary | Summary of Care ---
Author Name Unknown Organization [facility] Address [address] [facility] [place] [address] Phone [phone] Care Team Providers Care Library Customer Service Clerk Name Role Phone Ignacio Prado MD Primary Care Provider +1- [phone] Reason for Visit * Reason Comments Dosage Adjustment Via Phone (anticoag Cl inic) Encounter Details Date Type Department Care Team (Late st Contact Info) Description 07/14/2024 6:00 AM EDT Anticoagulation Centralized Clinical Pharmacy Services, Roland Multani [address] [place] [address] [place] [address] [facility], [address] [place] [address] Chronic atrial fibrillation (HCC)* Allergies No known active allergiesdocumented as of this encounter (statuses as of 07/14/2024) Medications Medication Sig Dispensed Refills Start Date End Date Status NIZORAL SHAM 2 % EXIndications:Seborr heic dermatitis, unspecified as directed 1 5 03/13/2002 Active NASAL SALINE 0.65 % NA SOLNIndications:Hand Candy Cutter 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,Other acute sinusitis,Postnasal drip flush each nostril morning and night and every 2-4 hrs as needed for nasal dryness or congestion 1 Bottle 3 11/17/2010 Active HYDROCORTISONE 2.5 % EX CREA to affected areas as needed 08/23/2014 Active metoprolol succinate XL (TOPROL XL) 25 MG [id number]:Pers istent atrial fibrillation (HCC) Take 0.5 Tabs by mouth daily. 45 Tab 3 03/20/2017 Active Tamsulosin HCl 0.4 MG Oral Capsule (FLOMAX) Take 1 Capsule by mouth at bedtime. 06/24/2020 Active Acetaminophen 500 MG Oral Tablet (Tylenol) Take 1 Tablet by mouth every 6 hours as needed for Pain. 1-2 tabs Active Fluticasone Propionate 50 MCG/ACT Nasal Suspension (Flonase) INSTILL 2 SPRAYS IN EACH NOSTRIL EVERY DAY NEEDED 03/17/2020 Active Atorvastatin Calcium 40 MG Oral Tablet (Lipitor) Take 1 Tablet by mouth in the morning. 30 Tablet 08/04/2021 Active Amoxicillin 500 MG Oral Capsule (Amoxil) TAKE FOUR CAPSULES BY MOUTH ONE HOUR BEFORE APPOINTMENT 07/10/2022 Active Warfarin Sodium 2.5 MG Oral Tablet (Coumadin)Indication s:Persistent atrial fibrillation (HCC),Anticoagulatio n management encounter,senior care current use of anticoagulant therapy TAKE 1 TO 2 TABLETS BY MOUTH ONCE DAILY DIRECTED BY COUMADIN CLINIC 180 Tablet 3 07/05/2023 Active Cholecalciferol 25 MCG (1000 UT) Oral Tablet Disintegrating Take 25 mcg by mouth at bedtime. Active LORazepam 0.5 MG Oral Tablet (Ativan) Take 1 Tablet by mouth every 6 hours as needed for Anxiety. 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 Diverticulosis of large intestine without hemorr jessica 07/01/2023 S/P hip replacement, right 12/14/2022 Loss of [...] as of this encounter (statuses as of 07/14/2024) Resolved Problems Problem Noted Date Diagnosed Date Resolved Date Moderate dementia with psychotic disturbance 12/02/2023 Atrial fibrillation 09/23/2023 12/02/19 Moderate dementia with anxiety 07/01/2023 12/02/2023 Alcohol ingestion, 1-4 drinks per day 07/01/2023 12/02/2023 Polyp of colon 07/01/2023 12/02/2023 Dementia without behavioral disturbance, psychotic disturbance, mood disturbance, or anxiety 12/14/2022 01/07/2023 Constipation 12/14/2022 12/02/2023 Persistent atrial fibrillation 04/04/2015 10/15/2019 Family history of ischemic heart disease 09/28/2013 08/14/2018 Atrial fibrillation 08/07/2013 04/04/20 15 Postnasal drip 11/17/2010 08/14/2018 Seborrheic dermatitis 2017 Overview: ICD-10 update of inactive term DIVERTICULOSIS OF COLON 07/18 documented as of this encounter (statuses as of 07/14/2024) Immunizations Name Administration Dates Next Due COVID-19 [...] No 09/18/2023 Does the household have a re lar [...] as of this encounter Progress Notes * Dalia Doherty PHARM Tech - 07/14/2024 10:13 AM EDT Contacts Contact Date/Time Type Contact Phone/Fax 07/14/2024 10:10 AM EDT Phone (Outgoing) JONNY CARREON (Emergency Contact) [phone] (H) Spoke with Jonny. Subjective Patient Findings Negatives: Signs/symptoms of bleeding, Change in health, Change in activity, Upcoming invasive procedure, Missed doses, Extra doses, Change in medications, Change in diet/appetite, Bruising Comments: Declined GMO at this time. Advised patient to contact Anticoagulation Clinic if any unusual bruising or bleeding, recent illness, changes in medication, or questions/concerns. PT/INR results, Coumadin dose instructions, and next PT/INR date communicated as noted by Pharmacist: Yes ANA LILIA Martini 07/14/2024, 10:13 AM * Pamela Lacey RP - 07/14/2024 8:01 AM EDT Coumadin Clinic (region specific) Objective Current Warfarin Dose As of 07/14/2024 Warfarin maintenance plan: 3.75 mg (2.5 mg x 1.5) every Mon, Wed, Fri; 2.5 mg (2.5 mg x 1) all other days INR Result As of 07/14/2024 INR goal: 2.0-3.0 INR used for dosin.5 (07/13/2024) Assessment & Plan Warfarin Plan As of 07/14/2024 Full warfarin instructions: 3.75 mg every Mon, Wed, Fri; 2.5 mg all other days No change documented: Pamela Lacey jane Next INR check: 07/27/2024 GMO for Warfarin Rx? Other meds at [place]. Repeat PT/INR in 2 week(s) Weekly dose: not changed Additional Dosing Information: Description [facility] to contact patient with dose instructions as noted. Pamela Lacey RPh 07/14/2024, 8:01 AM documented in this encounter Plan of Treatment Upcoming Encounters Date Type Department Care Team (Late st Contact Info) Description 07/27/2024 7:05 AM EST Laboratory Lab Mobile Phlebotomy [facility] [address] [place] [address] [facility], [facility] Mobile Home Draw [address] [place] [address] 07/28/2024 6:00 AM EST Anticoagulation Centralized Clinical Pharmacy Services, Roland Multani [address] [place] [address] [place] [address] [place] [address] 07/31/2024 2:30 PM EST [facility] [address] Evy Cummings CRNP [address] [facility] [place] [address] 08/06/2024 2:00 PM EST Home Visit Care at Home [address] [place] [address] Debo Perkins PA-C [address] [place], [place] [id number] 08/19/2024 10:00 AM EST Office Visit Cardiology, [facility] 132 [facility] [place] [address] Parth Montero [facility]-C [facility] [address] 12/07/2024 2:30 PM EDT Office [facility]ology[facility] [phone] Alexandra Bland CRNP [address] [facility] [place] [address] 12/08/2024 5:40 PM EDT Office Visit Family [facility] [address] [place] [phone] Ignacio Prado MD [address] [place] [address] Scheduled Procedures Name Priority Associated Diagnoses Date/Ti [...] ( - season) 2024 08/14/2021, 12/12/2020, 11/14/2020 Adult Wellness [...] Documents on File Type Date Recorded Patient Auto Transmission Technician Expl anation Advance Directives and Living Will 03/01/2021 ADVANCE DIRECTIVE / LIVING WILL Power of Motorcycle Police 03/01/2021 POWER OF A TTORNEY Care Teams Library Customer Service Clerk Relationship Specialty Start Date End Date Ignacio Prado MD [address] [place] [address] PCP - General 07/04/00 documented as of this encounter
--- OUTSIDE RECORDS SUMMARY | 2024-11-28 01:23 | External Medical Summary ---
Author Name Unknown Address Unknown Organization [facility] [address] [place] [address] Laboratory Report Ordering Provider Test Date Status EBONI NICOLE 06/29/2024 08:38:00 Final Standing order for pt/inr. < br/>Please draw pt/inr every 1 to 4 weeks as requested
Results to [facility] Anticoagulation Clinic

Warfarin Therapy
INR: 2.0-3.0 conventional anticoagulation
INR: 2.5-3.5 high intensity anticoagulation Observation Date Value Abnormality Reference (Units ) Status PT 06/29/2024 08:38:00 35.0 Above high normal 11 .6-15.2 (seconds) Final INR 06/29/2024 08:38:00 3.4 Above high normal 0. 8-1.2 Final Performing Location [facility] [address] [place] [id number]
--- OUTSIDE RECORDS SUMMARY | 2024-11-28 01:23 | External Medical Summary | Summary of Care ---
Author Name Unknown Organization [facility] Address [address] [facility] [place] [address] Phone [phone] Care Team Providers Care Fermentation Operator Name Role Phone Ignacio Prado MD Primary Care Provider +1- [phone] Reason for Visit * Reason Comments Dosage Adjustment Via Phone (anticoag Cl inic) Encounter Details Date Type Department Care Team (Late st Contact Info) Description 07/31/2024 6:00 AM EST Anticoagulation Centralized Clinical Pharmacy Services, Roland Multani [address] [place] [address] [place] [address] [facility], [address] [place] [address] Chronic atrial fibrillation (HCC)* Allergies No known active allergiesdocumented as of this encounter (statuses as of 07/31/2024) Medications NIZORAL SHAM 2 % EXIndications:Sebo rrheic [...] metoprolol succinate XL (TOPROL XL) 25 MG [id number]:Pe rsistent atrial fibrillation (HCC) Take 0.5 Tabs [...] (Coumadin)Indicati ons:Persistent atrial fibrillation (HCC),Anticoagulat ion management 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,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 of anticoagulant therapy TAKE [...] as of this encounter (statuses as of 07/31/2024) Active Problems Problem Noted Date Diagnosed Date Pulmonary emphysema 12/02/2023 Moderate dementia with psychotic disturbance HTN, goal below 130/80 09/23/2023 H/O right inguinal hernia repair 07/01/2023 At risk for falls 07/01/2023 Nocturia 07/01/2023 Chronic sinusitis 07/01/2023 Atherosclerosis of [place] artery of lower extrem ity 07/01/2023 Cerebral atrophy 07/01/2023 Coronary artery disease 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 Subjective Patient Findings [...] PT/INR date communicated as noted by Pharmacist: ANA LILIA Mejia 07/31/2024, 8:05 AM * Pamela Lacey RPh - 07/31/2024 7:54 AM EST Coumadin Clinic (region specific) Objective Current Warfarin Dose As of 07/31/2024 Warfarin maintenance plan: 3.75 mg (2.5 mg x 1.5) every Mon, Wed, Fri; 2.5 mg (2.5 mg x 1) all other days INR Result As of 07/31/2024 INR goal: 2.0-3.0 INR used for dosin.1 (07/30/2024) Assessment & Plan Warfarin Plan As of 07/31/2024 Full warfarin instructions: 3.75 mg every Mon, Wed, Fri; 2.5 mg all other days No change documented: Pamela Lacey RPh Next INR check: 08/20/2024 Repeat PT/INR in 3 week(s) Weekly dose: not changed Additional Dosing Information: Description [facility] to contact patient with dose instructions as noted. Pamela Lacey RPh 07/31/2024, 7:55 AM documented in this encounter Plan of Treatment Upcoming Encounters Date Type Department Care Team (Late st Contact Info) Description 07/31/2024 2:30 PM EST Office Visit Cardiology, [facility] 132 [facility] [place] [address] Evy Cummings CRNP [address] [place] [address] 08/06/2024 2:00 PM EST Home Visit Care at Home [address] [place] [address] Debo Perkins PA-C [address] [facility] [place] [address] 08/19/2024 10:00 AM EST Office Visit Cardiology, [facility] [address] [place] [address] Parth Montero PA-C [address] [place] [address] 08/21/2024 6:00 AM EST Anticoagulation Centralized Clinical Pharmacy Services, Roland Multani [address] [place] [address] [place] [address] [facility], [address] [place] [address] 12/07/2024 2:30 PM EDT Office Visit Hematology/Oncology [facility] [phone] Alexandra Bland CRNP [address] [place] [address] 12/08/2024 5:40 PM EDT Office Visit [facility] [address] [place] [address] Ignacio Prado MD [address] [place] [address] Scheduled Procedures Name Priority Associated Diagnoses Date/Ti me COLONOSCOPY FLEXIBLE PROXIMAL DIAGNOSTIC Recall History of colon polyps Health Maintenance Due Date Last Done Comments DXA Scan 1940 Alpha-1 Antitrypsin 1958 Albumin/Creatinine Ratio 12/09/2014 12/10/2011 Colonoscopy 05/07/2021 05/07/2016, 10/29/2005 HbA1c 06/15/2023 06/15/2022, 10/17, 07/07/2012, Additional history exists *COPD SEVERITY VERIFIED BY PFT 12/04/2023 GFR 01/17/2024 01/16/2023, 05/19, 11/06/2021, Additional history exists COVID-19 Vaccine (4 - 2023- season) 2024 08/14/2021, 12/12/2020, 11/14/2020 Adult Wellness Visit 07/01/2024 07/01/2023 Zoster Vaccines (2 of 3) 09/09/2024 09/21/2015, 1112/2004 Postponed from 11/16/2015 (Other) Depression Screening 09/18/2024 [...] Documents on File Type Date Recorded Patient Road Roller Operator Expl anation Advance Directives and Living Will 03/01/2021 ADVANCE DIRECTIVE / LIVING WILL Power of Hand Tier 03/01/2021 POWER OF A TTORNEY Care Teams Fermentation Operator Relationship Specialty Start Date End Date Ignacio Prado MD [address] [place] [address] PCP - General 07/04/00 documented as of this encounter
--- OUTSIDE RECORDS SUMMARY | 2024-11-28 01:23 | External Medical Summary ---
Author Name Unknown Address Unknown Organization [facility] [address] [place] [address] Laboratory Report Ordering Provider Test Date Status EBONI NICOLE 07/13/2024 07:49:00 Final Standing order for pt/inr. < br/>Please draw pt/inr every 1 to 4 weeks as requested
Results to [facility] Anticoagulation Clinic

Warfarin Therapy
INR: 2.0-3.0 conventional anticoagulation
INR: 2.5-3.5 high intensity anticoagulation Observation Date Value Abnormality Reference (Units ) Status PT 07/13/2024 07:49:00 27.4 Above high normal 11 .6-15.2 (seconds) Final INR 07/13/2024 07:49:00 2.5 Above high normal 0. 8-1.2 Final Performing Location [facility] [address] [place] [address]
--- OUTSIDE RECORDS SUMMARY | 2024-11-28 01:23 | External Medical Summary | Summary of Care ---
Author Name Unknown Organization [facility] Address [address] [facility] [address] Phone [phone] Care Team Providers Care Incident Response Engineer Name Role Phone Ignacio Prado MD Primary Care Provider +1- [phone] Encounter Details Date Type Department Care Team (Late st Contact Info) Description 06/23/2024 Orders Only PATIENT PORTAL DO NOT DELETE THIS DEPT USED BY [place]K [address] Allergies No known active allergiesdocumented as of this encounter (statuses as of 06/23/2024) Medications Medication Sig Dispensed Refills Start Date End Date Status NIZORAL SHAM 2 % EXIndications:Seborr heic dermatitis, unspecified as directed 1 5 03/13/2002 Active NASAL SALINE 0.65 % NA SOLNIndications:Lapping Machine Set Up Operator 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,Other acute sinusitis,Postnasal drip flush each nostril morning and night and every 2-4 hrs as needed for nasal dryness or congestion 1 Bottle 3 11/17/2010 Active HYDROCORTISONE 2.5 % EX CREA to affected areas as needed 08/23/2014 Active metoprolol succinate XL (TOPROL XL) 25 MG [id number]:Pers istent atrial fibrillation (HCC) Take 0.5 Tabs [...] s:Persistent atrial fibrillation (HCC),Anticoagulatio n management encounter,senior living current use of anticoagulant therapy TAKE 1 TO 2 TABLETS BY MOUTH ONCE DAILY DIRECTED BY COUMADIN CLINIC 180 Tablet 3 07/05/2023 Active Cholecalciferol 25 MCG (1000 UT) Oral Tablet Disintegrating Take 25 mcg by mouth at bedtime. Active LORazepam 0.5 MG Oral Tablet (Ativan) Take 1 Tablet by mouth 3 times a day as needed for Anxiety. 60 Tablet 06/17/2024 Active documented as of this encounter (statuses as of 06/23/2024) Active Problems Problem Noted Date Diagnosed Date Pulmonary emphysema 12/02/2023 Moderate dementia with psychotic disturbance HTN, goal below 130/80 09/23/2023 H/O right inguinal hernia repair 07/01/2023 At risk for falls 07/01/2023 Nocturia 07/01/2023 Chronic sinusitis 07/01/2023 Atherosclerosis of [place] artery of lower extrem ity 07/01/2023 Cerebral atrophy 07/01/2023 Coronary artery disease invo lving [place] coronary artery of [place] heart without angina pectoris 07/01/2023 BPH with [...] as of this encounter (statuses as of 06/23/2024) Resolved Problems Problem Noted Date Diagnosed Date [...] as of this encounter (statuses as of 06/23/2024) Immunizations Name Administration Dates Next Due COVID-19 [...] Care Team (Late st Contact Info) Description 06/24/2024 2:00 PM EDT Office Visit Care at Home [address] [facility] [place] [address] Debo Perkins PA-C [address] [place] [address] 06/29/2024 7:05 AM EDT Laboratory Lab Mobile Phlebotomy [facility] [address] [place] [address] [place] [address] [facility], [facility] Mobile Home Draw [address] [facility] [place] [address] 06/30/2024 6:00 AM EDT Anticoagulation Centralized Clinical Pharmacy Services, Roland Multani [address] [place] [address] [place] [address] [facility] [place] [address] 07/31/2024 2:30 PM EST Office Visit Cardiology, [facility] 132 [facility] [place] [phone] Evy Cummings CRNP [address] [place] [address] 08/19/2024 10:00 AM EST Office Visit Cardiology, [facility] [address] [place] [address] Parth Montero PA-C [address] [place] [address] 12/07/2024 2:30 PM EDT Office Visit Hematology/Oncology [facility] [address] [place] [address] Alexandra Bland CRNP [address] [place] [place] [address] 12/08/2024 5:40 PM EDT Office Visit [facility] [address] [place] [phone] Ignacio Prado MD [address] [place], [place] [id number] Scheduled Procedures Name Priority Associated Diagnoses Date/Ti [...] Zoster Vaccines (2 of 3) 09/09/2024 09/21/2015, 11/0 12/2004 Postponed from 11/16/2015 (Other) Depression Screening [...] Documents on File Type Date Recorded Patient Mat Worker Expl anation Advance Directives and Living Will 03/01/2021 ADVANCE DIRECTIVE / LIVING WILL Power of Plastic Parts Fabricator Trimmer 03/01/2021 POWER OF A TTORNEY Care Teams Incident Response Engineer Relationship Specialty Start Date End Date Ignacio Prado MD [address] [place] [address] PCP - General 07/04/00 documented as of this encounter
--- OUTSIDE RECORDS SUMMARY | 2024-11-28 01:23 | External Medical Summary | Summary of Care ---
Author Name Unknown Organization [facility] Address [address] [facility] [place] [address] Phone [phone] Care Team Providers Care Bilingual Administrative Assistant Name Role Phone Ignacio Prado MD Primary Care Provider +1- [phone] Reason for Visit * Reason Comments Dosage Adjustment Via Phone (anticoag Cl inic) Encounter Details Date Type Department Care Team (Late st Contact Info) Description 06/30/2024 6:00 AM EDT Anticoagulation Centralized Clinical Pharmacy Services, Roland Multani [address] [place] [address] [place] [address] [facility], [address] [place] [address] Chronic atrial fibrillation (HCC)* Allergies No known active allergiesdocumented as of this encounter (statuses as of 06/30/2024) Medications Medication Sig Dispensed Refills Start Date End Date Status NIZORAL SHAM 2 % EXIndications:Seborr heic dermatitis, unspecified as directed 1 5 03/13/2002 Active NASAL SALINE 0.65 % NA SOLNIndications:Principal Database Developer 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,Other acute sinusitis,Postnasal drip flush each nostril morning and night and every 2-4 hrs as needed for nasal dryness or congestion 1 Bottle 3 11/17/2010 Active HYDROCORTISONE 2.5 % EX CREA to affected areas as needed 08/23/2014 Active metoprolol succinate XL (TOPROL XL) 25 MG [id number]:Pers istent atrial fibrillation (HCC) Take 0.5 Tabs [...] (Coumadin)Indication s:Persistent atrial fibrillation (HCC),Anticoagulatio n management encounter,half-way current use of anticoagulant therapy [...] as of this encounter (statuses as of 06/30/2024) Active Problems Problem Noted Date Diagnosed Date Pulmonary emphysema 12/02/2023 Moderate dementia with psychotic disturbance HTN, goal below 130/80 09/23/2023 H/O right inguinal hernia repair 07/01/2023 At risk for falls 07/01/2023 Nocturia 07/01/2023 Chronic sinusitis 07/01/2023 Atherosclerosis of ruby artery of lower extrem ity 07/01/2023 Cerebral atrophy 07/01/2023 Coronary artery disease invo lving ruby coronary artery of ruby heart without angina pectoris 07/01/2023 BPH with [...] as of this encounter (statuses as of 06/30/2024) Resolved Problems Problem Noted Date Diagnosed Date [...] as of this encounter (statuses as of 06/30/2024) Immunizations Name Administration Dates Next Due COVID-19 [...] of this encounter Progress Notes * Mihaela Perdomo CPhT - 06/30/2024 8:25 AM EDT Contacts Contact Date/Time Type Contact Phone/Fax 06/30/2024 08:22 AM EDT Phone (Outgoing) JONNY HERNANDEZ (Emergency Contact) [phone] (H) Spoke to Patient Subjective Patient Findings [...] communicated as noted by Pharmacist: Yes MIHAELA PERDOMO CPhT 06/30/2024, 8:25 AM * Pamela Lacey RPh - 06/30/2024 8:15 AM EDT Coumadin Clinic (region specific) Objective Current Warfarin Dose As of 06/30/2024 Warfarin maintenance plan: 2.5 mg (2.5 mg x 1) every Tue, Val, Sat; 3.75 mg (2.5 mg x 1.5) all other days INR Result As of 06/30/2024 INR goal: 2.0-3.0 INR used for dosin.4 (06/29/2024) Assessment & Plan Warfarin Plan As of 06/30/2024 Full warfarin instructions: 06/30: Hold; Otherwise 3.75 mg every Mon, Wed, Fri; 2.5 mg all other days Next INR check: 07/13/2024 Repeat PT/INR in 2 week(s) Weekly dose: decreased Additional Dosing Information: Description [facility] to contact patient with dose instructions as noted. Pamela Lacey RPh 06/30/2024, 8:15 AM documented in this encounter Plan of Treatment Upcoming Encounters Date Type Department Care Team (Late st Contact Info) Description 07/14/2024 6:00 AM EDT Anticoagulation Centralized Clinical Pharmacy Services, Roland Multani [address] [place] [address] [place] [address] [place] [address] 07/31/2024 2:30 PM EST Office Visit Cardiology, [facility] [address] [facility] [place] [address] Evy Cummings CRNP [address] [place] [id number] 08/06/2024 2:00 PM EST Home Visit Care at Home [address] [place] [address] Debo Perkins PA-C [address] [place] [address] 08/19/2024 10:00 AM EST Office Visit Cardiology, [facility] [address] [facility] [place] [address] Parth Montero PA-C [address] [place] [address] 12/07/2024 2:30 PM EDT Office Visit Hematology/Oncology [facility] [address] [place] [address] Alexandra Bland CRNP [address] [place] [address] 12/08/2024 5:40 PM EDT Office Visit Family [facility] [address] [place] [address] Ignacio Prado MD [address] [place] [address] Scheduled Procedures Name Priority Associated Diagnoses Date/Ti [...] Documents on File Type Date Recorded Patient Astronomy Teacher Expl anation Advance Directives and Living Will 03/01/2021 ADVANCE DIRECTIVE / LIVING WILL Power of Fabrication Supervisor 03/01/2021 POWER OF A TTORNEY Care Teams Bilingual Administrative Assistant Relationship Specialty Start Date End Date Ignacio Prado MD [address] [place] [address] PCP - General 07/04/00 documented as of this encounter
--- OUTSIDE RECORDS SUMMARY | 2024-11-28 01:24 | External Medical Summary | Summary of Care ---
Author Name Unknown Organization [facility] Address [address] [place] [address] Phone [phone] Care Team Providers Care Assembler Mechanical Ordnance Name Role Phone Ignacio Prado MD Primary Care Provider +1- [phone] Reason for Visit * Reason Comments Follow Up Return * Evaluate & Treat - Unlimited Visits (Within 10 days (routine)) - Authorized Specialty Diagnoses / Procedures Referred By Contac t Referred To Contact Hematology/Oncology / Hematology Oncology Diagnoses Other pancytopenia (HCC) Blade Cuba CRNP [address] [place] [address] Referral ID Status Reason Start Date Expiration Date Visits Requested Visits Authorized [id number] Authorized Specialty Services Required 06/02/2024 11/29/2024 [id number] Encounter Details Date Type Department Care Team (Late st Contact Info) Description 06/08/2024 11:00 AM EDT Office Visit Hematology/Oncology [facility] [address] [place] [address] Alexandra Bland CRNP [address] [place] [address] Leukopenia, unspecified type*; Anemia, unspecified type Allergies No known active allergiesdocumented as of this encounter (statuses as of 06/10/2024) Medications Medication Sig Dispensed Refills Start Date End Date Status NIZORAL SHAM 2 % EXIndications:Sebor rheic dermatitis, unspecified as directed 1 5 03/13/2002 Active NASAL SALINE 0.65 % NA SOLNIndications:Chr onic rhinitis,Other acute sinusitis,Postnasal drip flush each nostril morning and night and every 2-4 hrs as needed for nasal dryness or congestion 1 Bottle 3 11/17/2010 Active HYDROCORTISONE 2.5 % EX CREA to affected areas as needed 08/23/2014 Active metoprolol succinate XL (TOPROL XL) 25 MG [id number]:Per sistent atrial fibrillation (HCC) Take 0.5 Tabs by [...] Active Warfarin Sodium 2.5 MG Oral Tablet (Coumadin)Indicatio ns:Persistent atrial fibrillation (HCC),Anticoagulati on management encounter,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 Active LORazepam 0.5 MG Oral Tablet (Ativan) Take 1 Tablet by mouth 3 times a day as needed for Anxiety. 60 Tablet 05/28/2024 Active busPIRone HCl 5 MG Oral Tablet (Buspar)Indications :Anxiety Take 1 Tablet by mouth in the morning and 1 Tablet at noon and 1 Tablet before bedtime. 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 07/01/2023 BPH with [...] as of this encounter (statuses as of 06/10/2024) Resolved Problems Problem Noted Date Diagnosed Date [...] as of this encounter (statuses as of 06/10/2024) Immunizations Name Administration Dates Next Due COVID-19 [...] lent, No Preserve, IM 07/19/2016,07/20/2015 Seasonal Influenza, Trivalen t, (IIV3), with Preserv, (Fluzone) 06/29/2014,06/21/2013,06/25/2010 TD - Tetanus/Diptheria (ADULT) 02/02/2003,1998 TDAP (age 10 and older)(Boostrix) 06/01/2024, Varicella Zoster Vaccine (Adult) 09/21/2015,12/2004 documented as of this encounter Social History Tobacco Use Types Packs/Day Years Used Date Smoking Tobacco: Former Cigarettes 1.5 30 1 - 06/16/1993 Smokeless Tobacco: Never Tobacco Cessation:Counseling Given: [...] money to get more. Never true 09/18/2023 Sex and Gender Information Value Date Recorded Sex Assigned at Male 10/13/2019 12:48 PM EST Gender Identity Male 10/13/2019 12:48 PM EST Sexual Orientation Straight 10/13/2019 12 :39 PM EST Job Start Date Occupation Industry Not on file Not on file Not on file documented as of this encounter Last Filed Vital Signs Vital Sign Reading Time Taken Comments Blood Pressure 120/67 06/08/2024 10:58 AM EDT Pulse 64 06/08/2024 10:58 AM EDT Temperature 36.4 C (97.6 F) 06/08/2024 1 0:58 AM EDT Respiratory Rate - - Oxygen Saturation 92% 06/08/2024 10: 58 AM EDT Inhaled Oxygen Concentration - - Weight 79.3 kg (174 lb 14.4 oz) 024 10:58 AM EDT Height - - Body Mass Index 25.83 05/06/2024 11:23 AM EDT documented in this encounter Progress Notes * Alexandra Bland CRNP - 06/08/2024 11:03 AM EDT Images from the original note were not included. Hematology/Oncology Outpatient Clinic note Tabatha Doyle [place] [address] [place] [address] Name: Dimitrios Hernandez Date: 06/08/2024 CHIEF COMPLAINT: Dimitrios Hernandez is a 84 year old male patient of ROSSANA Dumont here today for f/u visit today. From Patient chart confirmed with patient. HEMATOLOGY/ONCOLOGY DIAGNOSIS: Leukopenia and anemia CURRENT TREATMENT: Observation HISTORY OF PRESENT ILLNESS: Patient with PMH of atrial fibrillation, neuropathy, HLD, PVD, and colon polyps. Noted by PCP to have lost 29 pounds since January 2022. Was due for colonoscopy in 2020 for follow up of colon polyps but was not completed as patient had fractured knee at the time. Due to his age patient is unsure if he is going to pursue having this completed or not. Patient did complete CT C/A/P for follow up of weight loss ordered by his [facility] PCP that was unremarkable. Was also noted to have a mildly low total WBC over the last year running from 3.3 - 4.0. Differential has been WNL. Also noted is an intermittent macrocytic anemia over the same time frame. Platelet count WNL. Patient denies a decreased appetite. Eats regularly and eats normal sized meals. Does not forget toeat. Denies any new medications. Does get constipated but resolves easily with fiber and Miralax. Ongoing for the last few months. Denies black or bloody bowel movements. Denies abdominal pain, bloating or nausea. Denies drenching night sweats. Denies any lumps or bumps. Has to move slowly d/t stamina but is still able to do most things he wants to do. Denies CP or SOB. Denies issues with frequent infections. Is following with cardiology for history of atrial fibrillation on coumadin. Patient states he will drink 1-2 beers in the evening. Patient is a former smoker of 1.5 PPD for approximately 30 years. Quit in 1992. HISTORY OF PRESENT ILLNESS: Dimitrios Hernandez is a 84 year old male with a history as outlined above. Currently here for f/u visit today. Patient states he is feeling well today. Has been diagnosed with mild cognitive impairment. Is now gaining weight back. Is not interested in any invasive evaluation into cause of cytopenias at this time. Past Medical History: Diagnosis Date Chronic rhinitis [...] (RECTUM) 05/07/2016 adenomatous polyp, diverticulosis repeat 5 yrs/[facility] [place] ARTHRP ACETBLR/PROX FEM PROSTC AGRFT/ALGRFT Right 2020 RMV LSN SCLP,NCK,EXT 1.1-2.0CM 04/16/1995 Excision inf R submandibular sebaceous cyst STRESS ECHO (EXERCISE) 10/17/2003 normal SURGICAL PROCEDURE ONLY Right 04/16/2023 OPEN REPAIR RIGHT INGUINAL HERNIA GENERAL Social History Socioeconomic History Marital status: Spouse name: Not on file Number of children: 3 Years of education: Not on file Highest education level: Not on file Occupational History 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 Entered by: Roland Newell MD 11/17/2010 Social Determinants of Health Financial Resource Strain: Low Risk (09/18/2023) Financial [...] Stability Do you currently live in a chcf or have no steady place to sleep [...] ages0-17 years): Not on file Review of patient's allergies indicates: No Known [...] day as needed for Anxiety. 60 Tablet 0 No current facility-administered medications for this visit. REVIEW OF SYSTEMS: See HPI - otherwise negative OBJECTIVE: Filed Vitals: 06/08/24 1058 BP: 120/67 Pulse: 64 Temp: 36.4 C (97.6 F) TempSrc: Oral SpO2: 92% Weight: 79.3 kg (174 lb 14.4 oz) Wt Readings from Last 5 Encounters: 06/08/24 79.3 kg (174 lb 14.4 oz) 05/06/24 80 kg (176 lb 6.4 oz) 02/13/24 79.3 kg (174 lb 12 oz) 11/14/23 77.8 kg (171 lb 9.6 oz) 09/23/23 75.8 kg (167 lb 3.2 oz) PHYSICAL EXAM: General Appearance: No acute distress Lungs/Thorax: Normal respiratory effort Extremities: +trace BLE edema Neurologic: pleasantly confused, unsteady gait LABS: IMPRESSION/PLAN: Leukopenia Normocytic anemia Lab results 05/25/24 reviewed: WBC count 3 with normal differential - stable Slightly worsening anemia with Hgb 11.8 and MCV 96.6 No renal insufficiency present No iron, vitamin b12 or folic acid deficiency present Possibility of underlying bone marrow disorder such as MDS Lab orders placed for further evaluation or worsening anemia include retic panel, ldh, SPEP, serum immunofixation, serum FLC, immunoglobulin quant and TSH. If above work up unremarkable patient is not interested in pursuing any invasive evaluation at thistime such as bone marrow biopsy. Will continue with lab monitoring which is reasonable with mild nature of cytopenias. RTC in six months with provider with cbc/diff and cmp ROSSANA Jeffrey documented in this encounter Nursing Notes * Pamela Deal CMA - 06/08/2024 11:00 AM EDT Patient identifed by name and birthdate Do you have any concerns about pain management for today's visit? No Living Will or Advance Directive for Health Care as noted on the problem list. [facility] is a way you can talk to your provider on line through e-mail. Would you like to sign up? I can activate it for you? ALREADY ACTIVE Filed Vitals: 06/08/24 1058 BP: 120/67 Pulse: 64 Temp: 36.4 C (97.6 F) TempSrc: Oral SpO2: 92% Weight: 79.3 kg (174 lb 14.4 oz) Patient was instructed to not get up on the exam table/exam chair until directed and assisted by their provider; patient is to remain seated in the chair/ wheelchair/ exam table/ exam chair for fall prevention and safety reasons. Patient is aware to have assistance to step down off exam table/exam chair with personnel. Patient voiced full comprehension of instructions. documented in this encounter Plan of Treatment Upcoming Encounters Date Type Department Care Team (Late st Contact Info) Description 06/29/2024 7:05 AM EDT Laboratory Lab Mobile Phlebotomy [facility] [address] [facility] [place] [address] [facility] Mobile Home Draw [address] [facility] [place] [address] 06/30/2024 6:00 AM EDT Anticoagulation Centralized Clinical Pharmacy Services, Roland Multani [address] [place] [address] [place] [address] [facility], [address] [place] [address] 07/06/2024 12:00 PM EDT Office Visit Care at Home [address] [place], [place] [id number] Debo Perkins PA-C [address] [place] [address] 07/31/2024 2:30 PM EST Office Visit Cardiology, [facility] [address] [facility] [place] [address] Ev[facility] [address] [facility] [address] 08/19/2024 10:00 AM EST [facility] [address] [facility] [place] [address] Parth Montero PA-C [address] [facility] [place] [address] 12/07/2024 2:30 PM EDT Office Visit Hematology/Oncology [facility] [place] [address] [facility] [place] [address] Alexandra Bland CRNP [address] [facility] [place] [address] 12/08/2024 5:40 PM EDT Office Visit [facility] [address] [place] [address] Ignacio Prado MD [address] [place] [facility] [place] [address] Scheduled Orders Name Type Priority Associated Diagnoses Orde r Schedule CBC WITH WBC DIFFERENTIAL Lab STAT Leukopenia, unspecified type Anemia, unspecified type Every 6 Months for 2 Occurrences starting 06/10/2024 until 07/09/2025 COMPREHENSIVE METABOLIC PANEL Lab STAT Leukopenia, unspecified type Anemia, unspecified type Every 6 Months for 2 Occurrences starting 06/10/2024 until 07/09/2025 Scheduled Procedures Name Priority Associated Diagnoses Date/Ti [...] Not on filedocumented as of this encounter Results * TSH WITH FREE T4 IF INDICATED (06/08/2024 1:52 PM EDT) TSH 1.58 0.27 - 4.20 uIU/mL 06/09/2024 1:46 PM EDT LABORATORY [facility] Blood Venous blood specimen / Unknown Venipuncture / Unknown 06/08/2024 1:52 PM EDT 06/08/2024 1:52 PM EDT Alexandra TRACY LAB BLOOD ORDER DESIRAE LABORATORY [facility] [address] [place] [address] * IMMUNOGLOBULIN QUANTITATIVE (06/08/2024 1:52 PM EDT) IgG 1,286 700 - 1,600 mg/dL 06/09/2024 10:34 AM EDT LABORATORY [facility] IgA 182 70 - 400 mg/dL 06/09/2024 10:34 AM EDT LABORATORY [facility] IgM 72 40 - 230 mg/dL 06/09/2024 10:34 AM EDT LABORATORY [facility] Blood Venous blood specimen / Unknown Venipuncture / Unknown 06/08/2024 1:52 PM EDT 06/08/2024 1:52 PM EDT Alexandra TRACY LAB BLOOD ORDER DESIRAE Performing Organization Address City/[facility] Co de Phone Number LABORATORY [facility] [address] [place] [address] * (ABNORMAL) SERUM FREE LIGHT CHAINS (06/08/2024 1:52 PM EDT) [facility] [place] Free Light Chains, Serum 35.48(H) 3.30 - 19.40 mg/L 06/09/2024 12:00 PM EDT LABORATORY [facility] Lambda Free Light Chains, Serum 20.58 5.71 - 26.30 mg/L 06/09/2024 12:00 PM EDT LABORATORY [facility] [place] Lambda Free Light Chains Ratio 1.72(H) 0.26 - 1.65 06/09/2024 12:00 PM EDT LABORATORY [facility] Blood Venous blood specimen / Unknown Venipuncture / Unknown 06/08/2024 1:52 PM EDT 06/08/2024 1:52 PM EDT Alexandra TRACY LAB BLOOD ORDER DESIRAE Performing Organization Address [facility] Co de Phone Number LABORATORY [facility] [address] [place] [address] * SERUM IMMUNOFIXATION (06/08/2024 1:52 PM EDT) [facility] Normal/Abnormal Normal Normal 7:41 AM EDT LABORATORY C Immunofixation Interpretation No monoclonal gammopathy detected. 06/10/2024 7:41 AM EDT LABORATORY [facility] Blood Venous blood specimen / Unknown Venipuncture / Unknown 06/08/2024 1:52 PM EDT 06/08/2024 1:52 PM EDT Alexandra TRACY LAB BLOOD ORDER DESIRAE Performing Organization Address [facility]/ZIP Co de Phone Number LABORATORY [facility] [address] [place] [address] * (ABNORMAL) SERUM PROTEIN ELECTROPHORESIS REFLEX PROFILE (06/08/2024 1:52 PM EDT) [facility] Normal/Abnormal Normal Normal 7:41 AM EDT LABORATORY [facility] Protein 7.2 6.0 - 8.3 g/dL 06/10/2024 7:41 AM EDT LABORATORY [facility] Albumin 3.57 3.30 - 4.40 g/dL 06/10/2024 7:41 AM EDT LABORATORY [facility] Alpha-1 Globulin 0.36(H) 0.10 - 0.30 g/dL 06/10/2024 7:41 AM EDT LABORATORY [facility] Alpha-2 Globulin 1.02(H) 0.60 - 1.00 g/dL 06/10/2024 7:41 AM EDT LABORATORY [facility] Beta-Globulin 0.85 0.80 - 1.30 g/dL 06/10/2024 7:41 AM EDT LABORATORY [facility] Gamma-Globulin 1.41 0.70 - 1.70 g/dL 06/10/2024 7:41 AM EDT LABORATORY [facility] Electrophoresis Interpretation No paraprotein detected. 06/10/2024 7:41 AM EDT LABORATORY [facility] Blood Venous blood specimen / Unknown Venipuncture / Unknown 06/08/2024 1:52 PM EDT 06/08/2024 1:52 PM EDT Alexandra TRACY LAB BLOOD ORDER DESIRAE LABORATORY [facility] [address] [place] [address] * LD (06/08/2024 1:52 PM EDT) LD 172 <=250 U/L 06/09/2024 6:5 0 AM EDT LABORATORY [facility] Blood Venous blood specimen / Unknown Venipuncture / Unknown 06/08/2024 1:52 PM EDT 06/08/2024 1:52 PM EDT Alexandra TRACY LAB BLOOD ORDER DESIRAE LABORATORY [facility] [address] [place] [address] * RETICULOCYTE PANEL (06/08/2024 1:52 PM EDT) Reticulocyte Percent 1.07 0.80 - 1.90 % 06/09/2024 12:03 AM EDT LABORATORY [facility] Absolute Reticulocyte 40.3 31.3 - 100.1 K/uL 06/09/2024 12:03 AM EDT LABORATORY [facility] Immature Reticuloctye Fraction 13.8 2.5 - 20.6 % 06/09/2024 12:03 AM EDT LABORATORY [facility] Reticulocyte Hemoglobin 32.6 29.7 - 37.4 pg 06/09/2024 12:03 AM EDT LABORATORY [facility] Blood Venous blood specimen / Unknown Venipuncture / Unknown 06/08/2024 1:52 PM EDT 06/08/2024 1:52 PM EDT Alexandra TRACY LAB BLOOD ORDER DESIRAE LAB[facility] [address] [place] [address] documented in this encounter Visit Diagnoses Diagnosis Leukopenia, unspecified type- Primary Anemia, unspecified type documented in this encounter Advance Directives Documents on File Type Date Recorded 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
--- OUTSIDE RECORDS SUMMARY | 2024-11-28 01:24 | External Medical Summary | Summary of Care ---
Author Name Unknown Organization [facility] Address [address] [place] [address] Phone [phone] Care Team Providers Care Sweeper Brush Maker Machine Name Role Phone Ignacio Prado MD Primary Care Provider +1- [phone] Reason for Visit * Reason Comments Outpatient Testing Encounter Details Date Type Department Care Team (Latest Contact Info) Description 06/08/2024 1:50 PM EDT Laboratory Laboratory, [place] [address] [place] [address] [place], Laboratory [address] [place] [address] Anticoagulation management encounter; Leukopenia, unspecified type; Anemia, unspecified type Allergies No known active allergiesdocumented as of this encounter (statuses as of 06/08/2024) Medications Medication Sig Dispensed Refills Start Date End Date Status NIZORAL SHAM 2 % EXIndications:Seborr heic dermatitis, unspecified as directed 1 5 03/13/2002 Active NASAL SALINE 0.65 % NA SOLNIndications: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,Other acute sinusitis,Postnasal drip flush each nostril morning and night and every 2-4 hrs as needed for nasal dryness or congestion 1 Bottle 3 11/17/2010 Active HYDROCORTISONE 2.5 % EX CREA to affected areas as needed 08/23/2014 Active metoprolol succinate XL (TOPROL XL) 25 MG [id number]:Pers istent atrial fibrillation (HCC) Take 0.5 Tabs [...] (Coumadin)Indication s:Persistent atrial fibrillation (HCC),Anticoagulatio n management encounter,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 Active LORazepam 0.5 MG Oral Tablet (Ativan) Take 1 Tablet by mouth 3 times a day as needed for Anxiety. 60 Tablet 05/28/2024 Active documented as of this encounter (statuses as of 06/08/2024) Active Problems Problem Noted Date Diagnosed Date Pulmonary emphysema 12/02/2023 Moderate dementia with psychotic disturbance HTN, goal below 130/80 09/23/2023 H/O right inguinal hernia repair 07/01/2023 At risk for falls 07/01/2023 Nocturia 07/01/2023 Chronic sinusitis 07/01/2023 Atherosclerosis of [place] artery of lower extrem ity 07/01/2023 Cerebral atrophy 07/01/2023 Coronary artery disease invo lving [place] grande coronary artery of [place] heart without angina pectoris 07/01/2023 BPH with [...] as of this encounter (statuses as of 06/08/2024) Resolved Problems Problem Noted Date Diagnosed Date [...] as of this encounter (statuses as of 06/08/2024) Immunizations Name Administration Dates Next Due COVID-19 [...] Care Team (Late st Contact Info) Description 06/18/2024 7:00 AM EDT Laboratory Lab [facility] [address] [place] [address] [facility], [facility] Mobile Home Draw [address] [facility] [place] [address] 06/19/2024 6:00 AM EDT Anticoagulation Centralized Clinical [facility], Roland Multani [address] [place] [address] [place] [address] [facility], [address] [place] [address] 07/06/2024 12:00 PM EDT Office Visit Care at Home [address] [place], [place] [phone] Debo Perkins PA-C [address] [place], [place] [phone] 07/31/2024 2:30 PM EST Office Visit Cardiology, [facility] [address] [place] [address] Evy Cummings CRNP 400 [facility] [place] [address] 08/19/2024 10:00 AM EST Office Visit [facility] [address] Parth Montero PA-C 132 [place] [address] 12/07/2024 2:30 PM EDT Office Visit Hematology/Oncology [facility] [address] [facility] [place] [phone] Alexandra Bland CRNP 400 [facility] [place] [address] 12/08/2024 5:40 PM EDT Office Visit [address] [address] Ignacio Prado MD [address] [place] [address] Pending Results Name Type Priority Associated Diagnoses Date /Time PT INR Lab Routine Anticoagulation management encounter 06/08/2024 1:52 PM EDT CBC WITH WBC DIFFERENTIAL Lab Routine Leukopenia, unspecified type Anemia, unspecified type 06/08/2024 1:52 PM EDT RETICULOCYTE PANEL Lab Routine Leukopenia, unspecified type Anemia, unspecified type 06/08/2024 1:52 PM EDT LD Lab Routine Leukopenia, unspecified type Anemia, unspecified type 06/08/2024 1:52 PM EDT SERUM PROTEIN ELECTROPHORESIS REFLEX PROFILE Lab Routine Leukopenia, unspecified type Anemia, unspecified type 06/08/2024 1:52 PM EDT SERUM IMMUNOFIXATION Lab Routine Leukopenia, unspecified type Anemia, unspecified type 06/08/2024 1:52 PM EDT SERUM FREE LIGHT CHAINS Lab Routine Leukopenia, unspecified type Anemia, unspecified type 06/08/2024 1:52 PM EDT IMMUNOGLOBULIN QUANTITATIVE Lab Routine Leukopenia, unspecified type Anemia, unspecified type 06/08/2024 1:52 PM EDT TSH WITH FREE T4 IF INDICATED Lab Routine Leukopenia, unspecified type Anemia, unspecified type 06/08/2024 1:52 PM EDT CBC Lab Routine Leukopenia, unspecified type Anemia, unspecified type 06/08/2024 1:52 PM EDT DIFFERENTIAL, AUTOMATED Lab Routine Leukopenia, unspecified type Anemia, unspecified type 06/08/2024 1:52 PM EDT Scheduled Procedures Name Priority Associated Diagnoses Date/Ti [...] Additional history exists COVID-19 Vaccine (4 - season) 2024 08/14/2021, 12/12/2020, 11/14/2020 Adult Wellness Visit 07/01/2024 07/01/2023 Zoster Vaccines (2 of 3) 09/09/2024 09/21/2015, 11/12/2004 Postponed from 11/16/2015 (Other) Depression Screening 09/18/2024 [...] as of this encounter Visit Diagnoses Diagnosis Anticoagulation management encounter Encounter for therapeutic drug monitoring Leukopenia, unspecified type Anemia, unspecified type documented in this encounter Advance Directives Documents on File Type Date Recorded Patient Perioperative Assistant Expl anation Advance Directives and Living Will 03/01/2021 ADVANCE DIRECTIVE / LIVING WILL Power of Car Pick Up Driver 03/01/2021 POWER OF A TTORNEY Care Teams Sweeper Brush Maker Machine Relationship Specialty Start Date End Date Ignacio Prado MD [address] [place] [address] PCP - General 07/04/00 documented as of this encounter
--- OUTSIDE RECORDS SUMMARY | 2024-11-28 01:24 | External Medical Summary | Summary of Care ---
Author Name Unknown Organization [facility] Address [address] [place] [address] Phone [phone] Care Team Providers Care Equipment Sterilizer Name Role Phone Khoa Bunn MD Primary Care Provider +1- [phone] Reason for Visit * Reason Onset Date Comments Medication Refill 06/15/2024 Encounter Details Date Type Department Care Team (Late st Contact Info) Description 06/15/2024 Refill [facility] [address] [place] [address] Khoa Bunn MD [address] [place] [address] Prediabetes Allergies No known active allergiesdocumented as of this encounter (statuses as of 06/17/2024) Medications Medication Sig Dispensed Refills Start Date [...] metoprolol succinate XL (TOPROL XL) 25 MG [id number]:Per sistent atrial fibrillation (HCC) Take 0.5 Tabs [...] (Coumadin)Indicatio ns:Persistent atrial fibrillation (HCC),Anticoagulati on management encounter,long-term current use of anticoagulant therapy TAKE 1 TO 2 TABLETS BY MOUTH ONCE DAILY DIRECTED BY COUMADIN CLINIC 180 Tablet 3 07/05/2023 Active Cholecalciferol 25 MCG (1000 UT) Oral Tablet Disintegrating Take 25 mcg by mouth at bedtime. Active LORazepam 0.5 MG Oral Tablet (Ativan) Take 1 Tablet by mouth 3 times a day as needed for Anxiety. 60 Tablet 06/17/2024 Active LORazepam 0.5 MG Oral Tablet (Ativan) Take 1 Tablet by mouth 3 times a day as needed for Anxiety. 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 07/01/2023 BPH with [...] as of this encounter (statuses as of 06/17/2024) Resolved Problems Problem Noted Date Diagnosed Date [...] as of this encounter (statuses as of 06/17/2024) Immunizations Name Administration Dates Next Due COVID-19 [...] Telephone Encounter - Khoa Bunn MD - 06/17/2024 9:31 AM EDTSigned Prescriptions: Disp Refills LORazepam 0.5 MG Oral Tablet (Ativan) 60 Tab*0 Sig: Take 1 Tablet by mouth 3 times a day as needed for Anxiety.Authorizing Provider: KHOA BUNN * Telephone Encounter - Tayla Leggett [facility] - 06/17/2024 8:58 AM EDT Pending Prescriptions: Disp Refills LORazepam 0.5 MG Oral Tablet (Ativan) 60 Tab*0 Sig: Take 1 Tablet by mouth 3 times a day as needed for Anxiety. * Telephone Encounter - Tayla Leggett [facility] - 06/17/2024 8:57 AM EDT I have reviewed the patients controlled substance dispensing history in the Prescription Drug Monitoring Program in compliance with the [facility] regulations before prescribing a controlled substance. PDMP checked on 06/17/2024. Pending Prescriptions: Disp Refills LORazepam 0.5 MG Oral Tablet (Ativan) 60 Tab*0 Sig: Take 1 Tablet by mouth 3 times a day as needed for Anxiety. Last Visit: 06/08/2024 (in office), Visit date not found (telemedicine) Next Visit: 12/08/2024 Date medication was last filled: 05/28 Date medication is due for refill: 06/17 Pharmacy: [facility] [address] Is this request for a controlled substance? Yes and Urine Drug Screen Not completed Toxicology results: No results found for this or any previous visit. Please approve if appropriate. Tayla Nguyen PharmD Clinical Pharmacist Centralized Clinical Pharmacy Services ([facility]) [phone] 06/17/2024,8:58 AM documented in this encounter Plan of Treatment Upcoming Encounters Date Type Department Care Team (Late st Contact Info) Description 06/29/2024 7:05 AM EDT Laboratory Lab [facility] [place] [address] [facility], [facility] Mobile Home Draw [address] [place] [address] 06/30/2024 6:00 AM EDT Anticoagulation Centralized Clinical Pharmacy Services, Roland Multani [address] [place] [address] [place] [address] [facility], [address] [place] [address] 07/06/2024 12:00 PM EDT Office Visit Care at Home [address] [place], [place] [phone] Debo Perkins PA-C [address] [place], [place] [phone] 07/31/2024 2:30 PM EST Office Visit Cardiology, [facility] 132 [facility] [place] [address] Evy Cummings CRNP [address] [place] [address] [place] [id number] 08/19/2024 10:00 AM EST Office Visit Cardiology, [facility] [address] [facility] [place] [address] Parth Montero PA-C [address] [place] [address] 12/07/2024 2:30 PM EDT Office Visit [facility] [place] [address] [facility] [phone] Alexandra Bland CRNP [address] [place] [address] 12/08/2024 5:40 PM EDT Office Visit [facility] [address] [place] [address] Khoa Bunn MD [address] [place], [place] [phone] Scheduled Orders Name Type Priority Associated Diagnoses Orde r Schedule HEMOGLOBIN A1C Lab Routine Prediabetes Expected: 06/17/2024 (Approximate), Expires: 07/18/2025 Scheduled Procedures Name Priority Associated Diagnoses Date/Ti [...] as of this encounter Visit Diagnoses Diagnosis Prediabetes Other abnormal glucose documented in this encounter Advance Directives Documents on File Type Date Recorded Patient Corporate Development Associate Expl anation Advance Directives and Living Will 03/01/2021 ADVANCE DIRECTIVE / LIVING WILL Power of Property Disposal Manager 03/01/2021 POWER OF A TTORNEY Care Teams Equipment Sterilizer Relationship Specialty Start Date End Date Khoa Bunn MD [address] [place] [address] PCP - General 07/04/00 documented as of this encounter
--- OUTSIDE RECORDS SUMMARY | 2024-11-28 01:24 | External Medical Summary | Summary of Care ---
Author Name Unknown Organization [facility] Address [address] [facility] [place] [address] Phone [phone] Care Team Providers Care Tearoom Host/Hostess Name Role Phone Ignacio Prado MD Primary Care Provider +1- [phone] Reason for Visit * Reason Comments Dosage Adjustment Via Phone (anticoag Cl inic) Encounter Details Date Type Department Care Team (Late st Contact Info) Description 06/09/2024 6:00 PM EDT Anticoagulation Centralized Clinical Pharmacy Services, Roland Multani [address] [place] [address] [place] [address] [facility], [address] [place] [address] Chronic atrial fibrillation (HCC)* Allergies No known active allergiesdocumented as of this encounter (statuses as of 06/09/2024) Medications Medication Sig Dispensed Refills Start Date End Date Status NIZORAL SHAM 2 % EXIndications:Seborr heic dermatitis, unspecified as directed 1 5 03/13/2002 Active NASAL SALINE 0.65 % NA SOLNIndications:Motor Equipment Commanding Officer 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,Other acute sinusitis,Postnasal drip flush each nostril morning and night and every 2-4 hrs as needed for nasal dryness or congestion 1 Bottle 3 11/17/2010 Active HYDROCORTISONE 2.5 % EX CREA to affected areas as needed 08/23/2014 Active metoprolol succinate XL (TOPROL XL) 25 MG [id number]:Pers istent atrial fibrillation (HCC) Take 0.5 Tabs [...] (Coumadin)Indication s:Persistent atrial fibrillation (HCC),Anticoagulatio n management encounter,prison current use of anticoagulant therapy TAKE 1 [...] as of this encounter (statuses as of 06/09/2024) Active Problems Problem Noted Date Diagnosed Date [...] as of this encounter (statuses as of 06/09/2024) Resolved Problems Problem Noted Date Diagnosed Date [...] as of this encounter (statuses as of 06/09/2024) Immunizations Name Administration Dates Next Due COVID-19 [...] money to buy more. Never true 09/18/19 Within the past 12 months, t he [...] of this encounter Progress Notes * Srikanth Simons, [facility] - 06/09/2024 1:06 PM EDT Contacts Contact Date/Time Type Contact Phone/Fax 06/09/2024 01:03 PM EDT Phone (Outgoing) JONNY CARREON (Emergency Contact) [phone] (H) spoke with Jonny Subjective Patient Findings Negatives: Signs/symptoms of thrombosis, [...] noted by Pharmacist: Yes Srikanth Simons CPhT 06/09/2024, 1:06 PM * Noelle Harding RPh - 06/09/2024 12:50 PM EDT Images from the original note were not included. Coumadin Clinic (region specific) Objective Current Warfarin Dose As of 06/09/2024 Warfarin maintenance plan: 2.5 mg (2.5 mg x 1) every Tue, Val, Sat; 3.75 mg (2.5 mg x 1.5) all other days INR Result As of 06/09/2024 INR goal: 2.0-3.0 INR used for dosin.1 (06/08/2024) Assessment & Plan Warfarin Plan As of 06/09/2024 Full warfarin instructions: 06/09: Hold; Otherwise 2.5 mg every Tue, Val, Sat; 3.75 mg all other days Next INR check: 06/29/2024 GML appt previously scheduled for 06/18 will be cancelled since INR was drawn yesterday. Repeat PT/INR in 3 week(s) Weekly dose: not changed Additional Dosing Information: Description L [facility] Tech to contact patient with dose instructions as noted. Noelle Harding RPh 06/09/2024, 12:51 PM documented in this encounter Plan of Treatment Upcoming Encounters Date Type Department Care Team (Terry Contact Info) Description 07/06/2024 12:00 PM EDT Office Visit Care at Home [address] [place] [address] Debo Perkins PA-C [address] [facility] [place] [address] 07/31/2024 2:30 PM EST Office Visit Cardiology, [facility] 132 [facility] [place] [address] Evy Cummings CRNP [address] [place] [address] 08/19/2024 10:00 AM EST Office Visit Cardiology, [facility] 132 [facility] [place] [address] Parth Montero PA-C 132 [facility] [place] [address] 12/07/2024 2:30 PM EDT Office Visit Hematology/Oncology [facility] [address] [place] [address] Alexandra Bland CRNP [address] [place] [address] 12/08/2024 5:40 PM EDT Office Visit [facility] [address] [place] [phone] Ignacio Prado MD [address] [place], [place] [phone] Scheduled Procedures Name Priority Associated Diagnoses Date/Ti [...] Documents on File Type Date Recorded Patient Peoplesoft Hr Developer Expl anation Advance Directives and Living Will 03/01/2021 ADVANCE DIRECTIVE / LIVING WILL Power of Permit Review Assistant 03/01/2021 POWER OF A TTORNEY Care Teams Tearoom Host/Hostess Relationship Specialty Start Date End Date Ignacio Prado MD [address] [place] [address] PCP - General 07/04/00 documented as of this encounter
--- OUTSIDE RECORDS SUMMARY | 2024-11-28 01:24 | External Medical Summary | Summary of Care ---
Author Name Unknown Organization [facility] Address [address] [place] [address] Phone [phone] Care Team Providers Care Wood Model Builder Name Role Phone Ignacio Prado MD Primary Care Provider +1- [phone] Reason for Visit * Reason Comments Follow Up Patient is here toda y for a six month follow up.Patient has labs that need done today. 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; BPH with obstruction/lower urinary tract symptoms Allergies No known active allergiesdocumented as of this encounter (statuses as of 06/22/2024) Medications Medication Sig Dispensed Refills Start Date [...] metoprolol succinate XL (TOPROL XL) 25 MG [id number]:Per sistent atrial fibrillation (HCC) Take 0.5 Tabs [...] (Coumadin)Indicatio ns:Persistent atrial fibrillation (HCC),Anticoagulati on management encounter,USP current use of anticoagulant therapy TAKE 1 [...] as of this encounter (statuses as of 06/22/2024) Active Problems Problem Noted Date Diagnosed Date Pulmonary emphysema 12/02/2023 Moderate dementia with psychotic disturbance HTN, goal below 130/80 09/23/2023 H/O right inguinal hernia repair 07/01/2023 At risk for falls 07/01/2023 Nocturia 07/01/2023 Chronic sinusitis 07/01/2023 Atherosclerosis of hamilton artery of lower extrem ity 07/01/2023 Cerebral atrophy 07/01/2023 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 (Household - for [...] Sign Reading Time Taken Comments Blood Pressure 114/62 06/08/2024 1:10 PM EDT Pulse 80 06/08/2024 1:10 PM EDT Temperature 35.8 C (96.4 F) 06/08/2024 1:10 PM ED T Respiratory Rate 16 06/08/2024 1:10 PM EDT Oxygen Saturation 93% 06/08/2024 1:10 PM EDT Inhaled Oxygen Concentration - - Weight 79.1 kg (174 lb 6.4 oz) 06/08/2024 1:10 P M EDT Height 175.3 cm (5' 9") 06/08/2024 1:10 PM EDT Body Mass Index 25.75 06/08/2024 1:10 PM EDT documented in this encounter Progress Notes * Ignacio Prado MD - 06/22/2024 9:17 PM EDT Subjective: Dimitrios Hernandez is a 84 year old male here today for Chief Complaint Patient presents with Follow Up Patient is here today for a six month follow up. Patient has labs that need done today. Patient presents for routine six-month follow-up. Labs are ordered and he plans to get them today. Biggest issue is his progressive dementia. The family is trying to help him stay at home for as longas possible. He should no longer drive. The family tries to reinforce this. He and his continue to decline a return to Neurology. No recent injuries or hospitalizations. Past Medical History: Diagnosis Date Chronic rhinitis [...] diverticulosis repeat 5 yrs/[facility] AR ARTHRP ACETBLR/PROX FEM PROSTC AGRFT/ALGRFT [...] facility-administered medications for this visit. Objective: BP 114/62 | Pulse 80 | Temp 35.8 C (96.4 F) (Tympanic) | Resp 16 | Ht 1.753 m (5' 9") | Wt 79.1 kg (174 lb 6.4 oz) | SpO2 93% | BMI 25.75 kg/m | BSA 1.96 m GEN: NAD HEENT: Benign NECK: Supple with no LAD, TM, JVD CHEST: CTA B CV: RRR ABD: Soft, NT/ND, No HSM, NABS EXT: No c,c,e Assessment and Plan: Moderate dementia with psychotic disturbance, unspecified dementia type (HCC) (Primary) -continue current treatments. Again, offered return to Neurology which they declined. Continue to offer support. They are aware he should not be driving. 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 | For: recheck 30 min with pt and chart review. Ignacio Pardo MD documented in this encounter Nursing Notes * Pamela Duke, MED ASSIST - 06/08/2024 1:17 PM EDT The patient has been properly identified by confirmation of name and date of . Chief Complaint Patient presents with Follow Up Patient is here today for a six month follow up. Patient has labs that need done today. documented in this encounter Plan of Treatment Upcoming Encounters Date Type Department Care Team (Late st Contact Info) Description 06/24/2024 2:00 PM EDT Office Visit Care at Home [address] [place] [address] Debo Perkins PA-C [address] [place], [place] [phone] 06/29/2024 7:05 AM EDT Laboratory Lab Mobile Phlebotomy [facility] [address] [facility] [address] [place] [address] [facility], [facility] Mobile Home Draw [address] [place] [address] 06/30/2024 6:00 AM EDT Anticoagulation Centralized Clinical Pharmacy Services, Roland Multani [address] [place] [address] [place] [address] [facility], [address] [place] [address] 07/31/2024 2:30 PM EST Office Visit Cardiology, [facility] 132 [facility] [place] [address] Evy Cummings CRNP 400 [facility] [place] [address] 08/19/2024 10:00 AM EST Office Visit Cardiology, [facility] 132 [facility] [place] [address] Parth Montero PA-C 132 [facility] [place] [address] 12/07/2024 2:30 PM EDT Office Visit Hematology/Oncology [facility] [place] [address] [place], [place] [address] Alexandra Bland CRNP [address] [place] [address] 12/08/2024 5:40 PM EDT Office Visit [facility] [address] [facility] [address] Ignacio Prado [facility] [address] [facility] [id number] Scheduled Procedures Name Priority Associated Diagnoses Date/Ti [...] psychotic disturbance, unspecified dementia type (HCC)- Primary Dyslipidemia, goal LDL below 100 Other and unspecified hyperlipidemia Chronic atrial fibrillation (HCC) Atrial fibrillation 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
--- OUTSIDE RECORDS SUMMARY | 2024-11-28 01:25 | External Medical Summary ---
Author Name Unknown Address Unknown Organization [id number]:[place] [place] [facility] [place] [address] Laboratory Report Ordering Provider Test Date Status LUCAS ALBARRAN 06/08/2024 13:52:00 Final Observation Date Value Abnormality Reference (Units ) Status [place] light chains, Free, Serum 06/08/2024 13:52:00 35.48 Above high normal 3.30-19.40 (mg/L) Final [place] light chains, free, Serum 06/08/2024 13:52:00 20.58 5.71-26.30 (mg/L) Final KAPPA LAMBDA [facility] RATIO 06/08/2024 13:52:00 1.72 Above high normal 0.26-1.65 Final Performing Location [facility] [place] [facility] [place] [address]
--- OUTSIDE RECORDS SUMMARY | 2024-11-28 01:25 | External Medical Summary ---
Author Name Unknown Address Unknown Organization [id number]:LABORATORY [facility] [place] - [address] [place] [address] Laboratory Report Ordering Provider Test Date Status DEIONLUCAS 06/08/2024 13:52:00 Final Observation Date Value Abnormality Reference (Units ) Status TSH 06/08/2024 13:52:00 1.58 0.27-4.20 (uIU/mL) Final Performing Location [facility] [address] [facility] [address]
--- OUTSIDE RECORDS SUMMARY | 2024-11-28 01:25 | External Medical Summary ---
Author Name Unknown Address Unknown Organization [id number]:[facility]ORY [facility] [place] [address] [place] [address] Laboratory Report Ordering Provider Test Date Status LUCAS ALBARRAN 06/08/2024 13:52:00 Final Observation Date Value Abnormality Reference (Units ) Status WBC, Total 06/08/2024 13:52:00 4.58 4.00-10.80 (K/uL) Final RBC 06/08/2024 13:52:00 3.77 4.50-5.25 (M/uL) Final Hemoglobin 06/08/2024 13:52:00 11.7 Below low normal 14.0-16.8 (g/dL) Final HCT 06/08/2024 13:52:00 37.9 Below low normal 40.0-48.4 (%) Final MCV 06/08/2024 13:52:00 100.5 82.0-99.5 (fL) Final MCH 06/08/2024 13:52:00 31.0 27.0-34.0 (pg) Final MCHC 06/08/2024 13:52:00 30.9 32.0-36.0 (g/dL) Final RDW 06/08/2024 13:52:00 12.5 11.5-15.5 (%) Final Platelets 06/08/2024 13:52:00 181 140-400 (K/uL) Final MPV 06/08/2024 13:52:00 11.0 6.6-11.1 (fL) Final Nucleated erythrocytes/100 leukocytes [Ratio] in Blood by Automated count 06/08/2024 13:52:00 0 <=0 (/100 WBCs) Final Performing Location LABORATORY [facility] [place] - [address] [place] [address]
--- OUTSIDE RECORDS SUMMARY | 2024-11-28 01:25 | External Medical Summary ---
Author Name Unknown Address Unknown Organization [id number]:[place] [facility] [place] [address] [facility] [address] Laboratory Report Ordering Provider Test Date Status LUCAS ALBARRAN 06/08/2024 13:52:00 Final Observation Date Value Abnormality Reference (Units) Status PARAPROTEIN NORMAL/ABNORMAL 06/08/2024 13:52:00 Normal Normal Final Protein 06/08/2024 13:52:00 7.2 6.0-8.3 (g/dL) Final Albumin/Protein.total [Pure mass fraction] in Serum or Plasma by Electrophoresis 06/08/2024 13:52:00 3.57 3.30-4.40 (g/dL) Final Alpha 1 globulin/Protein.tota l [Pure mass fraction] in Serum or Plasma by Electrophoresis 06/08/2024 13:52:00 0.36 Above high normal 0.10-0.30 (g/dL) Final Alpha 2 globulin/Protein.tota l [Pure mass fraction] in Serum or Plasma by Electrophoresis 06/08/2024 13:52:00 1.02 Above high normal 0.60-1.00 (g/dL) Final Beta globulin/Protein.tota l [Pure mass fraction] in Serum or Plasma by Electrophoresis 06/08/2024 13:52:00 0.85 0.80-1.30 (g/dL) Final Gamma globulin/Protein.tota l [Pure mass fraction] in Serum or Plasma by Electrophoresis 06/08/2024 13:52:00 1.41 0.70-1.70 (g/dL) Final Protein Fractions [Interpretation] in Serum or Plasma by Electrophoresis Narrative 06/08/2024 13:52:00 No paraprotein detected. Final Performing Location [place] [facility] [place] [address] [facility] [address]
--- OUTSIDE RECORDS SUMMARY | 2024-11-28 01:25 | External Medical Summary ---
Author Name Unknown Address Unknown Organization [id number]:[place] [place] [address] [place] [address] Laboratory Report Ordering Provider Test Date Status LUCAS ALBARRAN 06/08/2024 13:52:00 Final Observation Date Value Abnormality Reference (Units ) Status IgG 06/08/2024 13:52:00 2136 [id number] ( mg/dL) Final IgA 06/08/2024 13:52:00 182 70-400 (mg /dL) Final IgM 06/08/2024 13:52:00 72 40-230 (mg /dL) Final Performing Location LABORATORY [facility] - [address] [place] [address]
--- OUTSIDE RECORDS SUMMARY | 2024-11-28 01:25 | External Medical Summary ---
Author Name Unknown Address Unknown Organization [id number]:[facility]ORY [facility] [place] - [address] [place] [address] Laboratory Report Ordering Provider Test Date Status BONNIEEBONI 06/08/2024 13:52:00 Final Standing order for pt/inr. < br/>Please draw pt/inr every 1 to 4 weeks as requested
Results to [facility]

Warfarin Therapy
INR: 2.0-3.0 conventional anticoagulation
INR: 2.5-3.5 high intensity anticoagulation Observation Date Value Abnormality Reference (Units ) Status PT 06/08/2024 13:52:00 32.4 Above high normal 11 .6-15.2 (seconds) Final INR 06/08/2024 13:52:00 3.1 Above high normal 0. 8-1.2 Final Performing Location LAB[facility]ATORY [facility] [place] - [address] [place] [address]
--- OUTSIDE RECORDS SUMMARY | 2024-11-28 01:25 | External Medical Summary ---
Author Name Unknown Address Unknown Organization [id number]:[facility] [place] [address] [place] [address] Laboratory Report Ordering Provider Test Date Status LUCAS ALBARRAN 06/08/2024 13:52:00 Final Observation Date Value Abnormality Reference (Units) Status PARAPROTEIN NORMAL/ABNORMAL 06/08/2024 13:52:00 Normal Normal Final Immunofixation for Serum or Plasma 06/08/2024 13:52:00 No monoclonal gammopathy detected. Final Performing Location LAB[facility] [place] [address] [place] [address]
--- OUTSIDE RECORDS SUMMARY | 2024-11-28 01:25 | External Medical Summary | Summary of Care ---
Author Name Unknown Organization [facility] Address [address] [place] [address] Phone [phone] Care Team Providers Care Insole Rounder Name Role Phone Ignacio Prado MD Primary Care Provider [phone] Reason for Referral * Evaluate & Treat - Unlimited Visits (Within 10 days (routine)) - Authorized Specialty Diagnoses / Procedures Referred By Aretha t Referred To Contact Hematology/Oncology / Hematology Oncology Diagnoses Other pancytopenia (HCC) Blade Cuba CRNP [address] [place] [address] Referral ID Status Reason Start Date Expiration Date Visits Requested Visits Authorized [id number] Authorized Specialty Services Required 06/02/2024 11/29/2024 999 999 Question Answer Referral Priority Within 10 days (routine) Where should this appointment be scheduled? [facility] Reason for Referral Other - Please Comment Comments See fax Encounter Details Date Type Department Care Team (Late st Contact Info) Description 06/02/2024 Orders Only Access [facility], [address] *DO NOT REMOVE THIS DEPARTMENT* [place] [id number] Request, External Referral Other pancytopenia (HCC)* Allergies No known active allergiesdocumented as of this encounter (statuses as of 06/02/2024) Medications Medication Sig Dispensed Refills Start Date End Date Status NIZORAL SHAM 2 % EXIndications:Seborr heic dermatitis, unspecified as directed 1 5 03/13/2002 Active NASAL SALINE 0.65 % NA SOLNIndications: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,Other acute sinusitis,Postnasal drip flush each nostril morning and night and every 2-4 hrs as needed for nasal dryness or congestion 1 Bottle 3 11/17/2010 Active HYDROCORTISONE 2.5 % EX CREA to affected areas as needed 08/23/2014 Active metoprolol succinate XL (TOPROL XL) 25 MG [id number]:Pers istent atrial fibrillation (HCC) Take 0.5 Tabs [...] (Coumadin)Indication s:Persistent atrial fibrillation (HCC),Anticoagulatio n management encounter,nursing home current use of anticoagulant therapy TAKE 1 TO 2 TABLETS BY MOUTH ONCE DAILY DIRECTED BY COUMADIN CLINIC 180 Tablet 3 07/05/2023 Active Cholecalciferol 25 MCG (1000 UT) Oral Tablet Disintegrating Take 25 mcg by mouth at bedtime. Active busPIRone HCl 5 MG Oral Tablet (Buspar)Indications: Anxiety Take 1 Tablet by mouth in the morning and 1 Tablet at noon and 1 Tablet before bedtime. 90 Tablet 1 05/11/2024 Active LORazepam 0.5 MG Oral Tablet (Ativan) Take 1 Tablet by mouth 3 times a day as needed for Anxiety. 60 Tablet 05/28/2024 Active documented as of this encounter (statuses as of 06/02/2024) Active Problems Problem Noted Date Diagnosed Date Pulmonary emphysema 12/02/2023 Moderate dementia with psychotic disturbance HTN, goal below 130/80 09/23/2023 H/O right inguinal hernia repair 07/01/2023 At risk for falls 07/01/2023 Nocturia 07/01/2023 Chronic sinusitis 07/01/2023 Atherosclerosis of [place] artery of lower extrem ity 07/01/2023 Cerebral atrophy 07/01/2023 Coronary artery disease invo lving quinault coronary artery of [place] heart without angina pectoris 07/01/2023 BPH with [...] as of this encounter (statuses as of 06/02/2024) Resolved Problems Problem Noted Date Diagnosed Date [...] as of this encounter (statuses as of 06/02/2024) Immunizations Name Administration Dates Next Due COVID-19 [...] Description 06/08/2024 1:00 PM EDT Office Visit Family Practice, [place] [address] [place] [id number] Ignacio Prado MD [address] [place] [address] 06/18/2024 7:00 AM EDT Laboratory [facility] [address] [facility] [address] [facility] [address] [facility] [address] 06/19/2024 6:00 AM EDT Anticoagulation [facility], [facility] [address] [place] [address] [place] [address] [place] [address] 07/06/2024 12:00 PM EDT Office Visit Care at Home [address] [facility] [place] [address] Debo Perkins PA-C [address] [facility] [place] [id number] 07/31/2024 2:30 PM EST Office Visit Cardiology, [facility] [address] [facility] [place] [address] Evy Cummings CRNP [address] [place] [address] 08/19/2024 10:00 AM EST Office Visit Cardiology, [facility] [address] [place] [address] Parth Montero PA-C [address] [place] [address] Scheduled Procedures Name Priority Associated Diagnoses Date/Ti me COLONOSCOPY FLEXIBLE PROXIMAL DIAGNOSTIC Recall History of colon polyps Scheduled Referrals Name Type Priority Associated Diagnoses Orde r Schedule HEMATOLOGY/ONCOLOG Y REFERRAL OP Referral Within 10 days (routine) Other pancytopenia (HCC) Ordered: 06/02/2024 Health Maintenance Due Date Last Done Comments DXA Scan 1940 Alpha-1 Antitrypsin 1958 Albumin/Creatinine Ratio 12/09/2014 12/10/2011 Colonoscopy 05/07/2021 05/07/2016, 10/29/2005 DTap/Tdap Vaccines (2 - Td or Tdap) 01/28/2023 01/28/2013, 02/02/2003, 09/16/1998 HbA1c 06/15/2023 06/15/2022, 10/17, 07/07/2012, Additional history exists *COPD SEVERITY VERIFIED BY PFT 12/04/2023 GFR 01/17/2024 01/16/2023, 05/19, 11/06/2021, Additional history exists COVID-19 Vaccine ( season) 2024 08/14/2021, 12/12/2020, 11/14/2020 Influenza Vaccine (FLU shot) (#1) 2024 06/14/2022, 06/24/2021, 06/22/2020, Additional history exists Adult Wellness Visit 07/01/2024 07/01/2023 Zoster Vaccines (2 of 3) 09/09/2024 09/21/2015, 1112/2004 Postponed from 11/16/2015 (Other) Depression Screening 09/18/2024 09/18/2023 O2 ASSESSMENT COMPLETED IN PAST YEAR FOR COPD 05/06/2025 05/06/2024 RETIRED - COLONOSCOPY-EVERY 5 YRS AGES 18-100 Discontinued 05/07/2016, 10/29/2005 Pneumococcal Vaccine: 65+ Years Completed 07/16/2018, 05/17/2017, 07/20/2015, Additional history exists HPV (Gardasil) Vaccine Aged [...] as of this encounter Visit Diagnoses Diagnosis Other pancytopenia (HCC)- Primary Other pancytopenia documented in this encounter Advance Directives Documents on File Type Date Recorded Patient Insurance And Benefits Clerk Expl anation Advance Directives and Living Will 03/01/2021 ADVANCE DIRECTIVE / LIVING WILL Power of Customer Sales Consultant 03/01/2021 POWER OF A TTORNEY Care Teams Insole Rounder Relationship Specialty Start Date End Date Ignacio Prado MD [address] [place] [address] PCP - General 07/04/00 documented as of this encounter
--- OUTSIDE RECORDS SUMMARY | 2024-11-28 01:25 | External Medical Summary ---
Author Name Unknown Address Unknown Organization K01:LABORATORY [facility] [place] [address] [place] [address] Laboratory Report Ordering Provider Test Date Status LUCAS ALBARRAN 06/08/2024 13:52:00 Final Observation Date Value Abnormality Reference (Units ) Status Retic, % (auto) 06/08/2024 13:52:00 1.07 0.80-1.90 (%) Final Reticulocytes, Absolute 06/08/2024 13:52:00 40.3 31.3-100.1 (K/uL) Final Reticulocyte fraction, immature 06/08/2024 13:52:00 13.8 2.5-20.6 (%) Final Reticulocyte HGB 06/08/2024 13:52:00 32.6 29.7-37.4 (pg) Final Performing Location [place] [facility] [place] [address] [place] [address]
--- OUTSIDE RECORDS SUMMARY | 2024-11-28 01:25 | External Medical Summary ---
Author Name Unknown Address Unknown Organization K01:LABORATORY [facility] [place] [address] [place] [address] Laboratory Report Ordering Provider Test Date Status LUCAS ALBARRAN 06/08/2024 13:52:00 Final Observation Date Value Abnormality Reference (Units ) Status LDH 06/08/2024 13:52:00 172 <=250 (U/L ) Final Performing Location LABORATORY [facility] - [address] [place] [address]
[2024-11-28 01:44] LABS: Basophils # (auto) 0.02 K/uL (0.00-0.20); Basophils % (auto) 0.4 %; Eosinophils % (auto) 4.1 %; Immature Granulocytes # (auto) 0.02 K/uL (0.01-0.20); Immature Granulocytes % (auto) 0.4 %; Lymphocytes % (auto) 4.1 %; Mean Corpuscular Hemoglobin 30.3 pg (25.0-34.0); Mean Corpuscular Hgb Conc 32.3 g/dL (32.0-36.0); Mean Corpuscular Volume 93.9 fL (80.0-100.0); Mean Platelet Volume 9.8 fL (9.4-12.4); Monocytes # (auto) 0.36 K/uL (0.11-0.59); Monocytes % (auto) 7.5 %; Neutrophils # (auto) 4.03 K/uL (1.40-6.50); Neutrophils % (auto) 83.5 %; Platelet Count 158 K/uL (130-400); RDW Coefficient of Variation 12.6 % (11.5-14.5); RDW Standard Deviation 43.7 fL (36.4-46.3); White Blood Count 4.83 K/ul (4.8-10.8)
[2024-11-28 01:55] LABS: iSTAT Hemoglobin 9.5 g/dl (14.0-18.0); iSTAT Ionized Calcium 1.1 mmol/l (1.12-1.32); iSTAT Potassium 4.1 mmol/L (3.3-5.0)
[2024-11-28 02:00] LABS: Albumin Level 3.2 gm/dl (3.4-5.0); BUN Creatinine Ratio 24.7 (10-20); Bilirubin Direct 0.1 mg/dl (0-0.2); Bilirubin,Total 0.5 mg/dl (0.2-1.0); Calcium 8.1 mg/dl (8.6-10.3); Creatinine Clr Calc Pharmacy 62.5 ml/min; Magnesium 1.8 mg/dl (1.7-2.4); Potassium 4.1 mmol/L (3.5-5.1); Total Protein 6.1 gm/dl (6.0-8.3)
[2024-11-28 02:05] LABS: Troponin I High Sensitivity 11.2 pg/ml (0-20)
[2024-11-28 02:10] LABS: INR 1.1 (0.9-1.1); Prothrombin Time 12.2 Seconds (9.0-12.0)
[2024-11-28 02:15] LABS: Thyroid Stimulating Hormone 1.505 uIu/ml (0.300-4.500)
[2024-11-28] MEDS: SODIUM CHLORIDE 0.9% 1,000 ML IV ONE (02:17)
--- NOTE | 2024-11-28 02:31 | XRay Report ---
EXAM: XR chest 1V portable CLINICAL HISTORY: Sepsis. TECHNIQUE: An X-ray image of the chest is obtained in AP projection. COMPARISON: 09/10/2023 FINDINGS: Rotated radiograph. Pulmonary Parenchyma: Bilateral lower lung zone ill-defined patchy opacities. Veiling opacity obscuring the left costophrenic recess questioning a trace of pleural effusion. Heart and Mediastinum: Heart shadow is enlarged. No mediastinal widening or masses. No hilar or mediastinal lymphadenopathy. Bony Thorax: Bony thorax appears intact without fractures or deformities. Degenerative changes of the acromioclavicular joints. Soft Tissues: Soft tissues overlying the chest wall are unremarkable. IMPRESSION: 1. Bilateral lung base opacities that could represent pneumonic infiltrations/aspiration pneumonitis for clinical correlation and follow up if needed. 2. Cardiomegaly. Electronically signed by Arnold Adame 11-28-2024 02:31 AM
[2024-11-28 02:40] LABS: Adenovirus PCR Not Detected (NotDetected); Bordetella parapertussis PCR Not Detected (NotDetected); Bordetella pertussis PCR Not Detected (NotDetected); Chlamydia pneumoniae PCR Not Detected (NotDetected); Coronavirus 229E PCR Not Detected (NotDetected); Coronavirus CoV-2 (COVID19)PCR Not Detected (NotDetected); Coronavirus HKU1 PCR Not Detected (NotDetected); Coronavirus NL63 PCR Not Detected (NotDetected); Coronavirus OC43PCR Not Detected (NotDetected); Human Metapneumovirus PCR Not Detected (NotDetected); Influenza A PCR Not Detected (NotDetected); Influenza B PCR Not Detected (NotDetected); Mycoplasma pneumoniae PCR Not Detected (NotDetected); Parainfluenza Virus 1 PCR Not Detected (NotDetected); Parainfluenza Virus 2 PCR Not Detected (NotDetected); Parainfluenza Virus 3 PCR Not Detected (NotDetected); Parainfluenza Virus 4 PCR Not Detected (NotDetected); Respiratory Syncytial VirusPCR Not Detected (NotDetected); Rhinovirus/Enterovirus PCR Not Detected (NotDetected)
[2024-11-28] MEDS: cefTRIAXone SODIUM 2,000 MG/50 ML BAG IV STA (02:40)
[2024-11-28 02:59] LABS: Appearance Urine Clear (Clear); Bacteria Urine Automated None Seen (None Seen); Bilirubin Urine Negative (Negative); Blood Urine Trace (Negative); Color Urine Dark Yellow; Epithelial Cell Urine Auto 0-2 /hpf (0-2); Glucose Urine UA Negative (Negative); Ketones Urine Trace (Negative); Leukocyte Esterase Urine Negative (Negative); Nitrite Urine Negative (Negative); Protein Urine 1+ (Negative); Specific Gravity Urine 1.023 (1.000-1.030); Urobilinogen Urine Negative (Negative)
[2024-11-28] MEDS: OLANZapine 10 MG/2.1 ML SDV IM STA ×2 (03:48→19:45)
--- NOTE | 2024-11-28 03:55 | History & Physical Report ---
Date of Service November 28, 2024 Assessment & Plan (1) Pneumonia: Plan: 84-year-old male with past medical history significant for dyslipidemia, prediabetes, pulmonary emphysema, aortic root enlargement, chronic atrial fibrillation, nonsustained ventricular tachycardia, history of CAD, hypertension, mild valvular heart disease, diverticulosis of large intestine, BPH, severe DEMENTIA with psychotic disturbance, history of tobacco use, at risk for falls comes from home because of fever and weakness. Patient has severe dementia. Patient is restless. Patient cannot give any history. is in the room. As per patient was having difficulty getting out of bed which he usually does not have problem. When she checked temperature it was 101 F and when checked again it was 103 F and she brought him to the hospital. As per patient has very severe dementia. Sometimes he can know his name. Looking at the PCP's notes patient seems to be having lot of agitation lately at home and was on Ativan and also Zyprexa was added. As per PCP notes there is a plan for consideration for hospice for his dementia. As per no recent nausea or vomiting. Was having some cough. Somewhat constipated. Usually ambulates okay. Eats regular food. Pneumonia Came with fever and weakness Chest x-ray shows bibasilar infiltrations Respiratory BioFire negative MRSA screen pending UA is okay ER empirically started Rocephin and Doxy which will be continued Will monitor the response Speech consult for any aspiration Severe dementia with psychotic disturbance Continue home Zyprexa and Ativan as needed Close monitor for delirium Prediabetes Will check HbA1c levels Will follow sugars BPH On Flomax A-fib History of nonsustained atrial tachycardia On metoprolol succinate Currently no longer on Coumadin Will monitor History of CAD On metoprolol Anemia Hemoglobin 10 Will follow iron studies Vitamin B12 folate levels Will check stool for Hemoccult Hypocalcemia Calcium 8.1 Will follow repeat labs and will check vitamin D levels DVT prophylaxis Lovenox. Monitor h and h Disposition Med/telemetry CODE STATUS full code only if there is chance of recovery as per my discussion with the History of Present Illness Chief Complaint: Fever and weakness Primary Care Provider: Ignacio Prado MD 84-year-old male with past medical history significant for dyslipidemia, prediabetes, pulmonary emphysema, aortic root enlargement, chronic atrial fibrillation, nonsustained ventricular tachycardia, history of CAD, hypertension, mild valvular heart disease, diverticulosis of large intestine, BPH, severe DEMENTIA with psychotic disturbance, history of tobacco use, at risk for falls comes from home because of fever and weakness. Patient has severe dementia. Patient is restless. Patient cannot give any history. is in the room. As per patient was having difficulty getting out of bed which he usually does not have problem. When she checked temperature it was 101 F and when checked again it was 103 F and she brought him to the hospital. As per patient has very severe dementia. Sometimes he can know his name. Looking at the PCP's notes patient seems to be having lot of agitation lately at home and was on Ativan and also Zyprexa was added. As per PCP notes there is a plan for consideration for hospice for his dementia. As per no recent nausea or vomiting. Was having some cough. Somewhat constipated. Usually ambulates okay. Eats regular food. Past medical history. As mentioned above Past surgical history. Colonoscopy. Excision of right submandibular sebaceous cyst. Open repair of right inguinal hernia. Social history. . Quit smoking 1992. Smoked 1.5 packs a day for 30 years. No alcohol use currently. No drug use. Family history. Brother had colon cancer. Mother had diabetes. ME. Father had ME. Sister has diabetes. Daughter has valvular heart disease. Allergies Allergy/AdvReac Type Severity Reaction Status Date / Time No Known Allergies Allergy Verified 09/11/23 00:17 Home Medications Medication Instructions Recorded Confirmed Type lorazepam 1 mg tablet 1 mg PO TID PRN Anxiety 11/28/24 11/28/24 History metoprolol succinate 25 mg 25 mg PO DAILY 11/28/24 11/28/24 History tablet,extended release 24 hr olanzapine 2.5 mg tablet 2.5 mg PO HS 11/28/24 11/28/24 History tamsulosin 0.4 mg capsule 0.4 mg PO HS 11/28/24 11/28/24 History Past Med/Surg History Problem List RSV (respiratory syncytial virus pneumonia) Dementia (Acute) "Early stage" per will be present DOS Pneumonia (Acute) Acute hypoxic respiratory failure (Acute) Hypoxia (Acute) Acute bronchitis (Acute) Right inguinal hernia (Acute) Unexplained weight loss Approximately 30 lbs in past year, following with heme/onc Encounter for pre-operative examination S/P total hip arthroplasty Hematuria, microscopic Medical History Respiratory syncytial virus (RSV) BPH (benign prostatic hyperplasia) Anxiety History of COVID-19 2021, "mild" Non-sustained ventricular tachycardia Hx Poor historian Arthritis Hyperlipidemia Hypertension Atrial fibrillation Chronic, taking warfarin Follows with [facility] cardiology Surgical History History of anesthesia reaction Confusion after hip surgery ("even into the next day") History of total hip arthroplasty right History of surgery submandibular sebaceous cyst excision (1994)- per [facility] records History of colonoscopy Family History Sister Family history of diabetes mellitus Sister Family history of diabetes mellitus Mother Family history of diabetes mellitus Heart disease Brother Family hx of colon cancer Father Heart disease Social History Smoking Status: Unknown if ever smoked Second Hand Exposure: No; Do You Dip or Chew Tobacco: No; Hx Alcohol Use: No Hx Substance Use: No Preferred Language: Pashto Communication Ability: Impaired Communication Ability Comment: dementia Visual Impairment: No Limitations Hearing Ability: Normal Windows Support Engineer Required: No Beliefs That Will Affect Care: None marital status: Current Living Situation: Spouse current occupational status: retired Feels Safe at Home: Yes Diet: regular Assistive Devices: Glasses Review of Systems Review of Systems: Unobtainable due to cognitive status Physical Exam Physical Exam: General- Confused. restless Head- atraumatic Eyes- PERRL. ENT- oropharynx dry Neck- supple, no JVD. Lungs- clear to auscultation no wheezing or crackles Heart- regular rhythm; no murmur, no gallop. Abdomen- normal bowel sounds, soft, nontender, no distension Extremities- no pretibial edema, no erythema seen Neuro- alert, and awake, confused, restless; PERRL, no facial palsy; no dysarthria; moves extremities Results & Data Results & Data Vital Signs (Past 12 Hours) Vital Signs Temp Pulse Resp BP Pulse Ox O2 Del Method O2 Flow Rate 11/28/24 02:45 73 28 H 108/49 L 97 11/28/24 02:30 84 24 108/49 L 94 11/28/24 02:00 77 26 H 101/54 L 96 11/28/24 01:45 87 24 101/54 L 97 11/28/24 01:30 93 H 26 H 103/43 L 96 11/28/24 01:24 94 H 11/28/24 01:23 96 Nasal Cannula 2 11/28/24 01:16 36.6 C 90 18 113/51 L 89 L Room Air 11/28/24 01:15 96 H 26 H 113/51 L 96 Diagnostic Findings Laboratory Results WBC 4.83 K/ul (4.8-10.8) 11/28/24 01:25 RBC 3.30 M/uL (4.70-6.10) L 11/28/24 01:25 Hgb 10.0 g/dl (14.0-18.0) L 11/28/24 01:25 POC Hgb 9.5 g/dl (14.0-18.0) L 11/28/24 01:42 Hct 31.0 % (42.0-52.0) L 11/28/24 01:25 POC Hct 28 % (42-52) L 11/28/24 01:42 MCV 93.9 fL (80.0-100.0) 11/28/24 01:25 MCH 30.3 pg (25.0-34.0) 11/28/24 01:25 MCHC 32.3 g/dL (32.0-36.0) 11/28/24 01:25 RDW Std Deviation 43.7 fL (36.4-46.3) 11/28/24 01:25 RDW Coeff of Wilberto 12.6 % (11.5-14.5) 11/28/24 01:25 Plt Count 158 K/uL (130-400) 11/28/24 01:25 MPV 9.8 fL (9.4-12.4) 11/28/24 01:25 Immature Gran % (Auto) 0.4 % 11/28/24 01:25 Neut % (Auto) 83.5 % 11/28/24 01:25 Lymph % (Auto) 4.1 % 11/28/24 01:25 [place] % (Auto) 7.5 % 11/28/24 01:25 Eos % (Auto) 4.1 % 11/28/24 01:25 Baso % (Auto) 0.4 % 11/28/24:25 Neut # (Auto) 4.03 K/uL (1.40-6.50) 11/28/24 01:25 Lymph # (Auto) 0.20 K/uL (1.20-3.40) L 11/28/24 01:25 [place] # (Auto) 0.36 K/uL (0.11-0.59) 11/28/24 01:25 Eos # (Auto) 0.20 K/uL (0.00-0.50) 11/28/24 01:25 Baso # (Auto) 0.02 K/uL (0.00-0.20) 11/28/24 01:25 Immature Gran # (Auto) 0.02 K/uL (0.01-0.20) 11/28/24 01:25 PT 12.2 Seconds (9.0-12.0) H 11/28/24:25 INR 1.1 (0.9-1.1) 11/28/24 01:25 POC Sodium 141 mmol/L (135-144) 11/28/24 01:42 Sodium 140 mmol/L (136-145) 11/28/24 01:25 POC Potassium 4.1 mmol/L (3.3-5.0) 11/28/24 01:42 Potassium 4.1 mmol/L (3.5-5.1) 11/28/24 01:25 POC Chloride 102 mmol/L (101-112) 11/28/24 01:42 Chloride 106 mmol/L (98-107) 11/28/24 01:25 Carbon Dioxide 30 mmol/L (21-32) 11/28/24 01:25 POC Total CO2 26 mmol/L (24-31) 11/28/24 01:42 Anion Gap 4 (3-11) 11/28/24 01:25 POC Anion Gap 18.0 mmol/L (16-25) 11/28/24 01:42 POC BUN 20 mg/dl (7-18) H 11/28/24 01:42 BUN 22 mg/dl (6-23) 11/28/24 01:25 Creatinine 0.89 mg/dl (0.6-1.4) 11/28/24 01:25 POC Creatinine 1.0 mg/dl (0.6-1.3) 11/28/24 01:42 Est Cr Clr Drug Dosing 62.5 ml/min 11/28/24 01:25 eGFR 84.50 11/28/24 01:25 BUN/Creatinine Ratio 24.7 (10-20) H 11/28/24 01:25 Glucose 144 mg/dl (70-99(Fasting)) H 11/28/24 01:25 POC Glucose (other) 144 mg/dl (70-99) H 11/28/24 01:42 Lactate 0.7 mmol/L (0.4-2.0) 11/28/24 01:26 Calcium 8.1 mg/dl (8.6-10.3) L 11/28/24 01:25 POC Ioniz Calcium Indu 1.10 mmol/l (1.12-1.32) L 11/28/24 01:42 Magnesium 1.8 mg/dl (1.7-2.4) 11/28/24 01:25 Total Bilirubin 0.5 mg/dl (0.2-1.0) 11/28/24 01:25 Direct Bilirubin 0.1 mg/dl (0-0.2) 11/28/24 01:25 AST 52 U/L (13-39) H 11/28/24 01:25 ALT 32 U/L (7-52) 11/28/24 01:25 Alkaline Phosphatase 102 U/L (34-104) 11/28/24 01:25 Troponin I High Sens 11.2 pg/ml (0-20) 11/28/24 01:25 Total Protein 6.1 gm/dl (6.0-8.3) 11/28/24 01:25 Albumin 3.2 gm/dl (3.4-5.0) L 11/28/24 01:25 Lipase 5 U/L (11-82) L 11/28/24 01:25 TSH 1.505 uIu/ml (0.300-4.500) 11/28/24 01:25 Urine Color Dark Yellow 11/28/24 01:36 Urine Appearance Clear (Clear) 11/28/24 01:36 Urine pH 6.0 (4.5-7.5) 11/28/24 01:36 Ur Specific [place] 1.023 (1.000-1.030) 11/28/24 01:36 Urine Protein 1+ (Negative) H 11/28/24 01:36 Urine Glucose (UA) Negative (Negative) 11/28/24 01:36 Urine Ketones Trace (Negative) H 11/28/24 01:36 Urine Blood Trace (Negative) H 11/28/24 01:36 Urine Nitrite Negative (Negative) 11/28/24 01:36 Urine Bilirubin Negative (Negative) 11/28/24 01:36 Urine Urobilinogen Negative (Negative) 11/28/24 01:36 Ur Leukocyte Esterase Negative (Negative) 11/28/24 01:36 Urine WBC (Auto) 6-10 /hpf (0-5) H 11/28/24 01:36 Urine RBC (Auto) 6-10 /hpf (0-2) H 11/28/24 01:36 U Hyaline Cast (Auto) 6-10 /lpf (0-2) H 11/28/24 01:36 U Epithel Cells (Auto) 0-2 /hpf (0-2) 11/28/24 01:36 Urine Bacteria (Auto) None Seen (None Seen) 11/28/24 01:36 Adenovirus (PCR) Not Detected (NotDetected) 11/28/24 01:26 B. pertussis DNA (PCR) Not Detected (NotDetected) 11/28/24 01:26 B.parapertussis DNA PCR Not Detected (NotDetected) 11/28/24 01:26 C. pneumoniae DNA (PCR) Not Detected (NotDetected) 11/28/24 01:26 Coronavirus OC43 (PCR) Not Detected (NotDetected) 11/28/24 01:26 Coronavirus HKU1 (PCR) Not Detected (NotDetected) 11/28/24 01:26 Coronavirus 229E (PCR) Not Detected (NotDetected) 11/28/24 01:26 SARS-CoV-2 (PCR) Not Detected (NotDetected) 11/28/24 01:26 Coronavirus NL63 (PCR) Not Detected (NotDetected) 11/28/24 01:26 Human Metapneumovir PCR Not Detected (NotDetected) 11/28/24 01:26 Influenza Type A (PCR) Not Detected (NotDetected) 11/28/24 01:26 Influenza Type B (PCR) Not Detected (NotDetected) 11/28/24 01:26 M. pneumoniae (PCR) Not Detected (NotDetected) 11/28/24 01:26 Parainfluenza 1 (PCR) Not Detected (NotDetected) 11/28/24 01:26 Parainfluenza 2 (PCR) Not Detected (NotDetected) 11/28/24 01:26 Parainfluenza 3 (PCR) Not Detected (NotDetected) 11/28/24 01:26 Parainfluenza 4 (PCR) Not Detected (NotDetected) 11/28/24 01:26 RSV (PCR) Not Detected (NotDetected) 11/28/24 01:26 Entero/Rhino (PCR) Not Detected (NotDetected) 11/28/24 01:26 Impressions Chest X-Ray 11/28/24 01:13 EXAM: XR chest 1V portable CLINICAL HISTORY: Sepsis. TECHNIQUE: An X-ray image of the chest is obtained in AP projection. COMPARISON: 09/10/2023 FINDINGS: Rotated radiograph. Pulmonary Parenchyma: Bilateral lower lung zone ill-defined patchy opacities. Veiling opacity obscuring the left costophrenic recess questioning a trace of pleural effusion. Heart and Mediastinum: Heart shadow is enlarged. No mediastinal widening or masses. No hilar or mediastinal lymphadenopathy. Bony Thorax: Bony thorax appears intact without fractures or deformities. Degenerative changes of the acromioclavicular joints. Soft Tissues: Soft tissues overlying the chest wall are unremarkable. IMPRESSION: 1. Bilateral lung base opacities that could represent pneumonic infiltrations/aspiration pneumonitis for clinical correlation and follow up if needed. 2. Cardiomegaly. Electronically signed by Arnold Adame 11-28-2024 02:31 AM ECG Additional Comments: ECG. Atrial fibrillation at rate of 92. No significant change was found. Code Status & VTE Plan VTE Prophylaxis Plan VTE Prophylaxis will be ordered: Yes (1) Pneumonia Laterality: bilateral Lung location: lower lobe of lung Pneumonia type: due to unspecified organism Qualified Code(s): J18.9 - Pneumonia, unspecified organism
[2024-11-28] MEDS ORDERED: NITROGLYCERIN SL 0.4 MG/TAB TAB SL PRN (04:35)
[2024-11-28] MEDS ORDERED: POLYETHYLENE (MIRALAX) 17 GM PACK PO PRN (04:35)
[2024-11-28] MEDS: LORazepam 2 MG/1 ML VIAL IV STA (04:46)
[2024-11-28] MEDS: DOXYCYCLINE HYCLATE 100 MG in DEXTROSE 5% MINI-B 100 ML IV STA (05:52)
[2024-11-28] MEDS: SODIUM CHLORIDE 0.9% 1,000 ML IV SCH (05:55)
[2024-11-28] MEDS: LORazepam 1 MG TAB PO PRN (06:00)
[2024-11-28 08:08] LABS: Iron < 10 mcg/dl (35-175); Total Iron Binding Cap Calc 186 mcg/dl (250-450); Transferrin 133 mg/dl (200-360)
[2024-11-28 08:34] LABS: Folate (Folic Acid),Ser orPlas > 22.30 ng/ml (>5.38); Vitamin B12 392 pg/ml (180-914)
[2024-11-28] MEDS: METOPROLOL SUCC 25MG EXT REL TAB PO SCH (08:37)
[2024-11-28] MEDS: ENOXAPARIN INJ 40 MG/0.4 ML SYR SQ SCH (08:38)
[2024-11-28] MEDS: ACETAMINOPHEN 325 MG TAB PO PRN (10:41)
--- NOTE | 2024-11-28 11:03 | Communication Note ---
Date of Service: November 28, 2024 evaluated at bedside in ed very confused, agitated, in mits/soft restraints given concern for safety exam noted for elderly gentleman, persistent vocalizations, however unclear what patient is saying, CV and Resp exam limited 2/2 continued vocalization no edema in BLE #Bilateral pneumonia #c/f aspiration and dysphagia Fevering noted Will change abx to Unasyn for anaerobe coverage given c/f aspiration Speech with planned VFSS, downgrade diet to minced/moist, nectar thick liquids #Delirium and agitation #Dementia with psychotic distrubance will increase home olanizpine to 2.5 mg bid will avoid benzos Will schedule tylenol IV to ensure pain/fever control at this time rest of plan per hp
[2024-11-28] MEDS: ARIPiprazole 5 MG TAB PO SCH (11:32)
[2024-11-28] MEDS: OLANZAPINE 2.5 MG TAB PO SCH (11:36)
[2024-11-28] MEDS: AMPICILLIN/SULBACTAM SOD 3,000 MG/100 ML BAG IV SCH (11:37)
--- NOTE | 2024-11-28 13:14 | Electrocardiogram Report ---
Test Reason : Blood Pressure : */* mmHG Vent. Rate : 92 BPM Atrial Rate : * BPM P-R Int : * ms QRS Dur : 72 ms QT Int : 372 ms P-R-T Axes : * 51 48 degrees QTcB Int : 460 ms Atrial fibrillation Abnormal ECG When compared with ECG of 10-Sep-2023 22:07, No significant change was found Confirmed by Percy Wagner ([id number]) on 11/28/2024 1:14:28 PM Referred By: REFERRED SELF Confirmed By: Percy Wagner
[2024-11-28] MEDS: ACETAMINOPHEN 1,000 MG/100 ML VIAL IV SCH (13:28)
[2024-11-28] MEDS ORDERED: LORazepam 0.5 MG TAB PO SCH (17:00)
[2024-11-28] MEDS: DOXYCYCLINE HYCLATE 100 MG in DEXTROSE 5% MINI-B 100 ML IV SCH (17:40)
[2024-11-28] MEDS: TAMSULOSIN HCL 0.4 MG CAP PO SCH (20:56)
[2024-11-28] MEDS ORDERED: OLANZAPINE 2.5 MG TAB PO SCH (21:00)
[2024-11-28] MEDS ORDERED: cefTRIAXone SODIUM 2,000 MG/50 ML BAG IV SCH (22:00)
[2024-11-29 05:56] LABS: Basophils # (auto) 0.03 K/uL (0.00-0.20); Basophils % (auto) 0.4 %; Eosinophils # (auto) 0.04 K/uL (0.00-0.50); Eosinophils % (auto) 0.6 %; Hematocrit (blood only) 36.5 % (42.0-52.0); Hemoglobin 11.3 g/dl (14.0-18.0); Immature Granulocytes # (auto) 0.04 K/uL (0.01-0.20); Immature Granulocytes % (auto) 0.6 %; Lymphocytes # (auto) 0.45 K/uL (1.20-3.40); Lymphocytes % (auto) 6.5 %; Mean Corpuscular Volume 96.8 fL (80.0-100.0); Mean Platelet Volume 9.9 fL (9.4-12.4); Monocytes # (auto) 0.34 K/uL (0.11-0.59); Monocytes % (auto) 4.9 %; Neutrophils # (auto) 6.05 K/uL (1.40-6.50); Platelet Count 166 K/uL (130-400); RDW Coefficient of Variation 12.6 % (11.5-14.5); Red Blood Count 3.77 M/uL (4.70-6.10); White Blood Count 6.95 K/ul (4.8-10.8)
[2024-11-29 06:07] LABS: BUN Creatinine Ratio 17.9 (10-20); Calcium 8.7 mg/dl (8.6-10.3); Creatinine Clr Calc Pharmacy 71.3 ml/min; Magnesium 1.9 mg/dl (1.7-2.4); Phosphorus 3.5 mg/dl (2.5-4.9); Potassium 4.8 mmol/L (3.5-5.1)
[2024-11-29] MEDS: LORazepam 0.5 MG TAB PO SCH (08:27)
--- NOTE | 2024-11-29 17:14 | Hospitalist Progress Note ---
Date of Service November 29, 2024 Assessment & Plan (1) Pneumonia: Plan: Mr. wong is an 84-year-old male with past medical history significant for dyslipidemia, prediabetes, pulmonary emphysema, aortic root enlargement, chronic atrial fibrillation, nonsustained ventricular tachycardia, history of CAD, hypertension, mild valvular heart disease, diverticulosis of large intestine, BPH, severe DEMENTIA with psychotic disturbance, history of tobacco use, at risk for falls comes from home because of fever and weakness and admitted for multifocal pneumonia. 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 will meet for [facility] convo tomorrow 11/30 at 1pm #Bilateral pneumonia #c/f aspiration and dysphagia Fevering noted Will change abx to Unasyn for anaerobe coverage given c/f aspiration Speech with planned VFSS, downgrade diet to minced/moist, nectar thick liquids #Delirium and agitation #Dementia with psychotic distrubance continue increasde home olanizpine to 2.5 mg bid avoid benzos however on scheduled ativan 1mg BID, therefore will reduce to 0.5mg bid continue schedule tylenol IV to ensure pain/fever control at this time #Prediabetes a1c 6.1% ctm #BPH On Flomax #A-fib #History of nonsustained atrial tachycardia On metoprolol succinate Currently no longer on Coumadin Will monitor #History of CAD On metoprolol #Chronic Anemia Hemoglobin 10 stablet #Hypocalcemia Calcium 8.1 vitamin d 25.1 will replace as clincal status improves DVT prophylaxis Lovenox. Disposition Med/telemetry CODE STATUS full code, [facility] convo tomorrow Admission and Anticipated Discharge Date Admission Date: November 28, 2024 Subjective Agitated overnight extremely confused, disoriented unable to answer any questions Physical Exam Constitutional: awake, alert--not oriented to self Respiratory: diminished in bases, rhonchi/upper airways support Cardiovascular: RRR, no murmur, no edema Results & Data Results & Data Vital Signs (Past 12 Hours) Vital Signs Temp Pulse Pulse Resp BP Pulse Ox O2 Del Method 11/29/24 15:37 38.2 C H 92 H 18 107/51 L 92 Room Air 11/29/24 11:30 37.6 C H 92 H 20 117/72 96 Nasal Cannula 11/29/24 08:45 60 11/29/24 07:44 36.3 C L 82 18 114/56 L 94 Nasal Cannula 11/29/24 07:40 Room Air O2 Flow Rate 11/29/24 15:37 11/29/24 11:30 3 11/29/24 08:45 11/29/24 07:44 3 11/29/24 07:40 Laboratory Results Short CBC 11/29/24 Range/Units 05:32 WBC 6.95 (4.8-10.8) K/ul Hgb 11.3 L (14.0-18.0) g/dl Hct 36.5 L (42.0-52.0) % Plt Count 166 (130-400) K/uL BMP 11/29/24 05:32 Sodium 138 Potassium 4.8 Chloride 103 Carbon Dioxide 32 BUN 14 Creatinine 0.78 Glucose 113 H Calcium 8.7 Medications Administered Home Medications Medication Instructions Recorded Confirmed Last Taken lorazepam 1 mg tablet 1 mg PO TID PRN Anxiety 11/28/24 11/28/24 Unknown metoprolol succinate 25 mg 25 mg PO DAILY 11/28/24 11/28/24 Unknown tablet,extended release 24 hr olanzapine 2.5 mg tablet 2.5 mg PO HS 11/28/24 11/28/24 Unknown tamsulosin 0.4 mg capsule 0.4 mg PO HS 11/28/24 11/28/24 Unknown Active Medications Generic Name Dose Route Start Last Admin Trade Name Napoleonq PRN Reason Stop Dose Admin Enoxaparin Sodium 40 mg 11/28/24 09:00 11/29/24 08:24 Enoxaparin Inj 40 Mg/0.4 Ml Syr SQ 12/28/24 08:59 40 mg Q24H CAHYO Administration Doxycycline Hyclate 100 mg/ 100 mls @ 50 mls/hr 11/28/24 18:00 11/29/24 08:20 Dextrose IV 12/03/24 17:59 Infused Q12H CHAYO Infusion Ampicillin Sodium/Sulbactam Sodium 3,000 mg in 100 mls @ 200 mls/hr 11/28/24 11:00 11/29/24 16:46 Unasyn IV 12/03/24 10:59 Infused Q6H CHAYO Infusion Acetaminophen 1,000 mg in 100 mls @ 400 mls/hr 11/28/24 14:15 11/29/24 15:12 Ofirmev IV 12/01/24 14:14 Infused Q8H CHAYO Infusion Lorazepam 0.5 mg 11/29/24 09:00 11/29/24 16:14 Lorazepam 0.5 Mg Tab PO 12/29/24 08:59 Not Given BID17 CHAYO Metoprolol Succinate 25 mg 11/28/24 09:00 11/29/24 08:24 Metoprolol Succ 25mg Ext Rel Tab PO 12/28/24 08:59 25 mg DAILY CHAYO Administration Olanzapine 2.5 mg 11/28/24 11:15 11/29/24 08:24 Olanzapine 2.5 Mg Tab PO 12/28/24 11:14 2.5 mg BID CHAYO Administration Tamsulosin HCl 0.4 mg 11/28/24 21:00 11/28/24 20:56 Tamsulosin Hcl 0.4 Mg Cap PO 12/28/24 20:59 0.4 mg HS CHAYO Administration (1) Pneumonia Laterality: bilateral Lung location: lower lobe of lung Pneumonia type: due to unspecified organism Qualified Code(s): J18.9 - Pneumonia, unspecified organism
[2024-11-29 20:27] VITALS: TEMP 98.2
[2024-11-29] MEDS ORDERED: METOPROLOL TARTRATE 1 MG/ML VIAL IV PRN (20:52)
[2024-11-29] MEDS: LORazepam 0.5 MG TAB SL SCH (22:27)
--- NOTE | 2024-11-30 03:06 | CT Scan Report ---
EXAM: CT head/brain wo con CLINICAL HISTORY: AMS TECHNIQUE: Multiple axial images are obtained from the skull base to the vertex without contrast. CT scan was performed according to ALARA (as low as reasonably achievable). COMPARISON: none FINDINGS: There is cerebral atrophy. No evidence of space occupying lesion, hemorrhage, edema, mass effect, midline shift, extra axial collection, or hydrocephalus is noted. Basal cisterns are symmetric and normal in size and configuration. There are scattered periventricular hypodensities as can be seen with chronic microvascular ischemic changes. The hsu-white matter differentiation is preserved. Visualized paranasal sinuses and mastoid air cells are well aerated. Orbital contents are within normal limits. Bony structures are intact. IMPRESSION: 1. No evidence of acute intracranial abnormality is demonstrated. 2. Chronic microvascular ischemic changes. 3. Cerebral atrophy. Electronically signed by Migue Clayton 11-30-2024 03:06 AM
[2024-11-30 03:32] LABS: Base Excess VBG 1.3 mEq/L; HCO3 VBG 35 mmol/L; Oxygen Saturation VBG 89.5 %; PCO2 VBG 111 mmHg (38-50); PO2 VBG 60 mmHg
[2024-11-30 03:51] LABS: Hematocrit (blood only) 38.8 % (42.0-52.0); Hemoglobin 11.7 g/dl (14.0-18.0); Mean Corpuscular Hemoglobin 30.3 pg (25.0-34.0); Mean Corpuscular Hgb Conc 30.2 g/dL (32.0-36.0); Mean Corpuscular Volume 100.5 fL (80.0-100.0); Mean Platelet Volume 10.7 fL (9.4-12.4); Platelet Count 175 K/uL (130-400); RDW Coefficient of Variation 12.5 % (11.5-14.5); RDW Standard Deviation 46.8 fL (36.4-46.3); Red Blood Count 3.86 M/uL (4.70-6.10); White Blood Count 9.65 K/ul (4.8-10.8)
[2024-11-30 04:06] LABS: BUN Creatinine Ratio 23.8 (10-20); Calcium 8.9 mg/dl (8.6-10.3); Creatinine Clr Calc Pharmacy 55.8 ml/min; Magnesium 2.3 mg/dl (1.7-2.4); Phosphorus 7.1 mg/dl (2.5-4.9)
[2024-11-30] MEDS: D5W AND NSS 1,000 ML IV SCH (04:07)
[2024-11-30 04:51] LABS: Appearance Urine Cloudy (Clear); Bacteria Urine Automated None Seen (None Seen); Bilirubin Urine Negative (Negative); Blood Urine Trace (Negative); Cast Urine Automated >20 /lpf (0-2); Color Urine Dark Yellow; Glucose Urine UA Negative (Negative); Ketones Urine Trace (Negative); Leukocyte Esterase Urine Negative (Negative); Nitrite Urine Negative (Negative); Protein Urine 2+ (Negative); RBC Urine Automated 0-2 /hpf (0-2); Specific Gravity Urine 1.028 (1.000-1.030); Urobilinogen Urine Negative (Negative); WBC Urine Automated 0-5 /hpf (0-5)
[2024-11-30 06:39] LABS: Base Excess VBG 3.2 mEq/L; HCO3 VBG 34 mmol/L; PCO2 VBG 90 mmHg (38-50); PO2 VBG 33 mmHg; pH VBG 7.19 (7.36-7.41)
[2024-11-30 08:02] VITALS: BP 97/63; PULSE 92; RESP 20; O2SAT 97
[2024-11-30] MEDS: OLANZapine 10 MG/2.1 ML SDV IM STA (10:06)
[2024-11-30 10:23] LABS: iSTAT Arterial Blood Gas HCO3 33 meg/L (19-24); iSTAT Arterial Blood Gas pCO2 75 mmHg (35-46); iSTAT Arterial Blood Gas pH 7.25 (7.35-7.45); iSTAT Arterial Blood Gas pO2 14 mmHg (80-95); iSTAT Carbon Dioxide 35 mmol/L (24-31); iSTAT Hematocrit 35 % (42-52); iSTAT Hemoglobin 11.9 g/dl (14.0-18.0); iSTAT Potassium 3.7 mmol/L (3.3-5.0); iSTAT Sodium 144 mmol/L (135-144)
[2024-11-30] MEDS ORDERED: MoRPHine SULFATE 10 MG/0.5 ML UDP PO PRN (10:24)
[2024-11-30] MEDS ORDERED: ONDANSETRON INJ 2 MG/ML 2 ML VIAL IV PRN (10:24)
--- NOTE | 2024-11-30 10:54 | XRay Report ---
XR chest 1V portable CLINICAL HISTORY: hypoxia COMPARISON STUDY: 11/28/2024 FINDINGS: Stable mild cardiomegaly without pulmonary vascular congestion. There is increased hazy opa [place] at the left base with obscuration of left hemidiaphragm. No pneumothorax. IMPRESSION: Increased left lung base opacity could represent atelectasis, pneumonia, or pleural effu tressa. ACT 112: Negative or not required by law. Electronically signed by: Gene King M.D. 11/30/2024 10:53 AM
[2024-11-30] MEDS: MoRPHine SULF 100 MG/100 ML BAG IV SCH (11:18)
[2024-11-30] MEDS: MoRPHine BOLUS from BAG IV PRN (11:22)
[2024-11-30] MEDS: STAT IV Infusion **Titration per Protocol STA (11:46)
[2024-11-30] MEDS: LORazepam 2 MG/1 ML VIAL IV PRN (13:15)
[2024-11-30] MEDS: HALOPERIDOL ORAL SOLN 2 MG/ML PO PRN (13:15)
--- NOTE | 2024-11-30 14:01 | Hospitalist Progress Note ---
Date of Service November 30, 2024 Assessment & Plan (1) Pneumonia: Plan: Mr. wong is an 84-year-old male with past medical history significant for dyslipidemia, prediabetes, pulmonary emphysema, aortic root enlargement, chronic atrial fibrillation, nonsustained ventricular tachycardia, history of CAD, hypertension, mild valvular heart disease, diverticulosis of large intestine, BPH, severe DEMENTIA with psychotic disturbance, history of tobacco use, at risk for falls comes from home because of fever and weakness and admitted for multifocal pneumonia. Patient's course complicated by severe delirium and agitation Discussed terminal carman plans with --hospice v placement on 11/29. Patient decompensated from a respiratory standpoint on 11/29, likely iso sedation for agitation; however, patient not tolerating bipap and agitated. Further discussed care with --and decision made to pursue comfort measures and hospice. #Comfort care measures #Delirium and agitation #Dementia with psychotic distrubance continue increased home olanizpine to 2.5 mg bid avoid benzos however on scheduled ativan 1mg BID, therefore will reduce to 0.5mg bid Starting comfort measures #Bilateral pneumonia #Acute respiratory acidosis #Acute toxic metabolic encephalopathy, multifactorial #c/f aspiration and dysphagia Fevering noted NPO for now, will encourage comfort feeds as tolerated Discontinue bipap for now oxygen for comfort #Prediabetes a1c 6.1% ctm #BPH On Flomax #A-fib #History of nonsustained atrial tachycardia On metoprolol succinate Currently no longer on Coumadin Will monitor #History of CAD On metoprolol #Chronic Anemia Hemoglobin 10 stablet #Hypocalcemia Calcium 8.1 vitamin d 25.1 Disposition med tele, downgrade CODE STATUS dnr/dni I spent a total of 75 minutes coordinating, documenting, and providing care for this patient excluding time spent in the performance of separately billed services. Admission and Anticipated Discharge Date Admission Date: November 28, [address] on bipap overnight and notably obtunded Unable to tolerate bipap in am 2/2 agitation Discussed case with on phone--ultimately agreed that there is nothing further medically we can do for longer term quality of life. 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 for plans for hospice Physical Exam Constitutional: agitated, restless Respiratory: tachypnea, rhochi Cardiovascular: RRR, no murmur, no edema Musculoskeletal: moving all limbs appropriately Results & Data Results & Data Vital Signs (Past 12 Hours) Vital Signs Pulse Pulse Resp BP Pulse Ox O2 Del Method O2 Flow Rate 11/30/24 08:01 92 H 20 97/63 L 97 BiPAP 11/30/24 07:31 86 18 93 11/30/24 05:31 109 H 19 95 11/30/24 02:15 87 25 H 112/70 97 Oxymask 7 FiO2 11/30/24 08:01 11/30/24 07:31 45 11/30/24 05:31 50 11/30/24 02:15 Laboratory Results Short CBC 11/30/24 Range/Units 03:24 WBC 9.65 (4.8-10.8) K/ul Hgb 11.7 L (14.0-18.0) g/dl Hct 38.8 L (42.0-52.0) % Plt Count 175 (130-400) K/uL BMP 11/30/24 03:24 Sodium 144 Potassium 5.0 Chloride 103 Carbon Dioxide 36 H BUN 25 H Creatinine 1.05 Glucose 186 H Calcium 8.9 Urine 11/30/24 Range/Units 04:18 Urine Color Dark Yellow Urine Appearance Cloudy A (Clear) Urine pH 5.0 (4.5-7.5) Ur Specific [place] 1.028 (1.000-1.030) Urine Protein 2+ H (Negative) Urine Glucose (UA) Negative (Negative) Medications Administered Home Medications Medication Instructions Recorded Confirmed Last Taken lorazepam 1 mg tablet 1 mg PO TID PRN Anxiety 11/28/24 11/28/24 Unknown metoprolol succinate 25 mg 25 mg PO DAILY 11/28/24 11/28/24 Unknown tablet,extended release 24 hr olanzapine 2.5 mg tablet 2.5 mg PO HS 11/28/24 11/28/24 Unknown tamsulosin 0.4 mg capsule 0.4 mg PO HS 11/28/24 11/28/24 Unknown Active Medications Generic Name Dose Route Start Last Admin Trade Name Freq PRN Reason Stop Dose Admin Enoxaparin Sodium 40 mg 11/28/24 09:00 11/30/24 07:38 Enoxaparin Inj 40 Mg/0.4 Ml Syr SQ 12/28/24 08:59 40 mg Q24H CHAYO Administration Haloperidol 0.5 mg 11/30/24 10:24 11/30/24 13:15 Haloperidol Oral Soln 2 Mg/Ml PO 12/30/24 10:23 0.5 mg Q4H PRN Administration Anxiety/Agitation Morphine Sulfate 100 mg in 100 mls @ 1.5 mls/hr 11/30/24 10:30 11/30/24 13:05 Morphine Sulf IV 12/14/24 10:29 1.5 mg/hr .[id number] CHAYO 1.5 mls/hr Titration Protocol 1.5 MG/HR Lorazepam 0.5 mg 11/30/24 10:24 11/30/24 13:15 Lorazepam 2 Mg/1 Ml Vial IV 12/30/24 10:23 0.5 mg Q4H PRN Administration Anxiety/Agitation Morphine Sulfate 1 mg 11/30/24 10:29 11/30/24 13:04 Morphine Bolus From Bag IV 12/14/24 10:28 1 mg Q15M PRN Administration Comfort Care Parameters Olanzapine 2.5 mg 11/28/24 11:15 11/29/24 21:35 Olanzapine 2.5 Mg Tab PO 12/28/24 11:14 Not Given BID CHAYO (1) Pneumonia Laterality: bilateral Lung location: lower lobe of lung Pneumonia type: due to unspecified organism Qualified Code(s): J18.9 - Pneumonia, unspecified organism
[2024-11-30] MEDS: GLYCOPYRROLATE 0.2 MG/ML VIAL IV PRN (19:58)
--- NOTE | 2024-12-01 08:19 | Discharge Summary ---
Discharge Summary Date of Service December 01, 2024 Principal Dx & Hospital Course #1 = Principal Diagnosis (1) Pneumonia: Mr. wong is an 84-year-old male with past medical history significant for dyslipidemia, prediabetes, pulmonary emphysema, aortic root enlargement, chronic atrial fibrillation, nonsustained ventricular tachycardia, history of CAD, hypertension, mild valvular heart disease, diverticulosis of large intestine, BPH, severe DEMENTIA with psychotic disturbance, history of tobacco use, at risk for falls comes from home because of fever and weakness and admitted for multifocal pneumonia. 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 Patient decompensated from a respiratory standpoint on 11/29, likely iso sedation for agitation; however, patient not tolerating bipap and agitated. Further discussed care with --and decision made to pursue comfort measures and hospice. Patient ultimately succumbed to respiratory failure iso aspiration and m ultifocal pneumonia He was treated for the following #Comfort care measures #Delirium and agitation #Dementia with psychotic disturbance continue increased home olanizpine to 2.5 mg bid avoid benzos however on scheduled ativan 1mg BID, therefore will reduce to 0.5mg bid Starting comfort measures #Bilateral pneumonia #Acute respiratory acidosis #Acute toxic metabolic encephalopathy, multifactorial #c/f aspiration and dysphagia Fevering noted NPO for now, will encourage comfort feeds as tolerated Discontinue bipap for now oxygen for comfort #Prediabetes a1c 6.1% ctm #BPH On Flomax #A-fib #History of nonsustained atrial tachycardia On metoprolol succinate Currently no longer on Coumadin Will monitor #History of CAD On metoprolol #Chronic Anemia Hemoglobin 10 stablet #Hypocalcemia Calcium 8.1 vitamin d 25.1 Notes For Next Care Provider Medication Changes From Visit Admission HPI Per Admitting Provider 84-year-old male with past medical history significant for dyslipidemia, prediabetes, pulmonary emphysema, aortic root enlargement, chronic atrial fibrillation, nonsustained ventricular tachycardia, history of CAD, hypertension, mild valvular heart disease, diverticulosis of large intestine, BPH, severe DEMENTIA with psychotic disturbance, history of tobacco use, at risk for falls comes from home because of fever and weakness. Patient has severe dementia. Patient is restless. Patient cannot give any history. is in the room. As per patient was having difficulty getting out of bed which he usually does not have problem. When she checked temperature it was 101 F and when checked again it was 103 F and she brought him to the hospital. As per patient has very severe dementia. Sometimes he can know his name. Looking at the PCP's notes patient seems to be having lot of agitation lately at home and was on Ativan and also Zyprexa was added. As per PCP notes there is a plan for consideration for hospice for his dementia. As per no recent nausea or vomiting. Was having some cough. Somewhat constipated. Usually ambulates okay. Eats regular food. Past medical history. As mentioned above Past surgical history. Colonoscopy. Excision of right submandibular sebaceous cyst. Open repair of right inguinal hernia. Social history. . Quit smoking 1992. Smoked 1.5 packs a day for 30 years. No alcohol use currently. No drug use. Family history. Brother had colon cancer. Mother had diabetes. GA. Father had GA. Sister has diabetes. Daughter has valvular heart disease. Admission Exam Per Admitting Provider General- Confused. restless Head- atraumatic Eyes- PERRL. ENT- oropharynx dry Neck- supple, no JVD. Lungs- clear to auscultation no wheezing or crackles Heart- regular rhythm; no murmur, no gallop. Abdomen- normal bowel sounds, soft, nontender, no distension Extremities- no pretibial edema, no erythema seen Neuro- alert, and awake, confused, restless; PERRL, no facial palsy; no dysarthria; moves extremities Discharge Exam General: unresponsive, no spontaneous movements, no response to verbal or tactile stimuli. Eyes: pupils fixed and dilated, corneal reflexes absent. CV: no heart sounds, no carotid pulses. Lungs: no breath sounds, no chest wall motion. Extremities: absent distal pulses Updated Medication List Medication Instructions Recorded Confirmed Type lorazepam 1 mg tablet 1 mg PO TID PRN Anxiety 11/28/24 11/28/24 History metoprolol succinate 25 mg 25 mg PO DAILY 11/28/24 11/28/24 History tablet,extended release 24 hr olanzapine 2.5 mg tablet 2.5 mg PO HS 11/28/24 11/28/24 History tamsulosin 0.4 mg capsule 0.4 mg PO HS 11/28/24 11/28/24 History Hospital Stay Data Consultations 11/28/24 03:02 ED Decision to Admit Stat Diagnostic Imagining Performed 11/30/24 01:02 CT head/brain wo con Stat Total Time Total Time Spent Total Time Spent (In Minutes): 35
--- NOTE | 2024-12-01 08:20 | Communication Note ---
Date of Service: December 01, 2024 I was called to patients bedside to pronounce patient as . No spontaneous movements were present. There was no response to verbal or tactile stimuli. Pupils were mid-dilated and fixed. No carotid pulses were palpable. No heart sounds were auscultated over entire precordium. Family was notified. The family has not made a decision of autopsy at the time of this note. 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 Patient was DNR at time of . Time of was 0815 on 12/01/2024 General: unresponsive, no spontaneous movements, no response to verbal or tactile stimuli. Eyes: pupils fixed and dilated, corneal reflexes absent. CV: no heart sounds, no carotid pulses. Lungs: no breath sounds, no chest wall motion. Extremities: absent distal pulses
== END 2024-12-01 10:41 | disposition expired | DRG 193 ==
LOC: ED 01:07 → EDINP 03:51 → SUATTDRO 03:51 → EDINP 04:36 → 2W 11:52 → 3N 11-30 15:27